=== PATIENT | female | born 1950 | race Caucasian/White ===

== ENCOUNTER 2017-08-31 08:00 | Inpatient (IN) | payer MEDICARE ==
[2017-08-31] MEDS: MAGNESIUM SULFATE/D5W 1 GM/100 ML RTUPB IV SCH ×2 (08:06→08:23)
[2017-08-31] MEDS ORDERED: MAGNESIUM SULFATE/D5W 2 GM/200 ML RTUPB IV ONE (08:07)
--- NOTE | 2017-08-31 08:09 | ER Document Report ---
ED Respiratory Problem - General Stated Complaint: DIFFICULTY BREATHING Time Seen by Provider: 08/31/17 08:07 Notes: 67-year-old female. History of COPD. Was having difficult to breathing yesterday. MS saw patient yesterday as a home visit. Breathing treatments were given and patient refused to come to the hospital. Today, breathing got worse. She was hypoxic on arrival and very somnolent. EMS contemplated intubation but they were able to get CPAP going on her. At the time of arrival by EMS patient was satting in the 70s with heart rates in the 130s. Patient was given volume and started on CPAP. 125 mg of Solu-Medrol was given. Patient was seen immediately on arrival. RSI kit was available but decision was made to continue with CPAP. 2 g of magnesium given immediately. Patient given hour-long breathing treatment with 10 mg of albuterol Atrovent. Patient denies any chest pain, abdominal pain, fever, chills, sweats. Denies any skin lesions. Denies any problems with her HEENT. - HPI Patient complains to provider of: COPD, Short of breath Onset: Yesterday - Related Data Allergies/Adverse Reactions: Penicillins Allergy (Verified 08/31/17 09:09) "cillins" Allergy (Uncoded 08/31/17 09:10) Past Medical History - General Information source: Patient - Social History Smoking Status: Current Every Day Smoker Cigarette use (# per day): Yes Frequency of alcohol use: None Drug Abuse: None Lives with: Alone Family History: Reviewed & Not Pertinent - Past Medical History Cardiac Medical History: Reports: None Pulmonary Medical History: Reports: Hx COPD, Hx Respiratory Failure Endocrine Medical History: Reports: Hx Diabetes Mellitus Type 2 Malignancy Medical History: Reports: None GI Medical History: Reports: None Musculoskeltal Medical History: Reports None Skin Medical History: Reports None Review of Systems - Review of Systems Constitutional: denies: Fever, Malaise, Weakness EENT: denies: Blurred vision, Double vision, Ear pain, Throat pain, Difficulty swallowing, Throat swelling Cardiovascular: Heart racing, Dyspnea. denies: Chest pain, Palpitations, Syncope, Dizziness Respiratory: Cough, Short of breath, Wheezing Gastrointestinal: denies: Abdominal pain, Diarrhea, Nausea, Vomiting Genitourinary: denies: Burning, Dysuria, Discharge Musculoskeletal: denies: Back pain, Gout, Joint pain, Muscle pain Hematologic/Lymphatic: denies: Anemia, Blood clots, Easy bleeding, Easy bruising Neurological/Psychological: denies: Confusion, Depression, Weakness Physical Exam - Vital signs Vitals: Resp Pulse Ox 25 H 94 08/31/17 08:03 08/31/17 08:03 Interpretation: Tachycardic - General General appearance: Alert In distress: Severe - HEENT Head: Normocephalic, Atraumatic Eyes: Normal Pupils: PERRL - Respiratory Respiratory status: Respiratory distress, Labored Chest status: Nontender Breath sounds: Normal Chest palpation: Normal - Cardiovascular Rhythm: Tachycardia Heart sounds: Normal auscultation Murmur: No - Abdominal Inspection: Normal Distension: No distension Bowel sounds: Normal Tenderness: Nontender Organomegaly: No organomegaly - Back Back: Normal, Nontender - Extremities General upper extremity: Normal inspection, Nontender, Normal color, Normal ROM , Normal temperature. No: Edema General lower extremity: Normal inspection, Nontender, Normal color, Normal ROM , Normal temperature, Normal weight bearing. No: Edema, Almas's sign - Neurological Neuro grossly intact: Yes Cognition: Normal Orientation: AAOx4 Adela Coma Scale Eye Opening: Spontaneous Adela Coma Scale Verbal: Oriented Adela Coma Scale Motor: Obeys Commands Adela Coma Scale Total: 15 Speech: Normal Motor strength normal: LUE, RUE, LLE, RLE Sensory: Normal - Psychological Associated symptoms: Normal affect, Normal mood - Skin Skin Temperature: Warm Skin Moisture: Dry Skin Color: Normal Course - Vital Signs Vital signs: Temp Pulse Resp BP Pulse Ox 96.9 F L 17 114/79 97 08/31/17 08:30 08/31/17 09:01 08/31/17 09:01 08/31/17 09:01 Laboratory 08/31/17 08/31/17 08/31/17 08:10 08:10 08:10 WBC 10.8 H RBC 5.10 Hgb 15.5 Hct 45.6 MCV 90 MCH 30.3 MCHC 33.9 RDW 15.1 H Plt Count 350 Seg Neutrophils % 59.6 Lymphocytes % 31.0 Monocytes % 8.4 Eosinophils % 0.6 Basophils % 0.4 Absolute Neutrophils 6.4 Absolute Lymphocytes 3.4 Absolute Monocytes 0.9 Absolute Eosinophils 0.1 Absolute Basophils 0.0 Carbonic Acid HCO3/H2CO3 Ratio ABG pH ABG pCO2 ABG pO2 ABG HCO3 ABG Total CO2 ABG O2 Saturation ABG Base Excess FiO2 Sodium 138.6 Potassium 4.5 Chloride 103 Carbon Dioxide 25 Anion Gap 11 BUN 13 Creatinine 0.48 L Est GFR ( Amer) > 60 Est GFR (Non-Af Amer) > 60 Glucose 161 H Lactic Acid Calcium 9.0 Total Bilirubin 0.6 Direct Bilirubin 0.4 Neonat Total Bilirubin Not Reportable Neonat Direct Bilirubin Not Reportable Neonat Indirect Bili Not Reportable AST 19 ALT 21 Alkaline Phosphatase 74 Troponin I < 0.012 NT-Pro-B Natriuret Pep 89 Total Protein 7.0 Albumin 4.4 08/31/17 08/31/17 08/31/17 08:10 08:10 09:05 WBC RBC Hgb Hct MCV MCH MCHC RDW Plt Count Seg Neutrophils % Lymphocytes % Monocytes % Eosinophils % Basophils % Absolute Neutrophils Absolute Lymphocytes Absolute Monocytes Absolute Eosinophils Absolute Basophils Carbonic Acid 1.63 H HCO3/H2CO3 Ratio 17:1 ABG pH 7.35 ABG pCO2 54.0 H ABG pO2 335.8 H ABG HCO3 29.2 H ABG Total CO2 30.9 H ABG O2 Saturation 99.7 H ABG Base Excess 2.3 FiO2 80% Sodium Potassium Chloride Carbon Dioxide Anion Gap BUN Creatinine Est GFR ( Amer) Est GFR (Non-Af Amer) Glucose Lactic Acid Cancelled 3.0 H Calcium Total Bilirubin Direct Bilirubin Neonat Total Bilirubin Neonat Direct Bilirubin Neonat Indirect Bili AST ALT Alkaline Phosphatase Troponin I NT-Pro-B Natriuret Pep Total Protein Albumin Chest X-Ray 08/31/17 08:08 IMPRESSION: Linear airspace opacities in the lung bases bilaterally, likely representing atelectasis. A superimposed infectious process is not entirely excluded. Patient with respiratory distress on arrival. Continued on CPAP. ABG shows elevated POC2 Doing much better at this time . Levaquin started. Lactate slightly elevated. Will continue to follow that. Consulted the hospitalist, Dr. Waters will admit at this time. - Laboratory Result Diagrams: 08/31/17 08:10 08/31/17 08:10 Laboratory results interpreted by me: 08/31/17 08/31/17 08/31/17 08:10 08:10 08:10 WBC 10.8 H RDW 15.1 H Carbonic Acid ABG pCO2 ABG pO2 ABG HCO3 ABG Total CO2 ABG O2 Saturation Creatinine 0.48 L Glucose 161 H Lactic Acid 3.0 H 08/31/17 09:05 WBC RDW Carbonic Acid 1.63 H ABG pCO2 54.0 H ABG pO2 335.8 H ABG HCO3 29.2 H ABG Total CO2 30.9 H ABG O2 Saturation 99.7 H Creatinine Glucose Lactic Acid - EKG Interpretation by Pa EKG shows normal: Sinus rhythm, Mclean, Intervals, QRS Complexes, ST-T Waves Discharge - Discharge Clinical Impression: COPD exacerbation Respiratory failure Qualifiers: Chronicity: acute on chronic Respiratory failure complication: hypercapnia Qualified Code(s): J96.22 - Acute and chronic respiratory failure with hypercapnia Disposition: ADMITTED OBSERVATION Admitting Provider: Hospitalist - Dr. Mireles Unit Admitted: [facility]
[2017-08-31] MEDS ORDERED: ALBUTEROL SULFATE 0.083% NEB 2.5 MG/3 ML AMPUL NEB ONE ×2 (08:10→09:08)
[2017-08-31 08:38] LABS: ABSOLUTE EOSINOPHILS # (AUTO) 0.1 10^3/uL (0.0-0.6); ABSOLUTE LYMPHOCYTES (AUTO) 3.4 10^3/uL (0.5-4.7); ABSOLUTE MONOCYTES (AUTO) 0.9 10^3/uL (0.1-1.4); ABSOLUTE NEUT (AUTO) 6.4 10^3/uL (1.7-8.2); BASOPHILS % (AUTO) 0.4 % (0-2); EOSINOPHILS % (AUTO) 0.6 % (0-6); HEMATOCRIT 45.6 % (36.0-47.0); HEMOGLOBIN 15.5 g/dL (12.0-15.5); MEAN CORPUSCULAR HEMOGLOBIN 30.3 pg (27.0-33.4); MEAN CORPUSCULAR HGB CONC 33.9 g/dL (32.0-36.0); MEAN CORPUSCULAR VOLUME 90 fl (80-97); MONOCYTES % (AUTO) 8.4 % (3-13); PLATELET COUNT 350 10^3/uL (150-450); RED CELL DISTRIBUTION WIDTH 15.1 % (11.5-14.0); SEGMENTED NEUTROPHILS % (AUTO) 59.6 % (42-78); TOTAL CELLS COUNTED % (AUTO) 100 %; WHITE BLOOD COUNT 10.8 10^3/uL (4.0-10.5)
[2017-08-31 08:56] LABS: ALANINE AMINOTRANSFERASE 21 U/L (9-52); ALBUMIN 4.4 g/dL (3.5-5.0); ALKALINE PHOSPHATASE 74 U/L (38-126); ANION GAP 11 (5-19); ASPARTATE AMINO TRANSFERASE 19 U/L (14-36); BILIRUBIN,DIRECT 0.4 mg/dL (0.0-0.4); BILIRUBIN,TOTAL 0.6 mg/dL (0.2-1.3); BLOOD UREA NITROGEN 13 mg/dL (7-20); CARBON DIOXIDE 25 mmol/L (22-30); CHLORIDE 103 mmol/L (98-107); GLUCOSE 161 mg/dL (75-110); POTASSIUM 4.5 mmol/L (3.6-5.0); SODIUM 138.6 mmol/L (137-145)
--- NOTE | 2017-08-31 08:56 | EKG REPORT ---
SEVERITY:- BORDERLINE ECG - SINUS RHYTHM NONSPECIFIC ST-T CHANGES LATERAL LEADS. : Confirmed by: Eric Ness MD 31-Aug-2017 08:56:22
[2017-08-31 09:08] LABS: NT PRO BNP 89 pg/mL (5-900)
[2017-08-31 09:09] LABS: TROPONIN I < 0.012 ng/mL
[2017-08-31 09:11] LABS: ARTERIAL BLOOD BASE EXCESS 2.3 mmol/L; ARTERIAL BLOOD FIO2 80%; ARTERIAL BLOOD H2CO3 1.63 mmol/L (1.05-1.35); ARTERIAL BLOOD HCO3 29.2 mmol/L (20-26); ARTERIAL BLOOD O2 SATURATION 99.7 % (94-98); ARTERIAL BLOOD PH 7.35 (7.35-7.45); ARTERIAL BLOOD PO2 335.8 mmHg (80-100); ARTERIAL BLOOD TOTAL CO2 30.9 mmol/L (21-25)
[2017-08-31] MEDS ORDERED: LEVOFLOXACIN 750 MG/D5W RTU 750 MG/150 ML RTUPB IV ONE (09:18)
--- NOTE | 2017-08-31 09:18 | RADIOLOGY REPORT (SQ) ---
EXAM DESCRIPTION: CHEST SINGLE VIEW COMPLETED DATE/TIME: 08/31/2017 8:42 am REASON FOR STUDY: sob COMPARISON: None. EXAM PARAMETERS: NUMBER OF VIEWS: One view. TECHNIQUE: Single frontal radiographic view of the chest acquired. RADIATION DOSE: NA LIMITATIONS: Patient positioning/ rotation FINDINGS: LUNGS AND PLEURA: There are some linear airspace opacities in the lung bases bilaterally, likely atelectasis. MEDIASTINUM AND HILAR STRUCTURES: The mediastinum appears wide, however this is likely due to rotatio n of the. HEART AND VASCULAR STRUCTURES: Heart normal in size. Normal vasculature. BONES: No acute findings. HARDWARE: None in the chest. OTHER: No other significant finding. IMPRESSION: Linear airspace opacities in the lung bases bilaterally, likely representing atelectasis . A superimposed infectious process is not entirely excluded. TECHNICAL DOCUMENTATION: JOB ID: [id number] [employer]- All Rights Reserved Reading location - IP/workstation name: [email or web address]
[2017-08-31] MEDS ORDERED: OXYCODONE-ACETAMINOPHEN 5-325 MG TABLET PO PRN (11:07)
[2017-08-31] MEDS ORDERED: MAG HYDROX/AL HYDROX/SIMETH SUSP 30 ML UDCUP PO PRN (11:07)
[2017-08-31] MEDS ORDERED: ACETAMINOPHEN 325 MG TABLET PO PRN (11:07)
[2017-08-31] MEDS ORDERED: PROMETHAZINE HCL 25 MG TABLET PO PRN (11:07)
[2017-08-31] MEDS ORDERED: (PENDING PHARMACY ID) (Tiotropium Bromide [Spiriva Respimat] 2 PUFF) IH SCH (11:30)
[2017-08-31] MEDS ORDERED: (PENDING PHARMACY ID) (Mometasone/Formoterol [Dulera 200 Mcg/5 Mcg Inhaler] 2 PUFF) IH SCH ×2 (11:30→18:00)
[2017-08-31] MEDS ORDERED: GLUCAGON,HUMAN RECOMB 1 MG INJ IM PRN (11:49)
[2017-08-31] MEDS ORDERED: DEXTROSE 40% GEL 15 GM TUBE PO PRN ×2 (11:49)
[2017-08-31] MEDS ORDERED: DEXTROSE 50%-WATER 25 GM/50 ML DISP.SYRIN IV PRN ×2 (11:49)
--- NOTE | 2017-08-31 11:49 | PDOC H&P ---
History of Present Illness Admission Date/PCP: 08/31/17 09:59 PCP equals Jeffery Monsalve; section forest fire warden equals Marquise Batista History of Present Illness: BRUCE GALAN is a 67 year old female with underlying COPD and obstructive sleep apnea. 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 The patient states that she has been doing poorly since April. In April she did receive the flu shot. Shortly thereafter she was diagnosed with a sinus infection followed by an ear infection then a recurrent sinus infection which led to bronchitis. She has been treated with several rounds of antibiotics to include Levaquin and azithromycin. She is also had several courses of prednisone. The patient has known COPD. She is prescribed home oxygen. She has a home concentrator and she is supposed to wear ambulatory oxygen but she does not use portable oxygen at this time because she feels that the tank is too heavy for her to carry with her doing errands. Over the last 2 weeks she has had increasing chest pressure and increasing dyspnea. She did call her section forest fire warden and she was supposed to turn in a sputum sample but she was unable to get to [place] [facility]. Her symptoms this morning got severe and EMS was called. She was obtunded. There was an attempt to intubate the patient but this failed. Therefore, they placed the patient on BiPAP. By the time she got into the emergency department she was awake but sleepy and somnolent. She is now awake and conversant and able to give a full history. When she did call her section forest fire warden's office earlier this week she was given a prescription for oral prednisone. Unfortunately, she still continues to smoke. The patient also has a history of spontaneous pneumothorax of the right lung. She also has a nodule on the right lung which is being monitored by Dr. Batista. This was first identified in April 2017. Past Medical History Cardiac Medical History: Reports: None, Hypertension Pulmonary Medical History: Reports: Chronic Obstructive Pulmonary Disease (COPD) , Respiratory Failure Endocrine Medical History: Reports: Diabetes Mellitus Type 2 Malignancy Medical History: Reports: Other - Cancer of the epiglottis GI Medical History: Reports: None Musculoskeltal Medical History: Reports: None Skin Medical History: Reports: None Psychiatric Medical History: Reports: Depression Past Surgical History Past Surgical History: Reports: Appendectomy, Thyroidectomy, Other - Right- sided chest tube Social History Lives with: Alone Smoking Status: Current Every Day Smoker Frequency of Alcohol Use: None Hx Recreational Drug Use: No Drugs: None Hx Prescription Drug Abuse: No - Advance Directive Resuscitation Status: Full Code Surrogate healthcare decision maker:: The patient requests that her brother, Flynn Hernandez be her surrogate decision maker. He can be reached at [phone]. Family History Family History: Reviewed & Not Pertinent, Other - The patient's mother of cancer at age 83. She is not sure what type of cancer she had. One sister has epilepsy. She had one brother age 50 of a myocardial infarction. Parental Family History Reviewed: Yes Children Family History Reviewed: Yes Sibling(s) Family History Reviewed.: Yes Medication/Allergy Home Medications: Albuterol Sulfate [Ventolin Hfa] 2 puff IH Q4HP PRN 08/31/17 Cetirizine HCl [Zyrtec 10 mg Tablet] 10 mg PO DAILY 08/31/17 Citalopram Hydrobromide [Celexa 10 mg Tablet] 10 mg PO DAILY 08/31/17 Ezetimibe [Ezetimibe] 10 mg PO DAILY 08/31/17 Hydrochlorothiazide [Hydrodiuril 25 mg Tablet] 25 mg PO DAILY 08/31/17 Levothyroxine Sodium [Synthroid 0.05 mg Tablet] 0.05 mg PO Q6AM 08/31/17 Mometasone/Formoterol [Dulera 200 Mcg/5 Mcg Inhaler] 2 puff IH BID 08/31/17 Roflumilast [Daliresp 500 mcg Tablet] 500 mcg PO DAILY 08/31/17 Tiotropium [place] [Spiriva Respimat] 2 puff IH DAILY 08/31/17 Allergies/Adverse Reactions: Penicillins Allergy (Verified 08/31/17 09:09) "cillins" Allergy (Uncoded 08/31/17 09:10) Review of Systems Constitutional: ABSENT: as per HPI, anorexia, chills, fatigue, fever(s), headache(s), night sweats, weakness, weight gain, weight loss, other Eyes: ABSENT: as per HPI, visual disturbances, other Ears: ABSENT: as per HPI, hearing changes, other Nose, Mouth, and Throat: ABSENT: as per HPI, headache(s), mouth pain, sore throat, vertigo, other Breasts: ABSENT: as per HPI, other Cardiovascular: ABSENT: as per HPI, chest pain, dyspnea on exertion, edema, orthropnea, palpitations, other Respiratory: PRESENT: as per HPI Gastrointestinal: PRESENT: diarrhea Genitourinary: ABSENT: as per HPI, difficulty urinating, dysuria, hematuria, nocturia, other Musculoskeletal: ABSENT: as per HPI, back pain, deformity, joint swelling, muscle weakness, other Integumentary: ABSENT: as per HPI, diaphoresis, erythema, lesions, pruritus, rash, wounds, other Neurological: PRESENT: other - Cramping of hands and toes. Psychiatric: PRESENT: anxiety, depression Endocrine: ABSENT: as per HPI, cold intolerance, flushing, heat intolerance, menstrual abnormalities, polydipsia, polyphagia, polyuria, other Hematologic/Lymphatic: ABSENT: as per HPI, easy bleeding, easy bruising, lymphadenopathy, other Allergic/Immunologic: ABSENT: as per HPI, seasonal rhinorrhea, other Physical Exam Vital Signs: Temp Pulse Resp BP Pulse Ox 96.9 F L 17 114/79 97 08/31/17 08:30 08/31/17 09:01 08/31/17 09:01 08/31/17 09:01 Additional comments: The patient is a morbidly obese white female. She does not appear to be her stated age. When I saw the patient she was awake and oriented. She could give a full and complete medical history. Her facial appearance is unremarkable. Cranial nerves II through XII are intact. She did have a BiPAP mask on but from what I can see of her oropharynx she does not appear to have any severe dental caries. The patient's lungs are severely diminished throughout. Some rales and rhonchi are noted only in the posterior lung liu one third the way up. Her cardiac exam is extremely distant but appears to be regular. I did not appreciate any murmurs, gallops or rubs. The abdomen is obese but soft. Bowel sounds are present. She does not have guarding or rebound and there are no hernias or masses noted. The lower extremities are warm to touch without edema. The skin is warm, dry and intact. She does have some patches of erythema. She also has some purpura and some bruising. Apparently, she has been having an itchy skin rash that started about 10 days ago. Results Impressions: Chest X-Ray 08/31/17 08:08 IMPRESSION: Linear airspace opacities in the lung bases bilaterally, likely representing atelectasis. A superimposed infectious process is not entirely excluded. Assessment & Plan - Diagnosis (1) Respiratory failure Qualifiers: Chronicity: acute on chronic Respiratory failure complication: hypercapnia Qualified Code(s): J96.22 - Acute and chronic respiratory failure with hypercapnia Is this a current diagnosis for this admission?: Yes Plan: The patient presents with acute hypercarbic respiratory failure associated with hypoxic respiratory failure. Currently, she is being treated with noninvasive ventilation. She appears to be improving rapidly. I will place her on IMCU status. We will wean her from BiPAP to supplemental oxygen. She will continue BiPAP at night for obstructive sleep apnea. She can use her own machine. (2) COPD exacerbation Is this a current diagnosis for this admission?: Yes Plan: The patient will be treated with systemic corticosteroids, antibiotics and bronchodilators. (3) Tobacco dependency Is this a current diagnosis for this admission?: Yes Plan: The patient has been counseled to quit smoking. (4) Depression Is this a current diagnosis for this admission?: Yes Plan: The patient admits to an underlying depression. She is quite tearful today. She states that she really was scared when she came into the hospital this time. Also, I think that the steroids may be aggravating her underlying depression. Continue citalopram. (5) Diabetes type 2, controlled Is this a current diagnosis for this admission?: Yes Plan: Notes reflect diabetes type 2. I will have fingersticks checked. Patient did not tell me that she has diabetes and she is not on any home diabetes regimen. (6) Obstructive sleep apnea Is this a current diagnosis for this admission?: Yes Plan: Continue home CPAP - Time Time Spent: 50 to 70 Minutes - Inpatient Certification Medical Necessity: Failure to Improve With Outpatient Therapy, Significant Comorbidiites Make Outpatient Treatment Too Risky, Need Close Monitoring Due to Risk of Patient Decompensation, Need for Nebulizer Therapy and Monitoring of Response, Need for IV Antibiotics, Risk of Complication if Not Cared For in Hospital
[2017-08-31] MEDS ORDERED: ALBUTEROL SULFATE 0.083% NEB 2.5 MG/3 ML AMPUL NEB PRN (12:30)
[2017-08-31 13:36] LABS: A TYPE INFLUENZA AG NEGATIVE (NEGATIVE); B INFLUENZA AG NEGATIVE (NEGATIVE)
[2017-08-31] MEDS ORDERED: LEVOTHYROXINE SODIUM 0.05 MG TABLET PO ONE (14:00)
[2017-08-31] MEDS ORDERED: HYDROCHLOROTHIAZIDE 25 MG TABLET PO ONE (14:00)
[2017-08-31] MEDS: ALBUTEROL SULFATE 0.083% NEB 2.5 MG/3 ML AMPUL NEB SCH ×2 (14:19→19:52)
[2017-08-31] MEDS: METHYLPREDNISOLONE INJ 125 MG/2 ML SDV IV SCH ×2 (14:55→21:29)
[2017-08-31] MEDS: 1/2 NORMAL SALINE 1,000 ML IV PRN (14:55)
[2017-08-31] MEDS ORDERED: ENOXAPARIN SODIUM INJ 40 MG/0.4 ML DISP.SYRIN SUBCUT ONE (15:00)
[2017-08-31] MEDS: ALPRAZOLAM 0.5 MG TABLET PO PRN (17:18)
[2017-08-31] MEDS: FAMOTIDINE 20 MG TABLET PO SCH (21:29)
[2017-09-01] MEDS: ALBUTEROL SULFATE 0.083% NEB 2.5 MG/3 ML AMPUL NEB SCH ×4 (02:00→19:49)
[2017-09-01] MEDS: METHYLPREDNISOLONE INJ 125 MG/2 ML SDV IV SCH ×2 (05:38→14:13)
[2017-09-01] MEDS: LEVOTHYROXINE SODIUM 0.05 MG TABLET PO SCH (05:38)
[2017-09-01] MEDS: 1/2 NORMAL SALINE 1,000 ML IV PRN (05:43)
[2017-09-01 06:18] LABS: HEMATOCRIT 43.2 % (36.0-47.0); HEMOGLOBIN 14.7 g/dL (12.0-15.5); MEAN CORPUSCULAR HEMOGLOBIN 30.5 pg (27.0-33.4); MEAN CORPUSCULAR VOLUME 90 fl (80-97); PLATELET COUNT 317 10^3/uL (150-450); RED BLOOD COUNT 4.82 10^6/uL (3.72-5.28); RED CELL DISTRIBUTION WIDTH 14.7 % (11.5-14.0); WHITE BLOOD COUNT 8.8 10^3/uL (4.0-10.5)
[2017-09-01 06:30] LABS: ANION GAP 10 (5-19); BLOOD UREA NITROGEN 15 mg/dL (7-20); CALCIUM 9.6 mg/dL (8.4-10.2); CARBON DIOXIDE 29 mmol/L (22-30); CHLORIDE 101 mmol/L (98-107); GLUCOSE 131 mg/dL (75-110); POTASSIUM 4.4 mmol/L (3.6-5.0)
[2017-09-01 07:41] LABS: ARTERIAL BLOOD BASE EXCESS 5.6 mmol/L; ARTERIAL BLOOD H2CO3 1.46 mmol/L (1.05-1.35); ARTERIAL BLOOD HCO3 31.2 mmol/L (20-26); ARTERIAL BLOOD O2 SATURATION 95.2 % (94-98); ARTERIAL BLOOD PCO2 48.6 mmHg (35-45); ARTERIAL BLOOD PH 7.43 (7.35-7.45); ARTERIAL BLOOD PO2 74.7 mmHg (80-100); ARTERIAL BLOOD TOTAL CO2 32.7 mmol/L (21-25)
[2017-09-01 07:45] LABS: ARTERIAL BLOOD FIO2 2.5L
[2017-09-01] MEDS ORDERED: (PENDING PHARMACY ID) (Roflumilast [Daliresp 500 Mcg Tablet] 500 MCG) PO SCH (10:00)
[2017-09-01] MEDS ORDERED: (PENDING PHARMACY ID) (Tiotropium Bromide [Spiriva Respimat] 2 PUFF) IH SCH (10:00)
[2017-09-01] MEDS ORDERED: (PENDING PHARMACY ID) (Citalopram Hydrobromide [Celexa 10 Mg Tablet] 10 MG) PO SCH (10:00)
[2017-09-01] MEDS: CETIRIZINE 10 MG TABLET PO SCH (10:10)
[2017-09-01] MEDS: ROFLUMILAST 500 MCG TABLET PO SCH (10:10)
[2017-09-01] MEDS: CITALOPRAM HYDROBROMIDE 20 MG TABLET PO SCH (10:10)
[2017-09-01] MEDS: FAMOTIDINE 20 MG TABLET PO SCH ×2 (10:11→21:23)
[2017-09-01] MEDS: HYDROCHLOROTHIAZIDE 25 MG TABLET PO SCH (10:11)
[2017-09-01] MEDS: LEVOFLOXACIN 750 MG/D5W RTU 750 MG/150 ML RTUPB IV SCH (10:12)
[2017-09-01] MEDS: EZETIMIBE 10 MG TABLET PO SCH (10:12)
[2017-09-01] MEDS: ENOXAPARIN SODIUM INJ 40 MG/0.4 ML DISP.SYRIN SUBCUT SCH (10:13)
[2017-09-01] MEDS ORDERED: GUAIFENESIN 600 MG TABLET.SA PO ONE (12:00)
[2017-09-01] MEDS: ALPRAZOLAM 0.5 MG TABLET PO PRN (14:12)
--- NOTE | 2017-09-01 15:09 | PDOC PROGRESS REPORT ---
Subjective Progress Note for:: 09/01/17 Subjective:: The patient is a 67-year-old female who has oxygen dependent COPD, obstructive sleep apnea and probably pulmonary hypertension. She presents with acute on chronic hypercarbic and hypoxic respiratory failure. She failed outpatient therapy with oral prednisone. Today, she states that she is feeling much better than yesterday. Yesterday, she was almost intubated by EMS but did come around after being placed on BiPAP. Reason For Visit: ACUTE HYPERCARBIC RF WITH COPD EXACERBATION Physical Exam Vital Signs: Temp Pulse Resp BP Pulse Ox 98.3 F 115 H 22 H 108/61 96 09/01/17 12:29 09/01/17 12:29 09/01/17 12:29 09/01/17 12:29 09/01/17 12:29 Intake & Output 08/31/17 09/01/17 09/02/17 06:59 06:59 06:59 Intake Total 1462 437 Balance 1462 437 Weight 77.6 kg Additional comments: The patient was sitting up to a chair today. She appears to be much more relaxed. She is able to speak in full sentences today. Her cognition and mentation are normal. Her lungs show better air movement. She does have end expiratory wheezing. She also has some crackles in the bases posteriorly. Her cardiac exam is distant but regular without murmurs, gallops or rubs. The abdomen is obese but soft. Bowel sounds are present in the lower quadrants. She does not have guarding rebound noted and there are no hernias or masses present. The lower extremities do not demonstrate any edema. The skin is warm , dry and intact without lesions or rashes. Results Laboratory Results: 09/01/17 05:33 09/01/17 05:33 09/01/17 09/01/17 09/01/17 05:33 05:33 07:25 WBC 8.8 RBC 4.82 Hgb 14.7 Hct 43.2 MCV 90 MCH 30.5 MCHC 34.0 RDW 14.7 H Plt Count 317 Carbonic Acid 1.46 H HCO3/H2CO3 Ratio 21:1 ABG pH 7.43 ABG pCO2 48.6 H ABG pO2 74.7 L ABG HCO3 31.2 H ABG O2 Saturation 95.2 ABG Base Excess 5.6 FiO2 2.5L Sodium 140.0 Potassium 4.4 Chloride 101 Carbon Dioxide 29 Anion Gap 10 BUN 15 Creatinine 0.49 L Est GFR ( Amer) > 60 Est GFR (Non-Af Amer) > 60 Glucose 131 H Calcium 9.6 Magnesium 2.3 Impressions: Chest X-Ray 08/31/17 08:08 IMPRESSION: Linear airspace opacities in the lung bases bilaterally, likely representing atelectasis. A superimposed infectious process is not entirely excluded. Assessment & Plan - Diagnosis (1) Respiratory failure Qualifiers: Chronicity: acute on chronic Respiratory failure complication: hypercapnia Qualified Code(s): J96.22 - Acute and chronic respiratory failure with hypercapnia Is this a current diagnosis for this admission?: Yes Plan: The patient presents with acute hypercarbic respiratory failure associated with hypoxic respiratory failure. She improved overnight substantially. We will continue supplemental oxygen during the day. She will use her own CPAP machine at night for obstructive sleep apnea. Today, I am going to continue intravenous medications. (2) COPD exacerbation Is this a current diagnosis for this admission?: Yes Plan: The patient will be treated with systemic corticosteroids, antibiotics and bronchodilators. Today, I will only slightly decreased the dose of steroids. (3) Tobacco dependency Is this a current diagnosis for this admission?: Yes Plan: The patient has been counseled to quit smoking. (4) Depression Is this a current diagnosis for this admission?: Yes Plan: Patient was tearful yesterday. This was likely because she was so afraid because she was almost intubated. She was really shaken up. In addition, I think the steroids are playing a role. We will continue her outpatient depression medications. (5) Diabetes type 2, controlled Is this a current diagnosis for this admission?: Yes Plan: Notes reflect diabetes type 2. I will have fingersticks checked. Patient did not tell me that she has diabetes and she is not on any home diabetes regimen. (6) Obstructive sleep apnea Is this a current diagnosis for this admission?: Yes Plan: Continue home CPAP - Time Time Spent with patient: 25-34 minutes - Inpatient Certification Medical Necessity: Failure to Improve With Outpatient Therapy, Significant Comorbidiites Make Outpatient Treatment Too Risky, Need Close Monitoring Due to Risk of Patient Decompensation, Need For Continuous Telemetry Monitoring, Need for Nebulizer Therapy and Monitoring of Response, Need for IV Antibiotics
[2017-09-01] MEDS ORDERED: METHYLPREDNISOLONE INJ 125 MG/2 ML SDV IV SCH (15:11)
[2017-09-01] MEDS: GUAIFENESIN 600 MG TABLET.SA PO SCH (21:23)
[2017-09-01] MEDS: METHYLPREDNISOLONE INJ 40 MG/1 ML SDV IV SCH (21:23)
[2017-09-01] MEDS: INSULIN LISPRO 100 UNIT/ML 3 ML VIAL SUBCUT PRN (23:17)
[2017-09-02] MEDS: ALBUTEROL SULFATE 0.083% NEB 2.5 MG/3 ML AMPUL NEB SCH ×4 (02:02→19:58)
[2017-09-02 04:43] LABS: HEMATOCRIT 42.7 % (36.0-47.0); HEMOGLOBIN 14.3 g/dL (12.0-15.5); MEAN CORPUSCULAR HEMOGLOBIN 30.1 pg (27.0-33.4); MEAN CORPUSCULAR HGB CONC 33.4 g/dL (32.0-36.0); MEAN CORPUSCULAR VOLUME 90 fl (80-97); PLATELET COUNT 316 10^3/uL (150-450); RED BLOOD COUNT 4.75 10^6/uL (3.72-5.28); RED CELL DISTRIBUTION WIDTH 14.7 % (11.5-14.0); WHITE BLOOD COUNT 11.3 10^3/uL (4.0-10.5)
[2017-09-02 05:00] LABS: ANION GAP 12 (5-19); BLOOD UREA NITROGEN 19 mg/dL (7-20); CALCIUM 8.7 mg/dL (8.4-10.2); CARBON DIOXIDE 29 mmol/L (22-30); CHLORIDE 97 mmol/L (98-107); GLUCOSE 117 mg/dL (75-110); POTASSIUM 4.1 mmol/L (3.6-5.0); SODIUM 138.2 mmol/L (137-145)
[2017-09-02] MEDS: LEVOTHYROXINE SODIUM 0.05 MG TABLET PO SCH (05:59)
[2017-09-02] MEDS: METHYLPREDNISOLONE INJ 40 MG/1 ML SDV IV SCH ×2 (05:59→22:10)
[2017-09-02] MEDS: EZETIMIBE 10 MG TABLET PO SCH (10:13)
[2017-09-02] MEDS: HYDROCHLOROTHIAZIDE 25 MG TABLET PO SCH (10:14)
[2017-09-02] MEDS: CITALOPRAM HYDROBROMIDE 20 MG TABLET PO SCH (10:15)
[2017-09-02] MEDS: ROFLUMILAST 500 MCG TABLET PO SCH (10:15)
[2017-09-02] MEDS: GUAIFENESIN 600 MG TABLET.SA PO SCH ×2 (10:15→22:10)
[2017-09-02] MEDS: FAMOTIDINE 20 MG TABLET PO SCH ×2 (10:16→22:09)
[2017-09-02] MEDS: CETIRIZINE 10 MG TABLET PO SCH (10:16)
[2017-09-02] MEDS: LEVOFLOXACIN 750 MG/D5W RTU 750 MG/150 ML RTUPB IV SCH (10:16)
[2017-09-02] MEDS: ENOXAPARIN SODIUM INJ 40 MG/0.4 ML DISP.SYRIN SUBCUT SCH (10:17)
--- NOTE | 2017-09-02 11:19 | PDOC PROGRESS REPORT ---
Subjective Progress Note for:: 09/02/17 Subjective:: The patient is a 67-year-old female who has oxygen dependent COPD, obstructive sleep apnea and probably pulmonary hypertension. She presents with acute on chronic hypercarbic and hypoxic respiratory failure. She failed outpatient therapy with oral prednisone. Upon arrival by EMS the patient was becoming lethargic. EMS attempted to intubate the patient but was unsuccessful. The patient was therefore placed on noninvasive ventilation. By the time she got to the emergency department she was improving and intubation was not needed. The patient states that this is the scariest thing that has ever happened to her. She is now committed to quitting smoking. Reason For Visit: ACUTE HYPERCARBIC RF WITH COPD EXACERBATION Physical Exam Vital Signs: Temp Pulse Resp BP Pulse Ox 98.3 F 86 18 146/84 H 97 09/02/17 07:03 09/02/17 08:10 09/02/17 08:10 09/02/17 07:03 09/02/17 08:10 Intake & Output 09/01/17 09/02/17 09/03/17 06:59 06:59 06:59 Intake Total 1462 2005 Balance 1462 2005 Weight 77.6 kg 78.9 kg Additional comments: The patient has improved markedly over the last 48 hours. While she is still tachypneic her respiratory rate at rest is only 14. When she first came in her respiratory rate at rest was in the high 20s. She is now easily able to speak in full sentences. She also told me that she slept well last night and this was the first time she has slept well in many weeks. Her facial appearance is unremarkable. Her lungs demonstrate diffuse end expiratory wheezing. This is both anteriorly and posteriorly. Her cardiac exam is distant but regular. I do not appreciate any murmurs, gallops or rubs. The abdomen is obese but soft. Bowel sounds are present in the lower quadrants. She does not have guarding or rebound noted and there are no hernias or masses present. The lower extremities are unremarkable. The skin has some purpura but is otherwise unremarkable. Results Laboratory Results: 09/02/17 04:18 09/02/17 04:18 09/02/17 09/02/17 04:18 04:18 WBC 11.3 H RBC 4.75 Hgb 14.3 Hct 42.7 MCV 90 MCH 30.1 MCHC 33.4 RDW 14.7 H Plt Count 316 Sodium 138.2 Potassium 4.1 Chloride 97 L Carbon Dioxide 29 Anion Gap 12 BUN 19 Creatinine 0.48 L Est GFR ( Amer) > 60 Est GFR (Non-Af Amer) > 60 Glucose 117 H Calcium 8.7 Magnesium 2.0 Impressions: Chest X-Ray 08/31/17 08:08 IMPRESSION: Linear airspace opacities in the lung bases bilaterally, likely representing atelectasis. A superimposed infectious process is not entirely excluded. Assessment & Plan - Diagnosis (1) Respiratory failure Qualifiers: Chronicity: acute on chronic Respiratory failure complication: hypercapnia Qualified Code(s): J96.22 - Acute and chronic respiratory failure with hypercapnia Is this a current diagnosis for this admission?: Yes Plan: The patient presents with acute hypercarbic respiratory failure associated with hypoxic respiratory failure. She has improved substantially. We will continue supplemental oxygen during the day. She will use her own CPAP machine at night for obstructive sleep apnea. Today, I am going to continue intravenous medications. I have decreased the dose of steroids but I will continue IV today. (2) COPD exacerbation Is this a current diagnosis for this admission?: Yes Plan: The patient will be treated with systemic corticosteroids, antibiotics and bronchodilators. Today, I will only slightly decreased the dose of steroids. The patient is now bringing up sputum. I have ordered a sputum culture. (3) Tobacco dependency Is this a current diagnosis for this admission?: Yes Plan: The patient has been counseled to quit smoking. Has Nicorette gum. I told her that she can chew her Nicorette gum even while she is in the hospital. She would prefer this over a patch. (4) Depression Is this a current diagnosis for this admission?: Yes Plan: The patient has been tearful during this hospitalization. She was very scared about the fact that she was almost placed on a respirator. She is going to make some changes at home. She is going to ask a friend to live with her and she may even move to [place] to be closer to her brother. We will continue her antidepressants while she is here. (5) Diabetes type 2, controlled Is this a current diagnosis for this admission?: Yes Plan: Notes reflect diabetes type 2. I will have fingersticks checked. Patient has borderline diabetes controlled with diet. While here, her fingersticks have been in a good range despite the high doses of steroids. (6) Obstructive sleep apnea Is this a current diagnosis for this admission?: Yes Plan: Continue home CPAP - Time Time Spent with patient: 25-34 minutes - Inpatient Certification Medical Necessity: Failure to Improve With Outpatient Therapy, Significant Comorbidiites Make Outpatient Treatment Too Risky, Need Close Monitoring Due to Risk of Patient Decompensation, Need For Continuous Telemetry Monitoring, Need for Nebulizer Therapy and Monitoring of Response, Need for IV Antibiotics - Plan Summary Plan Summary: The patient has made significant improvements since the first day of admission. I anticipate that discharge can be within 24-48 hours.
[2017-09-03] MEDS: ALBUTEROL SULFATE 0.083% NEB 2.5 MG/3 ML AMPUL NEB SCH ×4 (01:57→22:02)
[2017-09-03] MEDS: LEVOTHYROXINE SODIUM 0.05 MG TABLET PO SCH (05:40)
[2017-09-03 05:59] LABS: HEMATOCRIT 43.6 % (36.0-47.0); HEMOGLOBIN 14.6 g/dL (12.0-15.5); MEAN CORPUSCULAR HEMOGLOBIN 30.2 pg (27.0-33.4); MEAN CORPUSCULAR HGB CONC 33.5 g/dL (32.0-36.0); MEAN CORPUSCULAR VOLUME 90 fl (80-97); PLATELET COUNT 316 10^3/uL (150-450); RED BLOOD COUNT 4.84 10^6/uL (3.72-5.28); RED CELL DISTRIBUTION WIDTH 14.7 % (11.5-14.0); WHITE BLOOD COUNT 9.2 10^3/uL (4.0-10.5)
[2017-09-03 06:21] LABS: ANION GAP 6 (5-19); BLOOD UREA NITROGEN 18 mg/dL (7-20); CARBON DIOXIDE 32 mmol/L (22-30); CHLORIDE 99 mmol/L (98-107); GLUCOSE 145 mg/dL (75-110); POTASSIUM 4.2 mmol/L (3.6-5.0)
--- NOTE | 2017-09-03 09:04 | PDOC PROGRESS REPORT ---
Subjective Progress Note for:: 09/03/17 Subjective:: Patient is seen on rounds. She is resting on the side of the bed eating breakfast. She states her breathing is slowly improving. She continues to have an occasional productive cough. She is continuing to have moderate wheezing. She denies any nausea, abdominal pain or diarrhea. She denies any significant arthralgias or myalgias. Remaining review of systems are negative. Reason For Visit: ACUTE HYPERCARBIC RF WITH COPD EXACERBATION Physical Exam Vital Signs: Temp Pulse Resp BP Pulse Ox 97.7 F 80 20 138/81 H 99 09/03/17 07:14 09/03/17 07:14 09/03/17 07:14 09/03/17 07:14 09/03/17 07:14 Intake & Output 09/02/17 09/03/17 09/04/17 06:59 06:59 06:59 Intake Total 2005 1247 Output Total 3 Balance 2005 1244 Weight 78.9 kg 79.3 kg General appearance: PRESENT: no acute distress, obese, well-developed, well- nourished Head exam: PRESENT: atraumatic, normocephalic Eye exam: PRESENT: conjunctiva pink, EOMI, PERRLA. ABSENT: scleral icterus Ear exam: PRESENT: normal external ear exam Mouth exam: PRESENT: moist, tongue midline Neck exam: ABSENT: carotid bruit, JVD, lymphadenopathy, thyromegaly Respiratory exam: PRESENT: symmetrical, unlabored, wheezes - bilateral expiratory wheezing Cardiovascular exam: PRESENT: RRR. ABSENT: diastolic murmur, rubs, systolic murmur Pulses: PRESENT: normal dorsalis pedis pul Vascular exam: PRESENT: normal capillary refill GI/Abdominal exam: PRESENT: normal bowel sounds, soft. ABSENT: distended, guarding, mass, organolmegaly, rebound, tenderness Rectal exam: PRESENT: deferred Extremities exam: PRESENT: full ROM. ABSENT: calf tenderness, clubbing, pedal edema Musculoskeletal exam: PRESENT: ambulatory, full ROM, normal inspection Neurological exam: PRESENT: alert, awake, oriented to person, oriented to place , oriented to time, oriented to situation, CN II-XII grossly intact. ABSENT: motor sensory deficit Psychiatric exam: PRESENT: appropriate affect, normal mood. ABSENT: homicidal ideation, suicidal ideation Skin exam: PRESENT: dry, intact, warm. ABSENT: cyanosis, rash Results Laboratory Results: 09/03/17 05:24 09/03/17 05:24 09/03/17 09/03/17 05:24 05:24 WBC 9.2 RBC 4.84 Hgb 14.6 Hct 43.6 MCV 90 MCH 30.2 MCHC 33.5 RDW 14.7 H Plt Count 316 Sodium 137.0 Potassium 4.2 Chloride 99 Carbon Dioxide 32 H Anion Gap 6 BUN 18 Creatinine 0.53 Est GFR ( Amer) > 60 Est GFR (Non-Af Amer) > 60 Glucose 145 H Calcium 9.0 Magnesium 2.0 Impressions: Chest X-Ray 08/31/17 08:08 IMPRESSION: Linear airspace opacities in the lung bases bilaterally, likely representing atelectasis. A superimposed infectious process is not entirely excluded. Assessment & Plan - Diagnosis (1) Acute respiratory failure with hypoxia and hypercapnia Is this a current diagnosis for this admission?: Yes Plan: Patient with severe respiratory distress with hypercapnea and hypoxia, improved with NIV, IV steroids, nebulizers and antibiotics (2) COPD exacerbation Is this a current diagnosis for this admission?: Yes Plan: As above. Will continue IV steroids today. Increase activity (3) Depression Qualifiers: Depression Type: dysthymia Qualified Code(s): F34.1 - Dysthymic disorder Is this a current diagnosis for this admission?: Yes Plan: Continue home medications (4) Diabetes type 2, controlled Is this a current diagnosis for this admission?: Yes Plan: Continue current medications and sliding scale coverage (5) Obstructive sleep apnea Is this a current diagnosis for this admission?: Yes Plan: CPAP at hs and prn (6) Tobacco dependency Is this a current diagnosis for this admission?: Yes Plan: Nicotine replacement therapy - Time Time Spent with patient: 25-34 minutes Smoking Cessation Education: 3 to 10 minutes Medications reviewed and adjusted accordingly: Yes
[2017-09-03] MEDS: CETIRIZINE 10 MG TABLET PO SCH (09:39)
[2017-09-03] MEDS: FAMOTIDINE 20 MG TABLET PO SCH ×2 (09:39→21:40)
[2017-09-03] MEDS: CITALOPRAM HYDROBROMIDE 20 MG TABLET PO SCH (09:39)
[2017-09-03] MEDS: GUAIFENESIN 600 MG TABLET.SA PO SCH ×2 (09:39→21:40)
[2017-09-03] MEDS: METHYLPREDNISOLONE INJ 40 MG/1 ML SDV IV SCH ×2 (09:40→21:42)
[2017-09-03] MEDS: HYDROCHLOROTHIAZIDE 25 MG TABLET PO SCH (09:40)
[2017-09-03] MEDS: EZETIMIBE 10 MG TABLET PO SCH (09:40)
[2017-09-03] MEDS: ENOXAPARIN SODIUM INJ 40 MG/0.4 ML DISP.SYRIN SUBCUT SCH (09:40)
[2017-09-03] MEDS: ROFLUMILAST 500 MCG TABLET PO SCH (09:40)
[2017-09-03] MEDS: LEVOFLOXACIN 750 MG TABLET PO SCH (09:43)
[2017-09-04] MEDS: ALBUTEROL SULFATE 0.083% NEB 2.5 MG/3 ML AMPUL NEB SCH ×4 (02:35→19:55)
[2017-09-04] MEDS: LEVOTHYROXINE SODIUM 0.05 MG TABLET PO SCH (06:03)
--- NOTE | 2017-09-04 08:44 | PDOC PROGRESS REPORT ---
Subjective Progress Note for:: 09/04/17 Subjective:: Patient is seen on rounds. She is resting on the side of the bed eating breakfast. She states she is feeling much better today. She continues to have an occasional productive cough. Wheezing has mostly resolved. She denies any nausea, abdominal pain or diarrhea. She denies any significant arthralgias or myalgias. Remaining review of systems are negative. Reason For Visit: ACUTE HYPERCARBIC RF WITH COPD EXACERBATION Physical Exam Vital Signs: Temp Pulse Resp BP Pulse Ox 97.9 F 94 18 126/59 H 96 09/04/17 07:57 09/04/17 07:57 09/04/17 07:57 09/04/17 07:57 09/04/17 07:57 Intake & Output 09/03/17 09/04/17 09/05/17 06:59 06:59 06:59 Intake Total 1247 447 Output Total 3 600 Balance 1244 -153 Weight 79.3 kg 79.3 kg General appearance: PRESENT: no acute distress, obese, well-developed, well- nourished Head exam: PRESENT: atraumatic, normocephalic Eye exam: PRESENT: conjunctiva pink, EOMI, PERRLA. ABSENT: scleral icterus Ear exam: PRESENT: normal external ear exam Mouth exam: PRESENT: moist, tongue midline Neck exam: ABSENT: carotid bruit, JVD, lymphadenopathy, thyromegaly Respiratory exam: PRESENT: accessory muscle use, decreased breath sounds, rhonchi, symmetrical, unlabored Cardiovascular exam: PRESENT: RRR. ABSENT: diastolic murmur, rubs, systolic murmur Pulses: PRESENT: normal dorsalis pedis pul Vascular exam: PRESENT: normal capillary refill GI/Abdominal exam: PRESENT: normal bowel sounds, soft. ABSENT: distended, guarding, mass, organolmegaly, rebound, tenderness Rectal exam: PRESENT: deferred Extremities exam: PRESENT: full ROM. ABSENT: calf tenderness, clubbing, pedal edema Musculoskeletal exam: PRESENT: ambulatory, full ROM Neurological exam: PRESENT: alert, awake, oriented to person, oriented to place , oriented to time, oriented to situation, CN II-XII grossly intact. ABSENT: motor sensory deficit Psychiatric exam: PRESENT: appropriate affect, normal mood. ABSENT: homicidal ideation, suicidal ideation Skin exam: PRESENT: dry, intact, warm. ABSENT: cyanosis, rash Results Laboratory Results: 09/03/17 05:24 09/03/17 05:24 Impressions: Chest X-Ray 08/31/17 08:08 IMPRESSION: Linear airspace opacities in the lung bases bilaterally, likely representing atelectasis. A superimposed infectious process is not entirely excluded. Assessment & Plan - Diagnosis (1) Acute respiratory failure with hypoxia and hypercapnia Is this a current diagnosis for this admission?: Yes Plan: Patient with severe respiratory distress with hypercapnea and hypoxia, improved with NIV, IV steroids, nebulizers and antibiotics (2) COPD exacerbation Is this a current diagnosis for this admission?: Yes Plan: As above. Will continue IV steroids today. Increase activity (3) Depression Qualifiers: Depression Type: dysthymia Qualified Code(s): F34.1 - Dysthymic disorder Is this a current diagnosis for this admission?: Yes Plan: Continue home medications (4) Diabetes type 2, controlled Is this a current diagnosis for this admission?: Yes Plan: Continue current medications and sliding scale coverage (5) Obstructive sleep apnea Is this a current diagnosis for this admission?: Yes Plan: CPAP at hs and prn (6) Tobacco dependency Is this a current diagnosis for this admission?: Yes Plan: Nicotine replacement therapy - Time Time Spent with patient: 25-34 minutes Total Critical Time (Minutes): 15 Medications reviewed and adjusted accordingly: Yes Anticipated discharge: Home Within: within 48 hours
[2017-09-04] MEDS: PREDNISONE 20 MG TABLET PO SCH (09:19)
[2017-09-04] MEDS: CETIRIZINE 10 MG TABLET PO SCH (09:20)
[2017-09-04] MEDS: CITALOPRAM HYDROBROMIDE 20 MG TABLET PO SCH (09:20)
[2017-09-04] MEDS: EZETIMIBE 10 MG TABLET PO SCH (09:20)
[2017-09-04] MEDS: HYDROCHLOROTHIAZIDE 25 MG TABLET PO SCH (09:20)
[2017-09-04] MEDS: ENOXAPARIN SODIUM INJ 40 MG/0.4 ML DISP.SYRIN SUBCUT SCH (09:21)
[2017-09-04] MEDS: GUAIFENESIN 600 MG TABLET.SA PO SCH ×2 (09:21→21:55)
[2017-09-04] MEDS: ROFLUMILAST 500 MCG TABLET PO SCH (09:21)
[2017-09-04] MEDS: FAMOTIDINE 20 MG TABLET PO SCH ×2 (09:21→21:55)
[2017-09-04] MEDS: LEVOFLOXACIN 750 MG TABLET PO SCH (09:21)
[2017-09-05] MEDS: ALBUTEROL SULFATE 0.083% NEB 2.5 MG/3 ML AMPUL NEB SCH ×4 (01:48→20:04)
[2017-09-05] MEDS: LEVOTHYROXINE SODIUM 0.05 MG TABLET PO SCH (06:05)
[2017-09-05] MEDS: ENOXAPARIN SODIUM INJ 40 MG/0.4 ML DISP.SYRIN SUBCUT SCH (09:00)
[2017-09-05] MEDS: PREDNISONE 20 MG TABLET PO SCH (09:01)
[2017-09-05] MEDS: LEVOFLOXACIN 750 MG TABLET PO SCH (09:01)
[2017-09-05] MEDS: CITALOPRAM HYDROBROMIDE 20 MG TABLET PO SCH (09:02)
[2017-09-05] MEDS: CETIRIZINE 10 MG TABLET PO SCH (09:03)
[2017-09-05] MEDS: GUAIFENESIN 600 MG TABLET.SA PO SCH ×2 (09:04→21:35)
[2017-09-05] MEDS: ROFLUMILAST 500 MCG TABLET PO SCH (09:04)
[2017-09-05] MEDS: EZETIMIBE 10 MG TABLET PO SCH (09:05)
[2017-09-05] MEDS: FAMOTIDINE 20 MG TABLET PO SCH ×2 (09:05→21:35)
[2017-09-05] MEDS: HYDROCHLOROTHIAZIDE 25 MG TABLET PO SCH (09:06)
--- NOTE | 2017-09-05 14:24 | PDOC PROGRESS REPORT ---
Subjective Progress Note for:: 09/05/17 Subjective:: The patient is resting in her bed. She states that she is beginning to feel better. She is a little frustrated over her respiratory status as she has been having issues since April. She has been on multiple courses of outpatient antibiotics and steroids. She states right now she feels like her breathing is beginning to get back to its baseline although she is still wheezing. She states her wheezing has been her baseline for the past several months. She also states that she is wondering if her heart could be contributing to her respiratory issues. She states that for several months now she has been having episodes of bradycardia with heart rates in the 30s and 40s. She states on one occasion it dropped down into the mid 20s. She states she alternately will have episodes of tachycardia with her heart racing and she gets significantly short of breath during the spells. She denies fever chills. She has had no chest pain. She does have the above-mentioned heart palpitations. She has had no nausea, vomiting or diarrhea. No abdominal pain. No urinary complaints. Reason For Visit: ACUTE HYPERCARBIC RF WITH COPD EXACERBATION Physical Exam Vital Signs: Temp Pulse Resp BP Pulse Ox 97.7 F 110 H 18 120/71 95 09/05/17 11:27 09/05/17 11:27 09/05/17 11:27 09/05/17 11:27 09/05/17 11:27 Intake & Output 09/04/17 09/05/17 09/06/17 06:59 06:59 06:59 Intake Total 447 1599 Output Total 600 Balance -153 1599 Weight 79.3 kg 77 kg General appearance: PRESENT: no acute distress, well-developed, well-nourished Head exam: PRESENT: atraumatic, normocephalic Mouth exam: PRESENT: moist, tongue midline Respiratory exam: PRESENT: decreased breath sounds, wheezes - She has end expiratory wheezing throughout all lung liu. Cardiovascular exam: PRESENT: RRR. ABSENT: diastolic murmur, rubs, systolic murmur GI/Abdominal exam: PRESENT: normal bowel sounds, soft. ABSENT: distended, guarding, mass, organolmegaly, rebound, tenderness Extremities exam: PRESENT: full ROM. ABSENT: calf tenderness, clubbing, pedal edema Musculoskeletal exam: PRESENT: ambulatory Neurological exam: PRESENT: alert, awake, oriented to person, oriented to place , oriented to time, oriented to situation, CN II-XII grossly intact. ABSENT: motor sensory deficit Psychiatric exam: PRESENT: appropriate affect, normal mood. ABSENT: homicidal ideation, suicidal ideation Skin exam: PRESENT: dry, intact, warm. ABSENT: cyanosis, rash Results Laboratory Results: 09/03/17 05:24 09/03/17 05:24 09/03/17 16:08 Sputum Gram Stain - Final 09/03/17 16:08 Sputum Sputum Culture - Final Impressions: Chest X-Ray 08/31/17 08:08 IMPRESSION: Linear airspace opacities in the lung bases bilaterally, likely representing atelectasis. A superimposed infectious process is not entirely excluded. Assessment & Plan - Diagnosis (1) Acute respiratory failure with hypoxia and hypercapnia Is this a current diagnosis for this admission?: Yes Plan: The patient is requiring 2-1/2 L of oxygen. She has oxygen at home and has been wearing it more frequently but usually does not have to wear it. Her respiratory failure is likely due to a COPD exacerbation. I cannot rule out some tachyarrhythmias contributing as well. She will continue breathing treatments and therapy as outlined below. (2) COPD exacerbation Is this a current diagnosis for this admission?: Yes Plan: Improving. She has been transitioned to p.o. prednisone at this point. (3) Arrhythmia Is this a current diagnosis for this admission?: Yes Plan: From what the patient is describing it almost sounds as if she has tachybradycardia syndrome. We will keep her on remote monitor. I do believe she would benefit from wearing an event monitor as an outpatient. We will have her primary care provider set this up. I do not believe we need to work this appear in the hospital. Currently she is stable (4) Obstructive sleep apnea Is this a current diagnosis for this admission?: Yes Plan: Continue CPAP at night (5) Tobacco dependency Is this a current diagnosis for this admission?: Yes Plan: Certainly it would be in her best interest to quit smoking. (6) Diabetes type 2, controlled Is this a current diagnosis for this admission?: Yes Plan: Continue sliding-scale coverage here in the hospital. (7) Full code status Is this a current diagnosis for this admission?: Yes - Time Time Spent with patient: 25-34 minutes - Inpatient Certification Medical Necessity: Other - At this point we are going to try to wean the patient off of her oxygen today. Hopefully she can be discharged tomorrow with close outpatient follow-up. I do believe she would benefit from cardiology evaluation.
[2017-09-05] MEDS: INSULIN LISPRO 100 UNIT/ML 3 ML VIAL SUBCUT PRN (17:44)
[2017-09-06] MEDS: ALBUTEROL SULFATE 0.083% NEB 2.5 MG/3 ML AMPUL NEB SCH ×3 (01:42→13:57)
[2017-09-06 04:43] LABS: HEMATOCRIT 46.6 % (36.0-47.0); HEMOGLOBIN 15.6 g/dL (12.0-15.5); MEAN CORPUSCULAR HEMOGLOBIN 29.8 pg (27.0-33.4); MEAN CORPUSCULAR HGB CONC 33.4 g/dL (32.0-36.0); MEAN CORPUSCULAR VOLUME 89 fl (80-97); PLATELET COUNT 313 10^3/uL (150-450); RED BLOOD COUNT 5.22 10^6/uL (3.72-5.28); RED CELL DISTRIBUTION WIDTH 14.6 % (11.5-14.0); WHITE BLOOD COUNT 14.4 10^3/uL (4.0-10.5)
[2017-09-06 05:09] LABS: ANION GAP 8 (5-19); BLOOD UREA NITROGEN 16 mg/dL (7-20); CALCIUM 9.5 mg/dL (8.4-10.2); CARBON DIOXIDE 32 mmol/L (22-30); CHLORIDE 97 mmol/L (98-107); GLUCOSE 95 mg/dL (75-110); POTASSIUM 3.7 mmol/L (3.6-5.0); SODIUM 137.4 mmol/L (137-145)
[2017-09-06] MEDS: LEVOTHYROXINE SODIUM 0.05 MG TABLET PO SCH (05:37)
[2017-09-06 05:49] LABS: ABSOLUTE LYMPHOCYTES# (MANUAL) 3.9 10^3/uL (0.5-4.7); ABSOLUTE MONOCYTES # (MANUAL) 1.2 10^3/uL (0.1-1.4); ABSOLUTE NEUTROPHILS# (MANUAL) 8.9 10^3/uL (1.7-8.2); BAND NEUTROPHILS % (MANUAL) 1 % (3-5); BASOPHILS % (MANUAL) 0 % (0-2); EOSINOPHILS % (MANUAL) 3 % (0-6); LYMPHOCYTES % (MANUAL) 27 % (13-45); MONOCYTES % (MANUAL) 8 % (3-13); SEGMENTED NEUTROPHILS % (MAN) 61 % (42-78); TOTAL CELLS COUNTED 100
[2017-09-06 05:50] LABS: ANISOCYTOSIS SLIGHT; OVALOCYTES 1+; POIKILOCYTOSIS SLIGHT; TOXIC GRANULATION SLIGHT
[2017-09-06 05:51] LABS: PLATELET COMMENT ADEQUATE; PLATELET LARGE PRESENT
[2017-09-06] MEDS: LEVOFLOXACIN 750 MG TABLET PO SCH (09:50)
[2017-09-06] MEDS: CITALOPRAM HYDROBROMIDE 20 MG TABLET PO SCH (09:51)
[2017-09-06] MEDS: HYDROCHLOROTHIAZIDE 25 MG TABLET PO SCH (09:52)
[2017-09-06] MEDS: PREDNISONE 20 MG TABLET PO SCH (09:52)
[2017-09-06] MEDS: FAMOTIDINE 20 MG TABLET PO SCH (09:53)
[2017-09-06] MEDS: EZETIMIBE 10 MG TABLET PO SCH (09:53)
[2017-09-06] MEDS: CETIRIZINE 10 MG TABLET PO SCH (09:53)
[2017-09-06] MEDS: GUAIFENESIN 600 MG TABLET.SA PO SCH (09:54)
[2017-09-06] MEDS: ENOXAPARIN SODIUM INJ 40 MG/0.4 ML DISP.SYRIN SUBCUT SCH (09:54)
[2017-09-06] MEDS: ROFLUMILAST 500 MCG TABLET PO SCH (09:54)
--- NOTE | 2017-09-06 09:56 | PDOC DISCHARGE SUMMARY ---
General - Admit/Disc Date/PCP Admission Date/Primary Care Provider: 08/31/17 09:59 hardener helper: Andrew Monsalve PA-C Restaurant Hospitality Manager: Dr. Marquise Batista Discharge Date: 09/06/17 - Discharge Diagnosis (1) Acute respiratory failure with hypoxia and hypercapnia Is this a current diagnosis for this admission?: Yes Summary: The patient has been weaned off of her oxygen at this point. She still needs it intermittently. She has oxygen that she uses at home intermittently as well. She seems to be back to her baseline. Her respiratory failure is due to a COPD exacerbation, probable acute bronchitis and possibly due to cardiac issues which will need to be worked up as an outpatient. (2) COPD exacerbation Is this a current diagnosis for this admission?: Yes Summary: With probable acute bronchitis. The patient will complete a long steroid taper. She will follow-up with her video production specialist as an outpatient in 2-3 weeks. She will complete a course of p.o. Levaquin. She will resume her usual bronchodilators at home. (3) Arrhythmia Is this a current diagnosis for this admission?: Yes Summary: The patient has reported a racing heart as well as episodes of bradycardia. She remained on telemetry monitoring here in the hospital and she does have a fairly persistent sinus tachycardia with rates from the 1 teens up to 130. She had no episodes of bradycardia. She reports an episode of bradycardia where her heart rate got down into the 20s. She also reports that often times she will notice that it is in the mid to upper 30s to low 40s quite often. 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 The patient would like to see a paper sorter and counter in the [facility], so I did not start a cardiac workup here in the [facility] area. I would recommend a referral to the [facility] as an outpatient and would recommend a [employer] monitor or some sort of outpatient monitoring to be set up by her primary care provider at her follow-up appointment. [facility] has EP cardiologists available. (4) Obstructive sleep apnea Is this a current diagnosis for this admission?: Yes Summary: Continue CPAP at night (5) Tobacco dependency Is this a current diagnosis for this admission?: Yes Summary: Certainly would be in her best interest to quit smoking (6) Diabetes type 2, controlled Is this a current diagnosis for this admission?: Yes Summary: Stable. She received sliding scale coverage here in the hospital (7) Full code status Is this a current diagnosis for this admission?: Yes - Additional Information Resuscitation Status: Full Code Discharge Diet: Regular Discharge Activity: Activity As Tolerated, Balance Activity w/Rest, Slowly Increase Activity Prescriptions: Alprazolam [Xanax 0.5 mg Tablet] 0.5 mg PO TIDP PRN #20 tablet PRN Reason: Guaifenesin [Mucinex Sr 600 mg Tablet.sa] 1,200 mg PO Q12 #60 tablet.sa Levofloxacin [Levaquin 750 mg Tablet] 750 mg PO DAILY #4 tablet Prednisone 10 mg PO DAILY #63 tablet Home Medications: Albuterol Sulfate [Ventolin Hfa] 2 puff IH Q4HP PRN 08/31/17 Cetirizine HCl [Zyrtec 10 mg Tablet] 10 mg PO DAILY 08/31/17 Citalopram Hydrobromide [Celexa 10 mg Tablet] 10 mg PO DAILY 08/31/17 Ezetimibe 10 mg PO DAILY 08/31/17 Hydrochlorothiazide [Hydrodiuril 25 mg Tablet] 25 mg PO DAILY 08/31/17 Levothyroxine Sodium [Synthroid 0.05 mg Tablet] 0.05 mg PO Q6AM 08/31/17 Mometasone/Formoterol [Dulera 200 Mcg/5 Mcg Inhaler] 2 puff IH BID 08/31/17 Roflumilast [Daliresp 500 mcg Tablet] 500 mcg PO DAILY 08/31/17 Tiotropium [place] [Spiriva Respimat] 2 puff IH DAILY 08/31/17 Alprazolam [Xanax 0.5 mg Tablet] 0.5 mg PO TIDP PRN #20 tablet 09/06/17 Guaifenesin [Mucinex Sr 600 mg Tablet.sa] 1,200 mg PO Q12 #60 tablet.sa Levofloxacin [Levaquin 750 mg Tablet] 750 mg PO DAILY #4 tablet 09/06/17 Prednisone 10 mg PO DAILY #63 tablet 09/06/17 History of Present Illness History of Present Illness: BRUCE GALAN is a 67 year old female who presented to the emergency room with shortness of breath Hospital Course Hospital Course: The patient is a 67-year-old female with a long-standing history of COPD. She has oxygen available at home and wears it at night and intermittently during the day especially over the past few months. She also has obstructive sleep apnea. She has a history of epiglottis cancer status post laser surgery. The patient presented to the emergency room with increased shortness of breath and cough. She states that she has been sick off and on since April and has been written given multiple rounds of outpatient antibiotics. The patient presented to the hospital via EMS as her chest pressure and shortness of breath had significantly worsened at home. EMS was called. She was placed on BiPAP apparently at the time EMS arrived she was obtunded in an attempt was made to intubate her however this failed and she was placed on BiPAP. In any event the patient was admitted to the hospital. She was eventually weaned off of the BiPAP. She was treated for an acute COPD exacerbation as well as probable acute bronchitis. Over the course of the hospitalization she improved. She was quickly weaned off of the BiPAP and at this point is back to her baseline oxygen saturations and she is intermittently using oxygen just as she does at home. The patient also reports that she has been having issues for several months with her heart rate. She states she has episodes where her heart races and she gets more short of breath. She states she has also had multiple episodes of bradycardia with heart rates in the mid 30s to mid 40s. She is asymptomatic during these episodes except for when she has rapid rates for which she is more short of breath. The patient would like to see a paper sorter and counter in the [facility] so I did not pursue a cardiology workup during this hospitalization. I would recommend an event monitor for the patient and a referral to the [facility] where they have EP cardiology available. At this point maximum hospital benefit has been reached. The patient will be discharged today in stable condition. I am going to get her an appointment to follow-up with her video production specialist as well as her primary care provider at discharge. I did explain all of this to the patient and her questions were answered. Unfortunately she continues to smoke and I have discussed this with her as well. She is going to try her best to quit. Physical Exam Vital Signs: Temp Pulse Resp BP Pulse Ox 98.1 F 93 16 121/67 97 09/06/17 08:21 09/06/17 08:21 09/06/17 08:21 09/06/17 08:21 09/06/17 08:21 Intake & Output 09/05/17 09/06/17 09/07/17 06:59 06:59 06:59 Intake Total 1599 670 Balance 1599 670 Weight 77 kg 77.1 kg General appearance: PRESENT: no acute distress, well-developed, well-nourished Head exam: PRESENT: atraumatic, normocephalic Mouth exam: PRESENT: moist, tongue midline Respiratory exam: PRESENT: decreased breath sounds, wheezes - She has end expiratory wheezing and a prolonged expiratory phase throughout all lung liu Cardiovascular exam: PRESENT: +S1, +S2, tachycardia - With rates between 110-120 GI/Abdominal exam: PRESENT: normal bowel sounds, soft. ABSENT: distended, guarding, mass, organolmegaly, rebound, tenderness Musculoskeletal exam: PRESENT: ambulatory Neurological exam: PRESENT: alert, awake, oriented to person, oriented to place , oriented to time, oriented to situation, CN II-XII grossly intact. ABSENT: motor sensory deficit Psychiatric exam: PRESENT: appropriate affect, normal mood. ABSENT: homicidal ideation, suicidal ideation Skin exam: PRESENT: dry, intact, warm. ABSENT: cyanosis, rash Results Laboratory Results: 09/06/17 04:17 09/06/17 04:17 09/06/17 09/06/17 04:17 04:17 WBC 14.4 H RBC 5.22 Hgb 15.6 H Hct 46.6 MCV 89 MCH 29.8 MCHC 33.4 RDW 14.6 H Plt Count 313 Seg Neutrophils % Not Reportable Lymphocytes % Not Reportable Monocytes % Not Reportable Eosinophils % Not Reportable Basophils % Not Reportable Absolute Neutrophils Not Reportable Absolute Lymphocytes Not Reportable Absolute Monocytes Not Reportable Absolute Eosinophils Not Reportable Absolute Basophils Not Reportable Sodium 137.4 Potassium 3.7 Chloride 97 L Carbon Dioxide 32 H Anion Gap 8 BUN 16 Creatinine 0.56 Est GFR ( Amer) > 60 Est GFR (Non-Af Amer) > 60 Glucose 95 Calcium 9.5 Magnesium 2.3 Impressions: Chest X-Ray 08/31/17 08:08 IMPRESSION: Linear airspace opacities in the lung bases bilaterally, likely representing atelectasis. A superimposed infectious process is not entirely excluded. Qualifiers - * PATEINT BEING DISCHARGED WITH ANY OF THE FOLLOWING DIAGNOSIS?: No Plan Discharge Plan: She will be discharged to home today with close outpatient follow-up in stable condition Time Spent: Greater than 30 Minutes
[2017-09-06 11:56] VITALS: BP 112/79
== END 2017-09-06 14:57 | disposition home or self-care (01) | DRG 189 ==
LOC: ER 08:00 → EH 09:59 → OBSVTOIN 09:59 → 3W 12:33
PROVIDERS: ADMIT Emergency Medicine; ATTEND Emergency Medicine
PROC: 5A09457 Assistance with Respiratory Ventilation, 24-96 Consecutive Hours, Continuous Positive Airway Pressure (ICD-10-PCS; principal; 2017-08-31)
DX: J96.22 Acute and chronic respiratory failure with hypercapnia (principal); J44.1 Chronic obstructive pulmonary disease with (acute) exacerbation; J96.21 Acute and chronic respiratory failure with hypoxia; F17.210 Nicotine dependence, cigarettes, uncomplicated; E11.9 Type 2 diabetes mellitus without complications; E66.01 Morbid (severe) obesity due to excess calories; D69.2 Other nonthrombocytopenic purpura; G47.33 Obstructive sleep apnea (adult) (pediatric); Z85.21 Personal history of malignant neoplasm of larynx; Z88.0 Allergy status to penicillin; F32.9 Major depressive disorder, single episode, unspecified; Z90.49 Acquired absence of other specified parts of digestive tract; Z99.81 Dependence on supplemental oxygen
CPT/HCPCS: 36415; 36600; 71045; 80048; 80053; 82803; 82962; 83605; 83735; 83880; 84484; 85025; 85027; 87040; 87070; 87205; 87804; 93005; 93010; 94640; 94660; 96365; 96367; 99285; J1650; J1815; J1956; J2920; J2930; J3475; J7512

== ENCOUNTER 2017-10-26 15:36 | Inpatient (IN) | payer MEDICARE ==
[2017-10-26] MEDS ORDERED: ALBUTEROL SULFATE 0.083% NEB 2.5 MG/3 ML AMPUL NEB ONE (15:40)
[2017-10-26] MEDS ORDERED: IPRATROPIUM BROMIDE 0.02% NEB 0.5 MG/2.5 ML AMPUL NEB ONE (15:41)
--- NOTE | 2017-10-26 15:50 | ER Document Report ---
ED Respiratory Problem - General Mode of Arrival: Ambulatory Information source: Patient TRAVEL OUTSIDE OF THE [place] IN LAST 30 DAYS: No <NETTE KAHN - Last Filed: 10/26/17 17:21> <ALLY INGRAM - Last Filed: 11/04/17 07:42> - General Stated Complaint: RESPIRATORY DISTRESS Time Seen by Provider: 10/26/17 15:40 Notes: Patient is a 67-year-old female with a history of COPD that presents to the emergency department today with complaints of shortness of breath. Patient is on 2L of home O2 oxygen around the clock, patient was 71% on room air according to EMS. Patient states she is on prednisone currently. Patient was admitted 2 months ago for COPD exacerbation. Patient is still smoking. (NETTE KAHN) - Related Data Allergies/Adverse Reactions: Penicillins Allergy (Verified 08/31/17 09:09) "cillins" Allergy (Uncoded 08/31/17 09:10) Past Medical History - General Information source: Patient - Social History Smoking Status: Never Smoker Cigarette use (# per day): No Frequency of alcohol use: None Drug Abuse: None Lives with: Family Family History: Reviewed & Not Pertinent, Other - The patient's mother of cancer at age 83. She is not sure what type of cancer she had. One sister has epilepsy. She had one brother age 50 of a myocardial infarction. - Past Medical History Cardiac Medical History: Reports: Hx Hypertension Pulmonary Medical History: Reports: Hx COPD, Hx Respiratory Failure Endocrine Medical History: Reports: Hx Diabetes Mellitus Type 2 Psychiatric Medical History: Reports: Hx Depression Past Surgical History: Reports: Hx Appendectomy, Other - Right-sided chest tube - Immunizations Hx Pneumococcal Vaccination: 07/08/16 <NETTE KAHN - Last Filed: 10/26/17 17:21> Review of Systems - Review of Systems Constitutional: No symptoms reported EENT: No symptoms reported Cardiovascular: denies: Chest pain Respiratory: See HPI, Short of breath Gastrointestinal: No symptoms reported Genitourinary: No symptoms reported Female Genitourinary: No symptoms reported Musculoskeletal: No symptoms reported Skin: No symptoms reported Hematologic/Lymphatic: No symptoms reported Neurological/Psychological: No symptoms reported -: Yes All other systems reviewed and negative <NETTE KAHN - Last Filed: 10/26/17 17:21> Physical Exam <NETTE KAHN - Last Filed: 10/26/17 17:21> <ALLY INGRAM - Last Filed: 11/04/17 07:42> - Vital signs Vitals: Pulse Ox 91 L 10/26/17 15:39 - Notes Notes: Physical Exam: General: Alert, appears in moderate distress. HEENT: Normocephalic. Atraumatic. PERRL. Extraocular movements intact. Oropharynx clear. Neck: Supple. Non-tender. Respiratory: Prolonged expiratory phase. Wheezing throughout bilaterally. Moderate respiratory distress. Cardiovascular: Regular rate and rhythm. Abdominal: Normal Inspection. Non-tender. No distension. Normal Bowel Sounds. Back: Non-tender. No deformity or step off. Extremities: Moves all four extremities. Upper extremities: Normal inspection. Normal ROM. Lower extremities: Normal inspection. No edema. Normal ROM. Neurological: Normal cognition. AAOx4. Normal speech. Psychological: Normal affect. Normal Mood. Skin: Warm. Dry. Normal color. (NETTE KAHN) Course - Laboratory Result Diagrams: 10/26/17 15:52 10/26/17 15:52 <NETTE KAHN - Last Filed: 10/26/17 17:21> - Laboratory Result Diagrams: 10/26/17 15:52 10/30/17 04:09 <ALLY INGRAM - Last Filed: 11/04/17 07:42> - Re-evaluation Re-evalutation: 10/26/17 17:23 Patient's labs within normal limits she is tolerating BiPAP well. VBG shows no concerning findings. Patient will be admitted for further BiPAP administration nebulizer treatment as needed. Patient is already on steroids defer those at this time. Discussed case with Dr. Fuentes who will accept the patient. Levaquin provided in the emergency department. (ALLY INGRAM) - Vital Signs Vital signs: Temp Pulse Resp BP Pulse Ox 98.3 F 85 18 123/73 97 11/01/17 11:15 11/01/17 11:15 11/01/17 11:15 11/01/17 11:15 11/01/17 11:15 - Laboratory Laboratory results interpreted by me: 10/26/17 10/26/17 15:52 15:52 WBC 16.6 H RDW 14.7 H Plt Count 466 H Seg Neuts % (Manual) 79 H Abs Neuts (Manual) 13.1 H Chloride 97 L Creatinine 0.46 L Glucose 148 H Total Protein 6.2 L Discharge <NETTE KAHN - Last Filed: 10/26/17 17:21> - Discharge Admitting Provider: Alfredo Rain Admitted: Telemetry <ALLY INGRAM - Last Filed: 11/04/17 07:42> - Discharge Clinical Impression: Shortness of breath, Hypoxia, COPD exacerbation Condition: Fair Disposition: ADMITTED INPATIENT Scribe Attestation: 11/04/17 07:42 I personally performed the services described in the documentation, reviewed and edited the documentation which was dictated to the scribe in my presence, and it accurately records my words and actions. (ALLY INGRAM) Scribe Documentation - Scribe Written by Stella:: Stella Mccabe, 10/26/2017 1615 acting as scribe for :: Abner <NETTE KAHN - Last Filed: 10/26/17 17:21>
[2017-10-26 16:18] LABS: VENOUS BLOOD BASE EXCESS 1.7 mmol/L; VENOUS BLOOD HCO3 27.2 mmol/L (20-32); VENOUS BLOOD PCO2 45.6 mmHg (35-63); VENOUS BLOOD PH 7.39 (7.30-7.42)
[2017-10-26 16:23] LABS: INTERNATIONAL RATION (INR) 0.93; PROTHROMBIN TIME 12.9 SEC (11.4-15.4)
[2017-10-26 16:25] LABS: HEMOGLOBIN 15.5 g/dL (12.0-15.5); MEAN CORPUSCULAR HEMOGLOBIN 30.3 pg (27.0-33.4); MEAN CORPUSCULAR HGB CONC 33.8 g/dL (32.0-36.0); MEAN CORPUSCULAR VOLUME 90 fl (80-97); PLATELET COUNT 466 10^3/uL (150-450); RED BLOOD COUNT 5.13 10^6/uL (3.72-5.28); RED CELL DISTRIBUTION WIDTH 14.7 % (11.5-14.0); WHITE BLOOD COUNT 16.6 10^3/uL (4.0-10.5)
[2017-10-26 16:38] LABS: ALANINE AMINOTRANSFERASE 25 U/L (9-52); ALBUMIN 4.2 g/dL (3.5-5.0); ALKALINE PHOSPHATASE 69 U/L (38-126); ANION GAP 12 (5-19); ASPARTATE AMINO TRANSFERASE 17 U/L (14-36); BILIRUBIN,DIRECT 0.3 mg/dL (0.0-0.4); BILIRUBIN,TOTAL 0.3 mg/dL (0.2-1.3); BLOOD UREA NITROGEN 15 mg/dL (7-20); CALCIUM 9.2 mg/dL (8.4-10.2); CARBON DIOXIDE 30 mmol/L (22-30); CHLORIDE 97 mmol/L (98-107); GLUCOSE 148 mg/dL (75-110); POTASSIUM 3.9 mmol/L (3.6-5.0); SODIUM 139.3 mmol/L (137-145); TOTAL PROTEIN 6.2 g/dL (6.3-8.2)
--- NOTE | 2017-10-26 16:41 | RADIOLOGY REPORT (SQ) ---
EXAM DESCRIPTION: CHEST SINGLE VIEW COMPLETED DATE/TIME: 10/26/2017 4:30 pm REASON FOR STUDY: SOB COMPARISON: 08/31/2017 EXAM PARAMETERS: NUMBER OF VIEWS: One view. TECHNIQUE: Single frontal radiographic view of the chest acquired. RADIATION DOSE: NA LIMITATIONS: None. FINDINGS: LUNGS AND PLEURA: No opacities, masses or pneumothorax. No pleural effusion. MEDIASTINUM AND HILAR STRUCTURES: No masses. Contour normal. HEART AND VASCULAR STRUCTURES: Heart normal in size. Normal vasculature. BONES: No acute findings. HARDWARE: None in the chest. OTHER: No other significant finding. IMPRESSION: NO ACUTE RADIOGRAPHIC FINDING IN THE CHEST. TECHNICAL DOCUMENTATION: JOB ID: [id number] [employer]- All Rights Reserved Reading location - IP/workstation name: [email or web address] [email or web address] [email or web address]--[email or web address]
[2017-10-26 16:48] LABS: NT PRO BNP 76 pg/mL (5-900)
[2017-10-26 16:50] LABS: TROPONIN I < 0.012 ng/mL
[2017-10-26 17:02] LABS: ABSOLUTE MONOCYTES # (MANUAL) 0.5 10^3/uL (0.1-1.4); ABSOLUTE NEUTROPHILS# (MANUAL) 13.1 10^3/uL (1.7-8.2); BASOPHILS % (MANUAL) 0 % (0-2); EOSINOPHILS % (MANUAL) 0 % (0-6); LYMPHOCYTES % (MANUAL) 18 % (13-45); MONOCYTES % (MANUAL) 3 % (3-13); SEGMENTED NEUTROPHILS % (MAN) 79 % (42-78); TOTAL CELLS COUNTED 100
[2017-10-26 17:03] LABS: ANISOCYTOSIS SLIGHT; PLATELET COMMENT INCREASED; TOXIC GRANULATION 1+; TOXIC VACUOLATION PRESENT
[2017-10-26] MEDS ORDERED: TEMAZEPAM 15 MG CAPSULE PO PRN (17:35)
[2017-10-26] MEDS ORDERED: ACETAMINOPHEN 325 MG TABLET PO PRN (17:35)
[2017-10-26] MEDS ORDERED: IPRATROPIUM/ALBUTEROL 0.5-2.5 MG/3 ML AMPUL NEB PRN (17:35)
[2017-10-26] MEDS ORDERED: ONDANSETRON HCL INJ/PF 4 MG/2 ML SDV IV PRN (17:35)
[2017-10-26] MEDS ORDERED: NICOTINE 21 MG/24 HR PATCH.TD24 TD ONE (17:47)
--- NOTE | 2017-10-26 17:59 | PDOC H&P ---
History of Present Illness Admission Date/PCP: 10/26/17 17:30 JANNIE MARRERO PA-C Patient complains of: Short of breath History of Present Illness: BRUCE GALAN is a 67 year old female discharged from this institution of a little over a month ago with the same complaint. She has O2 dependent COPD and continues to smoke. She was being treated as an outpatient by her elementary special education teacher but felt she was getting worse so came into the emergency department. She denies any chest pain, fevers, chills, nausea, vomiting, or diarrhea. She states she has been coughing up yellow phlegm. Past Medical History Cardiac Medical History: Reports: Hyperlipidema, Hypertension Pulmonary Medical History: Reports: Bronchitis, Chronic Obstructive Pulmonary Disease (COPD) - On 2 L per nasal cannula at home, Respiratory Failure Endocrine Medical History: Reports: Hypothyroidism Psychiatric Medical History: Reports: Depression Past Surgical History Past Surgical History: Reports: Appendectomy, Other - Right-sided chest tube Social History Information Source: Patient Lives with: Family Smoking Status: Never Smoker Frequency of Alcohol Use: Rare Hx Recreational Drug Use: No Drugs: None Hx Prescription Drug Abuse: No - Advance Directive Resuscitation Status: Full Code Surrogate healthcare decision maker:: Her brother Flynn Hernandez [phone] Family History Family History: Reviewed & Not Pertinent, Other - The patient's mother of cancer at age 83. She is not sure what type of cancer she had. One sister has epilepsy. She had one brother age 50 of a myocardial infarction. Parental Family History Reviewed: Yes Children Family History Reviewed: No Sibling(s) Family History Reviewed.: Yes Medication/Allergy Home Medications: Cetirizine HCl [Zyrtec 10 mg Tablet] 10 mg PO DAILY 08/31/17 Citalopram Hydrobromide [Celexa 10 mg Tablet] 10 mg PO DAILY 08/31/17 Ezetimibe 10 mg PO DAILY 08/31/17 Hydrochlorothiazide [Hydrodiuril 25 mg Tablet] 25 mg PO DAILY 08/31/17 Levothyroxine Sodium [Synthroid 0.05 mg Tablet] 0.05 mg PO Q6AM 08/31/17 Albuterol Sulfate [Ventolin Hfa] 2 puff IH Q4HP PRN #1 hfa.aer.ad 09/06/17 Alprazolam [Xanax 0.5 mg Tablet] 0.5 mg PO TIDP PRN #20 tablet 09/06/17 Guaifenesin [Mucinex Sr 600 mg Tablet.sa] 1,200 mg PO Q12 #60 tablet.sa Levofloxacin [Levaquin 750 mg Tablet] 750 mg PO DAILY #4 tablet 09/06/17 Mometasone/Formoterol [Dulera 200 Mcg/5 Mcg Inhaler] 2 puff IH BID #1 hfa.aer.ad 09/06/17 Prednisone 10 mg PO DAILY #63 tablet 09/06/17 Roflumilast [Daliresp 500 mcg Tablet] 500 mcg PO DAILY #1 tablet 09/06/17 Tiotropium [place] [Spiriva Respimat] 2 puff IH DAILY #1 mist.inhal 09/06/17 Allergies/Adverse Reactions: Penicillins Allergy (Verified 08/31/17 09:09) "cillins" Allergy (Uncoded 08/31/17 09:10) Review of Systems All systems: reviewed and no additional remarkable complaints except as stated Physical Exam Vital Signs: Temp Pulse Resp BP Pulse Ox 18 134/98 H 94 10/26/17 15:52 10/26/17 15:52 10/26/17 17:00 General appearance: PRESENT: no acute distress, cooperative, obese Exam: Appears older than her chronologic age. Lying on the gurney at about 71 on BiPAP comfortable and reasonably pleasant under the circumstances Respiratory exam: PRESENT: decreased breath sounds, wheezes - Expiratory bilaterally Cardiovascular exam: PRESENT: tachycardia GI/Abdominal exam: PRESENT: soft Extremities exam: ABSENT: other - No edema Musculoskeletal exam: PRESENT: normal inspection Neurological exam: PRESENT: alert Psychiatric exam: PRESENT: appropriate affect Skin exam: PRESENT: dry, warm Results Impressions: Chest X-Ray 10/26/17 15:42 IMPRESSION: NO ACUTE RADIOGRAPHIC FINDING IN THE CHEST. Assessment & Plan - Diagnosis (1) Acute respiratory failure with hypoxia and hypercapnia Is this a current diagnosis for this admission?: Yes Plan: Wean BiPAP as tolerated (2) COPD exacerbation Is this a current diagnosis for this admission?: Yes Plan: Steroids, nebulizers, Levaquin, aggressive pulmonary toilet, wean oxygen as tolerated to baseline of 2 L per nasal cannula. (3) Tobacco dependency Is this a current diagnosis for this admission?: Yes Plan: Nicotine replacement
[2017-10-26] MEDS ORDERED: LEVOFLOXACIN 750 MG/D5W RTU 750 MG/150 ML RTUPB IV SCH ×2 (18:00)
[2017-10-26] MEDS: IPRATROPIUM/ALBUTEROL 0.5-2.5 MG/3 ML AMPUL NEB SCH (20:47)
[2017-10-26] MEDS: ALPRAZOLAM 0.5 MG TABLET PO PRN (21:21)
[2017-10-26] MEDS: GUAIFENESIN 600 MG TABLET.SA PO SCH (21:22)
[2017-10-26] MEDS: METHYLPREDNISOLONE INJ 40 MG/1 ML SDV IV SCH (21:22)
[2017-10-26] MEDS: FAMOTIDINE 20 MG TABLET PO SCH (21:22)
[2017-10-27] MEDS ORDERED: DEXTROSE 40% GEL 15 GM TUBE PO PRN (04:36)
[2017-10-27] MEDS ORDERED: DEXTROSE 40% GEL 15 GM TUBE X 2 PO PRN (04:36)
[2017-10-27] MEDS ORDERED: GLUCAGON,HUMAN RECOMB 1 MG INJ IM PRN (04:36)
[2017-10-27] MEDS ORDERED: DEXTROSE 50%-WATER SYRINGE 25 GM/50 ML DOSE IV PRN (04:36)
[2017-10-27] MEDS ORDERED: DEXTROSE 50%-WATER SYRINGE 12.5 GM/25 ML DOSE IV PRN (04:36)
[2017-10-27] MEDS: METHYLPREDNISOLONE INJ 40 MG/1 ML SDV IV SCH ×3 (06:43→22:56)
[2017-10-27] MEDS: LEVOTHYROXINE SODIUM 0.05 MG TABLET PO SCH (06:44)
[2017-10-27] MEDS: ALPRAZOLAM 0.5 MG TABLET PO PRN (07:49)
[2017-10-27] MEDS: IPRATROPIUM/ALBUTEROL 0.5-2.5 MG/3 ML AMPUL NEB SCH ×2 (08:12→12:21)
--- NOTE | 2017-10-27 09:40 | EKG REPORT ---
SEVERITY:- OTHERWISE NORMAL ECG - SINUS TACHYCARDIA : Confirmed by: Tina Bardales 27-Oct-2017 09:39:34
[2017-10-27] MEDS: ENOXAPARIN SODIUM INJ 40 MG/0.4 ML DISP.SYRIN SUBCUT SCH (10:15)
[2017-10-27] MEDS: CITALOPRAM HYDROBROMIDE 20 MG TABLET PO SCH (10:16)
[2017-10-27] MEDS: FAMOTIDINE 20 MG TABLET PO SCH ×2 (10:16→22:57)
[2017-10-27] MEDS: EZETIMIBE 10 MG TABLET PO SCH (10:17)
[2017-10-27] MEDS: CETIRIZINE 10 MG TABLET PO SCH (10:17)
[2017-10-27] MEDS: HYDROCHLOROTHIAZIDE 25 MG TABLET PO SCH (10:17)
[2017-10-27] MEDS: LEVOFLOXACIN 750 MG TABLET PO SCH (10:18)
[2017-10-27] MEDS: GUAIFENESIN 600 MG TABLET.SA PO SCH ×2 (10:18→22:57)
[2017-10-27] MEDS: ROFLUMILAST 500 MCG TABLET PO SCH (10:19)
[2017-10-27] MEDS: POLYETHYLENE GLYCOL 3350 POWDER 17 GM/1 PACKET PO PRN (10:20)
[2017-10-27] MEDS ORDERED: NICOTINE 21 MG/24 HR PATCH.TD24 TD PRN (14:04)
--- NOTE | 2017-10-27 14:12 | PDOC PROGRESS REPORT ---
Subjective Progress Note for:: 10/27/17 Subjective:: 67 year old female with a past medical history of Oxygen dependent COPD on 2 L by nasal cannula Continued tobacco use, 1.5 packs per day Hypertension Hyperlipidemia Depression Hypothyroidism Presented to the hospital on October 26 with shortness of breath and productive cough and was diagnosed with acute on chronic hypoxic and hypercapnic respiratory failure requiring BiPAP due to COPD exacerbation. Complaining of anxiety. Would like a nicotine patch. She is currently on BiPAP. Reason For Visit: COPD EXAC Physical Exam Vital Signs: Temp Pulse Resp BP Pulse Ox 98.1 F 113 H 20 118/72 97 10/27/17 12:00 10/27/17 12:21 10/27/17 12:21 10/27/17 12:00 10/27/17 12:21 Intake & Output 10/26/17 10/27/17 10/28/17 06:59 06:59 06:59 Intake Total 425 Output Total 450 Balance -25 Weight 78 kg General appearance: PRESENT: mild distress, obese Head exam: PRESENT: normocephalic Eye exam: PRESENT: PERRLA. ABSENT: scleral icterus Ear exam: PRESENT: normal external ear exam Mouth exam: PRESENT: moist Neck exam: ABSENT: tenderness Respiratory exam: PRESENT: accessory muscle use, symmetrical, wheezes Cardiovascular exam: PRESENT: RRR GI/Abdominal exam: PRESENT: normal bowel sounds, soft. ABSENT: tenderness Rectal exam: PRESENT: deferred Extremities exam: ABSENT: joint swelling Neurological exam: PRESENT: alert, awake Psychiatric exam: PRESENT: anxious Skin exam: ABSENT: petechiae Results Impressions: Chest X-Ray 10/26/17 15:42 IMPRESSION: NO ACUTE RADIOGRAPHIC FINDING IN THE CHEST. Assessment & Plan - Diagnosis (1) Acute on chronic respiratory failure with hypoxia and hypercapnia Is this a current diagnosis for this admission?: Yes Plan: Due to COPD exacerbation. Continue BiPAP. Continue antibiotic steroids nebulizer treatments. (2) COPD exacerbation Is this a current diagnosis for this admission?: Yes Plan: As above. (3) Hypertension Is this a current diagnosis for this admission?: Yes Plan: New hydrochlorothiazide. (4) Hypothyroidism Is this a current diagnosis for this admission?: Yes Plan: Continue Synthroid. (5) Depression Qualifiers: Depression Type: dysthymia Qualified Code(s): F34.1 - Dysthymic disorder Is this a current diagnosis for this admission?: Yes Plan: Continue Celexa. Xanax as needed for anxiety. (7) Obstructive sleep apnea Is this a current diagnosis for this admission?: Yes Plan: BiPAP at night. (8) Tobacco dependency Is this a current diagnosis for this admission?: Yes Plan: Nicotine patch. (9) DVT prophylaxis Is this a current diagnosis for this admission?: Yes Plan: Subcutaneous Lovenox. (10) Hyperlipidemia Is this a current diagnosis for this admission?: Yes Plan: Continue Zetia - Time Time Spent with patient: 35 or more minutes
[2017-10-27] MEDS ORDERED: (PENDING PHARMACY ID) (Mometasone/Formoterol [Dulera 200 Mcg/5 Mcg Inhaler] 2 PUFF) IH SCH (14:15)
[2017-10-27] MEDS ORDERED: LACTOBACILLUS ACIDOPHILUS 250 MG TAB PO ONE (16:00)
[2017-10-27] MEDS: LEVALBUTEROL HCL NEB 1.25 MG/3 ML AMPUL NEB SCH (19:33)
[2017-10-28] MEDS: ALPRAZOLAM 0.5 MG TABLET PO PRN ×3 (01:15→21:02)
[2017-10-28 06:14] LABS: ANION GAP 5 (5-19); BLOOD UREA NITROGEN 21 mg/dL (7-20); CALCIUM 9.6 mg/dL (8.4-10.2); CARBON DIOXIDE 37 mmol/L (22-30); CHLORIDE 96 mmol/L (98-107); GLUCOSE 144 mg/dL (75-110); SODIUM 138.3 mmol/L (137-145)
[2017-10-28] MEDS: LEVOTHYROXINE SODIUM 0.05 MG TABLET PO SCH (06:55)
[2017-10-28] MEDS: METHYLPREDNISOLONE INJ 40 MG/1 ML SDV IV SCH ×3 (06:55→21:09)
[2017-10-28] MEDS: LEVALBUTEROL HCL NEB 1.25 MG/3 ML AMPUL NEB SCH ×3 (08:02→19:51)
[2017-10-28] MEDS: CITALOPRAM HYDROBROMIDE 20 MG TABLET PO SCH (09:34)
[2017-10-28] MEDS: FAMOTIDINE 20 MG TABLET PO SCH ×2 (09:34→21:02)
[2017-10-28] MEDS: CETIRIZINE 10 MG TABLET PO SCH (09:35)
[2017-10-28] MEDS: LEVOFLOXACIN 750 MG TABLET PO SCH (09:35)
[2017-10-28] MEDS: GUAIFENESIN 600 MG TABLET.SA PO SCH ×2 (09:35→21:02)
[2017-10-28] MEDS: EZETIMIBE 10 MG TABLET PO SCH (09:35)
[2017-10-28] MEDS: ENOXAPARIN SODIUM INJ 40 MG/0.4 ML DISP.SYRIN SUBCUT SCH (09:36)
[2017-10-28] MEDS: LACTOBACILLUS ACIDOPHILUS 250 MG TAB PO SCH ×2 (09:36→17:46)
[2017-10-28] MEDS: HYDROCHLOROTHIAZIDE 25 MG TABLET PO SCH (09:36)
[2017-10-28] MEDS: ROFLUMILAST 500 MCG TABLET PO SCH (09:47)
[2017-10-28] MEDS: POLYETHYLENE GLYCOL 3350 POWDER 17 GM/1 PACKET PO PRN (09:47)
[2017-10-28] MEDS ORDERED: (PENDING PHARMACY ID) (Tiotropium Bromide [Spiriva Respimat] 2 PUFF) IH SCH (10:00)
--- NOTE | 2017-10-28 16:43 | PDOC PROGRESS REPORT ---
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 No complaints other than dyspnea on exertion and cough Reason For Visit: COPD EXAC Physical Exam Vital Signs: Temp Pulse Resp BP Pulse Ox 98.4 F 81 18 125/71 94 10/28/17 15:48 10/28/17 15:48 10/28/17 15:48 10/28/17 15:48 10/28/17 15:48 Intake & Output 10/27/17 10/28/17 10/29/17 06:59 06:59 06:59 Intake Total 425 716 Output Total 450 Balance -25 716 Weight 78 kg 79.7 kg General appearance: PRESENT: no acute distress Head exam: PRESENT: normocephalic Eye exam: ABSENT: scleral icterus Ear exam: PRESENT: normal external ear exam Mouth exam: PRESENT: moist Neck exam: ABSENT: tenderness Respiratory exam: PRESENT: rhonchi, symmetrical Cardiovascular exam: PRESENT: RRR GI/Abdominal exam: PRESENT: normal bowel sounds, soft. ABSENT: tenderness Rectal exam: PRESENT: deferred Extremities exam: ABSENT: pedal edema Neurological exam: PRESENT: alert, awake, oriented to person, oriented to place , oriented to time, reflexes normal Psychiatric exam: PRESENT: appropriate affect Skin exam: ABSENT: petechiae Results Laboratory Results: 10/28/17 04:53 10/28/17 10/28/17 04:53 04:53 Sodium 138.3 Potassium 4.0 Chloride 96 L Carbon Dioxide 37 H Anion Gap 5 BUN 21 H Creatinine 0.48 L Est GFR ( Amer) > 60 Est GFR (Non-Af Amer) > 60 Glucose 144 H Calcium 9.6 Magnesium 2.2 TSH 0.10 L 10/28/17 04:53 NT-Pro-B Natriuret Pep 475 Impressions: Chest X-Ray 10/26/17 15:42 IMPRESSION: NO ACUTE RADIOGRAPHIC FINDING IN THE CHEST. Assessment & Plan - Diagnosis (1) Acute on chronic respiratory failure with hypoxia and hypercapnia Is this a current diagnosis for this admission?: Yes Plan: Due to COPD exacerbation. Continue BiPAP. Continue antibiotic steroids nebulizer treatments. (2) COPD exacerbation Is this a current diagnosis for this admission?: Yes Plan: As above. (3) Hypertension Is this a current diagnosis for this admission?: Yes Plan: New hydrochlorothiazide. (4) Hypothyroidism Is this a current diagnosis for this admission?: Yes Plan: Continue Synthroid. (5) Depression Qualifiers: Depression Type: dysthymia Qualified Code(s): F34.1 - Dysthymic disorder Is this a current diagnosis for this admission?: Yes Plan: Continue Celexa. Xanax as needed for anxiety. (6) Diabetes type 2, controlled Is this a current diagnosis for this admission?: Yes (7) Obstructive sleep apnea Is this a current diagnosis for this admission?: Yes Plan: BiPAP at night. (8) Tobacco dependency Is this a current diagnosis for this admission?: Yes Plan: Nicotine patch. (9) DVT prophylaxis Is this a current diagnosis for this admission?: Yes Plan: Subcutaneous Lovenox. (10) Hyperlipidemia Is this a current diagnosis for this admission?: Yes Plan: Continue Zetia - Time Time Spent with patient: 35 or more minutes
[2017-10-29] MEDS: METHYLPREDNISOLONE INJ 40 MG/1 ML SDV IV SCH ×3 (06:06→22:21)
[2017-10-29] MEDS: LEVOTHYROXINE SODIUM 0.05 MG TABLET PO SCH (06:07)
[2017-10-29] MEDS: LEVALBUTEROL HCL NEB 1.25 MG/3 ML AMPUL NEB SCH ×3 (07:52→20:03)
[2017-10-29] MEDS: ALPRAZOLAM 0.5 MG TABLET PO PRN (08:55)
[2017-10-29] MEDS: ENOXAPARIN SODIUM INJ 40 MG/0.4 ML DISP.SYRIN SUBCUT SCH (09:04)
[2017-10-29] MEDS: GUAIFENESIN 600 MG TABLET.SA PO SCH ×2 (09:06→22:21)
[2017-10-29] MEDS: CETIRIZINE 10 MG TABLET PO SCH (09:06)
[2017-10-29] MEDS: HYDROCHLOROTHIAZIDE 25 MG TABLET PO SCH (09:06)
[2017-10-29] MEDS: ROFLUMILAST 500 MCG TABLET PO SCH (09:06)
[2017-10-29] MEDS: CITALOPRAM HYDROBROMIDE 20 MG TABLET PO SCH (09:07)
[2017-10-29] MEDS: LEVOFLOXACIN 750 MG TABLET PO SCH (09:07)
[2017-10-29] MEDS: LACTOBACILLUS ACIDOPHILUS 250 MG TAB PO SCH ×2 (09:07→17:45)
[2017-10-29] MEDS: EZETIMIBE 10 MG TABLET PO SCH (09:07)
[2017-10-29] MEDS: FAMOTIDINE 20 MG TABLET PO SCH ×2 (09:07→22:21)
[2017-10-29] MEDS: POLYETHYLENE GLYCOL 3350 POWDER 17 GM/1 PACKET PO PRN (09:08)
--- NOTE | 2017-10-29 15:02 | PDOC PROGRESS REPORT ---
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 Complaining of episodes of anxiety. Continues to have dyspnea on exertion. Reason For Visit: COPD EXAC Physical Exam Vital Signs: Temp Pulse Resp BP Pulse Ox 97.9 F 102 H 18 131/68 H 91 L 10/29/17 12:01 10/29/17 13:57 10/29/17 13:57 10/29/17 12:01 10/29/17 13:57 Intake & Output 10/28/17 10/29/17 10/30/17 06:59 06:59 06:59 Intake Total 716 1588 Output Total 600 Balance 716 988 Weight 79.7 kg 79.4 kg General appearance: PRESENT: no acute distress Head exam: PRESENT: normocephalic Eye exam: ABSENT: scleral icterus Ear exam: PRESENT: normal external ear exam Mouth exam: PRESENT: moist Respiratory exam: PRESENT: accessory muscle use, symmetrical, wheezes Cardiovascular exam: PRESENT: RRR GI/Abdominal exam: PRESENT: normal bowel sounds, soft. ABSENT: tenderness Rectal exam: PRESENT: deferred Extremities exam: ABSENT: pedal edema Neurological exam: PRESENT: alert, awake, oriented to person, oriented to place , oriented to time, oriented to situation Psychiatric exam: PRESENT: anxious Skin exam: ABSENT: petechiae Results Laboratory Results: 10/28/17 04:53 10/28/17 04:53 NT-Pro-B Natriuret Pep 475 Impressions: Chest X-Ray 10/26/17 15:42 IMPRESSION: NO ACUTE RADIOGRAPHIC FINDING IN THE CHEST. Assessment & Plan - Diagnosis (1) Acute on chronic respiratory failure with hypoxia and hypercapnia Is this a current diagnosis for this admission?: Yes Plan: Due to COPD exacerbation. Continue BiPAP at night. Day 4 of Levaquin. Continue steroids and nebulizer treatments. (2) COPD exacerbation Is this a current diagnosis for this admission?: Yes Plan: As above. (3) Hypertension Is this a current diagnosis for this admission?: Yes Plan: On hydrochlorothiazide. (4) Hypothyroidism Is this a current diagnosis for this admission?: Yes Plan: Continue Synthroid. (5) Depression Qualifiers: Depression Type: dysthymia Qualified Code(s): F34.1 - Dysthymic disorder Is this a current diagnosis for this admission?: Yes Plan: Continue Celexa. Xanax as needed for anxiety. (6) Diabetes type 2, controlled Is this a current diagnosis for this admission?: Yes (7) Obstructive sleep apnea Is this a current diagnosis for this admission?: Yes Plan: BiPAP at night. (8) Tobacco dependency Is this a current diagnosis for this admission?: Yes Plan: Nicotine patch. (9) DVT prophylaxis Is this a current diagnosis for this admission?: Yes Plan: Subcutaneous Lovenox. (10) Hyperlipidemia Is this a current diagnosis for this admission?: Yes Plan: Continue Zetia - Time Time Spent with patient: 35 or more minutes
[2017-10-30] MEDS: ALPRAZOLAM 0.5 MG TABLET PO PRN (00:34)
[2017-10-30 05:54] LABS: ANION GAP 8 (5-19); BLOOD UREA NITROGEN 20 mg/dL (7-20); CALCIUM 9.2 mg/dL (8.4-10.2); CARBON DIOXIDE 33 mmol/L (22-30); CHLORIDE 96 mmol/L (98-107); GLUCOSE 137 mg/dL (75-110); PHOSPHORUS 4.6 mg/dL (2.5-4.5); POTASSIUM 3.6 mmol/L (3.6-5.0); SODIUM 136.9 mmol/L (137-145)
[2017-10-30 05:59] LABS: FREE T4 (FREE THYROXINE) 1.21 ng/dL (0.78-2.19)
[2017-10-30 06:13] LABS: THYROID STIMULATING HORMONE 0.08 uIU/mL (0.47-4.68)
[2017-10-30] MEDS: LEVOTHYROXINE SODIUM 0.05 MG TABLET PO SCH (06:22)
[2017-10-30] MEDS: METHYLPREDNISOLONE INJ 40 MG/1 ML SDV IV SCH ×2 (06:22→15:02)
[2017-10-30] MEDS: LEVALBUTEROL HCL NEB 1.25 MG/3 ML AMPUL NEB SCH ×3 (07:40→19:58)
--- NOTE | 2017-10-30 08:53 | RADIOLOGY REPORT (SQ) ---
EXAM DESCRIPTION: CHEST 2 VIEWS COMPLETED DATE/TIME: 10/30/2017 7:34 am REASON FOR STUDY: Cough, SOB COMPARISON: Chest films 10/26/2017, 08/31/2017 EXAM PARAMETERS: NUMBER OF VIEWS: two views TECHNIQUE: Digital Frontal and Lateral radiographic views of the chest acquired. RADIATION DOSE: NA LIMITATIONS: none FINDINGS: LUNGS AND PLEURA: Lungs are hyperlucent and hyperinflated with flattening in the hemidiaph ragms likely from obstructive lung disease. No focal infiltrates. No pleural effusion or pneumothorax. MEDIASTINUM AND HILAR STRUCTURES: No masses or contour abnormalities. HEART AND VASCULAR STRUCTURES: Heart normal size. No evidence for failure. BONES: Osteoporotic HARDWARE: None in the chest. OTHER: No other significant finding. IMPRESSION: Obstructive lung disease TECHNICAL DOCUMENTATION: JOB ID: [id number] [employer]- All Rights Reserved Reading location - IP/workstation name: [email or web address]
[2017-10-30] MEDS: LEVOFLOXACIN 750 MG TABLET PO SCH (09:13)
[2017-10-30] MEDS: LACTOBACILLUS ACIDOPHILUS 250 MG TAB PO SCH ×2 (09:13→17:27)
[2017-10-30] MEDS: ROFLUMILAST 500 MCG TABLET PO SCH (09:13)
[2017-10-30] MEDS: GUAIFENESIN 600 MG TABLET.SA PO SCH ×2 (09:13→22:23)
[2017-10-30] MEDS: EZETIMIBE 10 MG TABLET PO SCH (09:13)
[2017-10-30] MEDS: HYDROCHLOROTHIAZIDE 25 MG TABLET PO SCH (09:14)
[2017-10-30] MEDS: ENOXAPARIN SODIUM INJ 40 MG/0.4 ML DISP.SYRIN SUBCUT SCH (09:14)
[2017-10-30] MEDS: CETIRIZINE 10 MG TABLET PO SCH (09:14)
[2017-10-30] MEDS: FAMOTIDINE 20 MG TABLET PO SCH ×2 (09:14→22:23)
[2017-10-30] MEDS: CITALOPRAM HYDROBROMIDE 20 MG TABLET PO SCH (09:14)
[2017-10-30] MEDS: POLYETHYLENE GLYCOL 3350 POWDER 17 GM/1 PACKET PO PRN (09:19)
--- NOTE | 2017-10-30 15:12 | PDOC PROGRESS REPORT ---
Subjective Progress Note for:: 10/30/17 Subjective:: The patient is an extremely pleasant 67-year-old female with oxygen dependent COPD. She follows with Dr. Batista from pulmonology in [facility]. Unfortunately the patient continues to smoke. She presented to the emergency room with increased shortness of breath and cough. She was found to be having an acute COPD exacerbation. She was admitted to the hospital and started on IV Solu-Medrol as well as aggressive breathing treatments. The patient is improving. Today when I saw her she states her breathing is almost back to its baseline. Due to the fact that she was just hospitalized with this a month ago we are going to try to change her over to p.o. prednisone here in the hospital as she is still receiving IV Solu-Medrol. If she remains stable overnight will likely consider discharge in the morning. The patient denies fever chills. No chest pain or heart palpitations. Her shortness of breath and cough is improving. No nausea vomiting or diarrhea. No dysuria, frequency or hematuria Reason For Visit: COPD EXAC Physical Exam Vital Signs: Temp Pulse Resp BP Pulse Ox 97.6 F 111 H 14 110/73 93 10/30/17 12:00 10/30/17 14:00 10/30/17 13:22 10/30/17 12:00 10/30/17 13:22 Intake & Output 10/29/17 10/30/17 10/31/17 06:59 06:59 06:59 Intake Total 1588 1100 Output Total 600 700 Balance 988 400 Weight 79.4 kg 79.5 kg General appearance: PRESENT: no acute distress, well-developed, well-nourished Head exam: PRESENT: atraumatic, normocephalic Mouth exam: PRESENT: moist, tongue midline Respiratory exam: PRESENT: decreased breath sounds, prolonged expiratory phas, other - She has some very faint end expiratory wheezing Cardiovascular exam: PRESENT: RRR. ABSENT: diastolic murmur, rubs, systolic murmur GI/Abdominal exam: PRESENT: normal bowel sounds, soft. ABSENT: distended, guarding, mass, organolmegaly, rebound, tenderness Rectal exam: PRESENT: deferred Extremities exam: PRESENT: full ROM. ABSENT: calf tenderness, clubbing, pedal edema Neurological exam: PRESENT: alert, awake, oriented to person, oriented to place , oriented to time, oriented to situation, CN II-XII grossly intact. ABSENT: motor sensory deficit Psychiatric exam: PRESENT: appropriate affect, normal mood. ABSENT: homicidal ideation, suicidal ideation Skin exam: PRESENT: dry, intact, warm. ABSENT: cyanosis, rash Results Laboratory Results: 10/30/17 04:09 10/30/17 10/30/17 04:09 04:09 Sodium 136.9 L Potassium 3.6 Chloride 96 L Carbon Dioxide 33 H Anion Gap 8 BUN 20 Creatinine 0.47 L Est GFR ( Amer) > 60 Est GFR (Non-Af Amer) > 60 Glucose 137 H Calcium 9.2 Phosphorus 4.6 H Magnesium 2.2 TSH 0.08 L Free T4 1.21 10/28/17 10/30/17 04:53 04:09 NT-Pro-B Natriuret Pep 475 117 Impressions: Chest X-Ray 10/30/17 07:00 IMPRESSION: Obstructive lung disease Assessment & Plan - Diagnosis (1) Acute on chronic respiratory failure with hypoxia and hypercapnia Is this a current diagnosis for this admission?: Yes Plan: She is back to her baseline. Continue breathing treatments and therapy as outlined below (2) COPD exacerbation Is this a current diagnosis for this admission?: Yes Plan: We will stop IV Solu-Medrol and place the patient on 60 mg of p.o. prednisone. Continue bronchodilators and breathing treatments. (3) Obstructive sleep apnea Is this a current diagnosis for this admission?: Yes Plan: Continue BiPAP at night (4) Hyperlipidemia Is this a current diagnosis for this admission?: Yes Plan: Continue home regimen (5) Hypertension Is this a current diagnosis for this admission?: Yes (6) Hypothyroidism Is this a current diagnosis for this admission?: Yes Plan: Continue Synthroid (7) Depression Qualifiers: Depression Type: dysthymia Qualified Code(s): F34.1 - Dysthymic disorder Is this a current diagnosis for this admission?: Yes Plan: Continue citalopram and Xanax (8) Diabetes type 2, controlled Is this a current diagnosis for this admission?: Yes Plan: Continue sliding-scale insulin (9) Tobacco dependency Is this a current diagnosis for this admission?: Yes Plan: Certainly would be in her best interest to quit smoking (10) Full code status Is this a current diagnosis for this admission?: Yes - Time Time Spent with patient: 25-34 minutes - Inpatient Certification Medical Necessity: Other - Inpatient hospitalization remains necessary. Since the patient has been hospitalized twice within the past month we are going to change her over to p.o. prednisone here in the hospital prior to discharge. If she remains stable overnight she can hopefully be discharged tomorrow.
[2017-10-30] MEDS: INSULIN LISPRO 100 UNIT/ML 3 ML VIAL SUBCUT PRN (23:21)
[2017-10-31] MEDS: LEVOTHYROXINE SODIUM 0.05 MG TABLET PO SCH (05:00)
[2017-10-31] MEDS: ALPRAZOLAM 0.5 MG TABLET PO PRN ×2 (06:36→15:46)
[2017-10-31] MEDS ORDERED: ONDANSETRON HCL INJ/PF 4 MG/2 ML SDV IV PRN (07:30)
[2017-10-31] MEDS: LEVALBUTEROL HCL NEB 1.25 MG/3 ML AMPUL NEB SCH ×3 (08:08→19:55)
[2017-10-31] MEDS: POLYETHYLENE GLYCOL 3350 POWDER 17 GM/1 PACKET PO PRN (09:32)
[2017-10-31] MEDS: PREDNISONE 20 MG TABLET PO SCH (09:40)
[2017-10-31] MEDS: EZETIMIBE 10 MG TABLET PO SCH (09:40)
[2017-10-31] MEDS: GUAIFENESIN 600 MG TABLET.SA PO SCH ×2 (09:40→21:08)
[2017-10-31] MEDS: LACTOBACILLUS ACIDOPHILUS 250 MG TAB PO SCH ×2 (09:40→18:11)
[2017-10-31] MEDS: ENOXAPARIN SODIUM INJ 40 MG/0.4 ML DISP.SYRIN SUBCUT SCH (09:41)
[2017-10-31] MEDS: LEVOFLOXACIN 750 MG TABLET PO SCH (09:43)
[2017-10-31] MEDS: CITALOPRAM HYDROBROMIDE 20 MG TABLET PO SCH (09:44)
[2017-10-31] MEDS: CETIRIZINE 10 MG TABLET PO SCH (09:44)
[2017-10-31] MEDS: HYDROCHLOROTHIAZIDE 25 MG TABLET PO SCH (09:44)
[2017-10-31] MEDS: FAMOTIDINE 20 MG TABLET PO SCH ×2 (09:44→21:08)
[2017-10-31] MEDS: ROFLUMILAST 500 MCG TABLET PO SCH (11:54)
--- NOTE | 2017-10-31 12:33 | PDOC PROGRESS REPORT ---
Subjective Progress Note for:: 10/31/17 Subjective:: No new complaints. Still dropping her sats with minimal exertion Reason For Visit: COPD EXAC Physical Exam Vital Signs: Temp Pulse Resp BP Pulse Ox 97.6 F 109 H 20 116/66 95 10/31/17 12:00 10/31/17 12:00 10/31/17 12:00 10/31/17 12:00 10/31/17 12:00 Intake & Output 10/30/17 10/31/17 11/01/17 06:59 06:59 06:59 Intake Total 1100 980 Output Total 700 800 Balance 400 180 Weight 79.5 kg 80.9 kg General appearance: PRESENT: no acute distress, obese Respiratory exam: PRESENT: decreased breath sounds, wheezes - Expiratory bilaterally Cardiovascular exam: PRESENT: RRR GI/Abdominal exam: PRESENT: soft Musculoskeletal exam: PRESENT: normal inspection Neurological exam: PRESENT: alert Psychiatric exam: PRESENT: appropriate affect Skin exam: PRESENT: warm Results Laboratory Results: 10/30/17 04:09 10/28/17 10/30/17 04:53 04:09 NT-Pro-B Natriuret Pep 475 117 Impressions: Chest X-Ray 10/30/17 07:00 IMPRESSION: Obstructive lung disease Assessment & Plan - Diagnosis (1) Acute respiratory failure with hypoxia and hypercapnia Is this a current diagnosis for this admission?: Yes Plan: Continue present regimen. I would anticipate she would go home soon (2) COPD exacerbation Is this a current diagnosis for this admission?: Yes Plan: Steroids, nebulizers, Levaquin, aggressive pulmonary toilet, wean oxygen as tolerated to baseline of 2 L per nasal cannula. (3) Tobacco dependency Is this a current diagnosis for this admission?: Yes Plan: Nicotine replacement
[2017-10-31] MEDS: INSULIN LISPRO 100 UNIT/ML 3 ML VIAL SUBCUT PRN (21:08)
[2017-11-01] MEDS: LEVOTHYROXINE SODIUM 0.05 MG TABLET PO SCH (06:36)
[2017-11-01] MEDS: LEVALBUTEROL HCL NEB 1.25 MG/3 ML AMPUL NEB SCH (08:03)
[2017-11-01 08:08] VITALS: BP 123/73
[2017-11-01] MEDS: CETIRIZINE 10 MG TABLET PO SCH (09:10)
[2017-11-01] MEDS: CITALOPRAM HYDROBROMIDE 20 MG TABLET PO SCH (09:11)
[2017-11-01] MEDS: ENOXAPARIN SODIUM INJ 40 MG/0.4 ML DISP.SYRIN SUBCUT SCH (09:11)
[2017-11-01] MEDS: PREDNISONE 20 MG TABLET PO SCH (09:12)
[2017-11-01] MEDS: GUAIFENESIN 600 MG TABLET.SA PO SCH (09:12)
[2017-11-01] MEDS: LEVOFLOXACIN 750 MG TABLET PO SCH (09:12)
[2017-11-01] MEDS: HYDROCHLOROTHIAZIDE 25 MG TABLET PO SCH (09:12)
[2017-11-01] MEDS: EZETIMIBE 10 MG TABLET PO SCH (09:12)
[2017-11-01] MEDS: LACTOBACILLUS ACIDOPHILUS 250 MG TAB PO SCH (09:12)
[2017-11-01] MEDS: FAMOTIDINE 20 MG TABLET PO SCH (09:12)
[2017-11-01] MEDS: ROFLUMILAST 500 MCG TABLET PO SCH (09:12)
[2017-11-01] MEDS: POLYETHYLENE GLYCOL 3350 POWDER 17 GM/1 PACKET PO PRN (09:13)
--- NOTE | 2017-11-01 15:59 | PDOC DISCHARGE SUMMARY ---
General - Admit/Disc Date/PCP Admission Date/Primary Care Provider: 10/26/17 17:30 JANNIE MARRERO PA-C Discharge Date: 11/01/17 - Discharge Diagnosis (1) Acute respiratory failure with hypoxia and hypercapnia Is this a current diagnosis for this admission?: Yes Summary: Due to COPD exacerbation. Back to baseline 2 L per nasal cannula (2) COPD exacerbation Is this a current diagnosis for this admission?: Yes Summary: Treated with steroids, nebulizers, aggressive pulmonary toilet, and empiric Levaquin. She has completed a course of Levaquin. She will be continued on her home nebulizers, and discharged on a prednisone taper. (3) Tobacco dependency Is this a current diagnosis for this admission?: Yes Summary: Strongly counseled to cease - Additional Information Resuscitation Status: Full Code Discharge Activity: Activity As Tolerated Prescriptions: Budesonide/Formoterol Fumarate [Symbicort 160-4.5 Mcg Inhaler] 10.2 gm IH BID # 1 hfa.aer.ad Citalopram Hydrobromide [Celexa 20 mg Tablet] 20 mg PO DAILY #30 tablet Prednisone [Deltasone 20 mg Tablet] 20 mg PO ASDIR #30 tablet Home Medications: Cetirizine HCl [Zyrtec 10 mg Tablet] 10 mg PO DAILY 10/27/17 Citalopram Hydrobromide [Celexa 10 mg Tablet] 10 mg PO DAILY 10/27/17 Ezetimibe [Zetia 10 mg Tablet] 10 mg PO DAILY 10/27/17 Hydrochlorothiazide [Hydrodiuril 25 mg Tablet] 25 mg PO DAILY 10/27/17 Ipratropium/Albuterol Sulfate [Duoneb 3 ml Ampul] 3 ml NEB TID 10/27/17 Levothyroxine Sodium [Synthroid 0.05 mg Tablet] 0.05 mg PO Q6AM 10/27/17 Mometasone/Formoterol [Dulera 200 Mcg/5 Mcg Inhaler] 2 puff IH Q12 10/27/17 Prednisone [Deltasone 5 mg Tablet] 5 mg PO QID 10/27/17 Roflumilast [Daliresp 500 mcg Tablet] 500 mcg PO DAILY 10/27/17 Tiotropium [place] [Spiriva Respimat] 2 puff IH DAILY 10/27/17 Budesonide/Formoterol Fumarate [Symbicort 160-4.5 Mcg Inhaler] 10.2 gm IH BID # 1 hfa.aer.ad 11/01/17 Citalopram Hydrobromide [Celexa 20 mg Tablet] 20 mg PO DAILY #30 tablet Famotidine [Pepcid 20 mg Tablet] 20 mg PO Q12 tablet 11/01/17 Nicotine [Nicoderm 21 mg/24 Hr Transderm Patch] 1 each TD DAILYP PRN patch.td24 11/01/17 Prednisone [Deltasone 20 mg Tablet] 20 mg PO ASDIR #30 tablet 11/01/17 History of Present Illness Patient complains of: Short of breath History of Present Illness: BRUCE GALAN is a 67 year old female discharged from this institution of a little over a month ago with the same complaint. She has O2 dependent COPD and continues to smoke. She was being treated as an outpatient by her marketing automation analyst but felt she was getting worse so came into the emergency department. She denies any chest pain, fevers, chills, nausea, vomiting, or diarrhea. She states she has been coughing up yellow phlegm. Hospital Course Hospital Course: She was treated with the usual regimen for COPD. She appears to have plateaued at her baseline. So I will send her home to complete her convalescence there. Physical Exam Vital Signs: Temp Pulse Resp BP Pulse Ox 98.3 F 85 18 123/73 97 11/01/17 11:15 11/01/17 11:15 11/01/17 11:15 11/01/17 11:15 11/01/17 11:15 Intake & Output 10/31/17 11/01/17 11/02/17 06:59 06:59 06:59 Intake Total 980 2480 Output Total 800 Balance 180 2480 Weight 178 lb 5.663 oz 179 lb 10.828 oz General appearance: PRESENT: no acute distress, cooperative, obese Respiratory exam: PRESENT: clear to auscultation tay, decreased breath sounds, prolonged expiratory phas Cardiovascular exam: PRESENT: RRR GI/Abdominal exam: PRESENT: soft Musculoskeletal exam: PRESENT: normal inspection Neurological exam: PRESENT: alert Psychiatric exam: PRESENT: appropriate affect Skin exam: PRESENT: dry, warm Results Laboratory Results: 10/30/17 04:09 10/28/17 10/30/17 04:53 04:09 NT-Pro-B Natriuret Pep 475 117 Impressions: Chest X-Ray 10/30/17 07:00 IMPRESSION: Obstructive lung disease Qualifiers - * PATIENT BEING DISCHARGED WITH ANY OF THE FOLLOWING DIAGNOSIS: No
== END 2017-11-01 13:00 | disposition home or self-care (01) | DRG 189 ==
LOC: ER 15:36 → EH 17:30 → 4N 20:44
PROVIDERS: ADMIT Emergency Medicine; ATTEND Emergency Medicine
DX: J96.21 Acute and chronic respiratory failure with hypoxia (principal); J44.1 Chronic obstructive pulmonary disease with (acute) exacerbation; J96.22 Acute and chronic respiratory failure with hypercapnia; Z99.81 Dependence on supplemental oxygen; E11.9 Type 2 diabetes mellitus without complications; E78.5 Hyperlipidemia, unspecified; I10 Essential (primary) hypertension; E03.9 Hypothyroidism, unspecified; G47.33 Obstructive sleep apnea (adult) (pediatric); F17.210 Nicotine dependence, cigarettes, uncomplicated; F34.1 Dysthymic disorder; Z79.2 Long term (current) use of antibiotics; Z79.51 Long term (current) use of inhaled steroids; Z79.52 Long term (current) use of systemic steroids; Z79.899 Other long term (current) drug therapy
CPT/HCPCS: 36415; 71045; 71046; 80048; 80053; 82803; 82962; 83036; 83605; 83735; 83880; 84100; 84439; 84443; 84484; 85025; 85610; 87040; 93005; 93010; 94640; 94660; 94667; 94799; 99285; G8978-GP; G8979-GP; J1650; J1815; J1956; J2920; J3490; J7512; J7620

== ENCOUNTER 2017-11-21 12:10 | Inpatient (IN) | payer MEDICARE ==
[2017-11-21 12:44] LABS: HEMATOCRIT 45.2 % (36.0-47.0); HEMOGLOBIN 15.2 g/dL (12.0-15.5); MEAN CORPUSCULAR HEMOGLOBIN 30.1 pg (27.0-33.4); MEAN CORPUSCULAR HGB CONC 33.6 g/dL (32.0-36.0); MEAN CORPUSCULAR VOLUME 90 fl (80-97); PLATELET COUNT 294 10^3/uL (150-450); RED BLOOD COUNT 5.05 10^6/uL (3.72-5.28); RED CELL DISTRIBUTION WIDTH 15.6 % (11.5-14.0); WHITE BLOOD COUNT 14.2 10^3/uL (4.0-10.5)
--- NOTE | 2017-11-21 12:50 | RADIOLOGY REPORT (SQ) ---
EXAM DESCRIPTION: CHEST SINGLE VIEW COMPLETED DATE/TIME: 11/21/2017 12:40 pm REASON FOR STUDY: SOB COMPARISON: 10/30/2017 EXAM PARAMETERS: NUMBER OF VIEWS: One view. TECHNIQUE: Single frontal radiographic view of the chest acquired. RADIATION DOSE: NA LIMITATIONS: None. FINDINGS: LUNGS AND PLEURA: No opacities, masses or pneumothorax. No pleural effusion. Minimal left basilar densities are identified which could represent subsegmental atelectasis or scarring. Again there is evidence for obstructive lung disease. MEDIASTINUM AND HILAR STRUCTURES: No masses. Contour normal. HEART AND VASCULAR STRUCTURES: The configuration of the heart and mediastinal structures is unchanged BONES: No acute findings. HARDWARE: None in the chest. OTHER: No other significant finding. IMPRESSION: No significant interval change. No acute findings. Other findings as noted above TECHNICAL DOCUMENTATION: JOB ID: [id number] [employer]- All Rights Reserved Reading location - IP/workstation name: [email or web address]
[2017-11-21 13:03] LABS: ABSOLUTE LYMPHOCYTES# (MANUAL) 3.6 10^3/uL (0.5-4.7); ABSOLUTE MONOCYTES # (MANUAL) 1.4 10^3/uL (0.1-1.4); ABSOLUTE NEUTROPHILS# (MANUAL) 8.9 10^3/uL (1.7-8.2); BASOPHILS % (MANUAL) 0 % (0-2); EOSINOPHILS % (MANUAL) 2 % (0-6); LYMPHOCYTES % (MANUAL) 24 % (13-45); MONOCYTES % (MANUAL) 10 % (3-13); NUCLEATED RED BLOOD CELLS 1 /100 WBC (0); SEGMENTED NEUTROPHILS % (MAN) 63 % (42-78); TOTAL CELLS COUNTED 100
[2017-11-21 13:04] LABS: ANISOCYTOSIS SLIGHT; POLYCHROMASIA SLIGHT
[2017-11-21 13:09] LABS: PLATELET COMMENT ADEQUATE
[2017-11-21 13:13] LABS: ALANINE AMINOTRANSFERASE 28 U/L (9-52); ALBUMIN 3.5 g/dL (3.5-5.0); ALKALINE PHOSPHATASE 69 U/L (38-126); ANION GAP 7 (5-19); ASPARTATE AMINO TRANSFERASE 13 U/L (14-36); BILIRUBIN,DIRECT 0.3 mg/dL (0.0-0.4); BILIRUBIN,TOTAL 0.4 mg/dL (0.2-1.3); BLOOD UREA NITROGEN 13 mg/dL (7-20); CALCIUM 8.4 mg/dL (8.4-10.2); CARBON DIOXIDE 31 mmol/L (22-30); CHLORIDE 101 mmol/L (98-107); CREATINE KINASE 34 U/L (30-135); GLUCOSE 88 mg/dL (75-110); POTASSIUM 3.2 mmol/L (3.6-5.0); SODIUM 139.4 mmol/L (137-145); TOTAL PROTEIN 5.7 g/dL (6.3-8.2)
[2017-11-21 13:28] LABS: CREATINE KINASE MB 1.91 ng/mL (<4.55); TROPONIN I < 0.012 ng/mL
[2017-11-21] MEDS ORDERED: IPRATROPIUM/ALBUTEROL 0.5-2.5 MG/3 ML AMPUL NEB ONE (13:28)
[2017-11-21] MEDS: MAGNESIUM SULFATE/D5W 1 GM/100 ML RTUPB IV SCH ×2 (13:43→15:11)
--- NOTE | 2017-11-21 14:36 | ER Document Report ---
ED General - General Chief Complaint: Shortness Of Breath Stated Complaint: RESPIRATORY DISTRESS Time Seen by Provider: 11/21/17 12:33 Mode of Arrival: Ambulatory Information source: Patient Notes: 67-year-old female history of COPD presents with complaints of shortness of breath. Patient notes she took 2 duo nebs this morning. Denies any fevers or chills denies any productivity to cough TRAVEL OUTSIDE OF THE [place] IN LAST 30 DAYS: No - HPI Onset: This morning Onset/Duration: Persistent Quality of pain: Achy Severity: Mild Pain Level: 1 Associated symptoms: Nonproductive cough, Shortness of breath, Other - Anxiety Exacerbated by: Walking, Coughing Relieved by: Denies Similar symptoms previously: Yes Recently seen / treated by doctor: Yes - Related Data Allergies/Adverse Reactions: Penicillins Allergy (Verified 08/31/17 09:09) "cillins" Allergy (Uncoded 08/31/17 09:10) Past Medical History - Social History Smoking Status: Former Smoker Cigarette use (# per day): No Chew tobacco use (# tins/day): No Smoking Education Provided: No Frequency of alcohol use: None Drug Abuse: None Family History: Reviewed & Not Pertinent, Other - The patient's mother of cancer at age 83. She is not sure what type of cancer she had. One sister has epilepsy. She had one brother age 50 of a myocardial infarction. Patient has suicidal ideation: No Patient has homicidal ideation: No - Past Medical History Cardiac Medical History: Reports: Hx Hypercholesterolemia, Hx Hypertension Pulmonary Medical History: Reports: Hx Bronchitis, Hx COPD, Hx Pneumonia, Hx Respiratory Failure Endocrine Medical History: Reports: Hx Diabetes Mellitus Type 2, Hx Hypothyroidism Renal/ Medical History: Denies: Hx Peritoneal Dialysis Psychiatric Medical History: Reports: Hx Depression Past Surgical History: Reports: Hx Appendectomy, Hx Thyroid Surgery - 1/2 thyroid, Other - Right-sided chest tube - Immunizations Hx Pneumococcal Vaccination: 07/08/16 Review of Systems - Review of Systems Notes: REVIEW OF SYSTEMS: CONSTITUTIONAL : Denies fever, chills, or sweats. Denies recent illness. EENT: Denies eye, ear, throat, or mouth pain or symptoms. Denies nasal or sinus congestion or discharge. Denies throat, tongue, or mouth swelling or difficulty swallowing. CARDIOVASCULAR: Admits to palpitations RESPIRATORY: Admits wheezing shortness breath difficulty breathing GASTROINTESTINAL: Denies abdominal pain or distention. Denies nausea, vomiting , or diarrhea. Denies blood in vomitus, stools, or per rectum. Denies black, tarry stools. Denies constipation. GENITOURINARY: Denies difficulty urinating, painful urination, burning, frequency, blood in urine, or discharge. FEMALE GENITOURINARY: Denies vaginal bleeding, heavy or abnormal periods, irregular periods. Denies vaginal discharge or odor. MUSCULOSKELETAL: Denies back or neck pain or stiffness. Denies joint pain or swelling. SKIN: Denies rash, lesions or sores. HEMATOLOGIC : Denies easy bruising or bleeding. LYMPHATIC: Denies swollen, enlarged glands. NEUROLOGICAL: Denies confusion or altered mental status. Denies passing out or loss of consciousness. Denies dizziness or lightheadedness. Denies headache. Denies weakness or paralysis or loss of use of either side. Denies problems with gait or speech. Denies sensory loss, numbness, or tingling. Denies seizures. PSYCHIATRIC: Admits anxiety ALL OTHER SYSTEMS REVIEWED AND NEGATIVE. PHYSICAL EXAMINATION: GENERAL: Well-appearing, well-nourished and in no acute distress. HEAD: Atraumatic, normocephalic. EYES: Pupils equal round and reactive to light, extraocular movements intact, conjunctiva are normal. ENT: Nares patent, oropharynx clear without exudates. Moist mucous membranes. NECK: Normal range of motion, supple without lymphadenopathy LUNGS: Coarse wheezing all throughout patient currently on 3 L nasal cannula HEART: Regular rate and rhythm without murmurs ABDOMEN: Soft, nontender, nondistended abdomen. No guarding, no rebound. No masses appreciated. Female : deferred Musculoskeletal: Normal range of motion, no pitting or edema. No cyanosis. NEUROLOGICAL: Cranial nerves grossly intact. Normal speech, normal gait. Normal sensory, motor exams PSYCH: Normal mood, normal affect. SKIN: Warm, Dry, normal turgor, no rashes or lesions noted. Dictation was performed using [employer] voice recognition software Physical Exam - Vital signs Vitals: Pulse Ox 97 11/21/17 12:17 Course - Re-evaluation Re-evalutation: 11/21/17 14:54 Patient at home is on 2 L nasal cannula , is noted to be wheezing all throughout , there is a component of anxiety as well, she will be given magnesium is satting well at this time - Vital Signs Vital signs: Temp Pulse Resp BP Pulse Ox 97 11/21/17 12:17 - Laboratory Result Diagrams: 11/21/17 12:20 11/21/17 12:20 Laboratory results interpreted by me: 11/21/17 11/21/17 12:20 12:20 WBC 14.2 H RDW 15.6 H Abs Neuts (Manual) 8.9 H Potassium 3.2 L Carbon Dioxide 31 H Creatinine 0.47 L AST 13 L Total Protein 5.7 L - Diagnostic Test Radiology reviewed: Image reviewed - Chest x-ray noted no significant abnormal, Reports reviewed Discharge - Discharge Clinical Impression: COPD exacerbation Condition: Stable Disposition: ADMITTED INPATIENT Admitting Provider: Hospitalist Unit Admitted: Telemetry
[2017-11-21 15:08] LABS: APPEARANCE,URINE CLEAR; BILIRUBIN,URINE NEGATIVE (NEGATIVE); COLOR,URINE YELLOW; GLUCOSE, URINE NEGATIVE (NEGATIVE); KETONES,URINE NEGATIVE (NEGATIVE); LEUKOCYTE ESTERASE,URINE NEGATIVE (NEGATIVE); NITRITE,URINE NEGATIVE (NEGATIVE); PROTEIN,URINE NEGATIVE (NEGATIVE); URINE SPECIFIC GRAVITY 1.009; UROBILINOGEN,URINE NEGATIVE mg/dL (<2.0)
--- NOTE | 2017-11-21 16:16 | RADIOLOGY REPORT (SQ) ---
EXAM DESCRIPTION: CTA CHEST COMPLETED DATE/TIME: 11/21/2017 3:48 pm REASON FOR STUDY: sob COMPARISON: None. TECHNIQUE: CT scan of the chest performed using helical scanning technique with dynamic intravenous contrast injection. Images reviewed with lung, soft tissue and bone windows. Reconstructed coronal and sagittal MPR images reviewed. Additional 3 dimensional post-processing performed to develop Maximal Intensity Projection images (ND P). All images stored on PACS. All CT scanners at this facility use dose modulation, iterative reconstruction, and/or weight based d osing when appropriate to reduce radiation dose to as low as reasonably achievable (ALARA). [facility]: Dose Right [facility]: CareDose [facility]: Dose Right [facility]: Teradose 4D [facility]: CodeNgo CONTRAST TYPE AND DOSE: contrast/concentration: Isovue 370.00 mg/ml; Total Contrast Delivered: 71.0 ml; Total Saline Delivered: 90.0 ml Contrast bolus optimized for the pulmonary arteries. Not diagnostic for the aorta. RENAL FUNCTION: Creatinine 0.47 RADIATION DOSE: CT Rad equipment meets quality standard of care and radiation dose reduction techniq ues were employed. CTDIvol: 26.1 - 26.4 mGy. DLP: 915 mGy-cm. . LIMITATIONS: None. FINDINGS: LUNGS AND PLEURA: Chronic appearing emphysematous and interstitial changes are identified. No acute consolidations or pleural effusions are identified. A small 10 mm in diameter pleural-bas ed spiculated mass is identified in the right upper lung field anteriorly best seen on image number 4 1 of series 4 which I cannot exclude as a neoplastic process. PET-CT scan may be of value for furthe r evaluation. AORTA AND GREAT VESSELS: No aneurysm. Contrast bolus not optimized for the aorta. HEART: No pericardial effusion. No significant coronary artery calcifications. PULMONARY ARTERIES: No emboli visualized in the main pulmonary arteries or the segmental branches. HILAR AND MEDIASTINAL STRUCTURES: Right hilar mass is identified suspicious for adenopathy. HARDWARE: None in the chest. UPPER ABDOMEN: Rim calcified gallstones are identified. THYROID AND OTHER SOFT TISSUES: No masses. No adenopathy. BONES: No acute or significant finding. 3D MIPS: Confirm above findings. OTHER: No other significant finding. IMPRESSION: No evidence for pulmonary embolic disease. No acute consolidations or pleural effusions are identified. 10 mm in diameter pleural-based spiculated mass as noted above suspicious for neopl astic process. Right hilar mass is identified suspicious for adenopathy. PET-CT scan may be of valu e for further evaluation. Other findings as noted above. COMMENT: Quality ID # [id number]: Final reports with documentation of one or more dose reduction techniques (e.g., Automated exposure control, adjustment of the mA and/or kV according to patient size, use of iterative reconstruction technique) TECHNICAL DOCUMENTATION: JOB ID: [id number] [employer]- All Rights Reserved Reading location - IP/workstation name: [email or web address]
[2017-11-21 17:05] LABS: ARTERIAL BLOOD BASE EXCESS 3.2 mmol/L; ARTERIAL BLOOD H2CO3 1.45 mmol/L (1.05-1.35); ARTERIAL BLOOD O2 SATURATION 94.7 % (94-98); ARTERIAL BLOOD PCO2 48.2 mmHg (35-45); ARTERIAL BLOOD PO2 73.9 mmHg (80-100); ARTERIAL BLOOD TOTAL CO2 30.5 mmol/L (21-25)
[2017-11-21 17:07] LABS: ARTERIAL BLOOD FIO2 3L
[2017-11-21] MEDS ORDERED: ACETAMINOPHEN 325 MG TABLET PO PRN (17:30)
[2017-11-21] MEDS ORDERED: LEVALBUTEROL HCL NEB 1.25 MG/3 ML AMPUL NEB PRN (17:30)
[2017-11-21] MEDS ORDERED: ONDANSETRON 4 MG TAB.RAPDIS PO PRN (17:30)
[2017-11-21] MEDS ORDERED: ONDANSETRON HCL INJ/PF 4 MG/2 ML SDV IV PRN (17:30)
--- NOTE | 2017-11-21 17:55 | PDOC H&P ---
History of Present Illness Admission Date/PCP: 11/21/17 15:44 Dr. Jeffery Monsalve Pulmonology: Dr. alma Batista Patient complains of: Shortness of breath History of Present Illness: BRUCE GALAN is a 67 year old female with O2 dependent COPD who continues to smoke. She has had recurrent admissions for COPD excarebation. Past medical history Chronic hypoxic respiratory failure COPD on home O2 HANNY on BiPAP at night Hypothyroidism Tobacco dependence Anxiety GERD Hypertension Outpatient meds: Duonebs QID Pepcid bid HCTZ 25 mg daily Zyrtec 10 mg daily Vitamin D 50,000 units every week Buspirone 10 mg tid Synthroid Spiriva Dulera bid Ventolin rescue inhaler She reports progressively worsening dyspnea and R leg swelling CT chest showed no PE or inflitrate but spiculated 10mm R pleural based mass and R hilar mass- which she says is known to her and is being followed as an outpatient. Lower extremity venous dopplers ordered to r/o DVT. She was treated with mag, steroids and nebs. Past Medical History Cardiac Medical History: Reports: Hyperlipidema, Hypertension Pulmonary Medical History: Reports: Bronchitis, Chronic Obstructive Pulmonary Disease (COPD), Pneumonia, Respiratory Failure Endocrine Medical History: Reports: Diabetes Mellitus Type 2, Hypothyroidism Psychiatric Medical History: Reports: Depression Past Surgical History Past Surgical History: Reports: Appendectomy, Other - Right-sided chest tube Social History Smoking Status: Former Smoker Frequency of Alcohol Use: Rare Hx Recreational Drug Use: No Drugs: None Hx Prescription Drug Abuse: No - Advance Directive Resuscitation Status: Full Code Family History Family History: Other - Brother- CAD Mother- colorectal cancer Parental Family History Reviewed: Yes Children Family History Reviewed: Yes Sibling(s) Family History Reviewed.: Yes Medication/Allergy Home Medications: No Home Medications 11/21/17 Allergies/Adverse Reactions: Penicillins Allergy (Verified 08/31/17 09:09) "cillins" Allergy (Uncoded 08/31/17 09:10) Review of Systems Constitutional: ABSENT: fever(s) Eyes: ABSENT: visual disturbances Ears: ABSENT: hearing changes Nose, Mouth, and Throat: ABSENT: sore throat Cardiovascular: PRESENT: dyspnea on exertion, edema. ABSENT: chest pain Gastrointestinal: PRESENT: heartburn. ABSENT: abdominal pain, vomiting Genitourinary: ABSENT: dysuria Musculoskeletal: ABSENT: deformity Integumentary: ABSENT: lesions Neurological: ABSENT: focal weakness Psychiatric: ABSENT: hallucinations Endocrine: ABSENT: heat intolerance Hematologic/Lymphatic: ABSENT: easy bleeding Allergic/Immunologic: ABSENT: seasonal rhinorrhea Physical Exam Vital Signs: Temp Pulse Resp BP Pulse Ox 97 11/21/17 12:17 General appearance: PRESENT: mild distress Eye exam: ABSENT: scleral icterus Ear exam: PRESENT: normal external ear exam Mouth exam: PRESENT: neck supple, other - oral thrush Neck exam: ABSENT: tracheal deviation Respiratory exam: PRESENT: accessory muscle use, symmetrical, tachypnea, wheezes Cardiovascular exam: PRESENT: RRR GI/Abdominal exam: PRESENT: normal bowel sounds, soft. ABSENT: tenderness Rectal exam: PRESENT: deferred Gentrourinary exam: PRESENT: indwelling catheter Extremities exam: PRESENT: pedal edema Neurological exam: PRESENT: alert, awake, oriented to person, oriented to place , oriented to time, oriented to situation Psychiatric exam: PRESENT: appropriate affect Skin exam: ABSENT: rash Results Laboratory Results: 11/21/17 16:45 Carbonic Acid 1.45 H HCO3/H2CO3 Ratio 20:1 ABG pH 7.40 ABG pCO2 48.2 H ABG pO2 73.9 L ABG HCO3 29.0 H ABG O2 Saturation 94.7 ABG Base Excess 3.2 FiO2 3L Impressions: Chest X-Ray 11/21/17 12:17 IMPRESSION: No significant interval change. No acute findings. Other findings as noted above Chest/Abdomen CTA 11/21/17 13:22 IMPRESSION: No evidence for pulmonary embolic disease. No acute consolidations or pleural effusions are identified. 10 mm in diameter pleural- based spiculated mass as noted above suspicious for neoplastic process. Right hilar mass is identified suspicious for adenopathy. PET-CT scan may be of value for further evaluation. Other findings as noted above. Assessment & Plan - Diagnosis (1) COPD exacerbation Is this a current diagnosis for this admission?: Yes Plan: IV Steroids, nebs, inhalers, mucinex, oxygen. (2) Oral thrush Is this a current diagnosis for this admission?: Yes Plan: PO Nystatin (3) Acute on chronic respiratory failure with hypoxia and hypercapnia Is this a current diagnosis for this admission?: Yes Plan: above (4) DVT prophylaxis Is this a current diagnosis for this admission?: Yes Plan: Lovenox s/c Check LE venous dopplers (5) Full code status Is this a current diagnosis for this admission?: Yes (6) Hypothyroidism Is this a current diagnosis for this admission?: Yes (7) Obstructive sleep apnea Is this a current diagnosis for this admission?: Yes Plan: BiPAP (8) Tobacco dependency Is this a current diagnosis for this admission?: Yes Plan: Nicotine patch (9) Hypertension Is this a current diagnosis for this admission?: Yes Plan: Monitor and manage - Time Time Spent: 50 to 70 Minutes
[2017-11-21] MEDS ORDERED: NICOTINE 7 MG/24 HR PATCH.TD24 TD PRN (17:58)
[2017-11-21] MEDS ORDERED: HYDRALAZINE HCL INJ/PF 20 MG/1 ML SDV IV PRN (17:59)
--- NOTE | 2017-11-21 19:27 | EKG REPORT ---
SEVERITY:- ABNORMAL ECG - SINUS TACHYCARDIA MULTIFORM VENTRICULAR PREMATURE COMPLEXES : Confirmed by: Tina Bardales 21-Nov-2017 19:26:13
[2017-11-21] MEDS: IPRATROPIUM/ALBUTEROL 0.5-2.5 MG/3 ML AMPUL NEB SCH (19:35)
[2017-11-21] MEDS: NYSTATIN 500000 UNIT/5 ML UDCUP PO SCH ×2 (21:19→22:42)
[2017-11-21] MEDS: BUDESONIDE/FORMOTEROL 160-4.5 MCG 60 PUFF/6 GM MDI IH SCH (22:41)
[2017-11-21] MEDS: METHYLPREDNISOLONE INJ 125 MG/2 ML SDV IV SCH (22:42)
[2017-11-21] MEDS: BUSPIRONE HCL 10 MG TABLET PO SCH (22:42)
[2017-11-22] MEDS: LEVOTHYROXINE SODIUM 0.05 MG TABLET PO SCH (06:18)
[2017-11-22] MEDS: BUSPIRONE HCL 10 MG TABLET PO SCH ×3 (06:18→21:10)
[2017-11-22] MEDS: METHYLPREDNISOLONE INJ 125 MG/2 ML SDV IV SCH ×3 (06:18→21:10)
[2017-11-22] MEDS: LANSOPRAZOLE 30 MG TAB.RAP.DR PO SCH (06:18)
[2017-11-22 06:37] LABS: ANION GAP 10 (5-19); BLOOD UREA NITROGEN 14 mg/dL (7-20); CALCIUM 8.6 mg/dL (8.4-10.2); CARBON DIOXIDE 32 mmol/L (22-30); CHLORIDE 98 mmol/L (98-107); GLUCOSE 148 mg/dL (75-110); PHOSPHORUS 5.6 mg/dL (2.5-4.5)
[2017-11-22] MEDS: IPRATROPIUM/ALBUTEROL 0.5-2.5 MG/3 ML AMPUL NEB SCH ×4 (08:13→20:15)
[2017-11-22] MEDS: NYSTATIN 500000 UNIT/5 ML UDCUP PO SCH ×4 (09:36→21:10)
[2017-11-22] MEDS: DOCUSATE SODIUM 100 MG CAPSULE PO SCH (09:37)
[2017-11-22] MEDS: BUDESONIDE/FORMOTEROL 160-4.5 MCG 60 PUFF/6 GM MDI IH SCH ×2 (09:37→21:10)
[2017-11-22] MEDS: ENOXAPARIN SODIUM INJ 40 MG/0.4 ML DISP.SYRIN SUBCUT SCH (11:11)
--- NOTE | 2017-11-22 15:58 | XCELERA REPORT ---
[address] [address] Lower Extremity Venous Evaluation Name: BRUCE GALAN I Age: 67 yrs Gender: Female : 1950 Patient Status: Inpatient Patient Location: [address] [place] [address] Study Date: 11/22/2017 09:40 AM Procedure: Color flow and duplex imaging bilaterally of the veins of the lower extremities as well as the Common Femoral veins. Reason For Study: Swelling Ordering Physician: SANTOS CARDENAS Performed By: Lion Graves Right Sided Venous Evaluation Normal vessel filling wall to wall, compression and augmentation as well as Colour flow down to the infrageniculate veins. Left Sided Venous Evaluation Normal vessel filling wall to wall, compression and augmentation as well as Colour flow down to the infrageniculate veins. Interpretation Summary No duplex evidence of DVT or obstruction in the bilateral lower extremities. : SANTOS CARDENAS > Santosh Luna
--- NOTE | 2017-11-22 19:19 | PDOC PROGRESS REPORT ---
Subjective Progress Note for:: 11/22/17 Subjective:: Patient breathing significantly better. She is feeling kind of exhausted and is resting. Wheezing has improved. No chest pain. No fevers or chills. No dysuria. No bowel complaints. Reason For Visit: COPD EXACERBATION Physical Exam Vital Signs: Temp Pulse Resp BP Pulse Ox 98.0 F 107 H 16 127/61 H 97 11/22/17 15:41 11/22/17 16:48 11/22/17 16:48 11/22/17 15:41 11/22/17 16:48 Intake & Output 11/21/17 11/22/17 11/23/17 06:59 06:59 06:59 Intake Total 568 Output Total 300 Balance 268 Weight 80 kg General appearance: PRESENT: no acute distress, cooperative Head exam: PRESENT: atraumatic Eye exam: PRESENT: EOMI Ear exam: PRESENT: normal external ear exam Mouth exam: PRESENT: moist Respiratory exam: PRESENT: decreased breath sounds, unlabored, other - Very poor air movement all liu. ABSENT: rales, retraction, rhonchi Cardiovascular exam: PRESENT: RRR. ABSENT: systolic murmur Pulses: PRESENT: normal radial pulses GI/Abdominal exam: PRESENT: normal bowel sounds, soft. ABSENT: distended, tenderness Rectal exam: PRESENT: deferred Extremities exam: ABSENT: pedal edema Musculoskeletal exam: PRESENT: normal inspection Neurological exam: PRESENT: alert, awake, oriented to person, oriented to place , oriented to situation, CN II-XII grossly intact Psychiatric exam: PRESENT: appropriate affect. ABSENT: anxious Skin exam: PRESENT: dry, intact, warm Results Laboratory Results: 11/22/17 04:47 11/22/17 11/22/17 04:47 04:47 Sodium 140.0 Potassium 4.0 Chloride 98 Carbon Dioxide 32 H Anion Gap 10 BUN 14 Creatinine 0.48 L Est GFR ( Amer) > 60 Est GFR (Non-Af Amer) > 60 Glucose 148 H Calcium 8.6 Phosphorus 5.6 H Magnesium 2.3 TSH 0.33 L 11/22/17 04:47 NT-Pro-B Natriuret Pep 120 Impressions: Chest X-Ray 11/21/17 12:17 IMPRESSION: No significant interval change. No acute findings. Other findings as noted above Chest/Abdomen CTA 11/21/17 13:22 IMPRESSION: No evidence for pulmonary embolic disease. No acute consolidations or pleural effusions are identified. 10 mm in diameter pleural- based spiculated mass as noted above suspicious for neoplastic process. Right hilar mass is identified suspicious for adenopathy. PET-CT scan may be of value for further evaluation. Other findings as noted above. Assessment & Plan - Diagnosis (1) COPD exacerbation Is this a current diagnosis for this admission?: Yes Plan: Patient is improving with current bronchodilators and steroids. Continue current care and reassess tomorrow. (2) Oral thrush Is this a current diagnosis for this admission?: Yes Plan: Likely improving, continue nystatin (3) Acute on chronic respiratory failure with hypoxia and hypercapnia Is this a current diagnosis for this admission?: Yes Plan: Patient is improved with current management, will continue current care, follow hypoxemia. Will recheck for hypercapnia should patient's mental status or clinical condition change. - Time Time Spent with patient: 15-24 minutes Medications reviewed and adjusted accordingly: Yes - Inpatient Certification Based on my medical assessment, after consideration of the patient's comorbidities, presenting symptoms, or acuity I expect that the services needed warrant INPATIENT care.: Yes I certify that my determination is in accordance with my understanding of Medicare's requirements for reasonable and necessary INPATIENT services [42 CFR 412.3e].: Yes Medical Necessity: Need Close Monitoring Due to Risk of Patient Decompensation, Risk of Complication if Not Cared For in Hospital
[2017-11-23] MEDS: LANSOPRAZOLE 30 MG TAB.RAP.DR PO SCH (05:22)
[2017-11-23] MEDS: LEVOTHYROXINE SODIUM 0.05 MG TABLET PO SCH (05:22)
[2017-11-23] MEDS: METHYLPREDNISOLONE INJ 125 MG/2 ML SDV IV SCH ×2 (05:23→13:23)
[2017-11-23] MEDS: BUSPIRONE HCL 10 MG TABLET PO SCH ×3 (05:23→21:31)
[2017-11-23 06:26] LABS: HEMATOCRIT 39.7 % (36.0-47.0); HEMOGLOBIN 13.2 g/dL (12.0-15.5); MEAN CORPUSCULAR HEMOGLOBIN 29.8 pg (27.0-33.4); MEAN CORPUSCULAR HGB CONC 33.3 g/dL (32.0-36.0); MEAN CORPUSCULAR VOLUME 90 fl (80-97); PLATELET COUNT 264 10^3/uL (150-450); RED BLOOD COUNT 4.44 10^6/uL (3.72-5.28); RED CELL DISTRIBUTION WIDTH 15.2 % (11.5-14.0); WHITE BLOOD COUNT 14.6 10^3/uL (4.0-10.5)
[2017-11-23] MEDS: IPRATROPIUM/ALBUTEROL 0.5-2.5 MG/3 ML AMPUL NEB SCH ×4 (08:53→20:25)
[2017-11-23] MEDS: ENOXAPARIN SODIUM INJ 40 MG/0.4 ML DISP.SYRIN SUBCUT SCH (09:41)
[2017-11-23] MEDS: BUDESONIDE/FORMOTEROL 160-4.5 MCG 60 PUFF/6 GM MDI IH SCH ×2 (09:42→21:31)
[2017-11-23] MEDS: NYSTATIN 500000 UNIT/5 ML UDCUP PO SCH ×4 (09:42→21:31)
[2017-11-23] MEDS: DOCUSATE SODIUM 100 MG CAPSULE PO SCH (09:42)
[2017-11-23] MEDS ORDERED: METHYLPREDNISOLONE INJ 125 MG/2 ML SDV IV SCH (16:59)
--- NOTE | 2017-11-23 17:07 | PDOC PROGRESS REPORT ---
Subjective Progress Note for:: 11/23/17 Subjective:: Patient is breathing easier today. She is able to move about better without as much dyspnea. He agrees with removal of Hahn catheter. No phlegm fever or chills. Wheezing improved. No chest pain. No abdominal pain nausea vomiting constipation or diarrhea. Eating and drinking fine. Reason For Visit: COPD EXACERBATION Physical Exam Vital Signs: Temp Pulse Resp BP Pulse Ox 98.9 F 110 H 18 137/73 H 95 11/23/17 16:00 11/23/17 16:00 11/23/17 16:00 11/23/17 16:00 11/23/17 16:00 Intake & Output 11/22/17 11/23/17 11/24/17 06:59 06:59 06:59 Intake Total 1024 Output Total 750 Balance 274 Weight 80 kg 82.2 kg General appearance: PRESENT: no acute distress, obese Head exam: PRESENT: atraumatic, normocephalic Ear exam: PRESENT: normal external ear exam Mouth exam: PRESENT: moist Respiratory exam: PRESENT: decreased breath sounds, unlabored. ABSENT: rales, rhonchi, tachypnea, wheezes Cardiovascular exam: PRESENT: RRR. ABSENT: systolic murmur Pulses: PRESENT: normal radial pulses GI/Abdominal exam: PRESENT: normal bowel sounds, soft. ABSENT: distended, guarding, tenderness Gentrourinary exam: PRESENT: indwelling catheter - Yellow urine in Hahn bag, clear Extremities exam: ABSENT: pedal edema Musculoskeletal exam: PRESENT: ambulatory, normal inspection Neurological exam: PRESENT: alert, awake, oriented to person, oriented to place , oriented to situation, CN II-XII grossly intact Psychiatric exam: PRESENT: appropriate affect. ABSENT: anxious Skin exam: PRESENT: dry, intact, warm Results Laboratory Results: 11/23/17 06:00 11/22/17 04:47 11/23/17 11/23/17 06:00 06:00 WBC 14.6 H RBC 4.44 Hgb 13.2 Hct 39.7 MCV 90 MCH 29.8 MCHC 33.3 RDW 15.2 H Plt Count 264 Free T4 1.37 11/22/17 04:47 NT-Pro-B Natriuret Pep 120 Impressions: Chest X-Ray 11/21/17 12:17 IMPRESSION: No significant interval change. No acute findings. Other findings as noted above Chest/Abdomen CTA 11/21/17 13:22 IMPRESSION: No evidence for pulmonary embolic disease. No acute consolidations or pleural effusions are identified. 10 mm in diameter pleural- based spiculated mass as noted above suspicious for neoplastic process. Right hilar mass is identified suspicious for adenopathy. PET-CT scan may be of value for further evaluation. Other findings as noted above. Assessment & Plan - Diagnosis (1) COPD exacerbation Is this a current diagnosis for this admission?: Yes Plan: We will continue with bronchodilators, will wean IV steroids, will remove Hahn catheter as patient can move about now without too much dyspnea. (2) Oral thrush Is this a current diagnosis for this admission?: Yes Plan: Continue nystatin for 5-7 days. (3) Acute on chronic respiratory failure with hypoxia and hypercapnia Is this a current diagnosis for this admission?: Yes Plan: Secondary to COPD exacerbation, improving, not yet back to baseline. Mental status is good. - Time Time Spent with patient: 15-24 minutes Medications reviewed and adjusted accordingly: Yes - Inpatient Certification Based on my medical assessment, after consideration of the patient's comorbidities, presenting symptoms, or acuity I expect that the services needed warrant INPATIENT care.: Yes I certify that my determination is in accordance with my understanding of Medicare's requirements for reasonable and necessary INPATIENT services [42 CFR 412.3e].: Yes Medical Necessity: Need Close Monitoring Due to Risk of Patient Decompensation, Need for Nebulizer Therapy and Monitoring of Response
[2017-11-23] MEDS: METHYLPREDNISOLONE INJ 40 MG/1 ML SDV IV SCH (21:31)
[2017-11-24] MEDS: METHYLPREDNISOLONE INJ 40 MG/1 ML SDV IV SCH ×2 (05:27→14:52)
[2017-11-24] MEDS: BUSPIRONE HCL 10 MG TABLET PO SCH ×3 (05:27→21:34)
[2017-11-24] MEDS: LANSOPRAZOLE 30 MG TAB.RAP.DR PO SCH (05:27)
[2017-11-24] MEDS: LEVOTHYROXINE SODIUM 0.05 MG TABLET PO SCH (05:27)
[2017-11-24] MEDS: IPRATROPIUM/ALBUTEROL 0.5-2.5 MG/3 ML AMPUL NEB SCH ×4 (09:05→20:00)
[2017-11-24] MEDS: NYSTATIN 500000 UNIT/5 ML UDCUP PO SCH ×4 (10:13→21:34)
[2017-11-24] MEDS: ENOXAPARIN SODIUM INJ 40 MG/0.4 ML DISP.SYRIN SUBCUT SCH (10:13)
[2017-11-24] MEDS: BUDESONIDE/FORMOTEROL 160-4.5 MCG 60 PUFF/6 GM MDI IH SCH ×2 (10:13→21:34)
[2017-11-24] MEDS: DOCUSATE SODIUM 100 MG CAPSULE PO SCH (10:14)
[2017-11-24] MEDS ORDERED: LORAZEPAM 0.5 MG TABLET PO PRN (18:46)
[2017-11-24] MEDS ORDERED: DEXTROSE 50%-WATER 25 GM/50 ML DISP.SYRIN IV PRN ×2 (18:51)
[2017-11-24] MEDS ORDERED: DEXTROSE 40% GEL 15 GM TUBE PO PRN ×2 (18:51)
[2017-11-24] MEDS ORDERED: GLUCAGON,HUMAN RECOMB 1 MG INJ IM PRN (18:51)
--- NOTE | 2017-11-24 18:51 | PDOC PROGRESS REPORT ---
Subjective Progress Note for:: 11/24/17 Subjective:: Patient's breathing has worsened today. She is feeling anxious with dyspnea. No fevers or chills. No new sputum production. No chest pain. No constipation or diarrhea. No dysuria. She is able to get up to the restroom and is doing well without her Hahn catheter. She does feel dyspnea with ambulation but she would rather get up and walk slowly to the bathroom then reinsert the Hahn. Reason For Visit: COPD EXACERBATION Physical Exam Vital Signs: Temp Pulse Resp BP Pulse Ox 98.2 F 96 18 134/66 H 97 11/24/17 15:35 11/24/17 15:47 11/24/17 15:47 11/24/17 15:35 11/24/17 15:47 Intake & Output 11/23/17 11/24/17 11/25/17 06:59 06:59 06:59 Intake Total 1024 2215 662 Output Total 750 550 300 Balance 274 1665 362 Weight 82.2 kg 82.5 kg General appearance: PRESENT: mild distress, obese Head exam: PRESENT: atraumatic, normocephalic Eye exam: PRESENT: EOMI. ABSENT: conjunctival injection, scleral icterus Ear exam: PRESENT: normal external ear exam Respiratory exam: PRESENT: decreased breath sounds, unlabored, wheezes. ABSENT : rales, rhonchi GI/Abdominal exam: PRESENT: normal bowel sounds, soft. ABSENT: distended, guarding, tenderness Neurological exam: PRESENT: alert, awake, oriented to person, oriented to place , oriented to situation, CN II-XII grossly intact Psychiatric exam: PRESENT: anxious Skin exam: PRESENT: dry, intact, warm Results Laboratory Results: 11/23/17 06:00 11/22/17 04:47 11/22/17 04:47 NT-Pro-B Natriuret Pep 120 Impressions: Chest X-Ray 11/21/17 12:17 IMPRESSION: No significant interval change. No acute findings. Other findings as noted above Chest/Abdomen CTA 11/21/17 13:22 IMPRESSION: No evidence for pulmonary embolic disease. No acute consolidations or pleural effusions are identified. 10 mm in diameter pleural- based spiculated mass as noted above suspicious for neoplastic process. Right hilar mass is identified suspicious for adenopathy. PET-CT scan may be of value for further evaluation. Other findings as noted above. Assessment & Plan - Diagnosis (1) COPD exacerbation Is this a current diagnosis for this admission?: Yes Plan: Continue current bronchodilators, increase will add low-dose Ativan for anxiety related to dyspnea. (2) Oral thrush Is this a current diagnosis for this admission?: Yes Plan: Improving with nystatin. (3) Acute on chronic respiratory failure with hypoxia and hypercapnia Is this a current diagnosis for this admission?: Yes Plan: Secondary to COPD exacerbation. Patient is still actively smoking. She is interested in cessation but this is difficult for her. We had a 5 minute discussion on tobacco cessation and that that is one thing she can do to make her COPD symptoms a little bit better. I will place a 7 mg nicotine patch per her request. Have increased steroids secondary to dyspnea. - Time Time Spent with patient: 15-24 minutes Medications reviewed and adjusted accordingly: Yes - Inpatient Certification Based on my medical assessment, after consideration of the patient's comorbidities, presenting symptoms, or acuity I expect that the services needed warrant INPATIENT care.: Yes I certify that my determination is in accordance with my understanding of Medicare's requirements for reasonable and necessary INPATIENT services [42 CFR 412.3e].: Yes Medical Necessity: Need Close Monitoring Due to Risk of Patient Decompensation, Risk of Complication if Not Cared For in Hospital - Plan Summary Plan Summary: Patient is slowly recovering from COPD exacerbation.
[2017-11-24] MEDS: METHYLPREDNISOLONE INJ 125 MG/2 ML SDV IV SCH (21:34)
[2017-11-25] MEDS: LEVOTHYROXINE SODIUM 0.05 MG TABLET PO SCH (06:16)
[2017-11-25] MEDS: METHYLPREDNISOLONE INJ 125 MG/2 ML SDV IV SCH ×3 (06:16→22:12)
[2017-11-25] MEDS: LANSOPRAZOLE 30 MG TAB.RAP.DR PO SCH (06:16)
[2017-11-25] MEDS: BUSPIRONE HCL 10 MG TABLET PO SCH ×3 (06:16→22:12)
[2017-11-25] MEDS: IPRATROPIUM/ALBUTEROL 0.5-2.5 MG/3 ML AMPUL NEB SCH ×3 (08:29→19:44)
[2017-11-25] MEDS ORDERED: IPRATROPIUM/ALBUTEROL 0.5-2.5 MG/3 ML AMPUL NEB PRN (08:44)
[2017-11-25] MEDS: ENOXAPARIN SODIUM INJ 40 MG/0.4 ML DISP.SYRIN SUBCUT SCH (09:46)
--- NOTE | 2017-11-25 09:55 | PROGRESS NOTE E ---
Progress Note NAME: BRUCE GALAN : 1950 AGE: 67Y DATE: 11/25/2017 ROOM: 434 SUBJECTIVE: The patient is out of bed to the bedside chair. The patient states that she does feel better than she did yesterday, much better in comparison to admission. However, the patient is unable to fully complete sentences. Still somewhat dyspneic. Patient denies any nausea, vomiting, diarrhea. No dizziness or chest pain. The patient is currently requiring 3 L of O2 which she normally wears 2 at home. The patient refuses to take Symbicort siting that she likes Dulera better and the patient does not voice any other concerns at this time. BRIEF HISTORY: The patient is a 67-year-old female with a past medical history of tobacco dependency and COPD with oxygen dependency. The patient has been on the hospitalist service twice this month and 3 times since the first of the year due to COPD exacerbation at times with hypercapnia. The patient has continued to smoke through this time; however, now she is receptive to smoking cessation and is actually wearing a nicotine patch. The patient's steroids have been decreased on the , however, the patient's symptoms acutely got worse and they were increased again on the . Today, the patient feels slightly better; however, she is still unable to complete sentences, therefore we will continue current steroid dosing and reevaluate tomorrow. REVIEW OF SYSTEMS: The rest of the review of systems is negative. MEDICATIONS: Medications have been reviewed. OBJECTIVE: GENERAL: The patient is a 67-year-old female who is awake, alert, and oriented to person, place, time, and situation. She is verbal and conversational and does not appear to be distressed. VITAL SIGNS: Temperature is 98.8, pulse 87, respirations 17, blood pressure is 138/76, oxygen saturation is 94% on 3 L nasal cannula. SKIN: Pale, dry. No rash. She is not diaphoretic. HEENT: Pupils equal, round, and reactive to light and accommodation. Conjunctivae pink. NECK: No evidence of JVD. CARDIOVASCULAR SYSTEM: Heart is regular. No rub. CHEST: The patient is extremely diminished throughout to auscultation with upper air space, expiratory wheezes, prolonged expiratory phase. Symmetrical, slightly labored. ABDOMEN: Obese, soft, nontender. EXTREMITIES: No clubbing, cyanosis, edema. PSYCHIATRIC: Appropriate affect, pleasant mood. DIAGNOSTIC DATA: Lab values are as follows: Hematology obtained on 11/23/2017: WBC's are 14.6, hemoglobin 13.2, hematocrit is 39.7, platelet count is 264,000. Chemistries obtained on 11/25/2017: Sodium is 140, potassium 4.0, chloride 98, carbon dioxide 32, BUN 14, creatinine is 0.48, glucose 148, calcium 8.6, phosphorous 5.6, magnesium is 2.3. IMPRESSION AND PLAN: 1. CHRONIC OBSTRUCTIVE PULMONARY DISEASE EXACERBATION. Will continue current dosage of steroids as well as bronchodilators and follow. 2. ACUTE ON CHRONIC HYPOXEMIC AND HYPERCAPNIC RESPIRATORY FAILURE. Will continue to wean the patient's O2 as she can tolerate. The patient has had a long discussion regarding tobacco cessation. Will follow. 3. ORAL THRUSH. Will continue nystatin. 4. TOBACCO DEPENDENCY. Continue with p.r.n. nicotine patch. 5. HYPOTHYROIDISM. Continue the patient's home medication. 6. ANXIETY. Will continue the patient's home medication. The patient has been given a small dose of Ativan p.r.n. given her anxiety. DISPOSITION: The patient is a FULL CODE. Pending patient's symptomatology and diagnostic findings, will reevaluate in the a.m. for possible discharge. Time spent on this followup including assessment, plan, physical examination, patient education, review of records is 25 minutes. DICTATING PHYSICIAN: CALEB CURTIS NP [id number] PHY#: [id number] ID: [id number] JOB#: [id number] ACCT: [id number] cc: >
[2017-11-25] MEDS ORDERED: (PENDING PHARMACY ID) (Tiotropium Bromide [Spiriva Respimat] 2 PUFF) IH SCH (10:00)
[2017-11-25] MEDS ORDERED: (PENDING PHARMACY ID) (Mometasone/Formoterol [Dulera 200 Mcg/5 Mcg Inhaler] 2 PUFF) IH SCH (10:00)
[2017-11-25] MEDS: NYSTATIN 500000 UNIT/5 ML UDCUP PO SCH ×4 (10:02→22:12)
[2017-11-25] MEDS: CITALOPRAM HYDROBROMIDE 20 MG TABLET PO SCH (10:02)
[2017-11-25] MEDS: ROFLUMILAST 500 MCG TABLET PO SCH (10:02)
[2017-11-25] MEDS: DOCUSATE SODIUM 100 MG CAPSULE PO SCH (10:03)
[2017-11-25] MEDS: GUAIFENESIN 600 MG TABLET.SA PO SCH ×2 (10:03→22:12)
[2017-11-25] MEDS: INSULIN LISPRO 100 UNIT/ML 3 ML VIAL SUBCUT PRN ×2 (12:53→22:59)
[2017-11-25] MEDS: TIOTROPIUM BROMIDE DPI 5 CAP/KIT (18 MCG/CAP) IH SCH (16:49)
[2017-11-25] MEDS ORDERED: HYDROCHLOROTHIAZIDE 25 MG TABLET PO ONE (21:30)
[2017-11-26] MEDS: LEVOTHYROXINE SODIUM 0.05 MG TABLET PO SCH (06:19)
[2017-11-26] MEDS: BUSPIRONE HCL 10 MG TABLET PO SCH ×3 (06:19→22:00)
[2017-11-26] MEDS: METHYLPREDNISOLONE INJ 125 MG/2 ML SDV IV SCH ×2 (06:19→13:41)
[2017-11-26] MEDS: LANSOPRAZOLE 30 MG TAB.RAP.DR PO SCH (06:19)
[2017-11-26] MEDS: IPRATROPIUM/ALBUTEROL 0.5-2.5 MG/3 ML AMPUL NEB SCH ×3 (08:32→20:10)
[2017-11-26] MEDS: ENOXAPARIN SODIUM INJ 40 MG/0.4 ML DISP.SYRIN SUBCUT SCH (09:55)
[2017-11-26] MEDS: ROFLUMILAST 500 MCG TABLET PO SCH (09:57)
[2017-11-26] MEDS: DOCUSATE SODIUM 100 MG CAPSULE PO SCH (09:57)
[2017-11-26] MEDS: CITALOPRAM HYDROBROMIDE 20 MG TABLET PO SCH (09:57)
[2017-11-26] MEDS: GUAIFENESIN 600 MG TABLET.SA PO SCH ×2 (09:58→22:00)
[2017-11-26] MEDS: HYDROCHLOROTHIAZIDE 25 MG TABLET PO SCH (09:58)
[2017-11-26] MEDS: NYSTATIN 500000 UNIT/5 ML UDCUP PO SCH ×4 (09:59→22:00)
[2017-11-26] MEDS: TIOTROPIUM BROMIDE DPI 5 CAP/KIT (18 MCG/CAP) IH SCH (11:40)
[2017-11-26] MEDS: INSULIN LISPRO 100 UNIT/ML 3 ML VIAL SUBCUT PRN ×3 (12:05→22:00)
[2017-11-26] MEDS ORDERED: METHYLPREDNISOLONE INJ 125 MG/2 ML SDV IV SCH (19:46)
--- NOTE | 2017-11-26 19:48 | PDOC PROGRESS REPORT ---
Subjective Progress Note for:: 11/26/17 Subjective:: The patient is resting in her bed. She states she is feeling a little short of breath and has some swelling in her lower extremities. She states she feels a little worse than she did yesterday. She has increased cough. She has had no fever or shaking chills. No nausea, vomiting or diarrhea. She is tolerating her diet. No abdominal pain. No urinary complaints. Reason For Visit: COPD EXACERBATION Physical Exam Vital Signs: Temp Pulse Resp BP Pulse Ox 97.7 F 106 H 19 135/74 H 93 11/26/17 15:58 11/26/17 15:58 11/26/17 15:58 11/26/17 15:58 11/26/17 15:58 Intake & Output 11/25/17 11/26/17 11/27/17 06:59 06:59 06:59 Intake Total 1184 1454 778 Output Total 515 1300 Balance 669 154 778 Weight 82.5 kg 82.6 kg General appearance: PRESENT: no acute distress, well-developed, well-nourished Head exam: PRESENT: atraumatic, normocephalic Ear exam: PRESENT: normal external ear exam Mouth exam: PRESENT: moist, tongue midline Neck exam: ABSENT: carotid bruit, JVD, lymphadenopathy, thyromegaly Respiratory exam: PRESENT: decreased breath sounds. ABSENT: rales, rhonchi, wheezes Cardiovascular exam: PRESENT: RRR. ABSENT: diastolic murmur, rubs, systolic murmur GI/Abdominal exam: PRESENT: normal bowel sounds, soft. ABSENT: distended, guarding, mass, organolmegaly, rebound, tenderness Rectal exam: PRESENT: deferred Extremities exam: PRESENT: full ROM. ABSENT: calf tenderness, clubbing, pedal edema Musculoskeletal exam: PRESENT: ambulatory Neurological exam: PRESENT: alert, awake, oriented to person, oriented to place , oriented to time, oriented to situation, CN II-XII grossly intact. ABSENT: motor sensory deficit Psychiatric exam: PRESENT: appropriate affect, normal mood. ABSENT: homicidal ideation, suicidal ideation Skin exam: PRESENT: dry, intact, warm. ABSENT: cyanosis, rash Results Laboratory Results: 11/23/17 06:00 11/22/17 04:47 11/22/17 04:47 NT-Pro-B Natriuret Pep 120 Impressions: Chest X-Ray 11/21/17 12:17 IMPRESSION: No significant interval change. No acute findings. Other findings as noted above Chest/Abdomen CTA 11/21/17 13:22 IMPRESSION: No evidence for pulmonary embolic disease. No acute consolidations or pleural effusions are identified. 10 mm in diameter pleural- based spiculated mass as noted above suspicious for neoplastic process. Right hilar mass is identified suspicious for adenopathy. PET-CT scan may be of value for further evaluation. Other findings as noted above. Assessment & Plan - Diagnosis (1) Acute and chronic respiratory failure Qualifiers: Respiratory failure complication: hypoxia and hypercapnia Qualified Code(s) : J96.21 - Acute and chronic respiratory failure with hypoxia; J96.22 - Acute and chronic respiratory failure with hypercapnia; J96.22 - Acute and chronic respiratory failure with hypercapnia; J96.22 - Acute and chronic respiratory failure with hypercapnia Is this a current diagnosis for this admission?: Yes Plan: Stable. I am going to obtain a chest x-ray. She states she is more short of breath and has developed some lower extremity edema. She may be volume overloaded. She also states that she was supposed to get an echocardiogram as an outpatient and we will order this as well. (2) COPD exacerbation Is this a current diagnosis for this admission?: Yes Plan: She still is quite diminished with some end expiratory wheezing. We will continue IV Solu-Medrol however I will decrease the dose. (3) Thrush Is this a current diagnosis for this admission?: Yes Plan: Continue current treatment (4) Hypothyroidism Is this a current diagnosis for this admission?: Yes Plan: Continue Synthroid (5) Tobacco dependence Is this a current diagnosis for this admission?: Yes Plan: Certainly it would be in her best interest to quit smoking. She states she has cut back quite a bit. (6) Anxiety Is this a current diagnosis for this admission?: Yes Plan: Stable (7) Hypokalemia Is this a current diagnosis for this admission?: Yes Plan: Repleted and resolved (8) Hypertension Is this a current diagnosis for this admission?: Yes Plan: Stable (9) Depression Is this a current diagnosis for this admission?: Yes Plan: Continue Celexa (10) Full code status Is this a current diagnosis for this admission?: Yes - Time Time Spent with patient: 25-34 minutes - Inpatient Certification Medical Necessity: Other - Inpatient hospitalization remains necessary. The patient requiring parenteral steroids for acute COPD exacerbation. She is more short of breath today and I am worried she is becoming volume overloaded. Further workup is necessary. Timing of disposition will be determined by her clinical course
--- NOTE | 2017-11-26 21:03 | RADIOLOGY REPORT (SQ) ---
EXAM DESCRIPTION: CHEST 2 VIEWS COMPLETED DATE/TIME: 11/26/2017 8:47 pm REASON FOR STUDY: ?chf, sob COMPARISON: 10/30/2017 EXAM PARAMETERS: NUMBER OF VIEWS: two views TECHNIQUE: Digital Frontal and Lateral radiographic views of the chest acquired. RADIATION DOSE: NA LIMITATIONS: none FINDINGS: LUNGS AND PLEURA: No consolidation, masses or pneumothorax. Similar chronic interstitial changes. . No pleural effusion. MEDIASTINUM AND HILAR STRUCTURES: Stable. HEART AND VASCULAR STRUCTURES: Stable. BONES: No acute findings. HARDWARE: None in the chest. OTHER: No other significant finding. IMPRESSION: NO ACUTE RADIOGRAPHIC FINDING IN THE CHEST. TECHNICAL DOCUMENTATION: JOB ID: [id number] [place]-72 2010 [employer]- All Rights Reserved Reading location - IP/workstation name: [email or web address]
[2017-11-26] MEDS: METHYLPREDNISOLONE INJ 40 MG/1 ML SDV IV SCH (22:00)
[2017-11-27 06:01] LABS: HEMATOCRIT 38.7 % (36.0-47.0); MEAN CORPUSCULAR HEMOGLOBIN 29.8 pg (27.0-33.4); MEAN CORPUSCULAR HGB CONC 33.5 g/dL (32.0-36.0); MEAN CORPUSCULAR VOLUME 89 fl (80-97); PLATELET COUNT 247 10^3/uL (150-450); RED BLOOD COUNT 4.34 10^6/uL (3.72-5.28); RED CELL DISTRIBUTION WIDTH 15.3 % (11.5-14.0); WHITE BLOOD COUNT 13.8 10^3/uL (4.0-10.5)
[2017-11-27] MEDS: METHYLPREDNISOLONE INJ 40 MG/1 ML SDV IV SCH ×2 (06:10→13:35)
[2017-11-27] MEDS: LANSOPRAZOLE 30 MG TAB.RAP.DR PO SCH (06:11)
[2017-11-27] MEDS: LEVOTHYROXINE SODIUM 0.05 MG TABLET PO SCH (06:11)
[2017-11-27] MEDS: BUSPIRONE HCL 10 MG TABLET PO SCH ×3 (06:11→21:59)
[2017-11-27 06:15] LABS: ANION GAP 10 (5-19); BLOOD UREA NITROGEN 20 mg/dL (7-20); CALCIUM 8.9 mg/dL (8.4-10.2); CARBON DIOXIDE 30 mmol/L (22-30); CHLORIDE 97 mmol/L (98-107); GLUCOSE 146 mg/dL (75-110); POTASSIUM 4.1 mmol/L (3.6-5.0); SODIUM 136.6 mmol/L (137-145)
[2017-11-27 06:22] LABS: ABSOLUTE LYMPHOCYTES# (MANUAL) 1.4 10^3/uL (0.5-4.7); ABSOLUTE MONOCYTES # (MANUAL) 0.4 10^3/uL (0.1-1.4); BASOPHILS % (MANUAL) 0 % (0-2); EOSINOPHILS % (MANUAL) 0 % (0-6); LYMPHOCYTES % (MANUAL) 6 % (13-45); MONOCYTES % (MANUAL) 3 % (3-13); SEGMENTED NEUTROPHILS % (MAN) 87 % (42-78); TOTAL CELLS COUNTED 100; TOXIC GRANULATION SLIGHT; TOXIC VACUOLATION PRESENT
[2017-11-27 06:23] LABS: ANISOCYTOSIS SLIGHT; PLATELET COMMENT ADEQUATE
[2017-11-27] MEDS: IPRATROPIUM/ALBUTEROL 0.5-2.5 MG/3 ML AMPUL NEB SCH ×3 (08:25→20:27)
[2017-11-27] MEDS: GUAIFENESIN 600 MG TABLET.SA PO SCH ×2 (09:12→21:59)
[2017-11-27] MEDS: ENOXAPARIN SODIUM INJ 40 MG/0.4 ML DISP.SYRIN SUBCUT SCH (09:12)
[2017-11-27] MEDS: HYDROCHLOROTHIAZIDE 25 MG TABLET PO SCH (09:12)
[2017-11-27] MEDS: ROFLUMILAST 500 MCG TABLET PO SCH (09:12)
[2017-11-27] MEDS: DOCUSATE SODIUM 100 MG CAPSULE PO SCH (09:13)
[2017-11-27] MEDS: CITALOPRAM HYDROBROMIDE 20 MG TABLET PO SCH (09:13)
[2017-11-27] MEDS: NYSTATIN 500000 UNIT/5 ML UDCUP PO SCH ×4 (09:13→21:59)
[2017-11-27] MEDS: TIOTROPIUM BROMIDE DPI 5 CAP/KIT (18 MCG/CAP) IH SCH (11:56)
[2017-11-27] MEDS: INSULIN LISPRO 100 UNIT/ML 3 ML VIAL SUBCUT PRN ×2 (12:05→17:12)
[2017-11-27] MEDS ORDERED: CALCIUM CARBONATE 500 MG TAB.CHEW PO PRN (13:20)
--- NOTE | 2017-11-27 19:34 | PDOC PROGRESS REPORT ---
Subjective Progress Note for:: 11/27/17 Subjective:: The patient is resting comfortably in her bed. She states that she got somewhat anxious about her breathing and developed some respiratory distress. She placed her BiPAP on she is feeling much better. Overall she states her breathing is much improved. She just needs to learn strategies to remain calm. She is getting an echocardiogram today at the time of my visit. She states that she has decided to go home with home health services instead of going to a skilled facility for subacute rehabilitation. We will continue to work with physical therapy here in the hospital. She denies fever or shaking chills. She does continue to have episodes of shortness of breath that are precipitated by anxiety. Her wheezing is improving. She is tolerating her diet. She has had no nausea vomiting or diarrhea. No abdominal pains. She is having bowel movements. No urinary complaints. Reason For Visit: COPD EXACERBATION Physical Exam Vital Signs: Temp Pulse Resp BP Pulse Ox 98.2 F 97 16 126/75 H 94 11/27/17 16:46 11/27/17 16:46 11/27/17 16:46 11/27/17 16:46 11/27/17 16:46 Intake & Output 11/26/17 11/27/17 11/28/17 06:59 06:59 06:59 Intake Total 1454 1266 712 Output Total 1300 800 800 Balance 154 466 -88 Weight 82.6 kg 81.6 kg General appearance: PRESENT: no acute distress, obese, well-developed, well- nourished Head exam: PRESENT: atraumatic, normocephalic, other - At the time of my visit she has her BiPAP in place. Mouth exam: PRESENT: moist, tongue midline Respiratory exam: PRESENT: clear to auscultation tay, wheezes - She has mild end expiratory wheezes throughout all lung liu. She is somewhat diminished in the lower bases bilaterally. ABSENT: rales, rhonchi Cardiovascular exam: PRESENT: RRR. ABSENT: diastolic murmur, rubs, systolic murmur Vascular exam: PRESENT: normal capillary refill GI/Abdominal exam: PRESENT: normal bowel sounds, soft. ABSENT: distended, guarding, mass, organolmegaly, rebound, tenderness Rectal exam: PRESENT: deferred Extremities exam: PRESENT: full ROM. ABSENT: calf tenderness, clubbing, pedal edema Neurological exam: PRESENT: alert, awake, oriented to person, oriented to place , oriented to time, oriented to situation, CN II-XII grossly intact. ABSENT: motor sensory deficit Psychiatric exam: PRESENT: appropriate affect, normal mood. ABSENT: homicidal ideation, suicidal ideation Skin exam: PRESENT: dry, intact, warm. ABSENT: cyanosis, rash Results Laboratory Results: 11/27/17 04:58 11/27/17 04:58 11/27/17 11/27/17 04:58 04:58 WBC 13.8 H RBC 4.34 Hgb 13.0 Hct 38.7 MCV 89 MCH 29.8 MCHC 33.5 RDW 15.3 H Plt Count 247 Seg Neutrophils % Not Reportable Lymphocytes % Not Reportable Monocytes % Not Reportable Eosinophils % Not Reportable Basophils % Not Reportable Absolute Neutrophils Not Reportable Absolute Lymphocytes Not Reportable Absolute Monocytes Not Reportable Absolute Eosinophils Not Reportable Absolute Basophils Not Reportable Sodium 136.6 L Potassium 4.1 Chloride 97 L Carbon Dioxide 30 Anion Gap 10 BUN 20 Creatinine 0.42 L Est GFR ( Amer) > 60 Est GFR (Non-Af Amer) > 60 Glucose 146 H Calcium 8.9 Magnesium 2.0 11/22/17 11/27/17 04:47 04:58 NT-Pro-B Natriuret Pep 120 186 Impressions: Chest/Abdomen CTA 11/21/17 13:22 IMPRESSION: No evidence for pulmonary embolic disease. No acute consolidations or pleural effusions are identified. 10 mm in diameter pleural- based spiculated mass as noted above suspicious for neoplastic process. Right hilar mass is identified suspicious for adenopathy. PET-CT scan may be of value for further evaluation. Other findings as noted above. Chest X-Ray 11/26/17 00:00 IMPRESSION: NO ACUTE RADIOGRAPHIC FINDING IN THE CHEST. Assessment & Plan - Diagnosis (1) Acute and chronic respiratory failure Qualifiers: Respiratory failure complication: hypoxia and hypercapnia Qualified Code(s) : J96.21 - Acute and chronic respiratory failure with hypoxia; J96.22 - Acute and chronic respiratory failure with hypercapnia; J96.22 - Acute and chronic respiratory failure with hypercapnia; J96.22 - Acute and chronic respiratory failure with hypercapnia Is this a current diagnosis for this admission?: Yes Plan: Stable. We obtained an echocardiogram as she missed her appointment to have one done while she was in this hospital this time. Her acute respiratory failure seems to be improving. She does follow with Dr. Batista as an outpatient. (2) COPD exacerbation Is this a current diagnosis for this admission?: Yes Plan: She still is quite diminished with some end expiratory wheezing. Her wheezing seems to be improved. I will change her over to prednisone today and will see if she can make this transition. She has had difficulty with this in the past. (3) Thrush Is this a current diagnosis for this admission?: Yes Plan: Continue current treatment (4) Hypothyroidism Is this a current diagnosis for this admission?: Yes Plan: Continue Synthroid (5) Tobacco dependence Is this a current diagnosis for this admission?: Yes Plan: Certainly it would be in her best interest to quit smoking. She states she has cut back quite a bit. (6) Anxiety Is this a current diagnosis for this admission?: Yes Plan: She did become quite anxious and she got short of breath today. She is currently on BiPAP not because she needs to but because it is helping her feel less anxious. (7) Hypokalemia Is this a current diagnosis for this admission?: Yes Plan: Repleted and resolved (8) Hypertension Is this a current diagnosis for this admission?: Yes (9) Depression Is this a current diagnosis for this admission?: Yes (10) Full code status Is this a current diagnosis for this admission?: Yes - Time Time Spent with patient: 25-34 minutes - Inpatient Certification Medical Necessity: Other - Inpatient hospitalization remains necessary. The patient has been receiving parenteral steroids. I am going to change her over to an oral regimen of prednisone today. She has had issues with this in the past. Timing of disposition will be determined by her clinical course
[2017-11-27] MEDS ORDERED: PREDNISONE 20 MG TABLET PO ONE (20:00)
--- NOTE | 2017-11-27 20:26 | XCELERA REPORT ---
[address] [address] Transthoracic Echocardiogram Report Name: BRUCE GALAN I Age: 67 yrs Gender: Female : 1950 Patient Status: Inpatient Patient Location: [address] [place] [address] Study Date: 11/27/2017 01:45 PM Procedure: A complete two-dimensional transthoracic echocardiogram was performed (2D, M-mode, spectral and color flow Doppler). The study was technically difficult with many images being suboptimal in quality. Reason For Study: chf Ordering Physician: DHRUV GARCIA Performed By: Maria Fernanda Ramirez Interpretation Summary The study was technically difficult with many images being suboptimal in quality. The left ventricular ejection fraction is probably preserved. Consider additional methods to assess LVEF such as MUGA scan, CTA heart, cardiac MRI, JOSEPH, etc. if clinically indicated. The right ventricle is borderline dilated. LA Probably WNL RA Probably WNL There is no significant mitral valve stenosis. There is a possible trace amount of mitral regurgitation The aortic valve is not well visualized secondary to technical limitations No hemodynamically significant valvular aortic stenosis. No aortic regurgitation is present. There is no tricuspid stenosis. No tricuspid regurgitation. The aortic root is not well visualized. The inferior vena cava was not well visualized Minimal pericardial effusion. Consider alternative methods to evaluate LVEF such as MUGA scan, cardiac MRI, or cardiac CTA. MMode/2D Measurements & Calculations RVDd: 2.9 cm LVIDd: 4.5 cm FS: 31.8 % Ao root diam: 2.9 cm IVSd: 0.86 cm LVIDs: 3.0 cm EDV(Teich): 91.1 ml Ao root area: 6.7 cm2 LVPWd: 1.1 cm ESV(Teich): 36.4 ml EF(Teich): 60.0 % LVOT diam: 2.1 cm LVOT area: 3.3 cm2 Doppler Measurements & Calculations Ao V2 max: 128.9 cm/sec LV V1 max P.1 mmHg Ao max P.6 mmHg LV V1 max: 100.8 cm/sec ROBERT(V,D): 2.6 cm2 Left Ventricle The left ventricle is grossly normal size. There is mild concentric left ventricular hypertrophy. The left ventricular ejection fraction is preserved. Consider additional methods to assess LVEF such as MUGA scan, CTA heart, cardiac MRI, JOSEPH, etc. if clinically indicated. Doppler measurements suggest pseudonormalized left ventricular relaxation, which is associated with grade II/IV or mild to moderate diastolic dysfunction. Regional wall motion abnormalities cannot be excluded due to limited visualization. Right Ventricle The right ventricle is borderline dilated. Right ventricular function cannot be assessed due to poor image quality. Atria Probably WNL. Probably WNL. Interarterial septum not well visualized and not well dopplered. Cannot comment on ASD/PFO presence. Mitral Valve The mitral valve is not well visualized. There is no mitral valve stenosis. There is a trace amount of mitral regurgitation. Aortic Valve The aortic valve is not well visualized secondary to technical limitations. No hemodynamically significant valvular aortic stenosis. No aortic regurgitation is present. Tricuspid Valve The tricuspid valve is not well visualized secondary to technical limitations. There is no tricuspid stenosis. No tricuspid regurgitation. Pulmonic Valve The pulmonic valve is not well visualized. Great Vessels The aortic root is not well visualized. The inferior vena cava was not well visualized. Effusions Minimal pericardial effusion. Incidental Findings Consider alternative methods to evaluate LVEF such as MUGA scan, cardiac MRI, or cardiac CTA. : DHRUV GARCIA > Tina Bardales
[2017-11-28] MEDS: BUSPIRONE HCL 10 MG TABLET PO SCH ×2 (05:37→13:50)
[2017-11-28] MEDS: LANSOPRAZOLE 30 MG TAB.RAP.DR PO SCH (05:38)
[2017-11-28] MEDS: LEVOTHYROXINE SODIUM 0.05 MG TABLET PO SCH (05:38)
[2017-11-28 05:52] LABS: HEMATOCRIT 39.6 % (36.0-47.0); HEMOGLOBIN 13.3 g/dL (12.0-15.5); MEAN CORPUSCULAR HEMOGLOBIN 29.8 pg (27.0-33.4); MEAN CORPUSCULAR HGB CONC 33.5 g/dL (32.0-36.0); MEAN CORPUSCULAR VOLUME 89 fl (80-97); PLATELET COUNT 244 10^3/uL (150-450); RED BLOOD COUNT 4.46 10^6/uL (3.72-5.28); RED CELL DISTRIBUTION WIDTH 15.2 % (11.5-14.0)
[2017-11-28 06:02] LABS: ANION GAP 8 (5-19); BLOOD UREA NITROGEN 21 mg/dL (7-20); CALCIUM 9.1 mg/dL (8.4-10.2); CARBON DIOXIDE 32 mmol/L (22-30); CHLORIDE 98 mmol/L (98-107); GLUCOSE 157 mg/dL (75-110); POTASSIUM 4.1 mmol/L (3.6-5.0); SODIUM 137.9 mmol/L (137-145)
[2017-11-28 06:37] LABS: ABSOLUTE LYMPHOCYTES# (MANUAL) 1.5 10^3/uL (0.5-4.7); ABSOLUTE MONOCYTES # (MANUAL) 0.4 10^3/uL (0.1-1.4); BASOPHILS % (MANUAL) 0 % (0-2); EOSINOPHILS % (MANUAL) 0 % (0-6); LYMPHOCYTES % (MANUAL) 11 % (13-45); MONOCYTES % (MANUAL) 3 % (3-13); SEGMENTED NEUTROPHILS % (MAN) 86 % (42-78); TOTAL CELLS COUNTED 100
[2017-11-28 06:39] LABS: ANISOCYTOSIS SLIGHT; PLATELET COMMENT ADEQUATE; TOXIC GRANULATION 1+
[2017-11-28] MEDS: IPRATROPIUM/ALBUTEROL 0.5-2.5 MG/3 ML AMPUL NEB SCH ×2 (08:32→14:24)
[2017-11-28] MEDS: DOCUSATE SODIUM 100 MG CAPSULE PO SCH (09:07)
[2017-11-28] MEDS: ENOXAPARIN SODIUM INJ 40 MG/0.4 ML DISP.SYRIN SUBCUT SCH (09:12)
[2017-11-28] MEDS: CITALOPRAM HYDROBROMIDE 20 MG TABLET PO SCH (09:12)
[2017-11-28] MEDS: HYDROCHLOROTHIAZIDE 25 MG TABLET PO SCH (09:12)
[2017-11-28] MEDS: GUAIFENESIN 600 MG TABLET.SA PO SCH (09:12)
[2017-11-28] MEDS: NYSTATIN 500000 UNIT/5 ML UDCUP PO SCH ×2 (09:12→13:50)
[2017-11-28] MEDS: ROFLUMILAST 500 MCG TABLET PO SCH (09:12)
[2017-11-28] MEDS ORDERED: PREDNISONE 20 MG TABLET PO SCH (10:00)
[2017-11-28] MEDS: TIOTROPIUM BROMIDE DPI 5 CAP/KIT (18 MCG/CAP) IH SCH (11:46)
[2017-11-28 16:58] VITALS: BP 111/76
--- NOTE | 2017-11-28 19:40 | PDOC DISCHARGE SUMMARY ---
General - Admit/Disc Date/PCP Admission Date/Primary Care Provider: 11/21/17 15:44 Grab Setter: Dr. Marquise Batista Discharge Date: 11/28/17 - Discharge Diagnosis (1) Acute and chronic respiratory failure Is this a current diagnosis for this admission?: Yes Summary: Resolved. She is back to her baseline (2) COPD exacerbation Is this a current diagnosis for this admission?: Yes Summary: She will complete a long course of p.o. prednisone and continue her home regimen (3) Lung nodule Is this a current diagnosis for this admission?: Yes Summary: This is being followed by Dr. Batista. We will make her a disc of her CT scan images to take to his office. (4) Thrush Is this a current diagnosis for this admission?: Yes Summary: She will complete a course of nystatin swish and swallow (5) Hypothyroidism Is this a current diagnosis for this admission?: Yes Summary: Continue home regimen (6) Tobacco dependence Is this a current diagnosis for this admission?: Yes Summary: Certainly it would be in her best interest to quit smoking (7) Anxiety Is this a current diagnosis for this admission?: Yes Summary: Stable (8) Hypokalemia Is this a current diagnosis for this admission?: Yes Summary: Repleted and resolved (9) Hypertension Is this a current diagnosis for this admission?: Yes Summary: Stable (10) Depression Is this a current diagnosis for this admission?: Yes Summary: Stable (11) Full code status Is this a current diagnosis for this admission?: Yes - Additional Information Resuscitation Status: Full Code Discharge Diet: Cardiac Discharge Activity: Activity As Tolerated, Balance Activity w/Rest, Slowly Increase Activity Prescriptions: Lorazepam [Ativan 0.5 mg Tablet] 0.5 mg PO Q8HP PRN #20 tablet PRN Reason: Nystatin [Mycostatin 500,000 Unit/5 ml Susp Udcup] 500,000 unit PO QID #100 udc Prednisone 10 mg PO ASDIR PRN #39 tablet PRN Reason: Home Medications: Buspirone HCl [Buspar 10 mg Tablet] 10 mg PO Q8 11/21/17 Citalopram Hydrobromide [Celexa 20 mg Tablet] 20 mg PO DAILY 11/21/17 Ergocalciferol (Vitamin D2) [Drisdol 50,000 unit (1.25MG) Capsule] 50,000 unit PO MELENDEZ@1000 11/21/17 Ipratropium/Albuterol Sulfate [Iprat-Albut 0.5-3(2.5) mg/3 ml] 3 ml NEB Q6HP PRN 11/21/17 Levothyroxine Sodium [Synthroid 0.05 mg Tablet] 0.05 mg PO Q6AM 11/21/17 Mometasone/Formoterol [Dulera 200 Mcg/5 Mcg Inhaler] 2 puff IH Q12 11/21/17 Roflumilast [Daliresp 500 mcg Tablet] 500 mcg PO DAILY 11/21/17 Tiotropium [place] [Spiriva Respimat] 2 puff IH DAILY 11/21/17 Lorazepam [Ativan 0.5 mg Tablet] 0.5 mg PO Q8HP PRN #20 tablet 11/28/17 Nystatin [Mycostatin 500,000 Unit/5 ml Susp Udcup] 500,000 unit PO QID #100 udc 11/28/17 Prednisone 10 mg PO ASDIR PRN #39 tablet 11/28/17 History of Present Illness History of Present Illness: BRUCE GALAN is a 67 year old female who presented to the emergency room with increased shortness of breath. Hospital Course Hospital Course: She was found to be having evidence of a COPD exacerbation. The patient has had frequent hospitalizations this year for COPD exacerbations. Unfortunately she still continues to smoke. She was once again admitted to the hospital with a COPD exacerbation. She was admitted to the hospital and started on IV Solu- Medrol. She was slow to improve but overall made steady progress. Her hospitalization was complicated by developing thrush. She was treated with nystatin swish and swallow which she will continue at discharge. Yesterday the patient was changed over to p.o. prednisone and she is doing quite well. She feels back to her baseline and feels like she has made some progress. She is going to try to quit smoking. She has an appointment coming up with her primary discount clerk in the near future. She is being followed for a lung nodule that seems to have increased in size per our records. I have made a disc for her to take to Dr. Batista's office with her. This will certainly need to be followed up on. At this point maximum hospital benefits been reached. Patient will be discharged home today in stable condition. Physical Exam Vital Signs: Temp Pulse Resp BP Pulse Ox 98.2 F 111 H 20 111/76 94 11/28/17 16:59 11/28/17 16:59 11/28/17 16:59 11/28/17 16:59 11/28/17 16:59 Intake & Output 11/27/17 11/28/17 11/29/17 06:59 06:59 06:59 Intake Total 1266 1178 Output Total 800 1550 Balance 466 -372 Weight 81.6 kg 81 kg General appearance: PRESENT: no acute distress, well-developed, well-nourished, other - She is receiving oxygen via nasal cannula Head exam: PRESENT: atraumatic, normocephalic Mouth exam: PRESENT: moist, tongue midline Neck exam: ABSENT: carotid bruit, JVD, lymphadenopathy, thyromegaly Respiratory exam: PRESENT: decreased breath sounds. ABSENT: rales, rhonchi, wheezes Cardiovascular exam: PRESENT: RRR. ABSENT: diastolic murmur, rubs, systolic murmur Pulses: PRESENT: normal dorsalis pedis pul Vascular exam: PRESENT: normal capillary refill GI/Abdominal exam: PRESENT: normal bowel sounds, soft. ABSENT: distended, guarding, mass, organolmegaly, rebound, tenderness Rectal exam: PRESENT: deferred Extremities exam: PRESENT: full ROM. ABSENT: calf tenderness, clubbing, pedal edema Neurological exam: PRESENT: alert, awake, oriented to person, oriented to place , oriented to time, oriented to situation, CN II-XII grossly intact. ABSENT: motor sensory deficit Psychiatric exam: PRESENT: appropriate affect, normal mood. ABSENT: homicidal ideation, suicidal ideation Skin exam: PRESENT: dry, intact, warm. ABSENT: cyanosis, rash Results Laboratory Results: 11/28/17 05:04 11/28/17 05:04 11/28/17 11/28/17 05:04 05:04 WBC 14.0 H RBC 4.46 Hgb 13.3 Hct 39.6 MCV 89 MCH 29.8 MCHC 33.5 RDW 15.2 H Plt Count 244 Seg Neutrophils % Not Reportable Lymphocytes % Not Reportable Monocytes % Not Reportable Eosinophils % Not Reportable Basophils % Not Reportable Absolute Neutrophils Not Reportable Absolute Lymphocytes Not Reportable Absolute Monocytes Not Reportable Absolute Eosinophils Not Reportable Absolute Basophils Not Reportable Sodium 137.9 Potassium 4.1 Chloride 98 Carbon Dioxide 32 H Anion Gap 8 BUN 21 H Creatinine 0.43 L Est GFR ( Amer) > 60 Est GFR (Non-Af Amer) > 60 Glucose 157 H Calcium 9.1 Magnesium 2.0 11/22/17 11/27/17 04:47 04:58 NT-Pro-B Natriuret Pep 120 186 Impressions: Chest/Abdomen CTA 11/21/17 13:22 IMPRESSION: No evidence for pulmonary embolic disease. No acute consolidations or pleural effusions are identified. 10 mm in diameter pleural- based spiculated mass as noted above suspicious for neoplastic process. Right hilar mass is identified suspicious for adenopathy. PET-CT scan may be of value for further evaluation. Other findings as noted above. Chest X-Ray 11/26/17 00:00 IMPRESSION: NO ACUTE RADIOGRAPHIC FINDING IN THE CHEST. Qualifiers - * PATIENT BEING DISCHARGED WITH ANY OF THE FOLLOWING DIAGNOSIS: No Plan Time Spent: Greater than 30 Minutes
[2017-12-01] MEDS ORDERED: ERGOCALCIFEROL (VITAMIN D2) 50000 UNIT (1.25 MG) CAPSULE PO SCH (10:00)
== END 2017-11-28 17:46 | disposition home or self-care (01) | DRG 190 ==
LOC: ER 12:10 → EH 15:44 → 4S 17:48
PROVIDERS: ADMIT Internal Medicine; ATTEND Internal Medicine
PROC: 5A09557 Assistance with Respiratory Ventilation, Greater than 96 Consecutive Hours, Continuous Positive Airway Pressure (ICD-10-PCS; principal; 2017-11-21)
PROC: 3E0F73Z Introduction of Anti-inflammatory into Respiratory Tract, Via Natural or Artificial Opening (ICD-10-PCS; 2017-11-21)
DX: J44.1 Chronic obstructive pulmonary disease with (acute) exacerbation (principal); J96.21 Acute and chronic respiratory failure with hypoxia; J96.22 Acute and chronic respiratory failure with hypercapnia; B37.0 Candidal stomatitis; R91.1 Solitary pulmonary nodule; F41.9 Anxiety disorder, unspecified; E87.6 Hypokalemia; I10 Essential (primary) hypertension; F32.9 Major depressive disorder, single episode, unspecified; G47.33 Obstructive sleep apnea (adult) (pediatric); E78.00 Pure hypercholesterolemia, unspecified; K21.9 Gastro-esophageal reflux disease without esophagitis; E11.9 Type 2 diabetes mellitus without complications; E89.0 Postprocedural hypothyroidism; Y83.6 Removal of other organ (partial) (total) as the cause of abnormal reaction of the patient, or of later complication, without mention of misadventure at the time of the procedure; E66.9 Obesity, unspecified; Z68.32 Body mass index [BMI] 32.0-32.9, adult; F17.210 Nicotine dependence, cigarettes, uncomplicated; Z88.0 Allergy status to penicillin; Z79.899 Other long term (current) drug therapy; Z99.81 Dependence on supplemental oxygen; Z82.49 Family history of ischemic heart disease and other diseases of the circulatory system; Z80.0 Family history of malignant neoplasm of digestive organs; Z80.9 Family history of malignant neoplasm, unspecified
CPT/HCPCS: 36415; 36600; 51702; 71045; 71046; 71275; 80048; 80053; 81001; 82550; 82553; 82803; 82962; 83735; 83880; 84100; 84439; 84443; 84484; 85025; 85027; 93005; 93010; 93306; 93970; 94640; 94660; 94667; 96365; 96366; 99285; J1650; J1815; J2920; J2930; J3475; J3490; J7512; J7620

== ENCOUNTER 2017-12-12 04:45 | Inpatient (IN) | payer MEDICARE ==
--- NOTE | 2017-12-12 05:08 | ER Document Report ---
ED Medical Screen (RME) - General Stated Complaint: SHORTNESS OF BREATH Time Seen by Provider: 12/12/17 04:59 Notes: 67-year-old female comes by EMS for chief complaint of palpitations, heart racing, anxiety, shortness of breath. Symptoms started tonight. Patient has a history of COPD, on oxygen at home, states that recently she was admitted with similar symptoms. She denies fever or chills, chest pain, dizziness. She saw clinical recruiter after discharge from the hospital last month, they did not put her on rate control. TRAVEL OUTSIDE OF THE [place] IN LAST 30 DAYS: No - Related Data Allergies/Adverse Reactions: doxycycline Allergy (Verified 11/22/17 02:53) Penicillins Allergy (Verified 08/31/17 09:09) "cillins" Allergy (Uncoded 08/31/17 09:10) Past Medical History - Past Medical History Cardiac Medical History: Reports: Hx Hypercholesterolemia, Hx Hypertension Pulmonary Medical History: Reports: Hx Bronchitis, Hx COPD - On 2 L per nasal cannula at home, Hx Pneumonia, Hx Respiratory Failure Endocrine Medical History: Reports: Hx Diabetes Mellitus Type 2, Hx Hypothyroidism Renal/ Medical History: Denies: Hx Peritoneal Dialysis Psychiatric Medical History: Reports: Hx Depression Past Surgical History: Reports: Hx Appendectomy, Hx Thyroid Surgery - 1/2 thyroid, Other - Right-sided chest tube - Immunizations History of Influenza Vaccine for 04/2017 - 09/2017 Season: Yes Physical Exam - Cardiovascular Rhythm: Extrasystoles, Tachycardia Heart sounds: S1 appreciated, S2 appreciated Normal capillary refill: Yes Course - Re-evaluation Re-evalutation: Patient alert, conversational, well-appearing, she is tachycardic and is having many PVCs. Denies any current complaints. Workup pending.
[2017-12-12] MEDS ORDERED: METHYLPREDNISOLONE INJ 125 MG/2 ML SDV IV ONE (05:10)
[2017-12-12 05:26] LABS: HEMATOCRIT 42.7 % (36.0-47.0); HEMOGLOBIN 14.6 g/dL (12.0-15.5); MEAN CORPUSCULAR HEMOGLOBIN 30.3 pg (27.0-33.4); MEAN CORPUSCULAR HGB CONC 34.1 g/dL (32.0-36.0); MEAN CORPUSCULAR VOLUME 89 fl (80-97); PLATELET COUNT 230 10^3/uL (150-450); RED BLOOD COUNT 4.81 10^6/uL (3.72-5.28); RED CELL DISTRIBUTION WIDTH 15.5 % (11.5-14.0)
[2017-12-12] MEDS ORDERED: LORAZEPAM 0.5 MG TABLET PO ONE (05:31)
[2017-12-12] MEDS ORDERED: LEVALBUTEROL HCL NEB 1.25 MG/3 ML AMPUL NEB ONE (05:31)
--- NOTE | 2017-12-12 05:42 | RADIOLOGY REPORT (SQ) ---
EXAM DESCRIPTION: XR CHEST 1 VIEW CLINICAL HISTORY: 67 years Female, shortness of breath COMPARISON: 5.22.18 NUMBER OF VIEWS/TECHNIQUE: 1/AP FINDINGS: Adequate lung volume, mild chronic interstitial markings, small bibasilar atelectasis or scar, normal cardiac silhouette, and intact bony thorax. Stable. IMPRESSION: No acute cardiopulmonary findings. Mild chronic interstitial lung disease.
[2017-12-12 05:43] LABS: VENOUS BLOOD BASE EXCESS 4.6 mmol/L; VENOUS BLOOD HCO3 28.8 mmol/L (20-32); VENOUS BLOOD PCO2 41.1 mmHg (35-63); VENOUS BLOOD PH 7.46 (7.30-7.42)
[2017-12-12 05:45] LABS: ALANINE AMINOTRANSFERASE 39 U/L (9-52); ALBUMIN 3.3 g/dL (3.5-5.0); ALKALINE PHOSPHATASE 128 U/L (38-126); ANION GAP 10 (5-19); ASPARTATE AMINO TRANSFERASE 16 U/L (14-36); BILIRUBIN,DIRECT 0.3 mg/dL (0.0-0.4); BILIRUBIN,TOTAL 0.6 mg/dL (0.2-1.3); BLOOD UREA NITROGEN 11 mg/dL (7-20); CALCIUM 9.4 mg/dL (8.4-10.2); CARBON DIOXIDE 31 mmol/L (22-30); CHLORIDE 98 mmol/L (98-107); GLUCOSE 90 mg/dL (75-110); POTASSIUM 3.8 mmol/L (3.6-5.0); SODIUM 138.7 mmol/L (137-145); TOTAL PROTEIN 5.8 g/dL (6.3-8.2)
[2017-12-12 05:47] LABS: CREATINE KINASE < 20 U/L (30-135)
[2017-12-12 05:50] LABS: ABSOLUTE LYMPHOCYTES# (MANUAL) 2.2 10^3/uL (0.5-4.7); ABSOLUTE MONOCYTES # (MANUAL) 1.4 10^3/uL (0.1-1.4); ABSOLUTE NEUTROPHILS# (MANUAL) 13.4 10^3/uL (1.7-8.2); BASOPHILS % (MANUAL) 0 % (0-2); EOSINOPHILS % (MANUAL) 0 % (0-6); LYMPHOCYTES % (MANUAL) 13 % (13-45); MONOCYTES % (MANUAL) 8 % (3-13); SEGMENTED NEUTROPHILS % (MAN) 79 % (42-78); TOTAL CELLS COUNTED 100
[2017-12-12 05:51] LABS: ANISOCYTOSIS SLIGHT; PLATELET COMMENT ADEQUATE; TOXIC GRANULATION SLIGHT
[2017-12-12 05:57] LABS: CREATINE KINASE MB 1.31 ng/mL (<4.55); TROPONIN I 0.013 ng/mL
--- NOTE | 2017-12-12 06:50 | ER Document Report ---
ED General - General Chief Complaint: Palpitations Stated Complaint: SHORTNESS OF BREATH Time Seen by Provider: 12/12/17 04:59 Notes: 67-year-old female to emergency department via EMS for shortness of breath and difficulty breathing, anxiety. Patient received Ativan, Solu-Medrol and breathing treatments. Patient was recently discharged from the hospital for the same. Finished her antibiotics and steroids but now getting worse. Uses BiPAP and states that she feels like she needs BiPAP at this time. Denies any fever, chills, sweats. No chest pain. No leg pain. No abnormal swelling. No prior history of DVT or PE. TRAVEL OUTSIDE OF THE [place] IN LAST 30 DAYS: No - HPI Onset: Yesterday Onset/Duration: Gradual, Worse Quality of pain: No pain - Related Data Allergies/Adverse Reactions: doxycycline Allergy (Verified 11/22/17 02:53) Penicillins Allergy (Verified 08/31/17 09:09) "cillins" Allergy (Uncoded 08/31/17 09:10) Past Medical History - General Information source: Patient, [facility] Records - Social History Smoking Status: Current Every Day Smoker Cigarette use (# per day): Yes Frequency of alcohol use: None Drug Abuse: None Lives with: Alone Family History: Reviewed & Not Pertinent, Other - Brother- CAD Mother- colorectal cancer Patient has suicidal ideation: No Patient has homicidal ideation: No - Past Medical History Cardiac Medical History: Reports: Hx Hypercholesterolemia, Hx Hypertension Pulmonary Medical History: Reports: Hx Bronchitis, Hx COPD - On 2L nasal cannula at home, Hx Pneumonia, Hx Respiratory Failure Endocrine Medical History: Reports: Hx Diabetes Mellitus Type 2, Hx Hypothyroidism Renal/ Medical History: Denies: Hx Peritoneal Dialysis Psychiatric Medical History: Reports: Hx Depression Past Surgical History: Reports: Hx Appendectomy, Hx Thyroid Surgery - 1/2 thyroid, Other - Right-sided chest tube - Immunizations Hx Pneumococcal Vaccination: 07/08/16 Review of Systems - Review of Systems Constitutional: denies: Fever, Malaise, Weakness EENT: denies: Eye pain, Difficulty swallowing, Mouth pain Cardiovascular: Palpitations, Heart racing. denies: Chest pain, Edema, Paroxysmal Nocturnal Dysp Respiratory: Cough, Short of breath, Wheezing Gastrointestinal: denies: Abdominal pain, Diarrhea, Nausea, Vomiting Genitourinary: denies: Burning, Frequency, Flank pain Musculoskeletal: denies: Back pain, Joint pain, Muscle pain Hematologic/Lymphatic: denies: Anemia, Blood clots, Easy bleeding, Easy bruising Neurological/Psychological: denies: Confusion, Weakness, Numbness Physical Exam - Vital signs Vitals: Pulse Ox 92 12/12/17 04:46 Interpretation: Normal - Notes Notes: Slightly uncomfortable appearing - General General appearance: Appears well, Alert - HEENT Head: Normocephalic, Atraumatic Eyes: Normal Pupils: PERRL - Respiratory Respiratory status: Pursed lip breathing, Tachypnea Chest status: Nontender Breath sounds: Decreased air movement, Nonproductive cough, Rales, Wheezing Chest palpation: Normal - Cardiovascular Rhythm: Tachycardia Heart sounds: Normal auscultation Murmur: No - Abdominal Inspection: Normal Distension: No distension Bowel sounds: Normal Tenderness: Nontender Organomegaly: No organomegaly - Back Back: Normal, Nontender - Extremities General upper extremity: Normal inspection, Nontender, Normal color, Normal ROM , Normal temperature. No: Edema General lower extremity: Normal inspection, Nontender, Normal color, Normal ROM , Normal temperature, Normal weight bearing. No: Edema, Almas's sign - Neurological Neuro grossly intact: Yes Cognition: Normal Orientation: AAOx4 [place] Coma Scale Eye Opening: Spontaneous Adela Coma Scale Verbal: Oriented Adela Coma Scale Motor: Obeys Commands [place] Coma Scale Total: 15 Speech: Normal Motor strength normal: LUE, RUE, LLE, RLE Sensory: Normal - Psychological Associated symptoms: Normal affect, Normal mood - Skin Skin Temperature: Warm Skin Moisture: Dry Skin Color: Normal Course - Re-evaluation Re-evalutation: 12/12/17 07:47 Initial labs fairly unremarkable with exception of elevated blood counts but has been on steroids. Patient with COPD exacerbation. Starting on antibiotics. Ordered BiPAP. Need to be admitted. Currently heart rate 125. - Vital Signs Vital signs: Temp Pulse Resp BP Pulse Ox 98.3 F 28 H 134/83 H 97 12/12/17 04:58 12/12/17 07:24 12/12/17 05:01 12/12/17 07:24 - Laboratory Result Diagrams: 12/12/17 04:11 12/12/17 04:11 Laboratory results interpreted by me: 12/12/17 12/12/17 12/12/17 04:11 04:11 05:31 WBC 17.0 H RDW 15.5 H Seg Neuts % (Manual) 79 H Abs Neuts (Manual) 13.4 H VBG pH 7.46 H Carbon Dioxide 31 H Creatinine 0.43 L Alkaline Phosphatase 128 H Creatine Kinase < 20 L Total Protein 5.8 L Albumin 3.3 L - EKG Interpretation by Me EKG shows normal: Intervals, QRS Complexes, ST-T Waves Rate: Tachycardia Critical Care Note - Critical Care Note Total time excluding time spent on procedures (mins): 35 Comments: Respiratory distress, tachycardia Discharge - Discharge Clinical Impression: COPD exacerbation Condition: Good Disposition: ADMITTED INPATIENT Admitting Provider: Hospitalist - [place] Unit Admitted: Telemetry Referrals: JANNIE MARRERO PA-C [Primary Care Provider] - Follow up as needed
[2017-12-12] MEDS ORDERED: AZITHROMYCIN INJ 500 MG VIAL IV ONE (06:52)
[2017-12-12] MEDS ORDERED: ACETAMINOPHEN 325 MG TABLET PO PRN (08:59)
[2017-12-12] MEDS ORDERED: NORMAL SALINE 1000 ML 1,000 ML IV PRN (08:59)
[2017-12-12] MEDS ORDERED: LORAZEPAM 1 MG TABLET PO PRN (09:21)
[2017-12-12] MEDS ORDERED: HYDRALAZINE HCL INJ/PF 20 MG/1 ML SDV IV PRN (09:24)
--- NOTE | 2017-12-12 09:28 | PDOC H&P ---
History of Present Illness Admission Date/PCP: 12/12/17 08:48 JANNIE MARRERO PA-C Patient complains of: SOB History of Present Illness: The patient is a 67-year-old female who is well-known to me from previous hospitalizations. She was just hospitalized at our facility from November 21, 2017 to November 28, 2017. During that hospitalization she was treated for a COPD exacerbation. Her past medical history is significant for oxygen dependent COPD. She follows with Dr. Marquise regalado be in [place]. She has a known pulmonary nodule that he is following. She has had increasing anxiety over her respiratory status that has been ongoing and worsening for the past 6- 8 months. Unfortunately she still continues to smoke but is cut back to about 2 cigarettes a day. The patient was completing her prednisone taper that I gave her at the time of her last discharge. She states that she developed worsening shortness of breath and wheezing. She became quite anxious about this. She took both her BuSpar and her Ativan at home but her respiratory status worsened. She presented to the emergency room for further evaluation and treatment. Workup in the emergency room was unremarkable. She has a white blood cell count of 17,000 which is likely due to her steroids. Chest x-ray revealed no evidence of infection. Past Medical History Cardiac Medical History: Reports: Hyperlipidema, Hypertension Pulmonary Medical History: Reports: Bronchitis, Chronic Obstructive Pulmonary Disease (COPD) - On 2L nasal cannula at home, Pneumonia, Respiratory Failure - She is on chronic oxygen therapy at home. EENT Medical History: Reports: None Neurological Medical History: Reports: None Endocrine Medical History: Reports: Diabetes Mellitus Type 2, Hypothyroidism Renal/ Medical History: Reports: None Malignancy Medical History: Reports: None, Other - She does have a pulmonary nodule that is being followed GI Medical History: Reports: None Musculoskeltal Medical History: Reports: None Skin Medical History: Reports: None Psychiatric Medical History: Reports: Depression, Tobacco Dependency, Other - Worsening anxiety due to her Traumatic Medical History: Reports: None - Worsening anxiety due to her respiratory status Hematology: Reports: None Infectious Medical History: Reports: None Past Surgical History Past Surgical History: Reports: Appendectomy, Other - Right-sided chest tube Social History Information Source: Patient Lives with: Alone Smoking Status: Current Every Day Smoker Frequency of Alcohol Use: Rare Hx Recreational Drug Use: No Drugs: None Hx Prescription Drug Abuse: No - Advance Directive Resuscitation Status: Full Code Family History Family History: Reviewed & Not Pertinent, Other - Brother- CAD Mother- colorectal cancer Parental Family History Reviewed: Yes Children Family History Reviewed: Yes Sibling(s) Family History Reviewed.: Yes Medication/Allergy Home Medications: Buspirone HCl [Buspar 10 mg Tablet] 10 mg PO Q8 11/21/17 Citalopram Hydrobromide [Celexa 20 mg Tablet] 20 mg PO DAILY 11/21/17 Ergocalciferol (Vitamin D2) [Drisdol 50,000 unit (1.25MG) Capsule] 50,000 unit PO MELENDEZ@1000 11/21/17 Ipratropium/Albuterol Sulfate [Iprat-Albut 0.5-3(2.5) mg/3 ml] 3 ml NEB Q6HP PRN 11/21/17 Levothyroxine Sodium [Synthroid 0.05 mg Tablet] 0.05 mg PO Q6AM 11/21/17 Mometasone/Formoterol [Dulera 200 Mcg/5 Mcg Inhaler] 2 puff IH Q12 11/21/17 Roflumilast [Daliresp 500 mcg Tablet] 500 mcg PO DAILY 11/21/17 Tiotropium [place] [Spiriva Respimat] 2 puff IH DAILY 11/21/17 Lorazepam [Ativan 0.5 mg Tablet] 0.5 mg PO Q8HP PRN #20 tablet 11/28/17 Nystatin [Mycostatin 500,000 Unit/5 ml Susp Udcup] 500,000 unit PO QID #100 udc 11/28/17 Prednisone 10 mg PO ASDIR PRN #39 tablet 11/28/17 Allergies/Adverse Reactions: doxycycline Allergy (Verified 11/22/17 02:53) Penicillins Allergy (Verified 08/31/17 09:09) "cillins" Allergy (Uncoded 08/31/17 09:10) Review of Systems Constitutional: ABSENT: chills, fever(s) Eyes: ABSENT: visual disturbances Ears: ABSENT: hearing changes Cardiovascular: ABSENT: chest pain, dyspnea on exertion, edema, orthropnea, palpitations Respiratory: PRESENT: cough, dyspnea, sputum, other - Worsening wheezing Gastrointestinal: ABSENT: abdominal pain, constipation, diarrhea, hematemesis, hematochezia, nausea, vomiting Genitourinary: ABSENT: dysuria, hematuria Musculoskeletal: ABSENT: joint swelling Integumentary: ABSENT: rash, wounds Neurological: ABSENT: abnormal gait, abnormal speech, confusion, dizziness, focal weakness, syncope Psychiatric: PRESENT: anxiety, depression. ABSENT: homidical ideation, suicidal ideation Endocrine: ABSENT: cold intolerance, heat intolerance, polydipsia, polyuria Hematologic/Lymphatic: ABSENT: easy bleeding, easy bruising Physical Exam Vital Signs: Temp Pulse Resp BP Pulse Ox 98.3 F 23 H 115/83 99 12/12/17 04:58 12/12/17 08:01 12/12/17 08:01 12/12/17 08:01 General appearance: PRESENT: mild distress, obese, other - This is an obese 67- year-old female. She is comfortable on BiPAP Head exam: PRESENT: atraumatic, normocephalic Eye exam: PRESENT: conjunctiva pink, EOMI, PERRLA. ABSENT: scleral icterus Ear exam: PRESENT: normal external ear exam Mouth exam: PRESENT: moist, tongue midline, other - She has evidence of thrush Neck exam: ABSENT: carotid bruit, JVD, lymphadenopathy, thyromegaly Respiratory exam: PRESENT: decreased breath sounds, wheezes - Coarse wheezing throughout all lung liu anteriorly. She is wearing BiPAP. She is diminished in the lower bases bilaterally Cardiovascular exam: PRESENT: tachycardia - She is quite tachycardic with regular rhythm. I am not appreciating a murmur Pulses: PRESENT: normal dorsalis pedis pul Vascular exam: PRESENT: normal capillary refill GI/Abdominal exam: PRESENT: normal bowel sounds, soft. ABSENT: distended, guarding, mass, organolmegaly, rebound, tenderness Rectal exam: PRESENT: deferred Extremities exam: PRESENT: full ROM, other - She has some mild pitting edema in the right lower extremity that extends up to just below her knee. Left lower extremity has no clubbing cyanosis or edema. ABSENT: calf tenderness, clubbing , pedal edema Musculoskeletal exam: PRESENT: ambulatory Neurological exam: PRESENT: alert, awake, oriented to person, oriented to place , oriented to time, oriented to situation, CN II-XII grossly intact. ABSENT: motor sensory deficit Skin exam: PRESENT: dry, intact, warm. ABSENT: cyanosis, rash Results Impressions: Chest X-Ray 12/12/17 05:05 IMPRESSION: No acute cardiopulmonary findings. Mild chronic interstitial lung disease. Assessment & Plan - Diagnosis (1) Acute on chronic respiratory failure with hypoxia and hypercapnia Is this a current diagnosis for this admission?: Yes Plan: The patient is having acute COPD exacerbation. Currently requiring BiPAP support. Continue aggressive breathing treatments and therapy will be outlined below. She will have an incentive spirometer and flutter valve that we will have respiratory therapy work with her. I also am going to get a CT angiography of her chest to rule out pulmonary embolus. Also to see if there is any pneumonia or change with her known pulmonary nodule (2) COPD exacerbation Is this a current diagnosis for this admission?: Yes Plan: She will be started on 40 mg of IV Solu-Medrol every 8 hours. She will be placed on scheduled breathing treatments. I am going to place her on IV Levaquin. This will be the first day of treatment. (3) Obstructive sleep apnea Is this a current diagnosis for this admission?: Yes Plan: She wears BiPAP at night at baseline. She is currently on BiPAP and we will continue this (4) Anxiety Is this a current diagnosis for this admission?: Yes Plan: She will have as needed Ativan available as needed. She will continue BuSpar (5) Tobacco dependence Is this a current diagnosis for this admission?: Yes Plan: I have encouraged the patient to quit smoking. She says she is down to 2 cigarettes a day at this point. We will place a nicotine patch (6) Obesity Is this a current diagnosis for this admission?: Yes Plan: Certainly would be in her best interest to lose weight. (7) Hypothyroid Is this a current diagnosis for this admission?: Yes Plan: Continue home dose of Synthroid (8) GERD (gastroesophageal reflux disease) Is this a current diagnosis for this admission?: Yes Plan: She will be placed on prednisone Prevacid which is on formulary here at this hospital. (9) Hypertension Is this a current diagnosis for this admission?: Yes Plan: Currently on no medications. She will have as needed hydralazine available as needed (10) Sinus tachycardia Is this a current diagnosis for this admission?: Yes Plan: Likely due to respiratory distress. I am going to get a CTA to rule out pulmonary embolus. (11) Thrush Is this a current diagnosis for this admission?: Yes Plan: She will continue nystatin swish and swallow. (12) Full code status Is this a current diagnosis for this admission?: Yes - Time Time Spent: 50 to 70 Minutes - Inpatient Certification Medical Necessity: Need for IV Antibiotics - The patient will be admitted to the hospital. I expect her hospitalization will span greater than 2 midnights. She will be requiring parenteral steroids and antibiotics. I expect she will be in the hospital for several days, Other
[2017-12-12] MEDS ORDERED: (PENDING PHARMACY ID) (Tiotropium Bromide [Spiriva Respimat] 2 PUFF) IH SCH (10:00)
[2017-12-12] MEDS ORDERED: (PENDING PHARMACY ID) (Mometasone/Formoterol [Dulera 200 Mcg/5 Mcg Inhaler] 2 PUFF) IH SCH (10:00)
[2017-12-12] MEDS ORDERED: (PENDING PHARMACY ID) (Roflumilast [Daliresp 500 Mcg Tablet] 500 MCG) PO SCH (10:00)
--- NOTE | 2017-12-12 10:00 | RADIOLOGY REPORT (SQ) ---
EXAM DESCRIPTION: CTA CHEST COMPLETED DATE/TIME: 12/12/2017 9:23 am REASON FOR STUDY: sob, r/o PE, lung nodule COMPARISON: CTA of the chest dated 11/21/2017 TECHNIQUE: CT scan of the chest performed using helical scanning technique with dynamic intravenous contrast injection. Images reviewed with lung, soft tissue and bone windows. Reconstructed coronal and sagittal MPR images reviewed. Additional 3 dimensional post-processing performed to develop Maximal Intensity Projection images (VT P). All images stored on PACS. All CT scanners at this facility use dose modulation, iterative reconstruction, and/or weight based d osing when appropriate to reduce radiation dose to as low as reasonably achievable (ALARA). [facility]: Dose Right [facility]: CareDose [facility]: Dose Right [facility]: Teradose 4D [facility]: [employer] CONTRAST TYPE AND DOSE: contrast/concentration: Isovue 370.00 mg/ml; Total Contrast Delivered: 73.0 ml; Total Saline Delivered: 90.0 ml Contrast bolus optimized for the pulmonary arteries. Not diagnostic for the aorta. RENAL FUNCTION: Creatinine 0.43 RADIATION DOSE: CT Rad equipment meets quality standard of care and radiation dose reduction techniq ues were employed. CTDIvol: 16.5 - 22.2 mGy. DLP: 821 mGy-cm. . LIMITATIONS: None. FINDINGS: LUNGS AND PLEURA: Fairly diffuse chronic appearing emphysematous interstitial changes are again identified. The previously described pleural-based spiculated mass in the right upper lung fie ld is again identified and measures slightly smaller on the current study measuring 8.7 mm compared t o 10 mm on the previous study. No acute consolidations or pleural effusions are identified. There a re some minimal predominately linear densities in the right lung base most consistent with atelectati c changes. No pneumothorax is seen. AORTA AND GREAT VESSELS: No aneurysm. Contrast bolus not optimized for the aorta. HEART: No pericardial effusion. No significant coronary artery calcifications. PULMONARY ARTERIES: No emboli visualized in the main pulmonary arteries or the segmental branches. HILAR AND MEDIASTINAL STRUCTURES: The previously described right hilar mass shows interval increase i n size as compared to the previous study. An ovoid mass is identified in the epicardial fat on the r ight measuring 1.7 x 1.0 cm in diameters which was not present on the previous study and is suspiciou s for metastatic disease. HARDWARE: None in the chest. UPPER ABDOMEN: Rim calcified gallstones are again identified. A 7 mm in diameter right adrenal nodul e is identified which was not present on the previous study and is suspicious for metastatic disease. THYROID AND OTHER SOFT TISSUES: No masses. No adenopathy. BONES: No acute or significant finding. 3D MIPS: Confirm above findings. OTHER: No other significant finding. IMPRESSION: No evidence for pulmonary embolic disease. No acute consolidations or pleural effusions . The previously described pleural-based spiculated mass in the right upper lung field measures slig htly smaller on the current study. Interval increase in size of the right hilar mass. Interval deve lopment of an ovoid mass in the epicardial fat on the right suspicious for metastatic disease. Small right adrenal nodule suspicious for metastatic disease. Other findings as noted above. COMMENT: Quality ID # [id number]: Final reports with documentation of one or more dose reduction techniques (e.g., Automated exposure control, adjustment of the mA and/or kV according to patient size, use of iterative reconstruction technique) TECHNICAL DOCUMENTATION: JOB ID: [id number] All Rights Reserved Reading location - IP/workstation name: [email or web address]
[2017-12-12 10:06] LABS: ARTERIAL BLOOD BASE EXCESS 2.7 mmol/L; ARTERIAL BLOOD FIO2 35%; ARTERIAL BLOOD H2CO3 1.37 mmol/L (1.05-1.35); ARTERIAL BLOOD O2 SATURATION 95.8 % (94-98); ARTERIAL BLOOD PCO2 45.5 mmHg (35-45); ARTERIAL BLOOD PH 7.41 (7.35-7.45); ARTERIAL BLOOD PO2 79.7 mmHg (80-100); ARTERIAL BLOOD TOTAL CO2 29.4 mmol/L (21-25)
[2017-12-12 10:54] LABS: CREATINE KINASE MB 1.06 ng/mL (<4.55); TROPONIN I < 0.012 ng/mL
[2017-12-12] MEDS: CITALOPRAM HYDROBROMIDE 20 MG TABLET PO SCH (11:11)
[2017-12-12] MEDS: DOCUSATE SODIUM 100 MG CAPSULE PO SCH (11:11)
[2017-12-12] MEDS: METHYLPREDNISOLONE INJ 40 MG/1 ML SDV IV SCH ×2 (11:12→17:19)
[2017-12-12] MEDS: ROFLUMILAST 500 MCG TABLET PO SCH (11:12)
[2017-12-12] MEDS: NYSTATIN 500000 UNIT/5 ML UDCUP PO SCH ×4 (11:12→22:49)
[2017-12-12] MEDS: NICOTINE 14 MG/24 HR PATCH.TD24 TD SCH (11:12)
[2017-12-12] MEDS: LEVOFLOXACIN 750 MG/D5W RTU 750 MG/150 ML RTUPB IV SCH (11:14)
[2017-12-12] MEDS: ENOXAPARIN SODIUM INJ 40 MG/0.4 ML DISP.SYRIN SUBCUT SCH (11:15)
[2017-12-12] MEDS: LEVALBUTEROL HCL NEB 0.63 MG/3 ML AMPUL NEB SCH ×4 (11:43→23:40)
--- NOTE | 2017-12-12 11:43 | EKG REPORT ---
SEVERITY:- OTHERWISE NORMAL ECG - SINUS TACHYCARDIA : Confirmed by: Domonique Gallegos MD 12-Dec-2017 11:42:39
[2017-12-12] MEDS: BUSPIRONE HCL 10 MG TABLET PO SCH ×2 (14:14→22:49)
[2017-12-12] MEDS: TEMAZEPAM 7.5 MG CAPSULE PO SCH (22:49)
[2017-12-13] MEDS: METHYLPREDNISOLONE INJ 40 MG/1 ML SDV IV SCH ×3 (02:38→17:40)
[2017-12-13] MEDS: LEVALBUTEROL HCL NEB 0.63 MG/3 ML AMPUL NEB SCH ×6 (03:53→23:41)
[2017-12-13 05:56] LABS: ALANINE AMINOTRANSFERASE 28 U/L (9-52); ALBUMIN 2.7 g/dL (3.5-5.0); ALKALINE PHOSPHATASE 90 U/L (38-126); ANION GAP 6 (5-19); ASPARTATE AMINO TRANSFERASE 10 U/L (14-36); BLOOD UREA NITROGEN 21 mg/dL (7-20); CALCIUM 8.6 mg/dL (8.4-10.2); CARBON DIOXIDE 29 mmol/L (22-30); CHLORIDE 106 mmol/L (98-107); GLUCOSE 147 mg/dL (75-110); PHOSPHORUS 4.2 mg/dL (2.5-4.5); POTASSIUM 3.7 mmol/L (3.6-5.0); SODIUM 140.6 mmol/L (137-145); TOTAL PROTEIN 4.8 g/dL (6.3-8.2)
[2017-12-13 05:57] LABS: BILIRUBIN,TOTAL < 0.1 mg/dL (0.2-1.3)
[2017-12-13] MEDS: LEVOTHYROXINE SODIUM 0.05 MG TABLET PO SCH (06:18)
[2017-12-13] MEDS: BUSPIRONE HCL 10 MG TABLET PO SCH ×3 (06:19→21:39)
[2017-12-13] MEDS: LANSOPRAZOLE 30 MG TAB.RAP.DR PO SCH (06:19)
[2017-12-13 06:52] LABS: HEMATOCRIT 37.2 % (36.0-47.0); MEAN CORPUSCULAR HEMOGLOBIN 29.9 pg (27.0-33.4); MEAN CORPUSCULAR HGB CONC 33.6 g/dL (32.0-36.0); MEAN CORPUSCULAR VOLUME 89 fl (80-97); PLATELET COUNT 204 10^3/uL (150-450); RED BLOOD COUNT 4.19 10^6/uL (3.72-5.28); RED CELL DISTRIBUTION WIDTH 15.3 % (11.5-14.0)
[2017-12-13 07:06] LABS: HEMOGLOBIN 12.5 g/dL (12.0-15.5)
[2017-12-13 07:08] LABS: ABSOLUTE LYMPHOCYTES# (MANUAL) 0.6 10^3/uL (0.5-4.7); ABSOLUTE MONOCYTES # (MANUAL) 0.8 10^3/uL (0.1-1.4); ABSOLUTE NEUTROPHILS# (MANUAL) 14.6 10^3/uL (1.7-8.2); ANISOCYTOSIS 1+; BASOPHILS % (MANUAL) 0 % (0-2); EOSINOPHILS % (MANUAL) 0 % (0-6); LYMPHOCYTES % (MANUAL) 4 % (13-45); MONOCYTES % (MANUAL) 5 % (3-13); PLATELET COMMENT ADEQUATE; SEGMENTED NEUTROPHILS % (MAN) 91 % (42-78); TOTAL CELLS COUNTED 100; TOXIC GRANULATION SLIGHT
[2017-12-13] MEDS: DOCUSATE SODIUM 100 MG CAPSULE PO SCH (09:45)
[2017-12-13] MEDS: NYSTATIN 500000 UNIT/5 ML UDCUP PO SCH ×4 (09:45→21:37)
[2017-12-13] MEDS: CITALOPRAM HYDROBROMIDE 20 MG TABLET PO SCH (09:45)
[2017-12-13] MEDS: ROFLUMILAST 500 MCG TABLET PO SCH (09:45)
[2017-12-13] MEDS: NICOTINE 14 MG/24 HR PATCH.TD24 TD SCH (09:46)
[2017-12-13] MEDS: ENOXAPARIN SODIUM INJ 40 MG/0.4 ML DISP.SYRIN SUBCUT SCH (09:47)
[2017-12-13] MEDS: LEVOFLOXACIN 750 MG/D5W RTU 750 MG/150 ML RTUPB IV SCH (09:50)
--- NOTE | 2017-12-13 09:59 | PDOC PROGRESS REPORT ---
Subjective Progress Note for:: 12/13/17 Subjective:: The patient is an extremely pleasant 67-year-old female who is well- known to me from previous hospitalizations. She was just hospitalized at this facility from November 21, 2017 to November 28, 2017. During that hospitalization she was treated for COPD exacerbation. Her past medical history significant for oxygen dependent COPD. She follows with Dr. Batista in [facility]. She has a known pulmonary nodule that he is following. She has not when I discharged her during that previous when she was discharged during that hospitalization she was sent out on a long steroid taper. There had been a change in her pulmonary nodule on CT imaging and I had sent her home with a disc to take to Dr. Batista's office. Unfortunately her follow-up appointment was not until today. She was reaching the end of her steroid taper and her breathing flared up. She once again presented to the emergency room and was found to be having an acute COPD exacerbation. Initially the patient was on BiPAP. She had a CT angiography of her chest which reveals a very large hilar mass that has significantly increased in size. Interestingly the pulmonary nodule that was being followed is a little bit smaller. She also has a new adrenal nodule and an ovoid mass noted in the pericardial fat pad that is concerning for metastatic disease. This morning I spoke to radiology. These lesions cannot be accessed through a CT-guided biopsy. She will need an EBUS. Dr. Batista performs these procedures. He is agreed to perform one on her on Saturday morning. I have spoken to the [facility] and she has been accepted. They do have a bed shortage but feel certain that they can get the patient out over the weekend. In the past the patient has declined biopsy of this lesion. This was because she was told that it was quite small and she opted to just follow it. I did review the results of the CT scan with her. She does want to pursue biopsy and would be interested in treatment. Unfortunately she lives alone. She does have a brother in [place] who would be her primary decision maker. His name is Flynnmarylu Altamirano . The patient does not have any children. She lives alone. The patient is agreeable to transfer to [facility]. I have spent quite some time discussing the plan of care with the patient and all of her questions have been answered. Today she has been weaned off of BiPAP. Her oxygen saturations are stable at 4 L. She states that she is feeling much better than when she came into the hospital. She has had no fever or shaking chills. No chest pain or heart palpitations. She still has some wheezing but it is much improved. She has no nausea, vomiting or diarrhea. No abdominal pain. No dysuria, frequency or hematuria. Reason For Visit: COPD EXACERBATION Physical Exam Vital Signs: Temp Pulse Resp BP Pulse Ox 97.8 F 83 16 118/70 97 12/13/17 07:27 12/13/17 08:11 12/13/17 08:11 12/13/17 07:27 12/13/17 08:11 Intake & Output 12/12/17 12/13/17 12/14/17 06:59 06:59 06:59 Intake Total 1140 Output Total 0 Balance 1140 Weight 79.2 kg General appearance: PRESENT: obese, well-developed, other - Somewhat ill- appearing. She is in no acute distress but looks as if she does not feel well Head exam: PRESENT: atraumatic, normocephalic Mouth exam: PRESENT: moist, tongue midline Respiratory exam: PRESENT: decreased breath sounds - She is diminished in the lower bases bilaterally, wheezes - She still has mild wheezing but this is much improved since the time of admission Cardiovascular exam: PRESENT: RRR. ABSENT: diastolic murmur, rubs, systolic murmur GI/Abdominal exam: PRESENT: normal bowel sounds, soft. ABSENT: distended, guarding, mass, organolmegaly, rebound, tenderness Rectal exam: PRESENT: deferred Extremities exam: PRESENT: full ROM. ABSENT: calf tenderness, clubbing, pedal edema Musculoskeletal exam: PRESENT: ambulatory Neurological exam: PRESENT: alert, awake, oriented to person, oriented to place , oriented to time, oriented to situation, CN II-XII grossly intact. ABSENT: motor sensory deficit Psychiatric exam: PRESENT: appropriate affect, normal mood, other - She is somewhat tearful when I was telling her about her diagnosis.. ABSENT: homicidal ideation, suicidal ideation Skin exam: PRESENT: dry, intact, warm. ABSENT: cyanosis, rash Results Laboratory Results: 12/13/17 06:36 12/13/17 04:29 12/12/17 12/13/17 12/13/17 09:45 04:29 04:29 WBC Cancelled RBC Cancelled Hgb Cancelled Hct Cancelled MCV Cancelled MCH Cancelled MCHC Cancelled RDW Cancelled Plt Count Cancelled Seg Neutrophils % Cancelled Lymphocytes % Cancelled Monocytes % Cancelled Eosinophils % Cancelled Basophils % Cancelled Absolute Neutrophils Cancelled Absolute Lymphocytes Cancelled Absolute Monocytes Cancelled Absolute Eosinophils Cancelled Absolute Basophils Cancelled Carbonic Acid 1.37 H HCO3/H2CO3 Ratio 20:1 ABG pH 7.41 ABG pCO2 45.5 H ABG pO2 79.7 L ABG HCO3 28.0 H ABG O2 Saturation 95.8 ABG Base Excess 2.7 FiO2 35% Sodium 140.6 Potassium 3.7 Chloride 106 Carbon Dioxide 29 Anion Gap 6 BUN 21 H Creatinine 0.39 L Est GFR ( Amer) > 60 Est GFR (Non-Af Amer) > 60 Glucose 147 H Calcium 8.6 Phosphorus 4.2 Magnesium 2.2 Total Bilirubin < 0.1 L AST 10 L ALT 28 Alkaline Phosphatase 90 Total Protein 4.8 L Albumin 2.7 L 12/13/17 06:36 WBC 16.0 H RBC 4.19 Hgb 12.5 D Hct 37.2 MCV 89 MCH 29.9 MCHC 33.6 RDW 15.3 H Plt Count 204 Seg Neutrophils % Not Reportable Lymphocytes % Not Reportable Monocytes % Not Reportable Eosinophils % Not Reportable Basophils % Not Reportable Absolute Neutrophils Not Reportable Absolute Lymphocytes Not Reportable Absolute Monocytes Not Reportable Absolute Eosinophils Not Reportable Absolute Basophils Not Reportable Carbonic Acid HCO3/H2CO3 Ratio ABG pH ABG pCO2 ABG pO2 ABG HCO3 ABG O2 Saturation ABG Base Excess FiO2 Sodium Potassium Chloride Carbon Dioxide Anion Gap BUN Creatinine Est GFR ( Amer) Est GFR (Non-Af Amer) Glucose Calcium Phosphorus Magnesium Total Bilirubin AST ALT Alkaline Phosphatase Total Protein Albumin 12/12/17 12/12/17 12/13/17 10:01 10:01 04:29 Creatine Kinase < 20 L CK-MB (CK-2) 1.06 Troponin I < 0.012 NT-Pro-B Natriuret Pep 187 Impressions: Chest/Abdomen CTA 12/12/17 00:00 IMPRESSION: No evidence for pulmonary embolic disease. No acute consolidations or pleural effusions. The previously described pleural-based spiculated mass in the right upper lung field measures slightly smaller on the current study. Interval increase in size of the right hilar mass. Interval development of an ovoid mass in the epicardial fat on the right suspicious for metastatic disease. Small right adrenal nodule suspicious for metastatic disease. Other findings as noted above. Chest X-Ray 12/12/17 05:05 IMPRESSION: No acute cardiopulmonary findings. Mild chronic interstitial lung disease. Assessment & Plan - Diagnosis (1) Acute on chronic respiratory failure with hypoxia and hypercapnia Is this a current diagnosis for this admission?: Yes Plan: Secondary to COPD exacerbation. Also contributing to his probable lung malignancy. She has been weaned off of BiPAP at this point. She will continue oxygen support and therapy will be outlined below. (2) COPD exacerbation Is this a current diagnosis for this admission?: Yes Plan: Today I will continue IV Solu-Medrol. She also is on IV Levaquin. This is the second day of treatment. She will continue aggressive breathing treatments and oxygen support as needed. (3) Lung mass Is this a current diagnosis for this admission?: Yes Plan: CT angiography of the chest reveals her pulmonary nodule that has been followed. She also has a large hilar mass as well as a pericardial ovoid mass that is new. Adrenal mass is also noted as well. [facility] has graciously agreed to accept the patient in transfer. Dr. Batista is aware and should be consulted when she arrives at the hospital. She will likely need an EBUS. (4) Obstructive sleep apnea Is this a current diagnosis for this admission?: Yes Plan: She wears BiPAP at night at baseline. We will continue this at night here in the hospital. (5) Anxiety Is this a current diagnosis for this admission?: Yes Plan: She will have as needed Ativan available as needed. She will continue BuSpar. The patient becomes quite anxious when she gets short of breath. This is been worsening over recent months. (6) Tobacco dependence Is this a current diagnosis for this admission?: Yes Plan: I have encouraged the patient to quit smoking. She says she is down to 2 cigarettes a day at this point. She has a nicotine patch in place (7) Obesity Is this a current diagnosis for this admission?: Yes Plan: Certainly would be in her best interest to lose weight. (8) Hypothyroid Is this a current diagnosis for this admission?: Yes Plan: Continue home dose of Synthroid (9) GERD (gastroesophageal reflux disease) Is this a current diagnosis for this admission?: Yes Plan: She is currently on Prevacid which is on formulary here at the hospital (10) Hypertension Is this a current diagnosis for this admission?: Yes Plan: Currently on no medications. She has hydralazine available as needed (11) Sinus tachycardia Is this a current diagnosis for this admission?: Yes Plan: Resolved. This was due to significant respiratory distress at the time of admission. (12) Thrush Is this a current diagnosis for this admission?: Yes Plan: She will continue nystatin swish and swallow. (13) Full code status Is this a current diagnosis for this admission?: Yes - Time Time Spent with patient: 35 or more minutes - Inpatient Certification Medical Necessity: Need Close Monitoring Due to Risk of Patient Decompensation - Inpatient hospitalization remains necessary. The patient is going to require transfer to [facility] over the weekend for consideration of EBUS on Saturday. She will be requiring parenteral antibiotics and steroids over the weekend. She is still above her baseline oxygen requirements., Need for Nebulizer Therapy and Monitoring of Response, Need for IV Antibiotics, Other
--- NOTE | 2017-12-13 10:19 | PDOC TRANSFER SUMMARY ---
General Admission Date/PCP: 12/12/17 08:48 JANNIE MARRERO PA-C Jewelry Polisher: Dr Marquise Batista Admission Date: 12/12/17 Transfer Date: 12/13/17 Accepting Facility: [facility] Resuscitation Status: Full Code - Transfer Diagnosis (1) Acute on chronic respiratory failure with hypoxia and hypercapnia Is this a current diagnosis for this admission?: Yes Diagnosis Summary: Secondary to COPD exacerbation and probable underlying lung malignancy. She was initially on BiPAP support. Currently on 4 L of oxygen. She is being transferred to [facility] hopefully today for consideration of EBUS on Saturday. (2) COPD exacerbation Is this a current diagnosis for this admission?: Yes Diagnosis Summary: Initially requiring BiPAP support. She has been weaned off to 4 L of oxygen. Continue aggressive bronchodilators as well as IV steroids. This is day #2 of treatment with Levaquin. (3) Lung mass Is this a current diagnosis for this admission?: Yes Diagnosis Summary: She has a large hilar mass as well as pulmonary nodule that Dr. Batista has been following. Also a new ovoid mass in the pericardial fat pad as well as a new adrenal nodule. This is not a minimal to a CT-guided biopsy. She likely will require EBUS. Dr. Batista will be on-call at [facility] on Saturday and has agreed to perform the procedure if necessary. She will be transferred to [facility] for further evaluation and treatment. (4) Obstructive sleep apnea Is this a current diagnosis for this admission?: Yes Diagnosis Summary: She will continue BiPAP at night. (5) Anxiety Is this a current diagnosis for this admission?: Yes Diagnosis Summary: She has had increasing anxiety over the past several months due to her respiratory status. She has Ativan available as needed. She is continuing on her BuSpar. (6) Tobacco dependence Is this a current diagnosis for this admission?: Yes Diagnosis Summary: She is down to 2 cigarettes a day. I have highly encouraged her to stop altogether. She has a nicotine patch in place. (7) Obesity Is this a current diagnosis for this admission?: Yes Diagnosis Summary: Certainly she would benefit from weight loss. (8) Hypothyroid Is this a current diagnosis for this admission?: Yes Diagnosis Summary: Continue Synthroid (9) GERD (gastroesophageal reflux disease) Is this a current diagnosis for this admission?: Yes Diagnosis Summary: Continue PPI (10) Hypertension Is this a current diagnosis for this admission?: Yes (11) Sinus tachycardia Is this a current diagnosis for this admission?: Yes Diagnosis Summary: She initially was quite tachycardic with heart rates in the 130s and 40s. This was likely due to respiratory distress at the time of admission. Her respiratory status is greatly improved and her heart rate has normalized. Currently in a sinus rhythm (12) Thrush Is this a current diagnosis for this admission?: Yes Diagnosis Summary: Continue nystatin swish and swallow (13) Full code status Is this a current diagnosis for this admission?: Yes - Transfer Medications Home Medications: Buspirone HCl [Buspar 10 mg Tablet] 10 mg PO Q8 12/12/17 Calcium Carbonate/Vitamin D3 [Calcium 500-Vit D3 200 Tablet] 1 each PO DAILY 01/22 Cetirizine HCl [Zyrtec 10 mg Tablet] 1 tab PO DAILY 12/12/17 Cholecalciferol (Vitamin D3) [Vitamin D3 1000 Unit Tablet] 3,000 unit PO DAILY 12/12/17 Citalopram Hydrobromide [Celexa 20 mg Tablet] 20 mg PO DAILY 12/12/17 Cyanocobalamin (Vitamin B-12) [Vitamin B-12 1000 Mcg Tablet] 2,500 mcg PO DAILY 12/12/17 Ergocalciferol (Vitamin D2) [Drisdol 50,000 Unit (1.25MG) Capsule] 1 cap PO MO@ 1000 12/12/17 Guaifenesin [Mucinex] 1,200 mg PO DAILY 12/12/17 Hydrochlorothiazide [Hydrodiuril 25 mg Tablet] 25 mg PO QAM 12/12/17 Ipratropium/Albuterol Sulfate [Duoneb 3 ml Ampul] 3 ml NEB RTQ6HP PRN 12/12/17 Levothyroxine Sodium [Synthroid 50 Mcg Tablet] 50 mcg PO Q6AM 12/12/17 Lorazepam [Ativan 0.5 mg Tablet] 0.25 mg PO Q8HP PRN 12/12/17 Magnesium 250 mg PO DAILY 12/12/17 Mometasone/Formoterol [Dulera 200 Mcg/5 Mcg Inhaler] 2 puff IH Q12 12/12/17 Nystatin [Mycostatin 500,000 Unit/5 ml Susp Udcup] 500,000 unit PO QID 12/12/17 Omeprazole Magnesium [Prilosec Otc] 20 mg PO DAILYP PRN 12/12/17 Prednisone [Deltasone 10 mg Tablet] 10 mg PO ASDIR 12/12/17 Roflumilast [Daliresp 500 mcg Tablet] 500 mcg PO DAILY 12/12/17 Tiotropium [place] [Spiriva Respimat] 2 puff IH DAILY 12/12/17 Zinc 50 mg PO DAILY 12/12/17 Transfer Medications: Current Medications Acetaminophen (Tylenol 325 Mg Tablet) 650 mg PO Q4HP PRN PRN Reason: FEVER >101 Stop: 01/11/18 08:58 Buspirone HCl (Buspar 10 Mg Tablet) 10 mg PO Q8 [facility] Stop: 01/11/18 13:59 Last Admin: 12/13/17 06:19 Dose: 10 mg Citalopram Hydrobromide (Celexa 20 Mg Tablet) 20 mg PO DAILY [facility] Stop: 01/11/18 09:59 Last Admin: 12/13/17 09:45 Dose: 20 mg Docusate Sodium (Colace 100 Mg Capsule) 100 mg PO DAILY [facility] Stop: 01/11/18 09:59 Last Admin: 12/13/17 09:45 Dose: 100 mg Enoxaparin Sodium (Lovenox Inj 40 Mg/0.4 Ml Disp.Syrin) 40 mg SUBCUT DAILY [facility] Stop: 01/11/18 09:59 Last Admin: 12/13/17 09:47 Dose: 40 mg Ergocalciferol (Drisdol 50,000 Unit (1.25mg) Capsule) 50,000 unit PO MELENDEZ@1000 [facility] Stop: 01/14/18 09:59 Hydralazine HCl (Apresoline Inj/Pf 20 Mg/1 Ml Sdv) 10 mg IV Q6HP PRN PRN Reason: GIVE FOR SBP>180/DBP>110 Stop: 01/11/18 09:23 Sodium Chloride (Nacl 0.9% 1000 Ml Iv Soln) 1,000 mls @ 50 mls/hr IV CONTINUOUS PRN PRN Reason: THIS MED IS NOT "PRN" Stop: 01/11/18 08:58 Last Admin: 12/12/17 11:16 Dose: 1,000 ml Levofloxacin/Dextrose (Levaquin Rtu 750 Mg/D5w 150 Ml Premix) 750 mg in 150 mls @ 100 mls/hr IV DAILY [facility] Stop: 12/19/17 09:59 Last Admin: 12/13/17 09:50 Dose: 150 ml Lansoprazole (Prevacid 30 Mg Odt Tablet) 30 mg PO Q6AM [facility] Stop: 01/12/18 05:59 Last Admin: 12/13/17 06:19 Dose: 30 mg Levalbuterol HCl (Xopenex Neb 0.63 Mg/3 Ml Ampul) 0.63 mg NEB RTQ4 [facility] Stop: 01/11/18 11:59 Last Admin: 12/13/17 08:08 Dose: 0.63 mg Levothyroxine Sodium (Synthroid 0.05 Mg Tablet) 0.05 mg PO Q6AM [facility] Stop: 01/12/18 05:59 Last Admin: 12/13/17 06:18 Dose: 0.05 mg Lorazepam (Ativan 1 Mg Tablet) 1 mg PO Q6HP PRN PRN Reason: ANXIETY/AGITATION Stop: 12/19/17 09:20 Methylprednisolone Sodium Succinate (Solu-Medrol Inj/Pf 40 Mg/1 Ml Sdv) 40 mg IV Q8A [facility] Stop: 01/11/18 09:59 Last Admin: 12/13/17 09:52 Dose: 40 mg Nicotine (Nicoderm 14 Mg/24 Hr Transdermal Patch) 1 each TD DAILY [facility] Stop: 01/11/18 09:59 Last Admin: 12/13/17 09:46 Dose: 1 each Nystatin (Mycostatin 500,000 Unit/5 Ml Susp Udcup) 500,000 unit PO QID [facility] Stop: 12/19/17 09:59 Last Admin: 12/13/17 09:45 Dose: 500,000 unit Patient Own Medication (Mometasone/Formoterol [Dulera 200 Mcg/5 Mcg Inhaler]) 2 puff IH .Q12 [facility] Stop: 01/11/18 09:59 Patient Own Medication (Tiotropium [place] [Spiriva Respimat]) 2 puff IH .DAILY [facility] Stop: 01/11/18 09:59 Roflumilast (Daliresp 500 Mcg Tablet) 500 mcg PO DAILY [facility] Stop: 01/11/18 09:59 Last Admin: 12/13/17 09:45 Dose: 500 mcg Temazepam (Restoril 7.5 Mg Capsule) 7.5 mg PO QHS [facility] Stop: 12/19/17 21:59 Last Admin: 12/12/17 22:49 Dose: 7.5 mg - Allergies Allergies/Adverse Reactions: bupropion Allergy (Mild, Verified 12/12/17 11:14) Generalized Itching doxycycline Allergy (Verified 12/12/17 11:14) Hives Penicillins Allergy (Verified 12/12/17 11:14) Hives "cillins" Allergy (Uncoded 12/12/17 11:14) Hives Hospital Course Hospital Course: The patient is an extremely pleasant 67-year-old female who is well- known to me from previous hospitalizations. She was just hospitalized at this facility from November 21, 2017 to November 28, 2017. During that hospitalization she was treated for COPD exacerbation. Her past medical history significant for oxygen dependent COPD. She follows with Dr. Batista in [facility]. She has a known pulmonary nodule that he is following. When she was discharged from that hospitalization she was sent out on a long steroid taper. There had been a change in her pulmonary nodule on CT imaging and I had sent her home with a disc to take to Dr. Batista's office. Unfortunately her follow- up appointment was not until today. She was reaching the end of her steroid taper and her breathing flared up. She once again presented to the emergency room and was found to be having an acute COPD exacerbation. Initially the patient was on BiPAP. She had a CT angiography of her chest which reveals a large hilar mass that has significantly increased in size. Interestingly the pulmonary nodule that was being followed is a little bit smaller. She also has a new adrenal nodule and an ovoid mass noted in the pericardial fat pad that is concerning for metastatic disease. This morning I spoke to radiology. These lesions cannot be accessed through a CT-guided biopsy. She will need an EBUS. Dr. Batista performs this procedure. He has agreed to perform one on her next week. I have spoken to the [facility] and she has been accepted. They do have a bed shortage but feel certain that they can get the patient out over the weekend for evaluation from Dr Batista on Saturday. In the past the patient has declined biopsy of this lesion. This was because she was told that it was quite small and she opted to just follow it. I did review the results of the CT scan with her. She does want to pursue biopsy and would be interested in treatment. She has expressed a desire to follow with the oncologist in [place] that are affiliated with Dr. Batista. Unfortunately she lives alone and has some good friends but no family that lives in the area. She does have a brother in [place] who would be her primary decision maker. His name is Flynn Altamirano . The patient does not have any children. The patient is agreeable to transfer to [facility]. I have spent quite some time discussing the plan of care with the patient and all of her questions have been answered. Dr. Kelton Gibson has graciously accepted the patient in transfer. she will be transferred to [facility] as soon as a bed is found. I certainly appreciate their assistance. Physical Exam Vital Signs: Temp Pulse Resp BP Pulse Ox 97.8 F 83 16 118/70 97 12/13/17 07:27 12/13/17 08:11 12/13/17 08:11 12/13/17 07:27 12/13/17 08:11 Intake & Output 12/12/17 12/13/17 12/14/17 06:59 06:59 06:59 Intake Total 1140 Output Total 0 Balance 1140 Weight 79.2 kg General appearance: PRESENT: no acute distress, well-developed, other - Somewhat ill-appearing Head exam: PRESENT: atraumatic, normocephalic Respiratory exam: PRESENT: decreased breath sounds - She is diminished in the lower bases bilaterally., wheezes - She still has wheezing present but it is much improved since yesterday.. ABSENT: rales, rhonchi Cardiovascular exam: PRESENT: RRR. ABSENT: diastolic murmur, rubs, systolic murmur GI/Abdominal exam: PRESENT: normal bowel sounds, soft. ABSENT: distended, guarding, mass, organolmegaly, rebound, tenderness Rectal exam: PRESENT: deferred Extremities exam: PRESENT: full ROM. ABSENT: calf tenderness, clubbing, pedal edema Neurological exam: PRESENT: alert, awake, oriented to person, oriented to place , oriented to time, oriented to situation, CN II-XII grossly intact. ABSENT: motor sensory deficit Psychiatric exam: PRESENT: anxious, other - She is somewhat tearful in discussing this potential diagnosis. Skin exam: PRESENT: dry, intact, warm. ABSENT: cyanosis, rash Results Laboratory Results: 12/13/17 06:36 12/13/17 04:29 12/12/17 12/13/17 12/13/17 09:45 04:29 04:29 WBC Cancelled RBC Cancelled Hgb Cancelled Hct Cancelled MCV Cancelled MCH Cancelled MCHC Cancelled RDW Cancelled Plt Count Cancelled Seg Neutrophils % Cancelled Lymphocytes % Cancelled Monocytes % Cancelled Eosinophils % Cancelled Basophils % Cancelled Absolute Neutrophils Cancelled Absolute Lymphocytes Cancelled Absolute Monocytes Cancelled Absolute Eosinophils Cancelled Absolute Basophils Cancelled Carbonic Acid 1.37 H HCO3/H2CO3 Ratio 20:1 ABG pH 7.41 ABG pCO2 45.5 H ABG pO2 79.7 L ABG HCO3 28.0 H ABG O2 Saturation 95.8 ABG Base Excess 2.7 FiO2 35% Sodium 140.6 Potassium 3.7 Chloride 106 Carbon Dioxide 29 Anion Gap 6 BUN 21 H Creatinine 0.39 L Est GFR ( Amer) > 60 Est GFR (Non-Af Amer) > 60 Glucose 147 H Calcium 8.6 Phosphorus 4.2 Magnesium 2.2 Total Bilirubin < 0.1 L AST 10 L ALT 28 Alkaline Phosphatase 90 Total Protein 4.8 L Albumin 2.7 L 12/13/17 06:36 WBC 16.0 H RBC 4.19 Hgb 12.5 D Hct 37.2 MCV 89 MCH 29.9 MCHC 33.6 RDW 15.3 H Plt Count 204 Seg Neutrophils % Not Reportable Lymphocytes % Not Reportable Monocytes % Not Reportable Eosinophils % Not Reportable Basophils % Not Reportable Absolute Neutrophils Not Reportable Absolute Lymphocytes Not Reportable Absolute Monocytes Not Reportable Absolute Eosinophils Not Reportable Absolute Basophils Not Reportable Carbonic Acid HCO3/H2CO3 Ratio ABG pH ABG pCO2 ABG pO2 ABG HCO3 ABG O2 Saturation ABG Base Excess FiO2 Sodium Potassium Chloride Carbon Dioxide Anion Gap BUN Creatinine Est GFR ( Amer) Est GFR (Non-Af Amer) Glucose Calcium Phosphorus Magnesium Total Bilirubin AST ALT Alkaline Phosphatase Total Protein Albumin 12/12/17 12/12/17 12/13/17 10:01 10:01 04:29 Creatine Kinase < 20 L CK-MB (CK-2) 1.06 Troponin I < 0.012 NT-Pro-B Natriuret Pep 187 Impressions: Chest/Abdomen CTA 12/12/17 00:00 IMPRESSION: No evidence for pulmonary embolic disease. No acute consolidations or pleural effusions. The previously described pleural-based spiculated mass in the right upper lung field measures slightly smaller on the current study. Interval increase in size of the right hilar mass. Interval development of an ovoid mass in the epicardial fat on the right suspicious for metastatic disease. Small right adrenal nodule suspicious for metastatic disease. Other findings as noted above. Chest X-Ray 12/12/17 05:05 IMPRESSION: No acute cardiopulmonary findings. Mild chronic interstitial lung disease. Plan Discharge Plan: She will be transferred to [facility] as soon as a bed is found. Time Spent: Greater than 30 Minutes
[2017-12-13] MEDS: TEMAZEPAM 7.5 MG CAPSULE PO SCH (21:39)
[2017-12-14] MEDS: METHYLPREDNISOLONE INJ 40 MG/1 ML SDV IV SCH ×3 (02:55→18:32)
[2017-12-14] MEDS: LEVALBUTEROL HCL NEB 0.63 MG/3 ML AMPUL NEB SCH ×6 (04:18→23:55)
[2017-12-14 05:07] LABS: HEMATOCRIT 34.1 % (36.0-47.0); HEMOGLOBIN 11.6 g/dL (12.0-15.5); MEAN CORPUSCULAR HEMOGLOBIN 30.6 pg (27.0-33.4); MEAN CORPUSCULAR VOLUME 90 fl (80-97); PLATELET COUNT 224 10^3/uL (150-450); RED BLOOD COUNT 3.78 10^6/uL (3.72-5.28); RED CELL DISTRIBUTION WIDTH 15.5 % (11.5-14.0); WHITE BLOOD COUNT 15.7 10^3/uL (4.0-10.5)
[2017-12-14 05:19] LABS: ALANINE AMINOTRANSFERASE 33 U/L (9-52); ALBUMIN 2.7 g/dL (3.5-5.0); ALKALINE PHOSPHATASE 87 U/L (38-126); ANION GAP 6 (5-19); ASPARTATE AMINO TRANSFERASE 9 U/L (14-36); BLOOD UREA NITROGEN 27 mg/dL (7-20); CARBON DIOXIDE 31 mmol/L (22-30); CHLORIDE 107 mmol/L (98-107); GLUCOSE 127 mg/dL (75-110); PHOSPHORUS 3.9 mg/dL (2.5-4.5); POTASSIUM 4.1 mmol/L (3.6-5.0); SODIUM 144.2 mmol/L (137-145); TOTAL PROTEIN 4.8 g/dL (6.3-8.2)
[2017-12-14 05:20] LABS: BILIRUBIN,TOTAL < 0.1 mg/dL (0.2-1.3)
[2017-12-14] MEDS: LEVOTHYROXINE SODIUM 0.05 MG TABLET PO SCH (05:53)
[2017-12-14] MEDS: BUSPIRONE HCL 10 MG TABLET PO SCH ×3 (05:53→21:31)
[2017-12-14] MEDS: LANSOPRAZOLE 30 MG TAB.RAP.DR PO SCH (05:53)
[2017-12-14 06:28] LABS: ABSOLUTE LYMPHOCYTES# (MANUAL) 0.6 10^3/uL (0.5-4.7); ABSOLUTE MONOCYTES # (MANUAL) 1.1 10^3/uL (0.1-1.4); BAND NEUTROPHILS % (MANUAL) 2 % (3-5); BASOPHILS % (MANUAL) 0 % (0-2); EOSINOPHILS % (MANUAL) 0 % (0-6); LYMPHOCYTES % (MANUAL) 4 % (13-45); METAMYELOCYTES % (MANUAL) 1 % (0); MONOCYTES % (MANUAL) 7 % (3-13); SEGMENTED NEUTROPHILS % (MAN) 86 % (42-78); TOTAL CELLS COUNTED 100
[2017-12-14 06:29] LABS: RBC MORPHOLOGY COMMENT NORMO-CYTIC/CHROMIC
[2017-12-14 06:30] LABS: PLATELET COMMENT ADEQUATE
[2017-12-14] MEDS: NICOTINE 14 MG/24 HR PATCH.TD24 TD SCH (09:14)
[2017-12-14] MEDS: CITALOPRAM HYDROBROMIDE 20 MG TABLET PO SCH (09:14)
[2017-12-14] MEDS: ROFLUMILAST 500 MCG TABLET PO SCH (09:14)
[2017-12-14] MEDS: DOCUSATE SODIUM 100 MG CAPSULE PO SCH (09:14)
[2017-12-14] MEDS: NYSTATIN 500000 UNIT/5 ML UDCUP PO SCH ×4 (09:15→21:31)
[2017-12-14] MEDS: ENOXAPARIN SODIUM INJ 40 MG/0.4 ML DISP.SYRIN SUBCUT SCH (09:15)
[2017-12-14] MEDS: LEVOFLOXACIN 750 MG/D5W RTU 750 MG/150 ML RTUPB IV SCH (09:15)
--- NOTE | 2017-12-14 10:31 | PDOC PROGRESS REPORT ---
Subjective Progress Note for:: 12/14/17 Subjective:: Patient is seen resting in bed on BiPAP. She continues to have a loose, congested cough. She states she is starting to cough up some mucus. She denies any chest pain, dyspnea or palpitations at rest. She continues to have some mild expiratory wheezing. She denies any nausea, vomiting or abdominal pain. She denies any diarrhea. She denies any significant arthralgias or myalgias. Remaining review of systems are negative. Reason For Visit: COPD EXACERBATION Physical Exam Vital Signs: Temp Pulse Resp BP Pulse Ox 97.5 F 96 18 124/79 98 12/14/17 07:57 12/14/17 08:38 12/14/17 08:38 12/14/17 07:57 12/14/17 08:38 Intake & Output 12/13/17 12/14/17 12/15/17 06:59 06:59 06:59 Intake Total 1140 1066 Output Total 0 0 Balance 1140 1066 Weight 79.2 kg 80 kg General appearance: PRESENT: no acute distress, obese - On BiPAP, well-developed , well-nourished Head exam: PRESENT: atraumatic, normocephalic Eye exam: PRESENT: conjunctiva pink, EOMI, PERRLA. ABSENT: scleral icterus Ear exam: PRESENT: normal external ear exam Mouth exam: PRESENT: moist, tongue midline Neck exam: ABSENT: carotid bruit, JVD, lymphadenopathy, thyromegaly Respiratory exam: PRESENT: decreased breath sounds, symmetrical, unlabored, wheezes - Expiratory bilaterally Cardiovascular exam: PRESENT: RRR. ABSENT: diastolic murmur, rubs, systolic murmur Pulses: PRESENT: normal dorsalis pedis pul GI/Abdominal exam: PRESENT: normal bowel sounds, soft. ABSENT: distended, guarding, mass, organolmegaly, rebound, tenderness Rectal exam: PRESENT: deferred Extremities exam: PRESENT: full ROM. ABSENT: calf tenderness, clubbing, pedal edema Musculoskeletal exam: PRESENT: ambulatory, full ROM, normal inspection Neurological exam: PRESENT: alert, awake, oriented to person, oriented to place , oriented to time, oriented to situation, CN II-XII grossly intact. ABSENT: motor sensory deficit Psychiatric exam: PRESENT: appropriate affect, normal mood. ABSENT: homicidal ideation, suicidal ideation Skin exam: PRESENT: dry, intact, warm. ABSENT: cyanosis, rash Results Laboratory Results: 12/14/17 04:16 12/14/17 04:16 12/14/17 12/14/17 04:16 04:16 WBC 15.7 H RBC 3.78 Hgb 11.6 L Hct 34.1 L MCV 90 MCH 30.6 MCHC 34.0 RDW 15.5 H Plt Count 224 Seg Neutrophils % Not Reportable Lymphocytes % Not Reportable Monocytes % Not Reportable Eosinophils % Not Reportable Basophils % Not Reportable Absolute Neutrophils Not Reportable Absolute Lymphocytes Not Reportable Absolute Monocytes Not Reportable Absolute Eosinophils Not Reportable Absolute Basophils Not Reportable Sodium 144.2 Potassium 4.1 Chloride 107 Carbon Dioxide 31 H Anion Gap 6 BUN 27 H Creatinine 0.49 L Est GFR ( Amer) > 60 Est GFR (Non-Af Amer) > 60 Glucose 127 H Calcium 9.0 Phosphorus 3.9 Magnesium 2.2 Total Bilirubin < 0.1 L AST 9 L ALT 33 Alkaline Phosphatase 87 Total Protein 4.8 L Albumin 2.7 L 12/12/17 12/12/17 12/13/17 10:01 10:01 04:29 Creatine Kinase < 20 L CK-MB (CK-2) 1.06 Troponin I < 0.012 NT-Pro-B Natriuret Pep 187 12/14/17 04:16 Creatine Kinase CK-MB (CK-2) Troponin I NT-Pro-B Natriuret Pep 148 Impressions: Chest/Abdomen CTA 12/12/17 00:00 IMPRESSION: No evidence for pulmonary embolic disease. No acute consolidations or pleural effusions. The previously described pleural-based spiculated mass in the right upper lung field measures slightly smaller on the current study. Interval increase in size of the right hilar mass. Interval development of an ovoid mass in the epicardial fat on the right suspicious for metastatic disease. Small right adrenal nodule suspicious for metastatic disease. Other findings as noted above. Chest X-Ray 12/12/17 05:05 IMPRESSION: No acute cardiopulmonary findings. Mild chronic interstitial lung disease. Assessment & Plan - Diagnosis (1) Acute on chronic respiratory failure with hypoxia and hypercapnia Is this a current diagnosis for this admission?: Yes Plan: She is still requiring BiPAP on and off during the day. She continues to have some mild expiratory wheezing. Will continue IV steroids at the present dose. Until there is further improvement. Continue antibiotics. Obtain sputum culture. (2) COPD exacerbation Is this a current diagnosis for this admission?: Yes (3) GERD (gastroesophageal reflux disease) Is this a current diagnosis for this admission?: Yes (4) Hypertension Qualifiers: Hypertension type: essential hypertension Qualified Code(s): I10 - Essential (primary) hypertension Is this a current diagnosis for this admission?: Yes Plan: Continue current medication she is normotensive. 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 She is going to be [facility] once bed is available for an EBUS on Saturday with Dr. Batista. (7) Arrhythmia Qualifiers: Arrhythmia type: atrial fibrillation Is this a current diagnosis for this admission?: Yes Plan: Presently on diltiazem in sinus rhythm. Cardiology is following we will continue (8) Hypokalemia Is this a current diagnosis for this admission?: Yes Plan: Replete and monitor (9) Anxiety Is this a current diagnosis for this admission?: Yes Plan: Continue anxiety medications. - Time Time Spent with patient: 25-34 minutes Total Critical Time (Minutes): 25 Medications reviewed and adjusted accordingly: Yes [facility]ticipated [facility] when bed available
[2017-12-14] MEDS ORDERED: (PENDING PHARMACY ID) (Tiotropium Bromide [Spiriva Respimat] 2 PUFF) IH SCH (15:15)
[2017-12-14] MEDS ORDERED: LABETALOL HCL INJ 200 MG/40 ML VIAL IV ONE (17:19)
[2017-12-14] MEDS: TEMAZEPAM 7.5 MG CAPSULE PO SCH (21:31)
[2017-12-14] MEDS ORDERED: (PENDING PHARMACY ID) (Mometasone/Formoterol [Dulera 200 Mcg/5 Mcg Inhaler] 2 PUFF) IH SCH (22:00)
[2017-12-15] MEDS: METHYLPREDNISOLONE INJ 40 MG/1 ML SDV IV SCH (02:59)
[2017-12-15] MEDS: LEVALBUTEROL HCL NEB 0.63 MG/3 ML AMPUL NEB SCH (04:09)
[2017-12-15] MEDS ORDERED: LANSOPRAZOLE 15 MG TAB.RAP.DR PO SCH (06:00)
[2017-12-15] MEDS: BUSPIRONE HCL 10 MG TABLET PO SCH (06:12)
[2017-12-15] MEDS: LEVOTHYROXINE SODIUM 0.05 MG TABLET PO SCH (06:13)
[2017-12-15] MEDS: LANSOPRAZOLE 30 MG TAB.RAP.DR PO SCH (06:17)
[2017-12-15 06:30] LABS: HEMATOCRIT 34.2 % (36.0-47.0); HEMOGLOBIN 11.6 g/dL (12.0-15.5); MEAN CORPUSCULAR HEMOGLOBIN 30.1 pg (27.0-33.4); MEAN CORPUSCULAR HGB CONC 33.9 g/dL (32.0-36.0); MEAN CORPUSCULAR VOLUME 89 fl (80-97); PLATELET COUNT 220 10^3/uL (150-450); RED BLOOD COUNT 3.85 10^6/uL (3.72-5.28); RED CELL DISTRIBUTION WIDTH 15.2 % (11.5-14.0); WHITE BLOOD COUNT 12.8 10^3/uL (4.0-10.5)
[2017-12-15 07:23] LABS: ALANINE AMINOTRANSFERASE 34 U/L (9-52); ALBUMIN 2.7 g/dL (3.5-5.0); ALKALINE PHOSPHATASE 93 U/L (38-126); ANION GAP 5 (5-19); ASPARTATE AMINO TRANSFERASE 13 U/L (14-36); BLOOD UREA NITROGEN 23 mg/dL (7-20); CALCIUM 8.7 mg/dL (8.4-10.2); CARBON DIOXIDE 33 mmol/L (22-30); CHLORIDE 107 mmol/L (98-107); GLUCOSE 116 mg/dL (75-110); PHOSPHORUS 3.5 mg/dL (2.5-4.5); POTASSIUM 3.9 mmol/L (3.6-5.0); SODIUM 144.8 mmol/L (137-145)
[2017-12-15 07:25] LABS: BILIRUBIN,TOTAL < 0.1 mg/dL (0.2-1.3)
[2017-12-15 07:52] VITALS: BP 144/88
[2017-12-15] MEDS ORDERED: HYDROCHLOROTHIAZIDE 25 MG TABLET PO SCH (08:00)
[2017-12-15 08:33] LABS: ABSOLUTE LYMPHOCYTES# (MANUAL) 1.2 10^3/uL (0.5-4.7); ABSOLUTE MONOCYTES # (MANUAL) 0.3 10^3/uL (0.1-1.4); ABSOLUTE NEUTROPHILS# (MANUAL) 11.4 10^3/uL (1.7-8.2); BASOPHILS % (MANUAL) 0 % (0-2); EOSINOPHILS % (MANUAL) 0 % (0-6); LYMPHOCYTES % (MANUAL) 9 % (13-45); METAMYELOCYTES % (MANUAL) 1 % (0); MONOCYTES % (MANUAL) 2 % (3-13); SEGMENTED NEUTROPHILS % (MAN) 88 % (42-78); TOTAL CELLS COUNTED 100
[2017-12-15 08:34] LABS: ANISOCYTOSIS SLIGHT; POIKILOCYTOSIS SLIGHT
[2017-12-15 08:35] LABS: OVALOCYTES SLIGHT; PLATELET COMMENT ADEQUATE
[2017-12-15] MEDS ORDERED: MAGNESIUM OXIDE 400 MG TABLET PO SCH (10:00)
[2017-12-15] MEDS ORDERED: (PENDING PHARMACY ID) (Calcium Carbonate/Vitamin D3 [Calcium 500-Vit D3 200 Tablet] 1 EACH PO SCH (10:00)
[2017-12-15] MEDS ORDERED: ROFLUMILAST 500 MCG TABLET PO SCH (10:00)
[2017-12-15] MEDS ORDERED: ERGOCALCIFEROL (VITAMIN D2) 50000 UNIT (1.25 MG) CAPSULE PO SCH (10:00)
[2017-12-15] MEDS ORDERED: (PENDING PHARMACY ID) (Magnesium [Magnesium] 250 MG) PO SCH (10:00)
[2017-12-15] MEDS ORDERED: CETIRIZINE 10 MG TABLET PO SCH (10:00)
[2017-12-15] MEDS ORDERED: CALCIUM CARBONATE 250 MG/VITAMIN D3 125 UNIT TABLET PO SCH (10:00)
[2017-12-15] MEDS ORDERED: CYANOCOBALAMIN (VITAMIN B-12) 1,000 MCG TABLET PO SCH (10:00)
[2017-12-15] MEDS ORDERED: (PENDING PHARMACY ID) (Roflumilast [Daliresp 500 Mcg Tablet] 500 MCG) PO SCH (10:00)
== END 2017-12-15 08:18 | disposition short-term general hospital (02) | DRG 189 ==
LOC: ER 04:45 → EH 08:48 → 3W 10:42
PROVIDERS: ADMIT Internal Medicine; ATTEND Internal Medicine
DX: J96.22 Acute and chronic respiratory failure with hypercapnia (principal); J44.1 Chronic obstructive pulmonary disease with (acute) exacerbation; J96.21 Acute and chronic respiratory failure with hypoxia; Z99.81 Dependence on supplemental oxygen; E78.00 Pure hypercholesterolemia, unspecified; I10 Essential (primary) hypertension; E11.8 Type 2 diabetes mellitus with unspecified complications; E03.9 Hypothyroidism, unspecified; K21.9 Gastro-esophageal reflux disease without esophagitis; B37.9 Candidiasis, unspecified; R91.1 Solitary pulmonary nodule; G47.33 Obstructive sleep apnea (adult) (pediatric); E66.9 Obesity, unspecified; F41.9 Anxiety disorder, unspecified; F17.210 Nicotine dependence, cigarettes, uncomplicated; Z68.32 Body mass index [BMI] 32.0-32.9, adult; Z60.2 Problems related to living alone
CPT/HCPCS: 36415; 36600; 71045; 71275; 80048; 80053; 80076; 82550; 82553; 82803; 83605; 83735; 83880; 84100; 84443; 84484; 85025; 87040; 87070; 87077; 87186; 87205; 93005; 93010; 94640; 94660; 94667; 94668; 94799; 96365; 96375; 99291; J0456; J1650; J1956; J2920; J2930; J3490; J7030; J7614

== ENCOUNTER 2017-12-23 13:58 | Inpatient (IN) | payer MEDICARE ==
[2017-12-23] MEDS ORDERED: DILTIAZEM HCL INJ 25 MG/5 ML VIAL IV ONE (14:57)
[2017-12-23] MEDS ORDERED: NORMAL SALINE 500 ML IV ONE (14:59)
--- NOTE | 2017-12-23 15:39 | RADIOLOGY REPORT (SQ) ---
EXAM DESCRIPTION: CHEST 2 VIEWS COMPLETED DATE/TIME: 12/23/2017 3:26 pm REASON FOR STUDY: tachy COMPARISON: 11/26/2017 EXAM PARAMETERS: NUMBER OF VIEWS: two views TECHNIQUE: Digital Frontal and Lateral radiographic views of the chest acquired. RADIATION DOSE: NA LIMITATIONS: none FINDINGS: LUNGS AND PLEURA: No opacities, masses or pneumothorax. No pleural effusion. MEDIASTINUM AND HILAR STRUCTURES: Calcified right hilar nodes. HEART AND VASCULAR STRUCTURES: Heart normal size. No evidence for failure. BONES: No acute findings. HARDWARE: None in the chest. OTHER: No other significant finding. IMPRESSION: NO ACUTE RADIOGRAPHIC FINDING IN THE CHEST. TECHNICAL DOCUMENTATION: JOB ID: [id number] [employer]- All Rights Reserved Reading location - IP/workstation name: [email or web address]
--- NOTE | 2017-12-23 15:39 | EKG REPORT ---
SEVERITY:- ABNORMAL ECG - SINUS TACHYCARDIA MULTIPLE VENTRICULAR PREMATURE COMPLEXES : Confirmed by: Domonique Gallegos MD 23-Dec-2017 15:37:58
[2017-12-23 15:45] LABS: HEMATOCRIT 41.8 % (36.0-47.0); HEMOGLOBIN 13.8 g/dL (12.0-15.5); MEAN CORPUSCULAR HEMOGLOBIN 29.5 pg (27.0-33.4); MEAN CORPUSCULAR HGB CONC 33.1 g/dL (32.0-36.0); MEAN CORPUSCULAR VOLUME 89 fl (80-97); PLATELET COUNT 202 10^3/uL (150-450); RED BLOOD COUNT 4.69 10^6/uL (3.72-5.28); RED CELL DISTRIBUTION WIDTH 15.4 % (11.5-14.0); WHITE BLOOD COUNT 27.2 10^3/uL (4.0-10.5)
[2017-12-23 15:46] LABS: ALANINE AMINOTRANSFERASE 61 U/L (9-52); ALBUMIN 3.5 g/dL (3.5-5.0); ALKALINE PHOSPHATASE 171 U/L (38-126); ANION GAP 10 (5-19); ASPARTATE AMINO TRANSFERASE 32 U/L (14-36); BILIRUBIN,DIRECT 0.4 mg/dL (0.0-0.4); BILIRUBIN,TOTAL 0.7 mg/dL (0.2-1.3); BLOOD UREA NITROGEN 23 mg/dL (7-20); CALCIUM 9.8 mg/dL (8.4-10.2); CARBON DIOXIDE 33 mmol/L (22-30); CHLORIDE 97 mmol/L (98-107); CREATINE KINASE 24 U/L (30-135); GLUCOSE 173 mg/dL (75-110); POTASSIUM 3.4 mmol/L (3.6-5.0); SODIUM 139.5 mmol/L (137-145); TOTAL PROTEIN 6.7 g/dL (6.3-8.2)
[2017-12-23 16:04] LABS: ABSOLUTE LYMPHOCYTES# (MANUAL) 2.4 10^3/uL (0.5-4.7); ABSOLUTE MONOCYTES # (MANUAL) 1.9 10^3/uL (0.1-1.4); ABSOLUTE NEUTROPHILS# (MANUAL) 22.8 10^3/uL (1.7-8.2); BAND NEUTROPHILS % (MANUAL) 1 % (3-5); BASOPHILS % (MANUAL) 0 % (0-2); EOSINOPHILS % (MANUAL) 0 % (0-6); LYMPHOCYTES % (MANUAL) 9 % (13-45); MONOCYTES % (MANUAL) 7 % (3-13); SEGMENTED NEUTROPHILS % (MAN) 83 % (42-78); TOTAL CELLS COUNTED 100
[2017-12-23 16:05] LABS: ANISOCYTOSIS SLIGHT; CREATINE KINASE MB 1.78 ng/mL (<4.55); OVALOCYTES SLIGHT; PLATELET COMMENT ADEQUATE; POIKILOCYTOSIS SLIGHT
[2017-12-23 16:08] LABS: TROPONIN I 0.042 ng/mL
--- NOTE | 2017-12-23 18:31 | RADIOLOGY REPORT (SQ) ---
EXAM DESCRIPTION: CTA CHEST COMPLETED DATE/TIME: 12/23/2017 6:02 pm REASON FOR STUDY: Tachycardic, elevated d-dimer COMPARISON: Most recent prior CT chest 12/12/2017. TECHNIQUE: CT scan of the chest performed using helical scanning technique with dynamic intravenous contrast injection. Images reviewed with lung, soft tissue and bone windows. Reconstructed coronal and sagittal MPR images reviewed. Additional 3 dimensional post-processing performed to develop Maximal Intensity Projection images (ME P). All images stored on PACS. All CT scanners at this facility use dose modulation, iterative reconstruction, and/or weight based d osing when appropriate to reduce radiation dose to as low as reasonably achievable (ALARA). [facility]: Dose Right [facility]: CareDose [facility]: Dose Right [facility]: Teradose 4D [facility]: [employer]Words CONTRAST TYPE AND DOSE: contrast/concentration: Isovue 370.00 mg/ml; Total Contrast Delivered: 70.0 ml; Total Saline Delivered: 110.0 ml 70 mL Isovue 370 intravenously Contrast bolus optimized for the pulmonary arteries. Not diagnostic for the aorta. RENAL FUNCTION: Creatinine 0.44 RADIATION DOSE: CT Rad equipment meets quality standard of care and radiation dose reduction techniq ues were employed. CTDIvol: 20.7 - 29.8 mGy. DLP: 757 mGy-cm. . LIMITATIONS: Motion artifact. FINDINGS: LUNGS AND PLEURA: Emphysematous pulmonary changes. Stable nodule RUL. Stable mass epicar dial fat on the right. Patchy ground-glass areas of density within the lungs, concerning for edema o r infection. AORTA AND GREAT VESSELS: No aneurysm. Contrast bolus not optimized for the aorta. HEART: No pericardial effusion. No significant coronary artery calcifications. PULMONARY ARTERIES: Thrombus is seen in peripheral pulmonary arteries to the left. No central embolu s identified. HILAR AND MEDIASTINAL STRUCTURES: Stable large mass right hilum. HARDWARE: None in the chest. UPPER ABDOMEN: Calcified gallstones. No obvious liver lesions. Adrenal stable. THYROID AND OTHER SOFT TISSUES: No masses. No adenopathy. BONES: No acute or significant finding. 3D MIPS: Confirm above findings. OTHER: No other significant finding. IMPRESSION: Evidence of pulmonary emboli with thrombus and peripheral pulmonary arteries to the left . Emphysematous pulmonary change, with patchy areas of ground-glass pulmonary density. Previously desc ribed mass of the right hilum and pulmonary lesions stable. COMMENT: Quality ID # [id number]: Final reports with documentation of one or more dose reduction techniques (e.g., Automated exposure control, adjustment of the mA and/or kV according to patient size, use of iterative reconstruction technique) TECHNICAL DOCUMENTATION: JOB ID: [id number] [employer]- All Rights Reserved Reading location - IP/workstation name: [email or web address]
--- NOTE | 2017-12-23 18:43 | ER Document Report ---
ED Medical Screen (RME) - General Chief Complaint: Palpitations Stated Complaint: HEART RATE ISSUES Time Seen by Provider: 12/23/17 14:49 Mode of Arrival: Ambulatory Cannot obtain history due to: Dementia Notes: 67-year-old female with COPD, respiratory failure, hypertension, hyperlipidemia , diabetes, recent diagnosis of lung cancer presents via EMS from home with complaints of palpitations and worsening shortness of breath. Patient states that palpitations started just prior to arrival. She states that it was after she gave herself a breathing treatment. Patient states that she was just discharged from [facility] yesterday where she was diagnosed with lung cancer. Patient denies any prior history of PE, DVT. She has had right lower extremity swelling which she states has been intermittent. She denies any chest pain, abdominal pain, nausea, vomiting. She quit smoking after 40 years 2 weeks ago. TRAVEL OUTSIDE OF THE [place] IN LAST 30 DAYS: No - HPI Onset: Just prior to arrival Onset/Duration: Sudden Quality of pain: No pain Associated Symptoms: Dizzy/lightheaded, Hurts to breath, Leg swelling, Shortness of breath Exacerbated by: Denies Relieved by: Denies Similar symptoms previously: Yes Recently seen / treated by doctor: Yes - If the oral mineral oil patient - Related Data Allergies/Adverse Reactions: bupropion Allergy (Mild, Verified 12/23/17 21:13) Generalized Itching ciprofloxacin [From Cipro] Allergy (Verified 12/23/17 21:13) doxycycline Allergy (Verified 12/23/17 21:13) Hives Penicillins Allergy (Verified 12/23/17 21:13) Hives "cillins" Allergy (Uncoded 12/23/17 21:13) Hives Past Medical History - General Information source: Patient, Transfer Record, [facility] Records, Outside Facility Records - Social History Cigarette use (# per day): Yes Chew tobacco use (# tins/day): No Frequency of alcohol use: None Drug Abuse: None Lives with: Friend Family history: Reviewed & Not Pertinent - Past Medical History Cardiac Medical History: Reports: Hx Hypercholesterolemia, Hx Hypertension Pulmonary Medical History: Reports: Hx Bronchitis, Hx COPD, Hx Pneumonia, Hx Respiratory Failure - She is on chronic oxygen therapy at home. Endocrine Medical History: Reports: Hx Diabetes Mellitus Type 2, Hx Hypothyroidism Renal/ Medical History: Denies: Hx Peritoneal Dialysis GI Medical History: Reports: Hx Gastroesophageal Reflux Disease Psychiatric Medical History: Reports: Hx Depression Past Surgical History: Reports: Hx Appendectomy, Hx Thyroid Surgery - 1/2 thyroid, Other - Right-sided chest tube - Immunizations History of Influenza Vaccine for 04/2017 - 09/2017 Season: Yes Review of Systems - Review of Systems Constitutional: Weakness EENT: denies: Blurred vision Cardiovascular: Palpitations, Heart racing, Dyspnea, Lightheaded Respiratory: Cough, Hurts to breathe, Short of breath, Wheezing. denies: Hemoptysis Gastrointestinal: Nausea. denies: Abdominal pain, Vomiting Genitourinary: denies: Dysuria, Flank pain Female Genitourinary: No symptoms reported Musculoskeletal: Muscle pain Skin: No symptoms reported Hematologic/Lymphatic: Easy bruising Neurological/Psychological: Anxiety, Headaches. denies: Seizure, Lost consciousness -: Yes All other systems reviewed and negative Physical Exam - Vital signs Vitals: Resp Pulse Ox 28 H 90 L 12/23/17 14:08 12/23/17 14:08 - Notes Notes: PHYSICAL EXAMINATION: GENERAL: ill-appearing, well-nourished and in no acute distress. HEAD: Atraumatic, normocephalic. EYES: Pupils equal round and reactive to light, extraocular movements intact, conjunctiva are normal. ENT: Nares patent, oropharynx clear without exudates. Moist mucous membranes. NECK: Normal range of motion, supple without lymphadenopathy LUNGS: Diminished breath sounds in all lung liu. HEART: Tachycardic no murmurs ABDOMEN: Soft, nontender, nondistended abdomen. No guarding, no rebound. No masses appreciated. Female : deferred Musculoskeletal: Right lower extremity swelling. NEUROLOGICAL: Cranial nerves grossly intact. Normal speech, normal gait. Normal sensory, motor exams PSYCH: Normal mood, normal affect. SKIN: Warm, Dry, normal turgor, no rashes or lesions noted. Course - Re-evaluation Re-evalutation: Laboratory 12/23/17 12/23/17 12/23/17 14:20 14:20 14:20 WBC 27.2 H RBC 4.69 Hgb 13.8 Hct 41.8 MCV 89 MCH 29.5 MCHC 33.1 RDW 15.4 H Plt Count 202 Total Counted 100 Seg Neutrophils % Not Reportable Seg Neuts % (Manual) 83 H Band Neutrophils % 1 L Lymphocytes % Not Reportable Lymphocytes % (Manual) 9 L Monocytes % Not Reportable Monocytes % (Manual) 7 Eosinophils % Not Reportable Eosinophils % (Manual) 0 Basophils % Not Reportable Basophils % (Manual) 0 Absolute Neutrophils Not Reportable Abs Neuts (Manual) 22.8 H Absolute Lymphocytes Not Reportable Abs Lymphs (Manual) 2.4 Absolute Monocytes Not Reportable Abs Monocytes (Manual) 1.9 H Absolute Eosinophils Not Reportable Absolute Eos (Manual) 0.0 Absolute Basophils Not Reportable Abs Basophils (Manual) 0.0 Platelet Comment ADEQUATE Poikilocytosis SLIGHT Anisocytosis SLIGHT Ovalocytes SLIGHT D-Dimer Cancelled Carbonic Acid HCO3/H2CO3 Ratio ABG pH ABG pCO2 ABG pO2 ABG HCO3 ABG Total CO2 ABG O2 Saturation ABG Base Excess FiO2 Sodium 139.5 Potassium 3.4 L Chloride 97 L Carbon Dioxide 33 H Anion Gap 10 BUN 23 H Creatinine 0.44 L Est GFR ( Amer) > 60 Est GFR (Non-Af Amer) > 60 Glucose 173 H Calcium 9.8 Phosphorus 4.0 Magnesium 2.0 Total Bilirubin 0.7 Direct Bilirubin 0.4 Neonat Total Bilirubin Not Reportable Neonat Direct Bilirubin Not Reportable Neonat Indirect Bili Not Reportable AST 32 ALT 61 H Alkaline Phosphatase 171 H Creatine Kinase 24 L CK-MB (CK-2) Troponin I NT-Pro-B Natriuret Pep Total Protein 6.7 Albumin 3.5 12/23/17 12/23/17 12/23/17 14:20 16:44 19:45 WBC RBC Hgb Hct MCV MCH MCHC RDW Plt Count Total Counted Seg Neutrophils % Seg Neuts % (Manual) Band Neutrophils % Lymphocytes % Lymphocytes % (Manual) Monocytes % Monocytes % (Manual) Eosinophils % Eosinophils % (Manual) Basophils % Basophils % (Manual) Absolute Neutrophils Abs Neuts (Manual) Absolute Lymphocytes Abs Lymphs (Manual) Absolute Monocytes Abs Monocytes (Manual) Absolute Eosinophils Absolute Eos (Manual) Absolute Basophils Abs Basophils (Manual) Platelet Comment Poikilocytosis Anisocytosis Ovalocytes D-Dimer 16.19 H Carbonic Acid 1.28 HCO3/H2CO3 Ratio 22:1 ABG pH 7.45 ABG pCO2 42.6 ABG pO2 52.2 L ABG HCO3 29.1 H ABG Total CO2 30.4 H ABG O2 Saturation 88.4 L ABG Base Excess 4.6 FiO2 30% Sodium Potassium Chloride Carbon Dioxide Anion Gap BUN Creatinine Est GFR ( Amer) Est GFR (Non-Af Amer) Glucose Calcium Phosphorus Magnesium Total Bilirubin Direct Bilirubin Neonat Total Bilirubin Neonat Direct Bilirubin Neonat Indirect Bili AST ALT Alkaline Phosphatase Creatine Kinase CK-MB (CK-2) 1.78 Troponin I 0.042 NT-Pro-B Natriuret Pep 1430 H Total Protein Albumin Chest X-Ray 12/23/17 14:57 IMPRESSION: NO ACUTE RADIOGRAPHIC FINDING IN THE CHEST. Chest/Abdomen CTA 12/23/17 16:38 IMPRESSION: Evidence of pulmonary emboli with thrombus and peripheral pulmonary arteries to the left. Emphysematous pulmonary change, with patchy areas of ground-glass pulmonary density. Previously described mass of the right hilum and pulmonary lesions stable. 67-year-old female with COPD, respiratory failure, hypertension, hyperlipidemia , diabetes, recent diagnosis of lung cancer presents via EMS from home with complaints of palpitations and worsening shortness of breath. Patient states that palpitations started just prior to arrival. She states that it was after she gave herself a breathing treatment. Patient states that she was just discharged from [facility] yesterday where she was diagnosed with lung cancer. Patient denies any prior history of PE, DVT. She has had right lower extremity swelling which she states has been intermittent. She denies any chest pain, abdominal pain, nausea, vomiting. She quit smoking after 40 years 2 weeks ago. Vitals repeat reviewed upon arrival. Patient is tachycardic , hypoxic. Initial EKG showed the patient to be in sinus tachycardia at a rate of 140. During her ED course patient found to be in atrial fibrillation. Cardizem drip initiated. Patient was placed on BiPAP and received breathing treatments. CTA was obtained and significant for a peripheral pulmonary embolism. Patient did receive Lovenox for this. Spoke to the hospitalist who is agreeable with admission for A. fib with RVR and acute PE 12/23/17 20:12 Spoke to the hospitalist at [facility] to see if patient had a known pulmonary embolism. He states at that time she did not have a CTA of her chest or a d-dimer. The Lovenox that she was sent home with was for DVT prophylaxis. 12/24/17 00:59 12/24/17 01:01 - Vital Signs Vital signs: Temp Pulse Resp BP Pulse Ox 98.1 F 125 H 25 H 142/75 H 93 06/18/18 23:10 12/23/17 23:46 12/24/17 00:31 12/23/17 23:10 12/24/17 00:31 - Laboratory Result Diagrams: 12/23/17 14:20 12/23/17 14:20 Laboratory results interpreted by me: 12/23/17 12/23/17 12/23/17 14:20 14:20 14:20 WBC 27.2 H RDW 15.4 H Seg Neuts % (Manual) 83 H Band Neutrophils % 1 L Lymphocytes % (Manual) 9 L Abs Neuts (Manual) 22.8 H Abs Monocytes (Manual) 1.9 H D-Dimer ABG pO2 ABG HCO3 ABG Total CO2 ABG O2 Saturation Potassium 3.4 L Chloride 97 L Carbon Dioxide 33 H BUN 23 H Creatinine 0.44 L Glucose 173 H ALT 61 H Alkaline Phosphatase 171 H Creatine Kinase 24 L NT-Pro-B Natriuret Pep 1430 H 12/23/17 12/23/17 16:44 19:45 WBC RDW Seg Neuts % (Manual) Band Neutrophils % Lymphocytes % (Manual) Abs Neuts (Manual) Abs Monocytes (Manual) D-Dimer 16.19 H ABG pO2 52.2 L ABG HCO3 29.1 H ABG Total CO2 30.4 H ABG O2 Saturation 88.4 L Potassium Chloride Carbon Dioxide BUN Creatinine Glucose ALT Alkaline Phosphatase Creatine Kinase NT-Pro-B Natriuret Pep - Diagnostic Test Radiology reviewed: Image reviewed, Reports reviewed - EKG Interpretation by Me EKG shows normal: Sinus rhythm Rate: Tachycardia Critical Care Note - Critical Care Note Total time excluding time spent on procedures (mins): 40 - minutes of critical care time spent in direct contact evaluating and reevaluating the patient, treating symptoms, reviewing labs and studies and speaking with family and consultants excluding any procedures Doctor's Discharge - Discharge Clinical Impression: Tachycardia, Shortness of breath, Lung mass, Atrial fibrillation with RVR, Chronic atrial fibrillation with RVR Pulmonary embolism Qualifiers: Pulmonary embolism type: other Chronicity: acute Acute cor pulmonale presence: without acute cor pulmonale Qualified Code(s): I26.99 - Other pulmonary embolism without acute cor pulmonale Acute and chronic respiratory failure Qualifiers: Respiratory failure complication: hypoxia and hypercapnia Qualified Code(s): J96.21 - Acute and chronic respiratory failure with hypoxia; J96.22 - Acute and chronic respiratory failure with hypercapnia; J96.22 - Acute and chronic respiratory failure with hypercapnia; J96.22 - Acute and chronic respiratory failure with hypercapnia Acute pulmonary embolism Qualifiers: Pulmonary embolism type: other Acute cor pulmonale presence: without acute cor pulmonale Qualified Code(s): I26.99 - Other pulmonary embolism without acute cor pulmonale Condition: Good Disposition: ADMITTED INPATIENT
[2017-12-23] MEDS ORDERED: IPRATROPIUM/ALBUTEROL 0.5-2.5 MG/3 ML AMPUL NEB ONE ×2 (19:23)
[2017-12-23] MEDS ORDERED: LORAZEPAM INJ 2 MG/1 ML VIAL IV ONE (19:25)
[2017-12-23] MEDS ORDERED: ENOXAPARIN SODIUM INJ 80 MG/0.8 ML DISP.SYRIN SUBCUT ONE (19:28)
[2017-12-23] MEDS ORDERED: PROMETHAZINE HCL INJ 25 MG/1 ML VIAL IV PRN (19:55)
[2017-12-23] MEDS ORDERED: GLUCAGON,HUMAN RECOMB 1 MG INJ IM PRN (20:01)
[2017-12-23] MEDS ORDERED: DEXTROSE 40% GEL 15 GM TUBE PO PRN ×2 (20:01)
[2017-12-23] MEDS ORDERED: DEXTROSE 50%-WATER 25 GM/50 ML DISP.SYRIN IV PRN ×2 (20:01)
[2017-12-23 20:05] LABS: ARTERIAL BLOOD BASE EXCESS 4.6 mmol/L; ARTERIAL BLOOD H2CO3 1.28 mmol/L (1.05-1.35); ARTERIAL BLOOD HCO3 29.1 mmol/L (20-26); ARTERIAL BLOOD O2 SATURATION 88.4 % (94-98); ARTERIAL BLOOD PCO2 42.6 mmHg (35-45); ARTERIAL BLOOD PH 7.45 (7.35-7.45); ARTERIAL BLOOD PO2 52.2 mmHg (80-100); ARTERIAL BLOOD TOTAL CO2 30.4 mmol/L (21-25)
[2017-12-23 20:09] LABS: ARTERIAL BLOOD FIO2 30%
--- NOTE | 2017-12-23 20:16 | PDOC H&P ---
History of Present Illness Admission Date/PCP: JANNIE MARRERO PA-C History of Present Illness: BRUCE GALAN I is a 67 year old patient female patient with multiple comorbidities including HLD, HTN, COPD, chronic respiratory failure and oxygen dependent, diabetes mellitus, hypothyroidism and anxiety disorder presents with chief complaint of shortness of breath and wheezing. Since patient is on full mask BiPAP and sedated after she was given Ativan she is not source of history brief history is obtained from ER attending and throat and review of the chart. Per ER attending the patient discharged yesterday from [facility] after she was treated for COPD exacerbation and she also newly diagnosed with lung CA. Her CTA reported as evidence of pulmonary emboli with thrombus and peripheral pulmonary arteries to the left. At presentation patient is found to have A. fib with RVR with heart rate of 144. Patient is heavy smoker and quit smoker 2 weeks ago. Further detailed history and review of systems unobtainable. Past Medical History Cardiac Medical History: Reports: Hyperlipidema, Hypertension Pulmonary Medical History: Reports: Bronchitis, Chronic Obstructive Pulmonary Disease (COPD), Pneumonia, Respiratory Failure - She is on chronic oxygen therapy at home. Endocrine Medical History: Reports: Diabetes Mellitus Type 2, Hypothyroidism GI Medical History: Reports: Gastroesophageal Reflux Disease Psychiatric Medical History: Reports: Depression Past Surgical History Past Surgical History: Reports: Appendectomy, Other - Right-sided chest tube Social History Smoking Status: Former Smoker Frequency of Alcohol Use: None Hx Recreational Drug Use: No Drugs: None Hx Prescription Drug Abuse: No - Advance Directive Resuscitation Status: Full Code Family History Family History: Reviewed & Not Pertinent, Other - Brother- CAD Mother- colorectal cancer Parental Family History Reviewed: Yes Children Family History Reviewed: Yes Sibling(s) Family History Reviewed.: Yes Medication/Allergy Home Medications: Buspirone HCl [Buspar 10 mg Tablet] 10 mg PO Q8 12/12/17 Calcium Carbonate/Vitamin D3 [Calcium 500-Vit D3 200 Tablet] 1 each PO DAILY 01/22 Cetirizine HCl [Zyrtec 10 mg Tablet] 1 tab PO DAILY 12/12/17 Cholecalciferol (Vitamin D3) [Vitamin D3 1000 Unit Tablet] 3,000 unit PO DAILY 12/12/17 Citalopram Hydrobromide [Celexa 20 mg Tablet] 20 mg PO DAILY 12/12/17 Cyanocobalamin (Vitamin B-12) [Vitamin B-12 1000 Mcg Tablet] 2,500 mcg PO DAILY 12/12/17 Ergocalciferol (Vitamin D2) [Drisdol 50,000 Unit (1.25MG) Capsule] 1 cap PO MO@ 1000 12/12/17 Guaifenesin [Mucinex] 1,200 mg PO DAILY 12/12/17 Hydrochlorothiazide [Hydrodiuril 25 mg Tablet] 25 mg PO QAM 12/12/17 Ipratropium/Albuterol Sulfate [Duoneb 3 ml Ampul] 3 ml NEB [id number] PRN 12/12/17 Levothyroxine Sodium [Synthroid 50 Mcg Tablet] 50 mcg PO Q6AM 12/12/17 Lorazepam [Ativan 0.5 mg Tablet] 0.25 mg PO Q8HP PRN 12/12/17 Magnesium 250 mg PO DAILY 12/12/17 Mometasone/Formoterol [Dulera 200 Mcg/5 Mcg Inhaler] 2 puff IH Q12 12/12/17 Nystatin [Mycostatin 500,000 Unit/5 ml Susp Udcup] 500,000 unit PO QID 12/12/17 Omeprazole Magnesium [Prilosec Otc] 20 mg PO DAILYP PRN 12/12/17 Prednisone [Deltasone 10 mg Tablet] 10 mg PO ASDIR 12/12/17 Roflumilast [Daliresp 500 mcg Tablet] 500 mcg PO DAILY 12/12/17 Tiotropium [place] [Spiriva Respimat] 2 puff IH DAILY 12/12/17 Zinc 50 mg PO DAILY 12/12/17 Allergies/Adverse Reactions: bupropion Allergy (Mild, Verified 12/12/17 11:14) Generalized Itching ciprofloxacin [From Cipro] Allergy (Verified 12/23/17 15:03) doxycycline Allergy (Verified 12/12/17 11:14) Hives Penicillins Allergy (Verified 12/12/17 11:14) Hives "cillins" Allergy (Uncoded 12/12/17 11:14) Hives Review of Systems ROS unobtainable: Due to mental status Physical Exam Vital Signs: Temp Pulse Resp BP Pulse Ox 26 H 114/63 89 L 12/23/17 19:00 12/23/17 17:01 12/23/17 19:00 Intake & Output 12/22/17 12/23/17 12/24/17 06:59 06:59 06:59 Weight 77.111 kg General appearance: PRESENT: severe distress Head exam: PRESENT: atraumatic, normocephalic Eye exam: PRESENT: conjunctiva pink, EOMI, PERRLA. ABSENT: scleral icterus Respiratory exam: PRESENT: rhonchi, wheezes Cardiovascular exam: PRESENT: tachycardia GI/Abdominal exam: PRESENT: normal bowel sounds, soft. ABSENT: distended, guarding, mass, organolmegaly, rebound, tenderness Results Laboratory Results: 12/23/17 14:20 12/23/17 14:20 12/23/17 12/23/17 14:20 14:20 WBC 27.2 H RBC 4.69 Hgb 13.8 Hct 41.8 MCV 89 MCH 29.5 MCHC 33.1 RDW 15.4 H Plt Count 202 Seg Neutrophils % Not Reportable Lymphocytes % Not Reportable Monocytes % Not Reportable Eosinophils % Not Reportable Basophils % Not Reportable Absolute Neutrophils Not Reportable Absolute Lymphocytes Not Reportable Absolute Monocytes Not Reportable Absolute Eosinophils Not Reportable Absolute Basophils Not Reportable Sodium 139.5 Potassium 3.4 L Chloride 97 L Carbon Dioxide 33 H Anion Gap 10 BUN 23 H Creatinine 0.44 L Est GFR ( Amer) > 60 Est GFR (Non-Af Amer) > 60 Glucose 173 H Calcium 9.8 Phosphorus 4.0 Magnesium 2.0 Total Bilirubin 0.7 AST 32 ALT 61 H Alkaline Phosphatase 171 H Total Protein 6.7 Albumin 3.5 12/23/17 12/23/17 14:20 14:20 Creatine Kinase 24 L CK-MB (CK-2) 1.78 Troponin I 0.042 NT-Pro-B Natriuret Pep 1430 H Impressions: Chest X-Ray 12/23/17 14:57 IMPRESSION: NO ACUTE RADIOGRAPHIC FINDING IN THE CHEST. Chest/Abdomen CTA 12/23/17 16:38 IMPRESSION: Evidence of pulmonary emboli with thrombus and peripheral pulmonary arteries to the left. Emphysematous pulmonary change, with patchy areas of ground-glass pulmonary density. Previously described mass of the right hilum and pulmonary lesions stable. Assessment & Plan - Diagnosis (1) Acute pulmonary embolism Qualifiers: Acute cor pulmonale presence: without acute cor pulmonale Is this a current diagnosis for this admission?: Yes Plan: Patient has been started on Lovenox 75 mg subcu twice daily (2) Chronic atrial fibrillation with RVR Is this a current diagnosis for this admission?: Yes Plan: Patient has been on Cardizem. (3) Diabetes mellitus Qualifiers: Diabetes mellitus type: type 2 Is this a current diagnosis for this admission?: Yes Plan: Patient has been started on sliding scale and will resume her home medication so (4) Acute on chronic respiratory failure with hypoxia and hypercapnia Is this a current diagnosis for this admission?: Yes Plan: Patient has been started on bronchodilator, Solu-Medrol, Zithromax and BiPAP - Time Time Spent: 30 to 50 Minutes - Inpatient Certification Medical Necessity: Need Close Monitoring Due to Risk of Patient Decompensation, Need for IV Antibiotics
[2017-12-23] MEDS: DILTIAZEM HCL/D5W 125 MG/125 ML RTUINJ IV PRN (20:20)
[2017-12-23] MEDS: ALBUTEROL SULFATE 0.083% NEB 2.5 MG/3 ML AMPUL NEB SCH ×2 (21:33→23:27)
[2017-12-23] MEDS ORDERED: ENOXAPARIN SODIUM INJ 60 MG/0.6 ML DISP.SYRIN SUBCUT SCH (22:00)
[2017-12-23] MEDS ORDERED: DILTIAZEM HCL 240 MG CAPSULE.CR PO SCH (22:00)
[2017-12-23] MEDS: AZITHROMYCIN 500 MG in DEXTROSE 5%-WATER 250 ML IV SCH (22:55)
[2017-12-23] MEDS: METHYLPREDNISOLONE INJ 40 MG/1 ML SDV IV SCH (22:55)
[2017-12-23] MEDS: ENOXAPARIN SODIUM INJ 80 MG/0.8 ML DISP.SYRIN SUBCUT SCH (22:56)
[2017-12-24] MEDS ORDERED: DILTIAZEM HCL 90 MG TABLET PO ONE (01:00)
[2017-12-24] MEDS ORDERED: DILTIAZEM HCL/D5W 125 MG/125 ML RTUINJ IV ONE (01:37)
[2017-12-24] MEDS: DILTIAZEM HCL/D5W 125 MG/125 ML RTUINJ IV PRN (01:48)
[2017-12-24] MEDS: ALBUTEROL SULFATE 0.083% NEB 2.5 MG/3 ML AMPUL NEB SCH ×5 (04:08→20:44)
[2017-12-24] MEDS: METHYLPREDNISOLONE INJ 40 MG/1 ML SDV IV SCH ×3 (05:33→21:09)
[2017-12-24 06:05] LABS: HEMATOCRIT 35.6 % (36.0-47.0); HEMOGLOBIN 11.8 g/dL (12.0-15.5); MEAN CORPUSCULAR HEMOGLOBIN 29.6 pg (27.0-33.4); MEAN CORPUSCULAR HGB CONC 33.2 g/dL (32.0-36.0); MEAN CORPUSCULAR VOLUME 89 fl (80-97); PLATELET COUNT 220 10^3/uL (150-450); RED CELL DISTRIBUTION WIDTH 15.4 % (11.5-14.0); WHITE BLOOD COUNT 20.8 10^3/uL (4.0-10.5)
[2017-12-24 06:44] LABS: ANION GAP 12 (5-19); BLOOD UREA NITROGEN 19 mg/dL (7-20); CALCIUM 8.9 mg/dL (8.4-10.2); CARBON DIOXIDE 30 mmol/L (22-30); CHLORIDE 98 mmol/L (98-107); GLUCOSE 183 mg/dL (75-110); POTASSIUM 3.4 mmol/L (3.6-5.0); SODIUM 139.8 mmol/L (137-145)
[2017-12-24 08:05] LABS: ABSOLUTE LYMPHOCYTES# (MANUAL) 0.6 10^3/uL (0.5-4.7); ABSOLUTE MONOCYTES # (MANUAL) 0.2 10^3/uL (0.1-1.4); BASOPHILS % (MANUAL) 0 % (0-2); EOSINOPHILS % (MANUAL) 0 % (0-6); LYMPHOCYTES % (MANUAL) 3 % (13-45); METAMYELOCYTES % (MANUAL) 5 % (0); MONOCYTES % (MANUAL) 1 % (3-13); SEGMENTED NEUTROPHILS % (MAN) 91 % (42-78); TOTAL CELLS COUNTED 100
[2017-12-24 08:06] LABS: ANISOCYTOSIS SLIGHT; BURR CELLS SLIGHT; OVALOCYTES SLIGHT; PLATELET COMMENT ADEQUATE; POIKILOCYTOSIS SLIGHT; TEAR DROP CELLS SLIGHT; TOXIC GRANULATION SLIGHT
--- NOTE | 2017-12-24 08:42 | EKG REPORT ---
SEVERITY:- ABNORMAL ECG - SINUS TACHYCARDIA MULTIPLE ATRIAL PREMATURE COMPLEXES : Confirmed by: Tina Bardales 24-Dec-2017 08:42:07
[2017-12-24] MEDS: INSULIN LISPRO 100 UNIT/ML 3 ML VIAL SUBCUT PRN ×3 (09:08→17:34)
[2017-12-24] MEDS: ENOXAPARIN SODIUM INJ 80 MG/0.8 ML DISP.SYRIN SUBCUT SCH ×2 (09:08→21:09)
[2017-12-24 10:50] LABS: PATH REVIEW PATHOLOGIST REVIEWED
[2017-12-24] MEDS: BUSPIRONE HCL 10 MG TABLET PO SCH ×2 (13:28→21:10)
[2017-12-24] MEDS: DILTIAZEM HCL 90 MG TABLET PO SCH ×2 (13:28→21:09)
--- NOTE | 2017-12-24 18:32 | PDOC PROGRESS REPORT ---
Subjective Progress Note for:: 12/24/17 Subjective:: BRUCE GALAN I is a 67 year old patient female patient with multiple comorbidities including HLD, HTN, COPD, chronic respiratory failure and oxygen dependent, diabetes mellitus, hypothyroidism and anxiety disorder who was admitted on 12/23/17 with atrial fibrillation with RVR and pulmonary embolus. The patient is seen on morning rounds. She is found resting in bed comfortably on BiPAP. She denies chest pain, palpitations, orthopnea. She does endorse continued dyspnea. She reports that while at [facility] she had a lung biopsy completed. Will request pathology results. The patient and I did discuss that based on pathology, we may have to consult with oncology prior to initiating long-term anticoagulants. She continues on full dose Lovenox for now. Patient has no additional questions at this time. Reason For Visit: COPD EXACERBATION,ACUTE ON CHRONIC RESPIRATORY Physical Exam Vital Signs: Temp Pulse Resp BP Pulse Ox 97.5 F 104 H 19 118/69 95 12/24/17 15:35 12/24/17 15:55 12/24/17 15:55 12/24/17 15:35 12/24/17 15:55 Intake & Output 12/23/17 12/24/17 12/25/17 06:59 06:59 06:59 Intake Total 122 94 Output Total 0 0 Balance 122 94 Weight 77.2 kg General appearance: PRESENT: no acute distress, cooperative, well-developed, well-nourished, other - Overweight Head exam: PRESENT: atraumatic, normocephalic Eye exam: PRESENT: conjunctiva pink, EOMI, PERRLA. ABSENT: scleral icterus Ear exam: PRESENT: normal external ear exam Mouth exam: PRESENT: moist, tongue midline Neck exam: ABSENT: carotid bruit, JVD, lymphadenopathy, thyromegaly Respiratory exam: PRESENT: clear to auscultation tay, prolonged expiratory phas , rhonchi, tachypnea, wheezes. ABSENT: rales Cardiovascular exam: PRESENT: irregular rhythm, +S1, +S2, tachycardia. ABSENT: diastolic murmur, rubs, systolic murmur Pulses: PRESENT: normal dorsalis pedis pul Vascular exam: PRESENT: normal capillary refill GI/Abdominal exam: PRESENT: normal bowel sounds, soft. ABSENT: distended, guarding, mass, organolmegaly, rebound, tenderness Rectal exam: PRESENT: deferred Extremities exam: PRESENT: full ROM. ABSENT: calf tenderness, clubbing, pedal edema Neurological exam: PRESENT: alert, awake, oriented to person, oriented to place , oriented to time, oriented to situation, CN II-XII grossly intact. ABSENT: motor sensory deficit Psychiatric exam: PRESENT: appropriate affect, normal mood. ABSENT: homicidal ideation, suicidal ideation Skin exam: PRESENT: dry, intact, warm. ABSENT: cyanosis, rash Results Laboratory Results: 12/24/17 05:10 12/24/17 05:10 12/24/17 12/24/17 05:10 05:10 WBC 20.8 H RBC 4.00 Hgb 11.8 L Hct 35.6 L MCV 89 MCH 29.6 MCHC 33.2 RDW 15.4 H Plt Count 220 Seg Neutrophils % Not Reportable Lymphocytes % Not Reportable Monocytes % Not Reportable Eosinophils % Not Reportable Basophils % Not Reportable Absolute Neutrophils Not Reportable Absolute Lymphocytes Not Reportable Absolute Monocytes Not Reportable Absolute Eosinophils Not Reportable Absolute Basophils Not Reportable Sodium 139.8 Potassium 3.4 L Chloride 98 Carbon Dioxide 30 Anion Gap 12 BUN 19 Creatinine 0.38 L Est GFR ( Amer) > 60 Est GFR (Non-Af Amer) > 60 Glucose 183 H Calcium 8.9 Impressions: Chest X-Ray 12/23/17 14:57 IMPRESSION: NO ACUTE RADIOGRAPHIC FINDING IN THE CHEST. Chest/Abdomen CTA 12/23/17 16:38 IMPRESSION: Evidence of pulmonary emboli with thrombus and peripheral pulmonary arteries to the left. Emphysematous pulmonary change, with patchy areas of ground-glass pulmonary density. Previously described mass of the right hilum and pulmonary lesions stable. Assessment & Plan - Diagnosis (1) Acute pulmonary embolism Qualifiers: Pulmonary embolism type: other Acute cor pulmonale presence: without acute cor pulmonale Qualified Code(s): I26.99 - Other pulmonary embolism without acute cor pulmonale Is this a current diagnosis for this admission?: Yes Plan: The patient presented with tachycardia, dyspnea, hypoxia. D-dimer >16 CTA of the chest revealed pulmonary emboli with thrombus to the peripheral pulmonary arteries on the left, emphysema, stable lung mass to the right upper lobe and hilum. The patient is admitted to [facility] on continuous cardiac telemetry. She is placed on supplemental oxygen as needed to maintain oxygen saturations greater than 88%. BiPAP as needed. She is placed on full dose Lovenox. Will obtain recent pathology report from [facility] and consult oncology as necessary; will review anticoagulant needs with oncologist. (2) Atrial fibrillation with RVR Is this a current diagnosis for this admission?: Yes Plan: The patient denies a known history of atrial fibrillation. Review of previous EKGs obtained at our facility demonstrates sinus rhythm. Patient presented in atrial fibrillation with RVR; HR 140. Patient admitted to [facility] on continuous cardiac telemetry. Initially placed on diltiazem drip; have transitioned to p.o. and maintaining heart rate in the low 100s Full dose Lovenox secondary to pulmonary emboli We will assess TSH with a.m. labs. (3) COPD with acute bronchitis Is this a current diagnosis for this admission?: Yes Plan: Patient with COPD and recent tobacco use. Presented with dyspnea, rhonchi, wheezing, increased productive cough. Blood cultures are pending. Of note she has new pulmonary emboli. Patient supported with supplemental oxygen and BiPAP as needed. Placed on IV Solu-Medrol. Empirically covered with azithromycin. As needed and scheduled nebulizer treatments. Continue home dose Daliresp. Mucinex and Singulair. (4) Leukocytosis Is this a current diagnosis for this admission?: Yes Plan: Multifactorial secondary to pulmonary emboli, COPD exacerbation, bronchitis, IV steroid therapy. Slight trend downward today. Blood cultures are pending. We will continue azithromycin for treatment of bronchitis. (5) Diabetes mellitus Qualifiers: Diabetes mellitus type: type 2 Is this a current diagnosis for this admission?: Yes Plan: The patient reports history of prediabetes; does not check blood glucose at home or take antidiabetic medications. She is placed on a consistent carb diet while inpatient. We will monitor Accu-Cheks before meals and at bedtime and provide Humalog as needed for sliding scale coverage. (6) Lung mass Is this a current diagnosis for this admission?: Yes Plan: Stable lung has again noted on CTA of the chest this admission. During last admission for COPD, arrangements were made for the patient to be transferred to [facility] for EBUS. Patient reports that she did have biopsy completed as planned. We will request discharge summary and pathology report. Anticipate need for oncology consultation. (7) Acute on chronic respiratory failure with hypoxia and hypercapnia Is this a current diagnosis for this admission?: Yes Plan: Secondary to COPD exacerbation, bronchitis, pulmonary emboli, underlying lung malignancy. The patient is home O2 dependent but is currently requiring increased oxygen support. The patient is supported with supplemental oxygen, BiPAP, scheduled and as needed nebulizer treatment. Remaining plan as above. (8) Anxiety Is this a current diagnosis for this admission?: Yes Plan: Continue patient's home medication regiment; BuSpar q. 8 and lorazepam every 8 as needed. (9) Hypertension Is this a current diagnosis for this admission?: Yes Plan: Currently normotensive. The patient's home dose HCTZ has been continued. She has been transitioned to p.o. Cardizem. (10) Tobacco dependence Is this a current diagnosis for this admission?: Yes Plan: The patient reports that she stopped smoking approximately 3 weeks ago. She is congratulated and encouraged to continue with smoking cessation attempts. Nicotine or placement therapies are offered and declined at this time. - Time Time Spent with patient: 15-24 minutes Medications reviewed and adjusted accordingly: Yes Anticipated discharge: Home
[2017-12-24] MEDS: AZITHROMYCIN 500 MG in DEXTROSE 5%-WATER 250 ML IV SCH (21:10)
[2017-12-24] MEDS: GUAIFENESIN 600 MG TABLET.SA PO SCH (21:10)
[2017-12-25] MEDS: ALBUTEROL SULFATE 0.083% NEB 2.5 MG/3 ML AMPUL NEB SCH ×6 (00:21→20:00)
[2017-12-25] MEDS: INSULIN LISPRO 100 UNIT/ML 3 ML VIAL SUBCUT PRN ×4 (00:54→23:08)
[2017-12-25] MEDS: METHYLPREDNISOLONE INJ 40 MG/1 ML SDV IV SCH ×3 (05:29→21:31)
[2017-12-25] MEDS: DILTIAZEM HCL 90 MG TABLET PO SCH ×3 (05:29→21:31)
[2017-12-25] MEDS: LEVOTHYROXINE SODIUM 0.05 MG TABLET PO SCH (05:29)
[2017-12-25] MEDS: BUSPIRONE HCL 10 MG TABLET PO SCH ×3 (05:29→21:31)
[2017-12-25 06:08] LABS: HEMATOCRIT 32.2 % (36.0-47.0); HEMOGLOBIN 10.8 g/dL (12.0-15.5); MEAN CORPUSCULAR HEMOGLOBIN 29.7 pg (27.0-33.4); MEAN CORPUSCULAR HGB CONC 33.5 g/dL (32.0-36.0); MEAN CORPUSCULAR VOLUME 89 fl (80-97); PLATELET COUNT 228 10^3/uL (150-450); RED BLOOD COUNT 3.64 10^6/uL (3.72-5.28); RED CELL DISTRIBUTION WIDTH 15.3 % (11.5-14.0); WHITE BLOOD COUNT 23.7 10^3/uL (4.0-10.5)
[2017-12-25 06:28] LABS: APPEARANCE,URINE CLEAR; BILIRUBIN,URINE NEGATIVE (NEGATIVE); COLOR,URINE YELLOW; GLUCOSE, URINE >=500 mg/dL (NEGATIVE); KETONES,URINE NEGATIVE (NEGATIVE); LEUKOCYTE ESTERASE,URINE NEGATIVE (NEGATIVE); NITRITE,URINE NEGATIVE (NEGATIVE); PROTEIN,URINE 30 mg/dL (NEGATIVE); URINE SPECIFIC GRAVITY 1.027; UROBILINOGEN,URINE NEGATIVE mg/dL (<2.0)
[2017-12-25] MEDS ORDERED: (PENDING PHARMACY ID) (Roflumilast [Daliresp 500 Mcg Tablet] 500 MCG) PO SCH (10:00)
[2017-12-25] MEDS: ROFLUMILAST 500 MCG TABLET PO SCH (10:23)
[2017-12-25] MEDS: CETIRIZINE 10 MG TABLET PO SCH (10:23)
[2017-12-25] MEDS: ENOXAPARIN SODIUM INJ 80 MG/0.8 ML DISP.SYRIN SUBCUT SCH ×2 (10:24→21:31)
[2017-12-25] MEDS: HYDROCHLOROTHIAZIDE 25 MG TABLET PO SCH (10:24)
[2017-12-25] MEDS: GUAIFENESIN 600 MG TABLET.SA PO SCH ×2 (10:24→21:31)
--- NOTE | 2017-12-25 16:20 | CONSULTATION REPORT E ---
Consultation Report NAME: BRUCE GALAN : 1950 AGE: 67Y DATE: 12/25/2017 325 A TO: ALEM PICHARDO M.D. FROM: Bethanie MEZA, Requesting Physician REASON FOR REFERRAL: Lung cancer. HISTORY OF PRESENT ILLNESS: The patient is a 67-year-old woman who was admitted into the hospital December 23, 2017. She tells me that she has had recurrent hospital admissions. She has been having progressively worsening shortness of breath and difficulty breathing. She was last admitted at [facility] prior to this hospitalization. She was discharged home, and then readmitted at [facility]. While she was at [facility], she was diagnosed with lung cancer. She was seen by Dr. Hernandez during that admission, and the plan was for her to follow up as an outpatient. She had a bronchoscopy with a right lower lobe touch prep, said to be consistent with non-small cell carcinoma. She tells me that she feels a little bit better since getting into the hospital. She is very worried about being discharged home again, because of the recurrent shortness of breath. PAST MEDICAL HISTORY: Includes: 1. History of hyperlipidemia. 2. Hypertension. 3. Bronchitis. 4. COPD. She is on home oxygen. 5. Diabetes. 6. GERD. 7. *------*. PAST SURGICAL HISTORY: 1. Appendectomy. 2. Right-sided chest tube. SOCIAL HISTORY: She used to smoke cigarettes. She quit smoking about 2 weeks ago. ALLERGIES: 1. CIPRO. 2. DOXYCYCLINE. PHYSICAL EXAMINATION: She is an elderly woman, not acutely ill-looking. She was a little bit tearful during this visit. She has no peripheral adenopathy. She has good air entry bilaterally, bronchial. Slight wheezing on the right. DIAGNOSTICS: A CAT scan of the chest done December 23, 2017, shows emphysematous pulmonary changes, evidence of pulmonary emboli with thrombus, and peripheral pulmonary arteries to the left. Previously described right hilum and pulmonary *------*, stable. Her labs: White count is 37.2, hemoglobin 13.8, platelet count is 202,000. Sodium 139, calcium 9.8. Pathology report, as stated above, non-small cell lung cancer. IMPRESSION AND PLAN: The patient is a 67-year-old who has a new diagnosis of lung cancer. I explained that she would need to be staged, hopefully with a PET scan, after she is discharged, as an outpatient. I explained that I would recommend Radiation Oncology to see if palliative radiology may be helpful in improving her lung function. I will request additional immunostains on the specimen, including a GFR, alk and PD-L1. She gives a history of epiglottis surgery for possible cancer in 2007. I will try and obtain the records. My plan is to see her as an outpatient if and when she gets discharged. I thank you for this consultation and for allowing me to be part of her care. DICTATING PHYSICIAN: ALEM PICHARDO M.D. [id number] PHY#: [id number] ID: [id number] JOB#: [id number] ACCT: [id number] cc:ALEM PICHARDO M.D. >
--- NOTE | 2017-12-25 17:51 | PDOC PROGRESS REPORT ---
Subjective Progress Note for:: 12/25/17 Subjective:: BRUCE GALAN I is a 67 year old patient female patient with multiple comorbidities including HLD, HTN, COPD, chronic respiratory failure and oxygen dependent, diabetes mellitus, hypothyroidism and anxiety disorder who was admitted on 12/23/17 with atrial fibrillation with RVR and pulmonary embolus. The patient is seen on morning rounds. She is found resting in bed comfortably on BiPAP. She reports that she was able to take off BiPAP and use nasal cannula for most of the day during the day yesterday. She denies chest pain, palpitations, orthopnea. She does endorse continued dyspnea, but reports that this is much better than previously. Overall, she feels that she is improving. Reason For Visit: COPD EXACERBATION,ACUTE ON CHRONIC RESPIRATORY Physical Exam Vital Signs: Temp Pulse Resp BP Pulse Ox 98.1 F 107 H 18 117/66 96 12/25/17 14:57 12/25/17 14:57 12/25/17 14:57 12/25/17 14:57 12/25/17 14:57 Intake & Output 12/24/17 12/25/17 12/26/17 06:59 06:59 06:59 Intake Total 122 1426 1204 Output Total 0 500 400 Balance 122 926 804 Weight 77.2 kg 79.6 kg General appearance: PRESENT: no acute distress, well-developed, well-nourished, other - Overweight Head exam: PRESENT: atraumatic, normocephalic Eye exam: PRESENT: conjunctiva pink, EOMI, PERRLA. ABSENT: scleral icterus Mouth exam: PRESENT: moist, tongue midline Teeth exam: PRESENT: poor dentation Neck exam: ABSENT: carotid bruit, JVD, lymphadenopathy, thyromegaly Respiratory exam: PRESENT: decreased breath sounds - Bibasilar, prolonged expiratory phas, symmetrical, unlabored. ABSENT: rales, rhonchi, wheezes Cardiovascular exam: PRESENT: irregular rhythm, +S1, +S2. ABSENT: diastolic murmur, rubs, systolic murmur Pulses: PRESENT: normal dorsalis pedis pul Vascular exam: PRESENT: normal capillary refill GI/Abdominal exam: PRESENT: normal bowel sounds, soft. ABSENT: distended, guarding, mass, organolmegaly, rebound, tenderness Rectal exam: PRESENT: deferred Extremities exam: PRESENT: full ROM. ABSENT: calf tenderness, clubbing, pedal edema Neurological exam: PRESENT: alert, awake, oriented to person, oriented to place , oriented to time, oriented to situation, CN II-XII grossly intact. ABSENT: motor sensory deficit Psychiatric exam: PRESENT: appropriate affect, normal mood. ABSENT: homicidal ideation, suicidal ideation Skin exam: PRESENT: dry, intact, warm. ABSENT: cyanosis, rash Results Laboratory Results: 12/25/17 05:14 12/24/17 05:10 12/25/17 12/25/17 12/25/17 05:14 05:14 05:41 WBC 23.7 H RBC 3.64 L Hgb 10.8 L Hct 32.2 L MCV 89 MCH 29.7 MCHC 33.5 RDW 15.3 H Plt Count 228 TSH 0.03 L Urine Color YELLOW Urine Appearance CLEAR Urine pH 6.0 Ur Specific [place] 1.027 Urine Protein 30 H Urine Glucose (UA) >=500 H Urine Ketones NEGATIVE Urine Blood NEGATIVE Urine Nitrite NEGATIVE Ur Leukocyte Esterase NEGATIVE Urine WBC (Auto) 3 Urine RBC (Auto) 2 Impressions: Chest X-Ray 12/23/17 14:57 IMPRESSION: NO ACUTE RADIOGRAPHIC FINDING IN THE CHEST. Chest/Abdomen CTA 12/23/17 16:38 IMPRESSION: Evidence of pulmonary emboli with thrombus and peripheral pulmonary arteries to the left. Emphysematous pulmonary change, with patchy areas of ground-glass pulmonary density. Previously described mass of the right hilum and pulmonary lesions stable. Assessment & Plan - Diagnosis (1) Acute pulmonary embolism Qualifiers: Pulmonary embolism type: other Acute cor pulmonale presence: without acute cor pulmonale Qualified Code(s): I26.99 - Other pulmonary embolism without acute cor pulmonale Is this a current diagnosis for this admission?: Yes Plan: The patient presented with tachycardia, dyspnea, hypoxia. D-dimer >16 CTA of the chest revealed pulmonary emboli with thrombus to the peripheral pulmonary arteries on the left, emphysema, stable lung mass to the right upper lobe and hilum. The patient is admitted to [facility] on continuous cardiac telemetry. She is placed on supplemental oxygen as needed to maintain oxygen saturations greater than 88%. BiPAP as needed. She is placed on full dose Lovenox. Oncology has been consulted; does not appear that any additional inpatient procedures are planned. Will be able to discuss with patient the option of Xarelto versus Eliquis at discharge for treatment of acute pulmonary embolism. (2) Atrial fibrillation with RVR Is this a current diagnosis for this admission?: Yes Plan: The patient denies a known history of atrial fibrillation. Review of previous EKGs obtained at our facility demonstrates sinus rhythm. Patient presented in atrial fibrillation with RVR; HR 140. Patient admitted to [facility] on continuous cardiac telemetry. Patient remains rate controlled on p.o. diltiazem. Full dose Lovenox secondary to pulmonary emboli; will discuss with patient option of Eliquis versus Xarelto. (3) COPD with acute bronchitis Is this a current diagnosis for this admission?: Yes Plan: Improved; patient with COPD and recent tobacco use. Presented with dyspnea, rhonchi, wheezing, increased productive cough. Blood cultures have no growth at 24 hours. Of note, she has new pulmonary emboli. Patient supported with supplemental oxygen and BiPAP as needed. Continue weaning Solu-Medrol. Empirically covered with azithromycin; transition to p.o. for completion of course of therapy. As needed and scheduled nebulizer treatments. Continue home dose Daliresp. Mucinex and Singulair. (4) Leukocytosis Is this a current diagnosis for this admission?: Yes Plan: Multifactorial secondary to pulmonary emboli, COPD exacerbation, bronchitis, IV steroid therapy. Slight upward trend today; patient remains afebrile. Blood cultures are negative at 24 hours. We will continue azithromycin for treatment of bronchitis. (5) Diabetes mellitus Qualifiers: Diabetes mellitus type: type 2 Is this a current diagnosis for this admission?: Yes Plan: The patient reports history of prediabetes; does not check blood glucose at home or take antidiabetic medications. She is placed on a consistent carb diet while inpatient. We will monitor Accu-Cheks before meals and at bedtime and provide Humalog as needed for sliding scale coverage. (6) Lung mass Is this a current diagnosis for this admission?: Yes Plan: Stable lung has again noted on CTA of the chest this admission. During last admission for COPD, arrangements were made for the patient to be transferred to [facility] for EBUS. Patient reports that she did have biopsy completed as planned; received discharge summary and pathology report from [facility] confirming non-small cell lung cancer. Oncology is consulted; appreciate their evaluation recommendations. (7) Acute on chronic respiratory failure with hypoxia and hypercapnia Is this a current diagnosis for this admission?: Yes Plan: Secondary to COPD exacerbation, bronchitis, pulmonary emboli, underlying lung malignancy. The patient is home O2 dependent but is currently requiring increased oxygen support; currently utilizing BiPAP overnight and intermittently throughout the day with increased oxygen via nasal cannula (4 L/min; uses 2 at home). The patient is supported with supplemental oxygen, BiPAP, scheduled and as needed nebulizer treatment. Remaining plan as above. (8) Anxiety Is this a current diagnosis for this admission?: Yes Plan: Continue patient's home medication regiment; BuSpar q. 8 and lorazepam every 8 as needed. (9) Hypertension Is this a current diagnosis for this admission?: Yes Plan: Currently normotensive. The patient's home dose HCTZ has been continued. She has been transitioned to p.o. Cardizem. (10) Tobacco dependence Is this a current diagnosis for this admission?: Yes Plan: The patient reports that she stopped smoking approximately 3 weeks ago. She is congratulated and encouraged to continue with smoking cessation attempts. Nicotine or placement therapies are offered and declined at this time. - Time Time Spent with patient: 15-24 minutes Anticipated discharge: Home with Homehealth, Acute Rehab Within: within 48 hours - Plan Summary Plan Summary: Anticipate patient will be ready for discharge within 1-2 days; she would likely benefit from SNF placement, however, has declined this recently. May be able to set patient up with home health services.
[2017-12-25] MEDS: AZITHROMYCIN 250 MG TABLET PO SCH (18:41)
[2017-12-26] MEDS: ALBUTEROL SULFATE 0.083% NEB 2.5 MG/3 ML AMPUL NEB SCH ×5 (00:02→19:32)
[2017-12-26 05:24] LABS: ANION GAP 7 (5-19); BLOOD UREA NITROGEN 29 mg/dL (7-20); CALCIUM 9.2 mg/dL (8.4-10.2); CARBON DIOXIDE 32 mmol/L (22-30); CHLORIDE 103 mmol/L (98-107); GLUCOSE 157 mg/dL (75-110); HEMATOCRIT 32.8 % (36.0-47.0); HEMOGLOBIN 11.1 g/dL (12.0-15.5); MEAN CORPUSCULAR HEMOGLOBIN 29.7 pg (27.0-33.4); MEAN CORPUSCULAR HGB CONC 33.7 g/dL (32.0-36.0); MEAN CORPUSCULAR VOLUME 88 fl (80-97); PLATELET COUNT 247 10^3/uL (150-450); RED BLOOD COUNT 3.73 10^6/uL (3.72-5.28); RED CELL DISTRIBUTION WIDTH 15.4 % (11.5-14.0); SODIUM 142.1 mmol/L (137-145); WHITE BLOOD COUNT 22.7 10^3/uL (4.0-10.5)
[2017-12-26] MEDS: DILTIAZEM HCL 90 MG TABLET PO SCH ×3 (06:04→22:06)
[2017-12-26] MEDS: LEVOTHYROXINE SODIUM 0.05 MG TABLET PO SCH (06:04)
[2017-12-26] MEDS: BUSPIRONE HCL 10 MG TABLET PO SCH ×3 (06:04→22:07)
[2017-12-26] MEDS: METHYLPREDNISOLONE INJ 40 MG/1 ML SDV IV SCH (06:04)
[2017-12-26] MEDS ORDERED: POTASSIUM CHLORIDE 10 MEQ CAPSULE.ER PO ONE (06:05)
[2017-12-26] MEDS ORDERED: POTASSI CL 20 MEQ/50 ML RIDER 40 MEQ/100 ML RTUPB IV ONE (06:51)
[2017-12-26] MEDS: POTASSIUM CHLORIDE 20 MEQ/50 ML RTU IV SCH ×2 (07:00→08:36)
[2017-12-26] MEDS: INSULIN LISPRO 100 UNIT/ML 3 ML VIAL SUBCUT PRN ×4 (08:36→22:07)
[2017-12-26] MEDS: HYDROCHLOROTHIAZIDE 25 MG TABLET PO SCH (08:37)
[2017-12-26] MEDS: GUAIFENESIN 600 MG TABLET.SA PO SCH ×2 (08:39→22:06)
[2017-12-26] MEDS: ROFLUMILAST 500 MCG TABLET PO SCH (08:39)
[2017-12-26] MEDS: CETIRIZINE 10 MG TABLET PO SCH (08:39)
[2017-12-26] MEDS: ENOXAPARIN SODIUM INJ 80 MG/0.8 ML DISP.SYRIN SUBCUT SCH (08:40)
[2017-12-26] MEDS: LORAZEPAM 0.5 MG TABLET PO PRN (13:51)
[2017-12-26 14:37] LABS: ANION GAP 13 (5-19); BLOOD UREA NITROGEN 25 mg/dL (7-20); CALCIUM 8.6 mg/dL (8.4-10.2); CARBON DIOXIDE 28 mmol/L (22-30); CHLORIDE 102 mmol/L (98-107); GLUCOSE 198 mg/dL (75-110)
--- NOTE | 2017-12-26 15:16 | PDOC PROGRESS REPORT ---
Subjective Progress Note for:: 12/26/17 Subjective:: BRUCE GALAN I is a 67 year old patient female patient with multiple comorbidities including HLD, HTN, COPD, chronic respiratory failure and oxygen dependent, diabetes mellitus, hypothyroidism and anxiety disorder who was admitted on 12/23/17 with atrial fibrillation with RVR and pulmonary embolus. The patient is seen on morning rounds. She is found resting in in the recliner on supplemental oxygen via nasal cannula at 3 L/min. She does continue use BiPAP overnight; she has a home BiPAP and home O2 (typically utilizes 2 L/min). Patient reports improved symptoms; decreased dyspnea while at rest but continues to have slight dyspnea on exertion. Today she tells me that she would like to be discharged to acute rehabilitation and she feels that her discharge directly to home from her last admission "was too optimistic." No other questions or concerns today. Reason For Visit: COPD EXACERBATION,ACUTE ON CHRONIC RESPIRATORY Physical Exam Vital Signs: Temp Pulse Resp BP Pulse Ox 98.0 F 113 H 18 125/71 96 12/26/17 11:09 12/26/17 14:00 12/26/17 11:56 12/26/17 11:09 12/26/17 11:56 Intake & Output 12/25/17 12/26/17 12/27/17 06:59 06:59 06:59 Intake Total 1426 2509 950 Output Total 500 400 Balance 926 2109 950 Weight 79.6 kg 77.7 kg General appearance: PRESENT: no acute distress, obese, well-developed, well- nourished Head exam: PRESENT: atraumatic, normocephalic Eye exam: PRESENT: conjunctiva pink, EOMI, PERRLA. ABSENT: scleral icterus Mouth exam: PRESENT: moist, tongue midline Neck exam: ABSENT: carotid bruit, JVD, lymphadenopathy, thyromegaly Respiratory exam: PRESENT: prolonged expiratory phas, rhonchi, symmetrical, unlabored. ABSENT: rales, wheezes Cardiovascular exam: PRESENT: RRR, +S1, +S2. ABSENT: diastolic murmur, rubs, systolic murmur Pulses: PRESENT: normal dorsalis pedis pul Vascular exam: PRESENT: normal capillary refill GI/Abdominal exam: PRESENT: normal bowel sounds, soft. ABSENT: distended, guarding, mass, organolmegaly, rebound, tenderness Rectal exam: PRESENT: deferred Extremities exam: PRESENT: full ROM. ABSENT: calf tenderness, clubbing, pedal edema Neurological exam: PRESENT: alert, awake, oriented to person, oriented to place , oriented to time, oriented to situation, CN II-XII grossly intact. ABSENT: motor sensory deficit Psychiatric exam: PRESENT: anxious, appropriate affect, normal mood. ABSENT: homicidal ideation, suicidal ideation Skin exam: PRESENT: dry, intact, warm. ABSENT: cyanosis, rash Results Laboratory Results: 12/26/17 04:46 12/26/17 13:48 12/26/17 12/26/17 12/26/17 04:46 04:46 04:46 WBC 22.7 H RBC 3.73 Hgb 11.1 L Hct 32.8 L MCV 88 MCH 29.7 MCHC 33.7 RDW 15.4 H Plt Count 247 Sodium 142.1 Potassium 3.0 L* Chloride 103 Carbon Dioxide 32 H Anion Gap 7 BUN 29 H Creatinine 0.45 L Est GFR ( Amer) > 60 Est GFR (Non-Af Amer) > 60 Glucose 157 H Calcium 9.2 Magnesium 2.0 12/26/17 13:48 WBC RBC Hgb Hct MCV MCH MCHC RDW Plt Count Sodium 143.0 Potassium 4.0 D Chloride 102 Carbon Dioxide 28 Anion Gap 13 BUN 25 H Creatinine 0.41 L Est GFR ( Amer) > 60 Est GFR (Non-Af Amer) > 60 Glucose 198 H Calcium 8.6 Magnesium Impressions: Chest X-Ray 12/23/17 14:57 IMPRESSION: NO ACUTE RADIOGRAPHIC FINDING IN THE CHEST. Chest/Abdomen CTA 12/23/17 16:38 IMPRESSION: Evidence of pulmonary emboli with thrombus and peripheral pulmonary arteries to the left. Emphysematous pulmonary change, with patchy areas of ground-glass pulmonary density. Previously described mass of the right hilum and pulmonary lesions stable. Assessment & Plan - Diagnosis (1) Acute pulmonary embolism Qualifiers: Pulmonary embolism type: other Acute cor pulmonale presence: without acute cor pulmonale Qualified Code(s): I26.99 - Other pulmonary embolism without acute cor pulmonale Is this a current diagnosis for this admission?: Yes Plan: The patient presented with tachycardia, dyspnea, hypoxia. D-dimer >16 CTA of the chest revealed pulmonary emboli with thrombus to the peripheral pulmonary arteries on the left, emphysema, stable lung mass to the right upper lobe and hilum. The patient is admitted to [facility] on continuous cardiac telemetry. She is placed on supplemental oxygen as needed to maintain oxygen saturations greater than 88%. BiPAP as needed. Discussed with oncology today, Dr. Bond, recommends transition to Xarelto. (2) Atrial fibrillation with RVR Is this a current diagnosis for this admission?: Yes Plan: Improved; patient is now rate controlled. The patient denies a known history of atrial fibrillation. Review of previous EKGs obtained at our facility demonstrates sinus rhythm. Patient presented in atrial fibrillation with RVR; HR 140. Patient admitted to [facility] on continuous cardiac telemetry. Patient remains rate controlled on p.o. diltiazem. Discontinued Lovenox and starting Xarelto today. (3) COPD with acute bronchitis Is this a current diagnosis for this admission?: Yes Plan: Improved; patient with COPD and recent tobacco use. Presented with dyspnea, rhonchi, wheezing, increased productive cough. Blood cultures have no growth at 24 hours. Of note, she has new pulmonary emboli. Patient supported with supplemental oxygen and BiPAP as needed. Transition to p.o. prednisone today. We will complete 5 day azithromycin course. As needed and scheduled nebulizer treatments. Continue home dose Daliresp. Mucinex and Singulair. (4) Leukocytosis Is this a current diagnosis for this admission?: Yes Plan: Improving; multifactorial secondary to pulmonary emboli, COPD exacerbation, bronchitis, IV steroid therapy. Slight downward trend today; patient remains afebrile. Blood cultures are negative at 48 hours. We will continue azithromycin for treatment of bronchitis. (5) Diabetes mellitus Qualifiers: Diabetes mellitus type: type 2 Is this a current diagnosis for this admission?: Yes Plan: The patient reports history of prediabetes; does not check blood glucose at home or take antidiabetic medications. She is placed on a consistent carb diet while inpatient. We will monitor Accu-Cheks before meals and at bedtime and provide Humalog as needed for sliding scale coverage. (6) Lung mass Is this a current diagnosis for this admission?: Yes Plan: Stable lung has again noted on CTA of the chest this admission. During last admission for COPD, arrangements were made for the patient to be transferred to [facility] for EBUS. Patient reports that she did have biopsy completed as planned; received discharge summary and pathology report from [facility] confirming non-small cell lung cancer. Oncology is consulted; appreciate their evaluation recommendations. Spoke with Dr. Bond today. She is planning to have the patient complete a PET scan as an outpatient and to follow-up in her office 01/01/18 (7) Acute on chronic respiratory failure with hypoxia and hypercapnia Is this a current diagnosis for this admission?: Yes Plan: Improved. Secondary to COPD exacerbation, bronchitis, pulmonary emboli, underlying lung malignancy. The patient is home O2 dependent but is currently requiring increased oxygen support; currently utilizing BiPAP overnight and intermittently throughout the day with increased oxygen via nasal cannula (3 L/min; uses 2 at home). The patient is supported with supplemental oxygen, BiPAP, scheduled and as needed nebulizer treatment. Remaining plan as above. (8) Anxiety Is this a current diagnosis for this admission?: Yes Plan: Continue patient's home medication regiment; BuSpar q. 8 and lorazepam every 8 as needed. Patient declines need for increased dosing. (9) Hypertension Is this a current diagnosis for this admission?: Yes Plan: Currently normotensive. She has been transitioned to p.o. Cardizem. HCTZ has been discontinued secondary to persistent hypokalemia. Will monitor blood pressures carefully and consider increasing Cardizem as needed. (10) Tobacco dependence Is this a current diagnosis for this admission?: Yes Plan: The patient reports that she stopped smoking approximately 3 weeks ago. She is congratulated and encouraged to continue with smoking cessation attempts. Nicotine or placement therapies are offered and declined at this time. (11) Hypokalemia Is this a current diagnosis for this admission?: Yes Plan: Likely related to frequency of albuterol treatments and hydrochlorothiazide use. Have decreased hydrochlorothiazide. Weaning frequency of nebulizer treatments. Potassium is replaced with a combination of oral and IV potassium. We will monitor with serial chemistries. - Time Time Spent with patient: 15-24 minutes Medications reviewed and adjusted accordingly: Yes Anticipated discharge: Acute Rehab Within: when bed available
[2017-12-26] MEDS: RIVAROXABAN 15 MG TABLET PO SCH (16:20)
[2017-12-26] MEDS: PREDNISONE 20 MG TABLET PO SCH (18:17)
[2017-12-26] MEDS: AZITHROMYCIN 250 MG TABLET PO SCH (18:17)
[2017-12-27] MEDS: ALBUTEROL SULFATE 0.083% NEB 2.5 MG/3 ML AMPUL NEB SCH ×2 (02:01→08:04)
[2017-12-27 05:17] LABS: HEMOGLOBIN 10.8 g/dL (12.0-15.5); MEAN CORPUSCULAR HEMOGLOBIN 29.8 pg (27.0-33.4); MEAN CORPUSCULAR HGB CONC 33.8 g/dL (32.0-36.0); MEAN CORPUSCULAR VOLUME 88 fl (80-97); PLATELET COUNT 247 10^3/uL (150-450); RED BLOOD COUNT 3.63 10^6/uL (3.72-5.28); RED CELL DISTRIBUTION WIDTH 15.5 % (11.5-14.0); WHITE BLOOD COUNT 23.5 10^3/uL (4.0-10.5)
[2017-12-27] MEDS: DILTIAZEM HCL 90 MG TABLET PO SCH ×3 (06:40→22:11)
[2017-12-27] MEDS: LEVOTHYROXINE SODIUM 0.05 MG TABLET PO SCH (06:40)
[2017-12-27] MEDS: BUSPIRONE HCL 10 MG TABLET PO SCH ×3 (06:41→22:10)
[2017-12-27] MEDS: INSULIN LISPRO 100 UNIT/ML 3 ML VIAL SUBCUT PRN ×3 (08:11→22:10)
[2017-12-27] MEDS: RIVAROXABAN 15 MG TABLET PO SCH ×2 (08:12→16:03)
--- NOTE | 2017-12-27 08:28 | RADIOLOGY REPORT (SQ) ---
EXAM DESCRIPTION: CHEST SINGLE VIEW COMPLETED DATE/TIME: 12/27/2017 7:52 am REASON FOR STUDY: dyspnea COMPARISON: Two-view chest 12/23/2017 CT angio chest 12/23/2017, 12/12/2017, 11/21/2017 EXAM PARAMETERS: NUMBER OF VIEWS: One view. TECHNIQUE: Single frontal radiographic view of the chest acquired. RADIATION DOSE: NA LIMITATIONS: None. FINDINGS: LUNGS AND PLEURA: No acute infiltrates. No pleural effusion. No pneumothorax. Lungs are hyperinflated from obstructive disease. MEDIASTINUM AND HILAR STRUCTURES: Stable right hilar mass. HEART AND VASCULAR STRUCTURES: Heart normal in size. Normal vasculature. BONES: No acute findings. HARDWARE: None in the chest. OTHER: No other significant finding. IMPRESSION: No acute infiltrates. Stable right hilar mass TECHNICAL DOCUMENTATION: JOB ID: [id number]- All Rights Reserved Reading location - IP/workstation name: [email or web address]
[2017-12-27] MEDS: CETIRIZINE 10 MG TABLET PO SCH (09:05)
[2017-12-27] MEDS: GUAIFENESIN 600 MG TABLET.SA PO SCH ×2 (09:05→22:10)
[2017-12-27] MEDS: ROFLUMILAST 500 MCG TABLET PO SCH (09:05)
[2017-12-27] MEDS: PREDNISONE 20 MG TABLET PO SCH ×2 (09:05→16:59)
[2017-12-27] MEDS: ALBUTEROL SULFATE 0.083% NEB 2.5 MG/3 ML AMPUL NEB PRN (14:06)
[2017-12-27] MEDS ORDERED: IPRATROPIUM/ALBUTEROL 0.5-2.5 MG/3 ML AMPUL NEB PRN (16:32)
--- NOTE | 2017-12-27 16:41 | PDOC PROGRESS REPORT ---
Subjective Progress Note for:: 12/27/17 Subjective:: BRUCE GALAN I is a 67 year old patient female patient with multiple comorbidities including HLD, HTN, COPD, chronic respiratory failure and oxygen dependent, diabetes mellitus, hypothyroidism and anxiety disorder who was admitted on 12/23/17 with atrial fibrillation with RVR and pulmonary embolus. The patient is seen on morning rounds. She is found resting in in the recliner on BiPAP. She reports that she is feeling more fatigued and weak today. She states that she ambulated a short distance with physical therapy yesterday. She expresses frustration that her breathing has not significantly improved. She is reminded with concurrent diagnoses of advanced COPD, pulmonary embolism, and lung malignancy she will have a very gradual recovery. Otherwise, she has no other questions or concerns today. Reason For Visit: COPD EXACERBATION,ACUTE ON CHRONIC RESPIRATORY Physical Exam Vital Signs: Temp Pulse Resp BP Pulse Ox 97.4 F 108 H 24 H 121/72 95 12/27/17 15:03 12/27/17 15:03 12/27/17 16:13 12/27/17 15:03 12/27/17 15:03 Intake & Output 12/26/17 12/27/17 12/28/17 06:59 06:59 06:59 Intake Total 2509 2130 Output Total 400 700 Balance 2109 1430 Weight 77.7 kg 74.7 kg General appearance: PRESENT: disheveled, mild distress, well-developed, well- nourished Head exam: PRESENT: atraumatic, normocephalic Eye exam: PRESENT: conjunctiva pink, EOMI, PERRLA. ABSENT: scleral icterus Mouth exam: PRESENT: moist, tongue midline Teeth exam: PRESENT: poor dentation Neck exam: ABSENT: carotid bruit, JVD, lymphadenopathy, thyromegaly Respiratory exam: PRESENT: decreased breath sounds, prolonged expiratory phas, rhonchi, symmetrical, tachypnea, wheezes, other - BiPAP. ABSENT: rales Cardiovascular exam: PRESENT: RRR, tachycardia. ABSENT: diastolic murmur, rubs , systolic murmur Pulses: PRESENT: normal dorsalis pedis pul Vascular exam: PRESENT: normal capillary refill GI/Abdominal exam: PRESENT: normal bowel sounds, soft. ABSENT: distended, guarding, mass, organolmegaly, rebound, tenderness Rectal exam: PRESENT: deferred Extremities exam: PRESENT: full ROM. ABSENT: calf tenderness, clubbing, pedal edema Neurological exam: PRESENT: alert, awake, oriented to person, oriented to place , oriented to time, oriented to situation, CN II-XII grossly intact. ABSENT: motor sensory deficit Psychiatric exam: PRESENT: anxious, appropriate affect, normal mood. ABSENT: homicidal ideation, suicidal ideation Skin exam: PRESENT: dry, intact, warm. ABSENT: cyanosis, rash Results Laboratory Results: 12/27/17 04:55 12/26/17 13:48 12/27/17 04:55 WBC 23.5 H RBC 3.63 L Hgb 10.8 L Hct 32.0 L MCV 88 MCH 29.8 MCHC 33.8 RDW 15.5 H Plt Count 247 Impressions: Chest/Abdomen CTA 12/23/17 16:38 IMPRESSION: Evidence of pulmonary emboli with thrombus and peripheral pulmonary arteries to the left. Emphysematous pulmonary change, with patchy areas of ground-glass pulmonary density. Previously described mass of the right hilum and pulmonary lesions stable. Chest X-Ray 12/27/17 00:00 IMPRESSION: No acute infiltrates. Stable right hilar mass Assessment & Plan - Diagnosis (1) Acute pulmonary embolism Qualifiers: Pulmonary embolism type: other Acute cor pulmonale presence: without acute cor pulmonale Qualified Code(s): I26.99 - Other pulmonary embolism without acute cor pulmonale Is this a current diagnosis for this admission?: Yes Plan: The patient presented with tachycardia, dyspnea, hypoxia. D-dimer >16 CTA of the chest revealed pulmonary emboli with thrombus to the peripheral pulmonary arteries on the left, emphysema, stable lung mass to the right upper lobe and hilum. The patient is admitted to [facility] on continuous cardiac telemetry. She is placed on supplemental oxygen as needed to maintain oxygen saturations greater than 88%. BiPAP as needed. Discussed with oncology, Dr. Bond, recommends Xarelto. (2) Atrial fibrillation with RVR Is this a current diagnosis for this admission?: Yes Plan: Improved; patient is now rate controlled. The patient denies a known history of atrial fibrillation. Review of previous EKGs obtained at our facility demonstrates sinus rhythm. Patient presented in atrial fibrillation with RVR; HR 140. Patient admitted to [facility] on continuous cardiac telemetry. Patient remains rate controlled on p.o. diltiazem. Continue Xarelto. (3) COPD with acute bronchitis Is this a current diagnosis for this admission?: Yes Plan: Unchanged today; patient with COPD and recent tobacco use. Presented with dyspnea, rhonchi, wheezing, increased productive cough. Blood cultures have no growth at 72 hours. Of note, she has new pulmonary emboli. Patient supported with supplemental oxygen and BiPAP as needed. Continue p.o. prednisone. We will complete 5 day azithromycin course. As needed and nebulizer treatments. Continue home dose Daliresp. Resume home dose Dulera and Spiriva. Mucinex and Singulair. (4) Leukocytosis Is this a current diagnosis for this admission?: Yes Plan: Persistent; waxing and waning between 20.8 and 27.2. Leukocytosis is multifactorial secondary to pulmonary emboli, COPD exacerbation, lung malignancy , bronchitis, steroid therapy and likely to remain persistently elevated secondary to inflammatory reaction. The patient remains afebrile with negative blood cultures. We will continue azithromycin for treatment of bronchitis. (5) Diabetes mellitus Qualifiers: Diabetes mellitus type: type 2 Is this a current diagnosis for this admission?: Yes Plan: The patient reports history of prediabetes; does not check blood glucose at home or take antidiabetic medications. She is placed on a consistent carb diet while inpatient. We will monitor Accu-Cheks before meals and at bedtime and provide Humalog as needed for sliding scale coverage. (6) Lung mass Is this a current diagnosis for this admission?: Yes Plan: Stable lung has again noted on CTA of the chest this admission. During last admission for COPD, arrangements were made for the patient to be transferred to [facility] for EBUS. Patient reports that she did have biopsy completed as planned; received discharge summary and pathology report from [facility] confirming non-small cell lung cancer. Oncology is consulted; appreciate their evaluation recommendations. Spoke with Dr. Bond today. She is planning to have the patient complete a PET scan as an outpatient and to follow-up in her office 01/01/18 (7) Acute on chronic respiratory failure with hypoxia and hypercapnia Is this a current diagnosis for this admission?: Yes Plan: Unchanged today; likely to have very gradual improvement secondary to pulmonary emboli. She may also be demonstrating a new baseline chronic respiratory failure. Secondary to COPD exacerbation, bronchitis, pulmonary emboli, underlying lung malignancy. The patient is home O2 dependent but is currently requiring increased oxygen support; currently utilizing BiPAP overnight and intermittently throughout the day with increased oxygen via nasal cannula (3 L/min; uses 2 at home). The patient is supported with supplemental oxygen, BiPAP, and as needed nebulizer treatment. Recheck ABG in a.m. while on BiPAP Remaining plan as above. (8) Anxiety Is this a current diagnosis for this admission?: Yes Plan: Continue patient's home medication regiment; BuSpar q. 8 and lorazepam every 8 as needed. Patient declines need for increased dosing. (9) Hypertension Is this a current diagnosis for this admission?: Yes Plan: Currently normotensive. She has been transitioned to p.o. Cardizem. HCTZ has been discontinued secondary to persistent hypokalemia. Will monitor blood pressures carefully and consider increasing Cardizem as needed. (10) Tobacco dependence Is this a current diagnosis for this admission?: Yes Plan: The patient reports that she stopped smoking approximately 3 weeks ago. She is congratulated and encouraged to continue with smoking cessation attempts. Nicotine or placement therapies are offered and declined at this time. (11) Hypokalemia Is this a current diagnosis for this admission?: Yes Plan: Likely related to frequency of albuterol treatments and hydrochlorothiazide use. Have decreased hydrochlorothiazide. Weaning frequency of nebulizer treatments. Potassium is replaced with a combination of oral and IV potassium. We will monitor with serial chemistries. - Time Time Spent with patient: 15-24 minutes Medications reviewed and adjusted accordingly: Yes Anticipated discharge: SNF Within: within 72 hours - Pending arrangements for BiPAP
[2017-12-27] MEDS: AZITHROMYCIN 250 MG TABLET PO SCH (16:59)
[2017-12-27 21:10] LABS: ARTERIAL BLOOD BASE EXCESS 4.1 mmol/L; ARTERIAL BLOOD HCO3 28.7 mmol/L (20-26); ARTERIAL BLOOD O2 SATURATION 96.9 % (94-98); ARTERIAL BLOOD PCO2 43.2 mmHg (35-45); ARTERIAL BLOOD PH 7.44 (7.35-7.45); ARTERIAL BLOOD PO2 86.9 mmHg (80-100); ARTERIAL BLOOD TOTAL CO2 30.1 mmol/L (21-25)
[2017-12-27 21:12] LABS: ARTERIAL BLOOD FIO2 3L
[2017-12-27] MEDS ORDERED: (PENDING PHARMACY ID) (Mometasone/Formoterol [Dulera 200 Mcg/5 Mcg Inhaler] 2 PUFF) IH SCH (22:00)
[2017-12-28 02:49] LABS: APPEARANCE,URINE SLIGHTLY-CLOUDY; BILIRUBIN,URINE NEGATIVE (NEGATIVE); COLOR,URINE YELLOW; GLUCOSE, URINE >=500 mg/dL (NEGATIVE); KETONES,URINE NEGATIVE (NEGATIVE); LEUKOCYTE ESTERASE,URINE NEGATIVE (NEGATIVE); NITRITE,URINE NEGATIVE (NEGATIVE); PROTEIN,URINE 30 mg/dL (NEGATIVE); URINE SPECIFIC GRAVITY 1.028; UROBILINOGEN,URINE NEGATIVE mg/dL (<2.0)
[2017-12-28 04:39] LABS: HEMATOCRIT 29.2 % (36.0-47.0); MEAN CORPUSCULAR HEMOGLOBIN 30.5 pg (27.0-33.4); MEAN CORPUSCULAR HGB CONC 34.4 g/dL (32.0-36.0); MEAN CORPUSCULAR VOLUME 89 fl (80-97); PLATELET COUNT 221 10^3/uL (150-450); RED CELL DISTRIBUTION WIDTH 15.3 % (11.5-14.0); WHITE BLOOD COUNT 23.9 10^3/uL (4.0-10.5)
[2017-12-28 05:00] LABS: ANION GAP 6 (5-19); BLOOD UREA NITROGEN 32 mg/dL (7-20); CALCIUM 8.7 mg/dL (8.4-10.2); CARBON DIOXIDE 32 mmol/L (22-30); CHLORIDE 104 mmol/L (98-107); GLUCOSE 156 mg/dL (75-110); POTASSIUM 3.7 mmol/L (3.6-5.0); SODIUM 141.6 mmol/L (137-145)
[2017-12-28 05:57] LABS: ARTERIAL BLOOD BASE EXCESS 3.7 mmol/L; ARTERIAL BLOOD H2CO3 1.24 mmol/L (1.05-1.35); ARTERIAL BLOOD HCO3 28.1 mmol/L (20-26); ARTERIAL BLOOD O2 SATURATION 98.5 % (94-98); ARTERIAL BLOOD PCO2 41.3 mmHg (35-45); ARTERIAL BLOOD PH 7.45 (7.35-7.45); ARTERIAL BLOOD PO2 121.8 mmHg (80-100); ARTERIAL BLOOD TOTAL CO2 29.3 mmol/L (21-25)
[2017-12-28 06:00] LABS: ARTERIAL BLOOD FIO2 40%
[2017-12-28] MEDS: LORAZEPAM 0.5 MG TABLET PO PRN (06:57)
[2017-12-28] MEDS: LEVOTHYROXINE SODIUM 0.05 MG TABLET PO SCH (06:58)
[2017-12-28] MEDS: DILTIAZEM HCL 90 MG TABLET PO SCH ×3 (06:58→21:52)
[2017-12-28] MEDS: BUSPIRONE HCL 10 MG TABLET PO SCH ×3 (06:58→21:51)
[2017-12-28] MEDS: PREDNISONE 20 MG TABLET PO SCH (09:03)
[2017-12-28] MEDS: CETIRIZINE 10 MG TABLET PO SCH (09:03)
[2017-12-28] MEDS: GUAIFENESIN 600 MG TABLET.SA PO SCH ×2 (09:03→21:52)
[2017-12-28] MEDS: CITALOPRAM HYDROBROMIDE 20 MG TABLET PO SCH (09:04)
[2017-12-28] MEDS: RIVAROXABAN 15 MG TABLET PO SCH ×2 (09:04→15:59)
[2017-12-28] MEDS: ROFLUMILAST 500 MCG TABLET PO SCH (09:04)
[2017-12-28] MEDS ORDERED: (PENDING PHARMACY ID) (Tiotropium Bromide [Spiriva Respimat] 2 PUFF) IH SCH (10:00)
[2017-12-28] MEDS ORDERED: METHYLPREDNISOLONE INJ 40 MG/1 ML SDV IV SCH (11:30)
[2017-12-28] MEDS: INSULIN LISPRO 100 UNIT/ML 3 ML VIAL SUBCUT PRN ×2 (12:00→21:53)
[2017-12-28] MEDS ORDERED: METHYLPREDNISOLONE INJ 40 MG/1 ML SDV IV ONE (12:30)
[2017-12-28] MEDS: IPRATROPIUM/ALBUTEROL 0.5-2.5 MG/3 ML AMPUL NEB SCH ×2 (14:00→19:49)
--- NOTE | 2017-12-28 15:38 | PDOC PROGRESS REPORT ---
Subjective Progress Note for:: 12/28/17 Subjective:: BRUCE GALAN I is a 67 year old patient female patient with multiple comorbidities including HLD, HTN, COPD, chronic respiratory failure and oxygen dependent, diabetes mellitus, hypothyroidism and anxiety disorder who was admitted on 12/23/17 with atrial fibrillation with RVR and pulmonary embolus. The patient is seen on morning rounds. She is found resting in the recliner on BiPAP. Yesterday, arrangements were made for the patient to be discharged to [facility] for short-term rehabilitation, however, discharge was delayed secondary to difficulty obtaining BiPAP over the weekend. This is fortunate as the patient appears to have worsened overnight. She reports increased dyspnea at rest, orthopnea, increased BiPAP requirement, fatigue, and generalized muscle weakness. Nursing reports that yesterday the patient was ambulatory with walker and standby assistance today required 2 person assist to stand and pivot. The patient is also reporting right lower quadrant pain. She denies fever, chills, nausea, vomiting, diarrhea, constipation, urinary frequency urgency and dysuria. Reason For Visit: COPD EXACERBATION,ACUTE ON CHRONIC RESPIRATORY Physical Exam Vital Signs: Temp Pulse Resp BP Pulse Ox 97.2 F 103 H 20 126/91 H 97 12/28/17 07:08 12/28/17 14:04 12/28/17 14:04 12/28/17 11:35 12/28/17 14:04 Intake & Output 12/27/17 12/28/17 12/29/17 06:59 06:59 06:59 Intake Total 2130 861 637 Output Total 700 700 200 Balance 1430 161 437 Weight 74.7 kg 80.1 kg General appearance: PRESENT: disheveled, mild distress, well-developed, well- nourished, other - Acutely ill-appearing Head exam: PRESENT: atraumatic, normocephalic Eye exam: PRESENT: conjunctiva pink, EOMI, PERRLA. ABSENT: scleral icterus Ear exam: PRESENT: normal external ear exam Mouth exam: PRESENT: moist, tongue midline Neck exam: ABSENT: carotid bruit, JVD, lymphadenopathy, thyromegaly Respiratory exam: PRESENT: accessory muscle use, prolonged expiratory phas, rhonchi, symmetrical, tachypnea, wheezes, other - BiPAP. ABSENT: rales Cardiovascular exam: PRESENT: RRR, +S1, +S2, tachycardia. ABSENT: diastolic murmur, rubs, systolic murmur Pulses: PRESENT: normal dorsalis pedis pul Vascular exam: PRESENT: normal capillary refill GI/Abdominal exam: PRESENT: normal bowel sounds, soft. ABSENT: distended, guarding, mass, organolmegaly, rebound, tenderness Rectal exam: PRESENT: deferred Extremities exam: PRESENT: full ROM. ABSENT: calf tenderness, clubbing, pedal edema Neurological exam: PRESENT: alert, awake, oriented to person, oriented to place , oriented to time, oriented to situation, CN II-XII grossly intact. ABSENT: motor sensory deficit Psychiatric exam: PRESENT: anxious, appropriate affect, normal mood. ABSENT: homicidal ideation, suicidal ideation Skin exam: PRESENT: dry, intact, warm. ABSENT: cyanosis, rash Results Laboratory Results: 12/28/17 04:19 12/28/17 04:19 12/27/17 12/27/17 12/28/17 19:00 20:50 01:48 WBC RBC Hgb Hct MCV MCH MCHC RDW Plt Count Carbonic Acid Cancelled 1.30 HCO3/H2CO3 Ratio Cancelled 22:1 ABG pH Cancelled 7.44 ABG pCO2 Cancelled 43.2 ABG pO2 Cancelled 86.9 ABG HCO3 Cancelled 28.7 H ABG O2 Saturation Cancelled 96.9 ABG Base Excess Cancelled 4.1 FiO2 Cancelled 3L Sodium Potassium Chloride Carbon Dioxide Anion Gap BUN Creatinine Est GFR ( Amer) Est GFR (Non-Af Amer) Glucose Calcium Urine Color YELLOW Urine Appearance SLIGHTLY-CLOUDY Urine pH 6.0 Ur Specific [place] 1.028 Urine Protein 30 H Urine Glucose (UA) >=500 H Urine Ketones NEGATIVE Urine Blood SMALL H Urine Nitrite NEGATIVE Ur Leukocyte Esterase NEGATIVE Urine WBC (Auto) 7 Urine RBC (Auto) 12/28/17 12/28/17 12/28/17 04:19 04:19 05:50 WBC 23.9 H RBC 3.30 L Hgb 10.0 L Hct 29.2 L MCV 89 MCH 30.5 MCHC 34.4 RDW 15.3 H Plt Count 221 Carbonic Acid 1.24 HCO3/H2CO3 Ratio 22:1 ABG pH 7.45 ABG pCO2 41.3 ABG pO2 121.8 H ABG HCO3 28.1 H ABG O2 Saturation 98.5 H ABG Base Excess 3.7 FiO2 40% Sodium 141.6 Potassium 3.7 Chloride 104 Carbon Dioxide 32 H Anion Gap 6 BUN 32 H Creatinine 0.31 L Est GFR ( Amer) > 60 Est GFR (Non-Af Amer) > 60 Glucose 156 H Calcium 8.7 Urine Color Urine Appearance Urine pH Ur Specific [place] Urine Protein Urine Glucose (UA) Urine Ketones Urine Blood Urine Nitrite Ur Leukocyte Esterase Urine WBC (Auto) Urine RBC (Auto) 12/28/17 04:19 NT-Pro-B Natriuret Pep 268 Impressions: Chest/Abdomen CTA 12/23/17 16:38 IMPRESSION: Evidence of pulmonary emboli with thrombus and peripheral pulmonary arteries to the left. Emphysematous pulmonary change, with patchy areas of ground-glass pulmonary density. Previously described mass of the right hilum and pulmonary lesions stable. Chest X-Ray 12/27/17 00:00 IMPRESSION: No acute infiltrates. Stable right hilar mass Assessment & Plan - Diagnosis (1) Acute pulmonary embolism Qualifiers: Pulmonary embolism type: other Acute cor pulmonale presence: without acute cor pulmonale Qualified Code(s): I26.99 - Other pulmonary embolism without acute cor pulmonale Is this a current diagnosis for this admission?: Yes Plan: The patient presented with tachycardia, dyspnea, hypoxia. D-dimer >16 CTA of the chest revealed pulmonary emboli with thrombus to the peripheral pulmonary arteries on the left, emphysema, stable lung mass to the right upper lobe and hilum. The patient is admitted to [facility] on continuous cardiac telemetry. She is placed on supplemental oxygen as needed to maintain oxygen saturations greater than 88%. BiPAP as needed. Discussed with oncology, Dr. Bond, started on Xarelto. (2) Atrial fibrillation with RVR Is this a current diagnosis for this admission?: Yes Plan: Heart rate is elevated again today. The patient denies a known history of atrial fibrillation. Review of previous EKGs obtained at our facility demonstrates sinus rhythm. Patient presented in atrial fibrillation with RVR; HR 140. Patient admitted to [facility] on continuous cardiac telemetry. Patient initially treated with diltiazem gtt; transitioned to p.o diltiazem. I believe that HR elevation today is due to worsening respiratory status. Will hold on dose adjustments unless HR becomes persistently elevated >120 Continue Xarelto. (3) COPD with acute bronchitis Is this a current diagnosis for this admission?: Yes Plan: Worsened; patient with COPD and recent tobacco use. Presented with dyspnea, rhonchi, wheezing, increased productive cough. Blood cultures have no growth at 72 hours. ABG this am is improved; however, patient has increased BiPAP and O2 demand, increased dyspnea, tachycadia and worsened lung sounds. Of note, she has new pulmonary emboli. CT chest pending. Patient supported with supplemental oxygen and BiPAP as needed. Escalate to IV Solu-Medrol Scheduled and as needed and nebulizer treatments. Continue home dose Daliresp. Resume home dose Dulera and Spiriva. Mucinex and Singulair. Pulmonology consultation; appreciate their assistance. (4) Leukocytosis Is this a current diagnosis for this admission?: Yes Plan: Persistent; waxing and waning between 20.8 and 27.2. Leukocytosis is multifactorial secondary to pulmonary emboli, COPD exacerbation, lung malignancy , bronchitis, steroid therapy and likely to remain persistently elevated secondary to inflammatory reaction. The patient remains afebrile with negative blood cultures. (5) Diabetes mellitus Qualifiers: Diabetes mellitus type: type 2 Is this a current diagnosis for this admission?: Yes Plan: The patient reports history of prediabetes; does not check blood glucose at home or take antidiabetic medications. She is placed on a consistent carb diet while inpatient. We will monitor Accu-Cheks before meals and at bedtime and provide Humalog as needed for sliding scale coverage. (6) Lung mass Is this a current diagnosis for this admission?: Yes Plan: Stable lung has again noted on CTA of the chest this admission. During last admission for COPD, arrangements were made for the patient to be transferred to [facility] for EBUS. Patient reports that she did have biopsy completed as planned; received discharge summary and pathology report from [facility] confirming non-small cell lung cancer. Oncology is consulted; appreciate their evaluation recommendations. Spoke with Dr. Bond today. She is planning to have the patient complete a PET scan as an outpatient and to follow-up in her office 01/01/18 (7) Acute on chronic respiratory failure with hypoxia and hypercapnia Is this a current diagnosis for this admission?: Yes Plan: Worsened today; increased tachycardia, tachypnea, dyspnea, orthopnea, O2 and BiPAP requirement with worsened lung sounds. Secondary to COPD exacerbation, bronchitis, pulmonary emboli, underlying lung malignancy. The patient is home O2 dependent but is currently requiring increased oxygen support; currently utilizing BiPAP overnight and intermittently throughout the day with increased oxygen via nasal cannula. ABG this morning is improved, however, she is clinically worsened. Chest CT is pending. The patient is supported with supplemental oxygen, BiPAP, and scheduled and as needed nebulizer treatments. Appreciate Pulmonology's assistance. Remaining plan as above. (8) Anxiety Is this a current diagnosis for this admission?: Yes Plan: Continue patient's home medication regiment; BuSpar q. 8 and lorazepam every 8 as needed. We will increase availability of Ativan to every 6 hours. (9) Hypertension Is this a current diagnosis for this admission?: Yes Plan: Currently normotensive. She has been transitioned to p.o. Cardizem. HCTZ has been discontinued secondary to persistent hypokalemia. Will monitor blood pressures carefully and consider increasing Cardizem as needed. (10) Tobacco dependence Is this a current diagnosis for this admission?: Yes Plan: The patient reports that she stopped smoking approximately 3 weeks ago. She is congratulated and encouraged to continue with smoking cessation attempts. Nicotine or placement therapies are offered and declined at this time. (11) Hypokalemia Is this a current diagnosis for this admission?: Yes Plan: Likely related to frequency of albuterol treatments and hydrochlorothiazide use. Have discontinued hydrochlorothiazide. Weaning frequency of nebulizer treatments as tolerated. We will monitor with serial chemistries and replace as needed. (12) RLQ abdominal pain Is this a current diagnosis for this admission?: Yes Plan: The patient reports constant right lower quadrant abdominal pain described as aching with intermittent sharp exacerbations. Pain is worsened by movement ( position changes, cough, deep breathing). No alleviating factors. Patient denies nausea, vomiting, diarrhea, constipation, urinary urgency, frequency, dysuria, and hematuria. Of note, outpatient records from [facility] state that imaging studies done at their facility identified a right adnexa mass worrisome for metastasis. CT abdomen and pelvis is pending. Will obtain repeat urinalysis. If patient develops loose stools, will need to obtain culture. Consider possible need for pelvic exam or MANAGER OF CLINICAL referral. Consider possible need for surgery referral pending CT results. Antiemetics and analgesics as needed. - Time Time Spent with patient: 25-34 minutes Medications reviewed and adjusted accordingly: Yes
--- NOTE | 2017-12-28 16:52 | RADIOLOGY REPORT (SQ) ---
EXAM DESCRIPTION: CT CHEST WITHOUT COMPLETED DATE/TIME: 12/28/2017 3:40 pm REASON FOR STUDY: Worsening resp failure; known Lung CA COMPARISON: 12/23/2017, 12/12/2017, and 11/21/2017. TECHNIQUE: CT scan performed of the chest without intravenous contrast. Images reviewed with lung, soft tissue and bone windows. Reconstructed coronal and sagittal MPR images reviewed. All images st ored on PACS. All CT scanners at this facility use dose modulation, iterative reconstruction, and/or weight based d osing when appropriate to reduce radiation dose to as low as reasonably achievable (ALARA). [facility]: Dose Right [facility]: CareDose [facility]: Dose Right [facility]: Teradose 4D [facility]: [employer] RADIATION DOSE: mGy. LIMITATIONS: No technical limitations. FINDINGS: LUNGS AND PLEURA: Emphysematous changes. Chronic scarring. Small spiculated lesion in th e right upper lobe unchanged. Interval development of a minimal right pleural effusion. Mild atelec tasis/ scarring in the right lung base. Left lung clear. HILAR AND MEDIASTINAL STRUCTURES: Stable right hilar mass. HEART AND VASCULAR STRUCTURES: No aneurysm. No pericardial effusion. UPPER ABDOMEN: See separate report of the CT of the abdomen. THYROID AND OTHER SOFT TISSUES: No masses. No adenopathy. BONES: No significant finding. HARDWARE: None in the chest. OTHER: No other significant findings. IMPRESSION: 1. INTERVAL DEVELOPMENT OF A MINIMAL RIGHT PLEURAL EFFUSION. MILD ATELECTASIS OR SCARRING IN THE RIG HT LUNG BASE. 2. CHRONIC EMPHYSEMATOUS CHANGES WITH CHRONIC SCARRING. SMALL SPICULATED LESION IN THE RIGHT UPPER L OBE AND RIGHT HILAR MASS UNCHANGED. NO NEW LESIONS. LEFT LUNG CLEAR. TECHNICAL DOCUMENTATION: JOB ID: [id number] Quality ID # [id number]: Final reports with documentation of one or more dose reduction techniques (e.g., Au tomated exposure control, adjustment of the mA and/or kV according to patient size, use of iterative reconstruction technique) 2010 [employer]- All Rights Reserved Reading location - IP/workstation name: [email or web address]
--- NOTE | 2017-12-28 16:55 | RADIOLOGY REPORT (SQ) ---
EXAM DESCRIPTION: CT ABD/PELVIS NO ORAL OR IV COMPLETED DATE/TIME: 12/28/2017 3:40 pm REASON FOR STUDY: RLQ ABD pain COMPARISON: None. TECHNIQUE: CT scan of the abdomen and pelvis performed without intravenous or oral contrast. Images reviewed with lung, soft tissue, and bone windows. Reconstructed coronal and sagittal MPR images revi ewed. All images stored on PACS. All CT scanners at this facility use dose modulation, iterative reconstruction, and/or weight based d osing when appropriate to reduce radiation dose to as low as reasonably achievable (ALARA). [facility]: Dose Right [facility]: CareDose [facility]: Dose Right [facility]: Teradose 4D [facility]: [email or web address] RADIATION DOSE: CT Rad equipment meets quality standard of care and radiation dose reduction techniq ues were employed. CTDIvol: 13.9 mGy. DLP: 886 mGy-cm.mGy. LIMITATIONS: None. FINDINGS: LOWER CHEST: See separate report of the CT of the chest. NON-CONTRASTED LIVER, SPLEEN, ADRENALS: Evaluation limited by lack of IV contrast. No identified sign ificant masses. PANCREAS: No masses. No peripancreatic inflammatory changes. GALLBLADDER: Gallstones. No inflammatory changes to suggest cholecystitis. RIGHT KIDNEY AND URETER: No suspicious masses. Assessment limited by lack of IV contrast. No signif icant calcifications. No hydronephrosis or hydroureter. LEFT KIDNEY AND URETER: No suspicious masses. Assessment limited by lack of IV contrast. No signifi cant calcifications. No hydronephrosis or hydroureter. AORTA AND RETROPERITONEUM: No aneurysm. No retroperitoneal masses or adenopathy. BOWEL AND PERITONEAL CAVITY: Extensive colonic diverticulosis, particularly in the descending and sig moid colon. No obvious masses or inflammatory changes. No free fluid. APPENDIX: Not visualized. PELVIS, BLADDER, AND ABDOMINAL WALL:No abnormal masses. Small umbilical hernia containing fat only. No free fluid. Bladder normal. BONES: No significant findings. OTHER: No other significant finding. IMPRESSION: 1. GALLSTONES. 2. EXTENSIVE COLONIC DIVERTICULOSIS. NO CT FINDINGS OF ACUTE DIVERTICULITIS. 3. SMALL UMBILICAL HERNIA CONTAINING FAT ONLY. NO INVOLVEMENT OF BOWEL. 4. NO OTHER SIGNIFICANT OR ACUTE PROCESS IN THE ABDOMEN OR PELVIS. COMMENT: Quality ID # [id number]: Final reports with documentation of one or more dose reduction techniques (e.g., Automated exposure control, adjustment of the mA and/or kV according to patient size, use of iterative reconstruction technique) TECHNICAL DOCUMENTATION: JOB ID: [id number] [employer]- All Rights Reserved Reading location - IP/workstation name: [email or web address]
[2017-12-28] MEDS: ALBUTEROL SULFATE 0.083% NEB 2.5 MG/3 ML AMPUL NEB PRN (17:55)
[2017-12-28] MEDS: METHYLPREDNISOLONE INJ 40 MG/1 ML SDV IV SCH (21:52)
[2017-12-29] MEDS: IPRATROPIUM/ALBUTEROL 0.5-2.5 MG/3 ML AMPUL NEB SCH ×4 (02:11→20:59)
[2017-12-29 04:58] LABS: HEMATOCRIT 28.7 % (36.0-47.0); HEMOGLOBIN 9.7 g/dL (12.0-15.5); MEAN CORPUSCULAR HEMOGLOBIN 29.8 pg (27.0-33.4); MEAN CORPUSCULAR HGB CONC 33.9 g/dL (32.0-36.0); MEAN CORPUSCULAR VOLUME 88 fl (80-97); PLATELET COUNT 214 10^3/uL (150-450); RED BLOOD COUNT 3.26 10^6/uL (3.72-5.28); RED CELL DISTRIBUTION WIDTH 15.6 % (11.5-14.0)
[2017-12-29 05:16] LABS: ALANINE AMINOTRANSFERASE 64 U/L (9-52); ALBUMIN 2.4 g/dL (3.5-5.0); ALKALINE PHOSPHATASE 144 U/L (38-126); ANION GAP 7 (5-19); ASPARTATE AMINO TRANSFERASE 20 U/L (14-36); BILIRUBIN,DIRECT 0.3 mg/dL (0.0-0.4); BILIRUBIN,TOTAL 0.3 mg/dL (0.2-1.3); BLOOD UREA NITROGEN 25 mg/dL (7-20); CALCIUM 8.6 mg/dL (8.4-10.2); CARBON DIOXIDE 31 mmol/L (22-30); CHLORIDE 103 mmol/L (98-107); GLUCOSE 175 mg/dL (75-110); SODIUM 141.2 mmol/L (137-145); TOTAL PROTEIN 4.5 g/dL (6.3-8.2)
[2017-12-29 05:19] LABS: WHITE BLOOD COUNT 23.5 10^3/uL (4.0-10.5)
[2017-12-29] MEDS: LEVOTHYROXINE SODIUM 0.05 MG TABLET PO SCH (05:23)
[2017-12-29] MEDS: BUSPIRONE HCL 10 MG TABLET PO SCH ×3 (05:23→22:48)
[2017-12-29] MEDS: DILTIAZEM HCL 90 MG TABLET PO SCH ×3 (05:23→22:49)
[2017-12-29 05:45] LABS: APPEARANCE,URINE CLEAR; BILIRUBIN,URINE NEGATIVE (NEGATIVE); COLOR,URINE YELLOW; GLUCOSE, URINE >=500 mg/dL (NEGATIVE); KETONES,URINE NEGATIVE (NEGATIVE); LEUKOCYTE ESTERASE,URINE NEGATIVE (NEGATIVE); NITRITE,URINE NEGATIVE (NEGATIVE); PROTEIN,URINE NEGATIVE (NEGATIVE); URINE SPECIFIC GRAVITY 1.031; UROBILINOGEN,URINE NEGATIVE mg/dL (<2.0)
[2017-12-29] MEDS: INSULIN LISPRO 100 UNIT/ML 3 ML VIAL SUBCUT PRN ×4 (07:50→22:49)
[2017-12-29] MEDS: RIVAROXABAN 15 MG TABLET PO SCH ×2 (07:50→16:27)
[2017-12-29] MEDS: METHYLPREDNISOLONE INJ 40 MG/1 ML SDV IV SCH ×2 (09:48→22:49)
[2017-12-29] MEDS: CETIRIZINE 10 MG TABLET PO SCH (09:48)
[2017-12-29] MEDS: ROFLUMILAST 500 MCG TABLET PO SCH (09:48)
[2017-12-29] MEDS: CITALOPRAM HYDROBROMIDE 20 MG TABLET PO SCH (09:48)
[2017-12-29] MEDS: GUAIFENESIN 600 MG TABLET.SA PO SCH ×2 (09:48→22:49)
--- NOTE | 2017-12-29 14:01 | PDOC PROGRESS REPORT ---
Subjective Progress Note for:: 12/29/17 Subjective:: BRUCE GALAN I is a 67 year old patient female patient with multiple comorbidities including HLD, HTN, COPD, chronic respiratory failure and oxygen dependent, diabetes mellitus, hypothyroidism and anxiety disorder who was admitted on 12/23/17 with atrial fibrillation with RVR and pulmonary embolus. The patient is seen on morning rounds. She is found resting in bed on BiPAP. Immediately upon entering the room, he knows that she is improved from yesterday. She appears to be resting comfortably and waves at me as I enter. She states that she is feeling better today. She is continuing to have dyspnea , especially when off BiPAP, and occasional wheezing. She reports that her abdominal pain has resolved and is now remembering that it may have been caused by the gait belt while up with physical therapy the day prior. She again expresses frustration regarding her slow recovery and appreciates that she was not discharged on Saturday so that she could continue her her care here. We discussed that pulmonology has been consulted as it was likely the patient would have a very slow improvement in her lung function and that she likely will not feel entirely well at the time she is discharged to rehab. Overall, she states that she is feeling much better today and has no new questions or concerns. Reason For Visit: COPD EXACERBATION,ACUTE ON CHRONIC RESPIRATORY Physical Exam Vital Signs: Temp Pulse Resp BP Pulse Ox 97.3 F 105 H 22 H 132/68 H 96 12/29/17 11:45 12/29/17 13:36 12/29/17 13:36 12/29/17 11:45 12/29/17 13:36 Intake & Output 12/28/17 12/29/17 12/30/17 06:59 06:59 06:59 Intake Total 861 1391 237 Output Total 700 750 Balance 161 641 237 Weight 80.1 kg 78.3 kg General appearance: PRESENT: no acute distress, cooperative, mild distress, well -developed, well-nourished Head exam: PRESENT: atraumatic, normocephalic Eye exam: PRESENT: conjunctiva pink, EOMI, PERRLA. ABSENT: scleral icterus Mouth exam: PRESENT: moist, tongue midline Teeth exam: PRESENT: poor dentation Neck exam: ABSENT: carotid bruit, JVD, lymphadenopathy, thyromegaly Respiratory exam: PRESENT: prolonged expiratory phas, rhonchi, symmetrical, tachypnea, wheezes, other - On BiPAP. ABSENT: rales Cardiovascular exam: PRESENT: RRR. ABSENT: diastolic murmur, rubs, systolic murmur Pulses: PRESENT: normal dorsalis pedis pul Vascular exam: PRESENT: normal capillary refill GI/Abdominal exam: PRESENT: normal bowel sounds, soft. ABSENT: distended, guarding, mass, organolmegaly, rebound, tenderness Rectal exam: PRESENT: deferred Extremities exam: PRESENT: full ROM, +1 edema. ABSENT: calf tenderness, clubbing, pedal edema Neurological exam: PRESENT: alert, awake, oriented to person, oriented to place , oriented to time, oriented to situation, CN II-XII grossly intact. ABSENT: motor sensory deficit Psychiatric exam: PRESENT: appropriate affect, normal mood. ABSENT: homicidal ideation, suicidal ideation Skin exam: PRESENT: dry, intact, warm. ABSENT: cyanosis, rash Results Laboratory Results: 12/29/17 04:27 12/29/17 04:27 12/29/17 12/29/17 12/29/17 04:27 04:27 05:30 WBC 23.5 H RBC 3.26 L Hgb 9.7 L Hct 28.7 L MCV 88 MCH 29.8 MCHC 33.9 RDW 15.6 H Plt Count 214 Sodium 141.2 Potassium 4.0 Chloride 103 Carbon Dioxide 31 H Anion Gap 7 BUN 25 H Creatinine 0.36 L Est GFR ( Amer) > 60 Est GFR (Non-Af Amer) > 60 Glucose 175 H Calcium 8.6 Total Bilirubin 0.3 AST 20 ALT 64 H Alkaline Phosphatase 144 H Total Protein 4.5 L Albumin 2.4 L Urine Color YELLOW Urine Appearance CLEAR Urine pH 5.0 Ur Specific [place] 1.031 Urine Protein NEGATIVE Urine Glucose (UA) >=500 H Urine Ketones NEGATIVE Urine Blood SMALL H Urine Nitrite NEGATIVE Ur Leukocyte Esterase NEGATIVE Urine WBC (Auto) 3 Urine RBC (Auto) 17 12/24/17 00:20 Blood Blood Culture - Final NO GROWTH IN 5 DAYS 12/23/17 23:00 Blood Blood Culture - Final NO GROWTH IN 5 DAYS 12/28/17 04:19 NT-Pro-B Natriuret Pep 268 Impressions: Chest/Abdomen CTA 12/23/17 16:38 IMPRESSION: Evidence of pulmonary emboli with thrombus and peripheral pulmonary arteries to the left. Emphysematous pulmonary change, with patchy areas of ground-glass pulmonary density. Previously described mass of the right hilum and pulmonary lesions stable. Chest X-Ray 12/27/17 00:00 IMPRESSION: No acute infiltrates. Stable right hilar mass Abdomen/Pelvis CT 12/28/17 00:00 IMPRESSION: 1. GALLSTONES. 2. EXTENSIVE COLONIC DIVERTICULOSIS. NO CT FINDINGS OF ACUTE DIVERTICULITIS. 3. SMALL UMBILICAL HERNIA CONTAINING FAT ONLY. NO INVOLVEMENT OF BOWEL. 4. NO OTHER SIGNIFICANT OR ACUTE PROCESS IN THE ABDOMEN OR PELVIS. Chest CT 12/28/17 00:00 IMPRESSION: 1. INTERVAL DEVELOPMENT OF A MINIMAL RIGHT PLEURAL EFFUSION. MILD ATELECTASIS OR SCARRING IN THE RIGHT LUNG BASE. 2. CHRONIC EMPHYSEMATOUS CHANGES WITH CHRONIC SCARRING. SMALL SPICULATED LESION IN THE RIGHT UPPER LOBE AND RIGHT HILAR MASS UNCHANGED. NO NEW LESIONS. LEFT LUNG CLEAR. Assessment & Plan - Diagnosis (1) Acute pulmonary embolism Qualifiers: Pulmonary embolism type: other Acute cor pulmonale presence: without acute cor pulmonale Qualified Code(s): I26.99 - Other pulmonary embolism without acute cor pulmonale Is this a current diagnosis for this admission?: Yes Plan: The patient presented with tachycardia, dyspnea, hypoxia. D-dimer >16 CTA of the chest revealed pulmonary emboli with thrombus to the peripheral pulmonary arteries on the left, emphysema, stable lung mass to the right upper lobe and hilum. The patient is admitted to [facility] on continuous cardiac telemetry. She is placed on supplemental oxygen as needed to maintain oxygen saturations greater than 88%. BiPAP as needed. Discussed with oncology, Dr. Bond, started on Xarelto. Have also consulted pulmonology given the multiple lung assaults. (2) Atrial fibrillation with RVR Is this a current diagnosis for this admission?: Yes Plan: Heart rate is elevated again today; HR 84-105. The patient denies a known history of atrial fibrillation. Review of previous EKGs obtained at our facility demonstrates sinus rhythm. Patient presented in atrial fibrillation with RVR; HR 140. Patient admitted to [facility] on continuous cardiac telemetry. Patient initially treated with diltiazem gtt; transitioned to p.o diltiazem. I believe that HR elevation is related to worsening respiratory status. Will hold on dose adjustments unless HR becomes persistently elevated >120 Continue Xarelto. (3) COPD with acute bronchitis Is this a current diagnosis for this admission?: Yes Plan: Slightly improved today; patient with COPD and recent tobacco use. Presented with dyspnea, rhonchi, wheezing, increased productive cough. Blood cultures have no growth at 72 hours. Of note, she has new pulmonary emboli. CT chest shows a minimal right pleural effusion, mild atelectasis, chronic emphysematous changes and stable right upper lobe and hilar masses unchanged from previous. Patient supported with supplemental oxygen and BiPAP as needed. Continue IV Solu-Medrol Scheduled and as needed and nebulizer treatments. Continue home dose Daliresp. Resume home dose Dulera and Spiriva. Mucinex and Singulair. Pulmonology consultation; appreciate their assistance. Although WBCs remain elevated, the patient is afebrile. Leukocytosis is likely secondary to inflammatory reaction related to malignancy. No indication for additional antibiotics at this time. (4) Leukocytosis Is this a current diagnosis for this admission?: Yes Plan: Persistent; waxing and waning between 20.8 and 27.2. Leukocytosis is multifactorial secondary to pulmonary emboli, COPD exacerbation, lung malignancy , bronchitis, steroid therapy and likely to remain persistently elevated secondary to inflammatory reaction. The patient remains afebrile with negative blood cultures. No indication for antibiotics. (5) Diabetes mellitus Qualifiers: Diabetes mellitus type: type 2 Is this a current diagnosis for this admission?: Yes Plan: The patient reports history of prediabetes; does not check blood glucose at home or take antidiabetic medications. She is placed on a consistent carb diet while inpatient. We will monitor Accu-Cheks before meals and at bedtime and provide Humalog as needed for sliding scale coverage. (6) Lung mass Is this a current diagnosis for this admission?: Yes Plan: Stable lung has again noted on CTA of the chest this admission. During last admission for COPD, arrangements were made for the patient to be transferred to [facility] for EBUS. Patient reports that she did have biopsy completed as planned; received discharge summary and pathology report from [facility] confirming non-small cell lung cancer. Repeat noncontrasted CT of the chest yesterday is negative for new lung nodules. Oncology is consulted; appreciate their evaluation recommendations. Spoke with Dr. Bond today. She is planning to have the patient complete a PET scan as an outpatient and to follow-up in her office 01/01/18. The patient was informed of discharge summary from [facility] commenting on potential malignancy in her lower right abdomen. She was previously unaware of this and appreciates being informed. We discussed that the PET scan planned by Dr. Bond will provide more information. Palliative care consultation has been initiated to establish goals of care. (7) Acute on chronic respiratory failure with hypoxia and hypercapnia Is this a current diagnosis for this admission?: Yes Plan: Slightly improved today; yesterday the patient was noted to have increased tachycardia, tachypnea, dyspnea, orthopnea, O2 and BiPAP requirement with worsened lung sounds. Secondary to COPD exacerbation, bronchitis, pulmonary emboli, underlying lung malignancy. The patient is home O2 dependent but is currently requiring increased oxygen support; currently utilizing BiPAP overnight and intermittently throughout the day with increased oxygen via nasal cannula. ABG this morning is improved, however, she is clinically worsened. Chest CT is reassuring.. The patient is supported with supplemental oxygen, BiPAP, and scheduled and as needed nebulizer treatments. Appreciate Pulmonology's assistance. Remaining plan as above. (8) Anxiety Is this a current diagnosis for this admission?: Yes Plan: Continue patient's home medication regiment; BuSpar q. 8 and lorazepam every 8 as needed. We will increase availability of Ativan to every 6 hours. (9) Hypertension Is this a current diagnosis for this admission?: Yes Plan: Currently normotensive. She has been transitioned to p.o. Cardizem. HCTZ has been discontinued secondary to persistent hypokalemia. Will monitor blood pressures carefully and consider increasing Cardizem as needed. (10) Tobacco dependence Is this a current diagnosis for this admission?: Yes Plan: The patient reports that she stopped smoking approximately 4 weeks ago. She is congratulated and encouraged to continue with smoking cessation attempts. Nicotine or placement therapies are offered and declined at this time. (11) Hypokalemia Is this a current diagnosis for this admission?: Yes Plan: Resolved; likely related to frequency of albuterol treatments and hydrochlorothiazide use. Have discontinued hydrochlorothiazide. Weaning frequency of nebulizer treatments as tolerated. We will monitor with serial chemistries and replace as needed. (12) RLQ abdominal pain Is this a current diagnosis for this admission?: Yes Plan: Resolved. The patient reports constant right lower quadrant abdominal pain described as aching with intermittent sharp exacerbations. Pain is worsened by movement ( position changes, cough, deep breathing). No alleviating factors. Patient denies nausea, vomiting, diarrhea, constipation, urinary urgency, frequency, dysuria, and hematuria. Of note, outpatient records from [facility] that imaging studies done at their facility identified a right adnexa mass worrisome for metastasis. Noncontrasted CT of the abdomen obtained yesterday revealed gallstones, extensive colonic diverticulosis without diverticulitis, small umbilical hernia and no other significant or acute processes. Understanding that this imaging study was limited by lack of contrast. Repeat urinalysis yesterday is negative for UTI. The patient tells me today that she believes that the discomfort may have been related to gait belt used all up with physical therapy. Antiemetics and analgesics as needed. - Time Time Spent with patient: 25-34 minutes Medications reviewed and adjusted accordingly: Yes Anticipated discharge: Acute Rehab Within: Other - Awaiting pulmonology consultation. Patient remains BiPAP dependent and is not currently stable for discharge to acute rehabilitation.
[2017-12-29] MEDS ORDERED: FUROSEMIDE INJ/PF 20 MG/2 ML SDV IV ONE (14:15)
[2017-12-30] MEDS: IPRATROPIUM/ALBUTEROL 0.5-2.5 MG/3 ML AMPUL NEB SCH ×4 (02:08→20:24)
[2017-12-30] MEDS: LEVOTHYROXINE SODIUM 0.05 MG TABLET PO SCH (06:42)
[2017-12-30] MEDS: DILTIAZEM HCL 90 MG TABLET PO SCH ×3 (06:42→21:59)
[2017-12-30] MEDS: BUSPIRONE HCL 10 MG TABLET PO SCH ×3 (06:42→22:00)
[2017-12-30 06:47] LABS: HEMATOCRIT 28.5 % (36.0-47.0); HEMOGLOBIN 9.6 g/dL (12.0-15.5); MEAN CORPUSCULAR HEMOGLOBIN 30.1 pg (27.0-33.4); MEAN CORPUSCULAR HGB CONC 33.8 g/dL (32.0-36.0); MEAN CORPUSCULAR VOLUME 89 fl (80-97); PLATELET COUNT 197 10^3/uL (150-450); RED BLOOD COUNT 3.19 10^6/uL (3.72-5.28); RED CELL DISTRIBUTION WIDTH 15.6 % (11.5-14.0); WHITE BLOOD COUNT 24.8 10^3/uL (4.0-10.5)
[2017-12-30 06:59] LABS: ANION GAP 8 (5-19); BLOOD UREA NITROGEN 32 mg/dL (7-20); CALCIUM 8.7 mg/dL (8.4-10.2); CARBON DIOXIDE 32 mmol/L (22-30); CHLORIDE 102 mmol/L (98-107); GLUCOSE 176 mg/dL (75-110); POTASSIUM 3.9 mmol/L (3.6-5.0); SODIUM 141.7 mmol/L (137-145)
[2017-12-30] MEDS: INSULIN LISPRO 100 UNIT/ML 3 ML VIAL SUBCUT PRN ×3 (10:07→22:02)
[2017-12-30] MEDS: Mometasone/Formoterol [Dulera 200 Mcg/5 Mcg Inhaler] IH SCH ×2 (10:07→22:01)
[2017-12-30] MEDS: CETIRIZINE 10 MG TABLET PO SCH (10:07)
[2017-12-30] MEDS: CITALOPRAM HYDROBROMIDE 20 MG TABLET PO SCH (10:07)
[2017-12-30] MEDS: RIVAROXABAN 15 MG TABLET PO SCH ×2 (10:07→17:28)
[2017-12-30] MEDS: ROFLUMILAST 500 MCG TABLET PO SCH (10:08)
[2017-12-30] MEDS: GUAIFENESIN 600 MG TABLET.SA PO SCH ×2 (10:14→21:59)
[2017-12-30] MEDS ORDERED: INSULIN LISPRO 100 UNIT/ML 3 ML VIAL SUBCUT ONE (12:15)
--- NOTE | 2017-12-30 13:18 | PDOC CONSULTATION ---
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 EENT Medical History: Reports: Throat Denies: Ears, Nose Neurological Medical History: Denies: Multiple Sclerosis Endocrine Medical History: Reports: Diabetes Mellitus Type 2, Hypothyroidism Renal/ Medical History: Denies: End Stage Renal Disease Malignancy Medical History: Reports: Lung Cancer, Other - upper airway GI Medical History: Reports: Gastroesophageal Reflux Disease Denies: Crohn's Disease, Ulcerative Colitis Musculoskeltal Medical History: Denies: Fibromyalgia, Gout Skin Medical History: Denies: Psoriasis Psychiatric Medical History: Reports: Depression, Tobacco Dependency Traumatic Medical History: Denies: Traumatic Brain Injury Hematology: Denies: Hemophilia, Sickle Cell Disease Infectious Medical History: Denies: Hepatitis B, Hepatitis C Past Surgical History Past Surgical History: Reports: Appendectomy, Other - Right-sided chest tube Social History Information Source: Patient, [facility] Records Lives with: Friend Smoking Status: Current Some Day Smoker Cigarettes Packs Per Day: 2 Number of Years Smokin Last Time Smoked: prior to admission Passive smoke exposure as: Both Frequency of Alcohol Use: None Hx Recreational Drug Use: No Drugs: None Hx Prescription Drug Abuse: No Do you have pets?: No Have you had any respiratory illnesses as a child?: No Have you been exposed to any sick contacts recently?: No Have you had any recent respiratory illnesses?: No Have you travelled outside of [place] in the past 12 months?: No - Advance Directive Resuscitation Status: Full Code Family History Family History: Other - Brother- CAD Mother- colorectal cancer Parental Family History Reviewed: Yes Children Family History Reviewed: Yes Sibling(s) Family History Reviewed.: Yes Medication/Allergy Home Medications: Buspirone HCl [Buspar 10 mg Tablet] 10 mg PO Q8 12/12/17 Calcium Carbonate/Vitamin D3 [Calcium 500-Vit D3 200 Tablet] 1 each PO DAILY 01/22 Cetirizine HCl [Zyrtec 10 mg Tablet] 1 tab PO DAILY 12/12/17 Cholecalciferol (Vitamin D3) [Vitamin D3 1000 Unit Tablet] 3,000 unit PO DAILY 12/12/17 Citalopram Hydrobromide [Celexa 20 mg Tablet] 20 mg PO DAILY 12/12/17 Cyanocobalamin (Vitamin B-12) [Vitamin B-12 1000 Mcg Tablet] 2,500 mcg PO DAILY 12/12/17 Ergocalciferol (Vitamin D2) [Drisdol 50,000 Unit (1.25MG) Capsule] 1 cap PO MO@ 1000 12/12/17 Guaifenesin [Mucinex] 1,200 mg PO DAILY 12/12/17 Hydrochlorothiazide [Hydrodiuril 25 mg Tablet] 25 mg PO QAM 12/12/17 Ipratropium/Albuterol Sulfate [Duoneb 3 ml Ampul] 3 ml NEB RTQ6HP PRN 12/12/17 Levothyroxine Sodium [Synthroid 50 Mcg Tablet] 50 mcg PO Q6AM 12/12/17 Lorazepam [Ativan 0.5 mg Tablet] 0.25 mg PO Q8HP PRN 12/12/17 Magnesium 250 mg PO DAILY 12/12/17 Mometasone/Formoterol [Dulera 200 Mcg/5 Mcg Inhaler] 2 puff IH Q12 12/12/17 Nystatin [Mycostatin 500,000 Unit/5 ml Susp Udcup] 500,000 unit PO QID 12/12/17 Omeprazole Magnesium [Prilosec Otc] 20 mg PO DAILYP PRN 12/12/17 Roflumilast [Daliresp 500 mcg Tablet] 500 mcg PO DAILY 12/12/17 Tiotropium [place] [Spiriva Respimat] 2 puff IH DAILY 12/12/17 Zinc 50 mg PO DAILY 12/12/17 Allergies/Adverse Reactions: bupropion Allergy (Mild, Verified 12/23/17 21:13) Generalized Itching ciprofloxacin [From Cipro] Allergy (Verified 12/23/17 21:13) doxycycline Allergy (Verified 12/23/17 21:13) Hives Penicillins Allergy (Verified 12/23/17 21:13) Hives "cillins" Allergy (Uncoded 12/23/17 21:13) Hives Physical Exam Vital Signs: Temp Pulse Resp BP Pulse Ox 97.2 F 86 20 136/72 H 98 12/30/17 07:17 12/30/17 08:50 12/30/17 12:00 12/30/17 07:17 12/30/17 08:50 Intake & Output 12/29/17 12/30/17 12/31/17 06:59 06:59 06:59 Intake Total 1391 851 Output Total 750 400 Balance 641 451 Weight 78.3 kg 78 kg General appearance: PRESENT: no acute distress, cooperative, disheveled, obese Head exam: PRESENT: atraumatic, normocephalic Eye exam: PRESENT: conjunctiva pale, EOMI. ABSENT: nystagmus, periorbital swelling, scleral icterus Mouth exam: PRESENT: moist, neck supple, tongue midline Teeth exam: ABSENT: poor dentation Neck exam: ABSENT: carotid bruit, JVD, lymphadenopathy, thyromegaly, tracheal deviation, tracheostomy Respiratory exam: PRESENT: decreased breath sounds, prolonged expiratory phas, rhonchi, unlabored, wheezes. ABSENT: rales, retraction, stridor Cardiovascular exam: PRESENT: RRR, +S1, +S2 Pulses: PRESENT: normal radial pulses GI/Abdominal exam: PRESENT: normal bowel sounds, soft Extremities exam: ABSENT: clubbing, joint swelling Musculoskeletal exam: ABSENT: deformity, dislocation Neurological exam: PRESENT: alert, awake Skin exam: PRESENT: dry, warm Results Laboratory Results: 12/30/17 05:43 12/30/17 05:43 12/30/17 12/30/17 05:43 05:43 WBC 24.8 H RBC 3.19 L Hgb 9.6 L Hct 28.5 L MCV 89 MCH 30.1 MCHC 33.8 RDW 15.6 H Plt Count 197 Sodium 141.7 Potassium 3.9 Chloride 102 Carbon Dioxide 32 H Anion Gap 8 BUN 32 H Creatinine 0.34 L Est GFR ( Amer) > 60 Est GFR (Non-Af Amer) > 60 Glucose 176 H Calcium 8.7 12/28/17 04:19 NT-Pro-B Natriuret Pep 268 Impressions: Chest/Abdomen CTA 12/23/17 16:38 IMPRESSION: Evidence of pulmonary emboli with thrombus and peripheral pulmonary arteries to the left. Emphysematous pulmonary change, with patchy areas of ground-glass pulmonary density. Previously described mass of the right hilum and pulmonary lesions stable. Chest X-Ray 12/27/17 00:00 IMPRESSION: No acute infiltrates. Stable right hilar mass Abdomen/Pelvis CT 12/28/17 00:00 IMPRESSION: 1. GALLSTONES. 2. EXTENSIVE COLONIC DIVERTICULOSIS. NO CT FINDINGS OF ACUTE DIVERTICULITIS. 3. SMALL UMBILICAL HERNIA CONTAINING FAT ONLY. NO INVOLVEMENT OF BOWEL. 4. NO OTHER SIGNIFICANT OR ACUTE PROCESS IN THE ABDOMEN OR PELVIS. Chest CT 12/28/17 00:00 IMPRESSION: 1. INTERVAL DEVELOPMENT OF A MINIMAL RIGHT PLEURAL EFFUSION. MILD ATELECTASIS OR SCARRING IN THE RIGHT LUNG BASE. 2. CHRONIC EMPHYSEMATOUS CHANGES WITH CHRONIC SCARRING. SMALL SPICULATED LESION IN THE RIGHT UPPER LOBE AND RIGHT HILAR MASS UNCHANGED. NO NEW LESIONS. LEFT LUNG CLEAR. Assessment & Plan - Diagnosis (1) Acute and chronic respiratory failure Qualifiers: Respiratory failure complication: hypoxia and hypercapnia Qualified Code(s) : J96.21 - Acute and chronic respiratory failure with hypoxia; J96.22 - Acute and chronic respiratory failure with hypercapnia; J96.22 - Acute and chronic respiratory failure with hypercapnia; J96.22 - Acute and chronic respiratory failure with hypercapnia Is this a current diagnosis for this admission?: Yes Plan: Generic Name Dose Route Start Last Admin Trade Name Freq PRN Reason Stop Dose Admin Methylprednisolone Sodium Succinate 40 mg 12/30/17 14:00 Solu-Medrol Inj/Pf 40 Mg/1 Ml Sdv IV 01/29/18 13:59 Q8 BRIAN Albuterol 2.5 mg 12/27/17 12:17 12/28/17 17:55 Ventolin 0.083% Neb 2.5 Mg/3 Ml Ampul NEB 01/26/18 12:16 2.5 mg RTQ6HP PRN FOR WHEEZING Patient Own Medication 1 dose 12/30/17 10:00 12/30/17 10:07 Pt Own Med (Pom) IH 01/29/18 09:59 1 dose Q12 BRIAN Albuterol/Ipratropium 3 ml 12/28/17 14:00 12/30/17 08:50 Duoneb 3 Ml Ampul NEB 01/27/18 13:59 3 ml RTQ6 BRIAN (2) Acute pulmonary embolism Qualifiers: Pulmonary embolism type: other Acute cor pulmonale presence: without acute cor pulmonale Qualified Code(s): I26.99 - Other pulmonary embolism without acute cor pulmonale Is this a current diagnosis for this admission?: Yes Plan: CTA on 12/23 continuue anti coag (3) Atrial fibrillation with RVR Is this a current diagnosis for this admission?: Yes Plan: stable (4) Lung mass Is this a current diagnosis for this admission?: Yes Plan: need path report (5) Anxiety Is this a current diagnosis for this admission?: Yes (6) Obstructive sleep apnea Is this a current diagnosis for this admission?: Yes (7) Tobacco dependence Is this a current diagnosis for this admission?: Yes
[2017-12-30] MEDS: METHYLPREDNISOLONE INJ 40 MG/1 ML SDV IV SCH ×2 (13:37→22:00)
--- NOTE | 2017-12-30 14:05 | Palliative Consultation Report ---
Consultation From:: SACHI ISLAS Consult Reason: palliaitve care, advance directives - HPI HPI: Appreciate palliative referral for this 67 year old woman who is admitted with chronic respiratory distress and has been to [facility] recently. Mrs. Altamirano was planning to go to [place] for rehab on 12/27, however they could not get her bipap machine to the facility. During the night she developed increased respiratory distress and was found to have pulmonary artery embolism on the left. In addition to her chronic respiratory failure and this embolism, she also has been found to have a mass in her RUL, and she is known to have a right adnexal mass. She has been seen by Dr. Bond and is scheduled for PET scan when she can get it. She is on anticoagulation, Xarelto, for the PE and is having less dyspnea today although still is requiring her bipap. She does also have atrial fib and has had RVR which is in good control at present. Patient is alert and oriented, but obviously doesnt feel well. She said she is having some mild discomfort in her right upper abdomen but does not want oxycodone for it. She reports feeling well enough to eat, but when I sat her up in bed for her to reach her lunch tray, she asked to be laid back down, that she would eat later. She did talk to me about her wishes for advance directives. She said she wants medications etc for her heart if any more problems arise, but does NOT want heroics. She does NOT want to be intubated or to be on a ventilator. She says she has discussed this with her family and they understand, but to make it easier for them, she did fill out MOST form and asked to be made DNR status. She certainly hopes to get better and to get to rehab, but is realistic since she has so many comorbid conditions and has already required bipap at home for some time. Her albumin level is 2.4 and total protein is 4.5, so she has not been absorbing nutrients well if she is eating as well as she reports. She realizes that she is very sick and says she does not want to be on a ventilator because she knows that will only prolong her suffering. Onset: Last week Onset/Duration: Sudden Quality of Pain: Achy Severity: Mild Pain Level: 2 Past Medical History(Consults) - General Information Source: Patient, [facility] Records Home Medications: Buspirone HCl [Buspar 10 mg Tablet] 10 mg PO Q8 12/12/17 Calcium Carbonate/Vitamin D3 [Calcium 500-Vit D3 200 Tablet] 1 each PO DAILY 01/22 Cetirizine HCl [Zyrtec 10 mg Tablet] 1 tab PO DAILY 12/12/17 Cholecalciferol (Vitamin D3) [Vitamin D3 1000 Unit Tablet] 3,000 unit PO DAILY 12/12/17 Citalopram Hydrobromide [Celexa 20 mg Tablet] 20 mg PO DAILY 12/12/17 Cyanocobalamin (Vitamin B-12) [Vitamin B-12 1000 Mcg Tablet] 2,500 mcg PO DAILY 12/12/17 Ergocalciferol (Vitamin D2) [Drisdol 50,000 Unit (1.25MG) Capsule] 1 cap PO MO@ 1000 12/12/17 Guaifenesin [Mucinex] 1,200 mg PO DAILY 12/12/17 Hydrochlorothiazide [Hydrodiuril 25 mg Tablet] 25 mg PO QAM 12/12/17 Ipratropium/Albuterol Sulfate [Duoneb 3 ml Ampul] 3 ml NEB [id number] PRN 12/12/17 Levothyroxine Sodium [Synthroid 50 Mcg Tablet] 50 mcg PO Q6AM 12/12/17 Lorazepam [Ativan 0.5 mg Tablet] 0.25 mg PO Q8HP PRN 12/12/17 Magnesium 250 mg PO DAILY 12/12/17 Mometasone/Formoterol [Dulera 200 Mcg/5 Mcg Inhaler] 2 puff IH Q12 12/12/17 Nystatin [Mycostatin 500,000 Unit/5 ml Susp Udcup] 500,000 unit PO QID 12/12/17 Omeprazole Magnesium [Prilosec Otc] 20 mg PO DAILYP PRN 12/12/17 Roflumilast [Daliresp 500 mcg Tablet] 500 mcg PO DAILY 12/12/17 Tiotropium [place] [Spiriva Respimat] 2 puff IH DAILY 12/12/17 Zinc 50 mg PO DAILY 12/12/17 Allergies/Adverse Reactions: bupropion Allergy (Mild, Verified 12/23/17 21:13) Generalized Itching ciprofloxacin [From Cipro] Allergy (Verified 12/23/17 21:13) doxycycline Allergy (Verified 12/23/17 21:13) Hives Penicillins Allergy (Verified 12/23/17 21:13) Hives "cillins" Allergy (Uncoded 12/23/17 21:13) Hives - Social History Lives with: Family, Friend Family History: Reviewed & Not Pertinent, Other - Brother- CAD Mother- colorectal cancer Parental Family History Reviewed: No Children Family History Reviewed: No Sibling(s) Family History Reviewed.: No Smoking Status: Former Smoker Cigarettes Packs Per Day: 2 Number of Years Smokin Last Time Smoked: prior to admission Frequency of Alcohol Use: None Hx Recreational Drug Use: No Drugs: None Hx Prescription Drug Abuse: No - Past Medical History Cardiac Medical History: Reports: Hx Hypercholesterolemia, Hx Hypertension Pulmonary Medical History: Reports: Hx Bronchitis, Hx COPD, Hx Pneumonia, Hx Respiratory Failure - She is on chronic oxygen therapy at home. EENT Medical History: Reports: Throat Denies: Ears, Nose Endocrine Medical History: Reports: Hx Diabetes Mellitus Type 2, Hx Hypothyroidism Renal/ Medical History: Denies: Hx End Stage Renal Disease, Hx Peritoneal Dialysis Malignancy Medical History: Reports: Hx Lung Cancer, Other - adnexal mass GI Medical History: Reports: Hx Gastroesophageal Reflux Disease. Denies: Hx Crohn's Disease, Hx Ulcerative Colitis Musculoskeltal Medical History: Denies Hx Fibromyalgia, Denies Hx Gout Skin Medical History: Denies Hx Psoriasis Psychiatric Medical History: Reports: Hx Depression Traumatic Medical History: Denies: Hx Traumatic Brain Injury Hematology: Denies: Hemophilia, Sickle Cell Disease - Surgical History Past Surgical History: Reports: Hx Appendectomy, Hx Thyroid Surgery - 1/2 thyroid, Other - Right-sided chest tube Review of systems Constitutional: Weakness, Recent illness Cardiovascular: Heart racing, Dyspnea Respiratory: Cough, Short of breath Gastrointestinal: Abdominal pain, Poor appetite Hematologic/Lymphatic: Blood clots Neurological/Psychological: Anxiety, Weakness Ojective:Exam Vital Signs: Temp Pulse Resp BP Pulse Ox 97.2 F 86 20 136/72 H 98 12/30/17 07:17 12/30/17 08:50 12/30/17 12:00 12/30/17 07:17 12/30/17 08:50 Intake & Output 12/29/17 12/30/17 12/31/17 06:59 06:59 06:59 Intake Total 1391 851 222 Output Total 750 400 Balance 641 451 222 Weight 78.3 kg 78 kg - General General Appearance: Alert In distress: Mild - HEENT Head: Normocephalic Eyes: Normal Conjunctiva: Normal Pupils: PERRLA - Neck Neck: Normal - Respiratory Respiratory Status: Labored Chest Status: Tender Breath sounds: Rhonchi - Cardiovascular Rhythm: Regular, Tachycardia - Abdominal Inspection: Normal Distension: No distension Tenderness: Tender - Extremities Upper extremity: Normal inspection Lower extremities: Normal inspection - Neurological Cognition: Normal Orientation: AAOx4, Oriented to person, Oriented to place, Oriented to time Speech: Normal Cranial nerves: Normal Motor exam: Equal tree doctor - Psychological Associated symptoms: Normal affect, Anxious Objective-Diagnostic Laboratory: 12/30/17 05:43 12/30/17 05:43 12/30/17 12/30/17 05:43 05:43 WBC 24.8 H RBC 3.19 L Hgb 9.6 L Hct 28.5 L MCV 89 MCH 30.1 MCHC 33.8 RDW 15.6 H Plt Count 197 Sodium 141.7 Potassium 3.9 Chloride 102 Carbon Dioxide 32 H Anion Gap 8 BUN 32 H Creatinine 0.34 L Est GFR ( Amer) > 60 Est GFR (Non-Af Amer) > 60 Glucose 176 H Calcium 8.7 12/28/17 04:19 NT-Pro-B Natriuret Pep 268 Plan and Recommendation Plan and Recommendation: As above, patient concerned about weakness and wants to go to rehab to increase strength. She is very realistic about her multiple conditions and problems with her lungs, etc. She is aware that she has mass in her lung and may be offered chemo,which she says she will discuss with Dr. Bond, but she is not closed to the idea. SHe wants to get better, but realizes her lungs have many problems. Discussed advanced directives and she clearly said she did not want heroics, does not want to be intubated and on a ventilator. She said she wants everything else done if her heart has more irregularity and she is appreciative of the medical management of her current heart problems. She discussed feeding tube and said a temporary one, if needed for short term would be OK, but she does not want surgical implantation of PEG tube. MOST form was completed, which patient signed and I left original for her in her room. DNR, goldenrod form was completed for her chart and nurse informed doctor of patients wish for DNR status. Will follow, appreciate opportunity to participate in her care. - Time Spent with Patient Time spent with patient: 40 to 60 Minutes Time: 40 min Greater then 50% spent on Counseling & Coordination of Care: 40 min discussing symptoms and advance directives.
[2017-12-30] MEDS ORDERED: TIOTROPIUM IH ONE (14:15)
--- NOTE | 2017-12-30 15:37 | PDOC PROGRESS REPORT ---
Subjective Progress Note for:: 12/30/17 Subjective:: BRUCE GLAAN I is a 67 year old patient female patient with multiple comorbidities including HLD, HTN, COPD, chronic respiratory failure and oxygen dependent, diabetes mellitus, hypothyroidism and anxiety disorder who was admitted on 12/23/17 with atrial fibrillation with RVR and pulmonary embolus. Patient seen this morning on rounds. She is sitting up on the side of the bed eating breakfast, only wearing supplemental oxygen via nasal cannula. Patient has no complaints this morning. She states that she feels 'the same.' Mild wheezing heard in the L lower lobe, lung sounds otherwise clear. Shortly following assessment, Dr. Hernandez of pulmonology is at the bedside for his initial consult. Currently awaiting his recommendations. Of note, medical records have been received from [facility], including pathology report. Reason For Visit: COPD EXACERBATION,ACUTE ON CHRONIC RESPIRATORY Physical Exam Vital Signs: Temp Pulse Resp BP Pulse Ox 97.4 F 111 H 20 127/66 H 100 12/30/17 11:11 12/30/17 11:11 12/30/17 12:00 12/30/17 11:11 12/30/17 11:11 Intake & Output 12/29/17 12/30/17 12/31/17 06:59 06:59 06:59 Intake Total 1391 851 222 Output Total 750 400 Balance 641 451 222 Weight 78.3 kg 78 kg General appearance: PRESENT: no acute distress Head exam: PRESENT: atraumatic Eye exam: PRESENT: conjunctiva pink, PERRLA Mouth exam: PRESENT: moist Neck exam: PRESENT: full ROM Respiratory exam: PRESENT: symmetrical, wheezes - LLL, other - BiPAP dependent. ABSENT: accessory muscle use, chest wall tenderness Cardiovascular exam: PRESENT: +S1, +S2 Pulses: PRESENT: normal radial pulses, normal dorsalis pedis pul GI/Abdominal exam: PRESENT: normal bowel sounds, soft. ABSENT: tenderness Rectal exam: PRESENT: deferred Extremities exam: PRESENT: full ROM Musculoskeletal exam: PRESENT: ambulatory, full ROM Neurological exam: PRESENT: alert, awake, oriented to person, oriented to place , oriented to time, oriented to situation Psychiatric exam: PRESENT: appropriate affect Skin exam: PRESENT: dry, intact, normal color Results Laboratory Results: 12/30/17 05:43 12/30/17 05:43 12/30/17 12/30/17 05:43 05:43 WBC 24.8 H RBC 3.19 L Hgb 9.6 L Hct 28.5 L MCV 89 MCH 30.1 MCHC 33.8 RDW 15.6 H Plt Count 197 Sodium 141.7 Potassium 3.9 Chloride 102 Carbon Dioxide 32 H Anion Gap 8 BUN 32 H Creatinine 0.34 L Est GFR ( Amer) > 60 Est GFR (Non-Af Amer) > 60 Glucose 176 H Calcium 8.7 12/28/17 04:19 NT-Pro-B Natriuret Pep 268 Impressions: Chest/Abdomen CTA 12/23/17 16:38 IMPRESSION: Evidence of pulmonary emboli with thrombus and peripheral pulmonary arteries to the left. Emphysematous pulmonary change, with patchy areas of ground-glass pulmonary density. Previously described mass of the right hilum and pulmonary lesions stable. Chest X-Ray 12/27/17 00:00 IMPRESSION: No acute infiltrates. Stable right hilar mass Abdomen/Pelvis CT 12/28/17 00:00 IMPRESSION: 1. GALLSTONES. 2. EXTENSIVE COLONIC DIVERTICULOSIS. NO CT FINDINGS OF ACUTE DIVERTICULITIS. 3. SMALL UMBILICAL HERNIA CONTAINING FAT ONLY. NO INVOLVEMENT OF BOWEL. 4. NO OTHER SIGNIFICANT OR ACUTE PROCESS IN THE ABDOMEN OR PELVIS. Chest CT 12/28/17 00:00 IMPRESSION: 1. INTERVAL DEVELOPMENT OF A MINIMAL RIGHT PLEURAL EFFUSION. MILD ATELECTASIS OR SCARRING IN THE RIGHT LUNG BASE. 2. CHRONIC EMPHYSEMATOUS CHANGES WITH CHRONIC SCARRING. SMALL SPICULATED LESION IN THE RIGHT UPPER LOBE AND RIGHT HILAR MASS UNCHANGED. NO NEW LESIONS. LEFT LUNG CLEAR. Status: Imported from PACS Assessment & Plan - Diagnosis (1) Acute pulmonary embolism Qualifiers: Pulmonary embolism type: other Acute cor pulmonale presence: without acute cor pulmonale Qualified Code(s): I26.99 - Other pulmonary embolism without acute cor pulmonale Is this a current diagnosis for this admission?: Yes Plan: The patient presented with tachycardia, dyspnea, hypoxia. D-dimer >16 CTA of the chest revealed pulmonary emboli with thrombus to the peripheral pulmonary arteries on the left, emphysema, stable lung mass to the right upper lobe and hilum. The patient is admitted to [facility] on continuous cardiac telemetry. She is placed on supplemental oxygen as needed to maintain oxygen saturations greater than 88%. BiPAP as needed. Discussed with oncology, Dr. Bond, started on Xarelto. Have also consulted pulmonology given the multiple lung assaults - currently awaiting recommendations (2) Atrial fibrillation with RVR Is this a current diagnosis for this admission?: Yes Plan: Heart rate is elevated improved today, remains < 100 The patient denies a known history of atrial fibrillation. Review of previous EKGs obtained at our facility demonstrates sinus rhythm. Patient presented in atrial fibrillation with RVR; HR 140. Patient admitted to [facility] on continuous cardiac telemetry. Patient initially treated with diltiazem gtt; transitioned to p.o diltiazem. Continue Xarelto. (3) COPD with acute bronchitis Is this a current diagnosis for this admission?: Yes Plan: Patient with COPD and recent tobacco use. Patient states she feels 'the same.' Presented with dyspnea, rhonchi, wheezing, increased productive cough. Blood cultures have no growth. Of note, she has new pulmonary emboli. CT chest shows a minimal right pleural effusion, mild atelectasis, chronic emphysematous changes and stable right upper lobe and hilar masses unchanged from previous. Patient supported with supplemental oxygen and BiPAP as needed. Increased IV Solu-Medrol frequency today for L sided wheezing Scheduled and as needed and nebulizer treatments. Continue home dose Daliresp. Resume home dose Dulera and Spiriva. Mucinex and Singulair. Pulmonology consultation; appreciate their assistance. Although WBCs remain elevated, the patient is afebrile. Leukocytosis is likely secondary to inflammatory reaction related to malignancy. No indication for additional antibiotics at this time. (4) Leukocytosis Is this a current diagnosis for this admission?: Yes Plan: Persistent; waxing and waning between 20.8 and 27.2. Leukocytosis is multifactorial secondary to pulmonary emboli, COPD exacerbation, lung malignancy , bronchitis, steroid therapy and likely to remain persistently elevated secondary to inflammatory reaction. The patient remains afebrile with negative blood cultures. No indication for antibiotics. (5) Diabetes mellitus Qualifiers: Diabetes mellitus type: type 2 Is this a current diagnosis for this admission?: Yes Plan: The patient reports history of prediabetes; does not check blood glucose at home or take antidiabetic medications. Consistent carb diet Accu-Cheks before meals and at bedtime. Humalog as needed for sliding scale coverage. (6) Lung mass Is this a current diagnosis for this admission?: Yes Plan: Stable lung has again noted on CTA of the chest this admission. During last admission for COPD, arrangements were made for the patient to be transferred to [facility] for EBUS. Patient reports that she did have biopsy completed as planned; received discharge summary and pathology report from [facility] confirming non-small cell lung cancer. Repeat noncontrasted CT of the chest yesterday is negative for new lung nodules. Oncology is consulted; appreciate their evaluation recommendations. Dr. Bond planning to have the patient complete a PET scan as an outpatient and to follow-up in her office 01/01/18. The patient was informed of discharge summary from [facility] commenting on potential malignancy in her lower right abdomen. She was previously unaware of this. Palliative care consultation has been initiated to establish goals of care, patient expressed that she does NOT want to be intubated and does NOT want CPR. (7) Acute and chronic respiratory failure Qualifiers: Respiratory failure complication: hypoxia and hypercapnia Qualified Code(s) : J96.21 - Acute and chronic respiratory failure with hypoxia; J96.22 - Acute and chronic respiratory failure with hypercapnia; J96.22 - Acute and chronic respiratory failure with hypercapnia; J96.22 - Acute and chronic respiratory failure with hypercapnia Is this a current diagnosis for this admission?: Yes Plan: Slightly improved today; yesterday the patient was noted to have increased tachycardia, tachypnea, dyspnea, orthopnea, O2 and BiPAP requirement with worsened lung sounds. Secondary to COPD exacerbation, bronchitis, pulmonary emboli, underlying lung malignancy. The patient is home O2 dependent but is currently requiring increased oxygen support; currently utilizing BiPAP overnight and intermittently throughout the day with increased oxygen via nasal cannula. ABG improved, however, she is clinically worsened. Chest CT is reassuring. The patient is supported with supplemental oxygen, BiPAP, and scheduled and as needed nebulizer treatments. Patient seen today by Dr. Hernandez, appreciate his recommendations Remaining plan as above. (8) Anxiety Is this a current diagnosis for this admission?: Yes Plan: Continue patient's home medication regiment; BuSpar q. 8 and lorazepam every 8 as needed. Ativan every 6 hours PRN (9) Hypertension Is this a current diagnosis for this admission?: Yes Plan: Currently normotensive. She has been transitioned to p.o. Cardizem for her AFIB/rate control HCTZ has been discontinued secondary to persistent hypokalemia. (10) RLQ abdominal pain Is this a current diagnosis for this admission?: Yes Plan: Resolved. The patient reports constant right lower quadrant abdominal pain described as aching with intermittent sharp exacerbations. Pain is worsened by movement ( position changes, cough, deep breathing). No alleviating factors. Patient denies nausea, vomiting, diarrhea, constipation, urinary urgency, frequency, dysuria, and hematuria. Of note, outpatient records from [facility] that imaging studies done at their facility identified a right adnexa mass worrisome for metastasis. Noncontrasted CT of the abdomen obtained yesterday revealed gallstones, extensive colonic diverticulosis without diverticulitis, small umbilical hernia and no other significant or acute processes. Understanding that this imaging study was limited by lack of contrast. Repeat urinalysis yesterday is negative for UTI. Antiemetics and analgesics as needed. (11) Hypokalemia Is this a current diagnosis for this admission?: Yes Plan: Resolved; likely related to frequency of albuterol treatments and HCTZ use. Have discontinued HCTZ. Weaning frequency of nebulizer treatments as tolerated. We will monitor with serial chemistries and replace as needed. (12) Tobacco dependence Is this a current diagnosis for this admission?: Yes Plan: The patient reports that she stopped smoking approximately 4 wks ago. She is encouraged to continue with smoking cessation attempts. Nicotine or placement therapies are offered and declined at this time. - Time Time Spent with patient: 15-24 minutes Medications reviewed and adjusted accordingly: Yes Anticipated discharge: Home - Inpatient Certification Based on my medical assessment, after consideration of the patient's comorbidities, presenting symptoms, or acuity I expect that the services needed warrant INPATIENT care.: Yes I certify that my determination is in accordance with my understanding of Medicare's requirements for reasonable and necessary INPATIENT services [42 CFR 412.3e].: Yes
[2017-12-31] MEDS: IPRATROPIUM/ALBUTEROL 0.5-2.5 MG/3 ML AMPUL NEB SCH ×4 (02:12→20:15)
[2017-12-31 03:40] LABS: APPEARANCE,URINE CLEAR; BILIRUBIN,URINE NEGATIVE (NEGATIVE); COLOR,URINE YELLOW; GLUCOSE, URINE >=500 mg/dL (NEGATIVE); KETONES,URINE NEGATIVE (NEGATIVE); LEUKOCYTE ESTERASE,URINE NEGATIVE (NEGATIVE); NITRITE,URINE NEGATIVE (NEGATIVE); PROTEIN,URINE NEGATIVE (NEGATIVE); URINE SPECIFIC GRAVITY 1.027; UROBILINOGEN,URINE NEGATIVE mg/dL (<2.0)
[2017-12-31] MEDS: METHYLPREDNISOLONE INJ 40 MG/1 ML SDV IV SCH ×3 (06:34→22:12)
[2017-12-31] MEDS: BUSPIRONE HCL 10 MG TABLET PO SCH ×3 (06:36→22:11)
[2017-12-31] MEDS: DILTIAZEM HCL 90 MG TABLET PO SCH ×3 (06:36→22:12)
[2017-12-31] MEDS: LEVOTHYROXINE SODIUM 0.05 MG TABLET PO SCH (06:36)
[2017-12-31] MEDS: RIVAROXABAN 15 MG TABLET PO SCH ×2 (07:48→17:16)
[2017-12-31] MEDS: INSULIN LISPRO 100 UNIT/ML 3 ML VIAL SUBCUT PRN ×4 (07:48→22:12)
[2017-12-31] MEDS: OXYCODONE HCL IR 5 MG TABLET PO PRN (07:48)
[2017-12-31 08:41] LABS: HEMATOCRIT 28.4 % (36.0-47.0); HEMOGLOBIN 9.5 g/dL (12.0-15.5); MEAN CORPUSCULAR HEMOGLOBIN 29.9 pg (27.0-33.4); MEAN CORPUSCULAR HGB CONC 33.4 g/dL (32.0-36.0); MEAN CORPUSCULAR VOLUME 89 fl (80-97); PLATELET COUNT 235 10^3/uL (150-450); RED BLOOD COUNT 3.18 10^6/uL (3.72-5.28); RED CELL DISTRIBUTION WIDTH 15.9 % (11.5-14.0)
[2017-12-31 09:08] LABS: WHITE BLOOD COUNT 27.1 10^3/uL (4.0-10.5)
[2017-12-31] MEDS: CETIRIZINE 10 MG TABLET PO SCH (10:55)
[2017-12-31] MEDS: LORAZEPAM 0.5 MG TABLET PO PRN ×2 (10:55→22:12)
[2017-12-31] MEDS: CITALOPRAM HYDROBROMIDE 20 MG TABLET PO SCH (10:55)
[2017-12-31] MEDS: GUAIFENESIN 600 MG TABLET.SA PO SCH ×2 (10:55→22:12)
[2017-12-31] MEDS: Mometasone/Formoterol [Dulera 200 Mcg/5 Mcg Inhaler] IH SCH ×2 (10:56→22:13)
[2017-12-31] MEDS: ROFLUMILAST 500 MCG TABLET PO SCH (10:56)
[2017-12-31] MEDS: TIOTROPIUM IH SCH (10:56)
[2017-12-31 14:01] LABS: ARTERIAL BLOOD BASE EXCESS 5.1 mmol/L; ARTERIAL BLOOD H2CO3 1.46 mmol/L (1.05-1.35); ARTERIAL BLOOD HCO3 30.5 mmol/L (20-26); ARTERIAL BLOOD O2 SATURATION 91.4 % (94-98); ARTERIAL BLOOD PCO2 48.6 mmHg (35-45); ARTERIAL BLOOD PH 7.42 (7.35-7.45); ARTERIAL BLOOD PO2 60.7 mmHg (80-100)
[2017-12-31 14:04] LABS: ARTERIAL BLOOD FIO2 5L
--- NOTE | 2017-12-31 16:14 | PDOC PROGRESS REPORT ---
Subjective Progress Note for:: 12/31/17 Subjective:: BRUCE GALAN I is a 67 year old patient female patient with multiple comorbidities including HLD, HTN, COPD, chronic respiratory failure and oxygen dependent, diabetes mellitus, hypothyroidism and anxiety disorder who was admitted on 12/23/17 with atrial fibrillation with RVR and pulmonary embolus. Patient seen this morning on rounds. She is resting in bed on BiPAP, current settings 06/12 75%. Lungs clear to auscultation. Shortly following assessment, Dr. Hernandez of pulmonology is at the bedside. We both agree to allow the patient time off of the BiPAP. Patient was transitioned from BiPAP to nasal cannula this morning at approximately 10 AM. Nursing staff reports that at approximately 1400 the patient was asking to be put back on BiPAP. ABG obtained prior to returning patient to BiPAP. Demonstrates hypoxia and mild hypercapnia, no evidence of acidosis. Patient will remain on BiPAP today and tonight, will reevaluate with Dr. Hernandez tomorrow morning. Reason For Visit: COPD EXACERBATION,ACUTE ON CHRONIC RESPIRATORY Physical Exam Vital Signs: Temp Pulse Resp BP Pulse Ox 97.5 F 98 20 132/68 H 100 12/31/17 11:38 12/31/17 14:31 12/31/17 14:31 12/31/17 11:38 12/31/17 14:31 Intake & Output 12/30/17 12/31/17 01/01/18 06:59 06:59 06:59 Intake Total 851 695 222 Output Total 400 430 Balance 451 265 222 Weight 78 kg 78.5 kg General appearance: PRESENT: no acute distress, obese Eye exam: PRESENT: conjunctiva pink, PERRLA Mouth exam: PRESENT: moist Neck exam: PRESENT: full ROM Respiratory exam: PRESENT: clear to auscultation tay, symmetrical, unlabored, other - REQUIRING BIPAP Cardiovascular exam: PRESENT: +S1, +S2 Pulses: PRESENT: normal radial pulses, normal dorsalis pedis pul Vascular exam: PRESENT: normal capillary refill GI/Abdominal exam: PRESENT: soft. ABSENT: tenderness Rectal exam: PRESENT: deferred Extremities exam: PRESENT: full ROM. ABSENT: joint swelling, pedal edema Musculoskeletal exam: PRESENT: full ROM. ABSENT: ambulatory Neurological exam: PRESENT: alert, awake, oriented to person, oriented to place , oriented to time, oriented to situation Psychiatric exam: PRESENT: appropriate affect Skin exam: PRESENT: dry, intact Results Laboratory Results: 12/31/17 07:59 12/30/17 05:43 12/31/17 12/31/17 12/31/17 03:10 07:59 13:49 WBC 27.1 H RBC 3.18 L Hgb 9.5 L Hct 28.4 L MCV 89 MCH 29.9 MCHC 33.4 RDW 15.9 H Plt Count 235 Carbonic Acid 1.46 H HCO3/H2CO3 Ratio 20:1 ABG pH 7.42 ABG pCO2 48.6 H ABG pO2 60.7 L ABG HCO3 30.5 H ABG O2 Saturation 91.4 L ABG Base Excess 5.1 FiO2 5L Urine Color YELLOW Urine Appearance CLEAR Urine pH 5.0 Ur Specific Lucien 1.027 Urine Protein NEGATIVE Urine Glucose (UA) >=500 H Urine Ketones NEGATIVE Urine Blood SMALL H Urine Nitrite NEGATIVE Ur Leukocyte Esterase NEGATIVE Urine WBC (Auto) 3 Urine RBC (Auto) 20 12/28/17 04:19 NT-Pro-B Natriuret Pep 268 Impressions: Chest/Abdomen CTA 12/23/17 16:38 IMPRESSION: Evidence of pulmonary emboli with thrombus and peripheral pulmonary arteries to the left. Emphysematous pulmonary change, with patchy areas of ground-glass pulmonary density. Previously described mass of the right hilum and pulmonary lesions stable. Chest X-Ray 12/27/17 00:00 IMPRESSION: No acute infiltrates. Stable right hilar mass Abdomen/Pelvis CT 12/28/17 00:00 IMPRESSION: 1. GALLSTONES. 2. EXTENSIVE COLONIC DIVERTICULOSIS. NO CT FINDINGS OF ACUTE DIVERTICULITIS. 3. SMALL UMBILICAL HERNIA CONTAINING FAT ONLY. NO INVOLVEMENT OF BOWEL. 4. NO OTHER SIGNIFICANT OR ACUTE PROCESS IN THE ABDOMEN OR PELVIS. Chest CT 12/28/17 00:00 IMPRESSION: 1. INTERVAL DEVELOPMENT OF A MINIMAL RIGHT PLEURAL EFFUSION. MILD ATELECTASIS OR SCARRING IN THE RIGHT LUNG BASE. 2. CHRONIC EMPHYSEMATOUS CHANGES WITH CHRONIC SCARRING. SMALL SPICULATED LESION IN THE RIGHT UPPER LOBE AND RIGHT HILAR MASS UNCHANGED. NO NEW LESIONS. LEFT LUNG CLEAR. Status: Imported from PACS Assessment & Plan - Diagnosis (1) Acute pulmonary embolism Qualifiers: Pulmonary embolism type: other Acute cor pulmonale presence: without acute cor pulmonale Qualified Code(s): I26.99 - Other pulmonary embolism without acute cor pulmonale Is this a current diagnosis for this admission?: Yes Plan: The patient presented with tachycardia, dyspnea, hypoxia. D-dimer >16 CTA of the chest revealed pulmonary emboli with thrombus to the peripheral pulmonary arteries on the left, emphysema, stable lung mass to the right upper lobe and hilum. The patient is admitted to [facility] on continuous cardiac telemetry. She is placed on supplemental oxygen as needed to maintain oxygen saturations greater than 88%. BiPAP as needed. Oncology consulted (Dr. Bond) started on Xarelto. Have also consulted pulmonology given the multiple lung assaults - currently awaiting recommendations (2) Atrial fibrillation with RVR Is this a current diagnosis for this admission?: Yes Plan: Heart rate improved today, remains < 100 The patient denies a known history of atrial fibrillation. Review of previous EKGs obtained at our facility demonstrates sinus rhythm. Patient presented in atrial fibrillation with RVR; HR 140. Patient admitted to [facility] on continuous cardiac telemetry. Patient initially treated with diltiazem gtt; transitioned to p.o diltiazem. Continue Xarelto. (3) COPD with acute bronchitis Is this a current diagnosis for this admission?: Yes Plan: Patient with COPD and recent tobacco use. Patient states she feels 'the same.' Presented with dyspnea, rhonchi, wheezing, increased productive cough. Blood cultures have no growth. Of note, she has new pulmonary emboli. CT chest shows a minimal right pleural effusion, mild atelectasis, chronic emphysematous changes and stable right upper lobe and hilar masses unchanged from previous. Patient supported with supplemental oxygen and BiPAP as needed. IV Solu-Medrol for persistent wheezing Scheduled and as needed and nebulizer treatments. Continue home dose Daliresp. Resume home dose Dulera and Spiriva. Mucinex and Singulair. Pulmonology consultation; appreciate their assistance. Although WBCs remain elevated, the patient is afebrile. Leukocytosis is likely secondary to inflammatory reaction related to malignancy. No indication for additional antibiotics at this time. (4) Leukocytosis Is this a current diagnosis for this admission?: Yes Plan: Persistent; waxing and waning between 20.8 and 27.2. Leukocytosis is multifactorial secondary to pulmonary emboli, COPD exacerbation, lung malignancy , bronchitis, steroid therapy and likely to remain persistently elevated secondary to inflammatory reaction. The patient remains afebrile with negative blood cultures. No indication for antibiotics. (5) Diabetes mellitus Qualifiers: Diabetes mellitus type: type 2 Is this a current diagnosis for this admission?: Yes Plan: The patient reports history of prediabetes; does not check blood glucose at home or take antidiabetic medications. Consistent carb diet Accu-Cheks before meals and at bedtime. Humalog as needed for sliding scale coverage. (6) Lung mass Is this a current diagnosis for this admission?: Yes Plan: Stable lung has again noted on CTA of the chest this admission. During last admission for COPD, arrangements were made for the patient to be transferred to [facility] for EBUS. Patient reports that she did have biopsy completed as planned; received discharge summary and pathology report from [facility] confirming non-small cell lung cancer. Repeat noncontrasted CT of the chest yesterday is negative for new lung nodules. Oncology is consulted; appreciate their evaluation recommendations. Dr. Bond planning to have the patient complete a PET scan as an outpatient and to follow-up in her office 01/01/18. The patient was informed of discharge summary from [facility] commenting on potential malignancy in her lower right abdomen. She was previously unaware of this. Palliative care consultation has been initiated to establish goals of care, patient expressed that she does NOT want to be intubated and does NOT want CPR. (7) Acute and chronic respiratory failure Qualifiers: Respiratory failure complication: hypoxia and hypercapnia Qualified Code(s) : J96.21 - Acute and chronic respiratory failure with hypoxia; J96.22 - Acute and chronic respiratory failure with hypercapnia; J96.22 - Acute and chronic respiratory failure with hypercapnia; J96.22 - Acute and chronic respiratory failure with hypercapnia Is this a current diagnosis for this admission?: Yes Plan: Slightly improved today; yesterday the patient was noted to have increased tachycardia, tachypnea, dyspnea, orthopnea, O2 and BiPAP requirement with worsened lung sounds. Secondary to COPD exacerbation, bronchitis, pulmonary emboli, underlying lung malignancy. The patient is home O2 dependent but is currently requiring increased oxygen support; currently utilizing BiPAP overnight and intermittently throughout the day with increased oxygen via nasal cannula. ABG while on nasal cannula demonstrates hypoxia and hypercapnia, no evidence of acidosis. The patient is now currently supported with supplemental oxygen, BiPAP, and scheduled and as needed nebulizer treatments. Patient seen today by Dr. Hernandez, appreciate his recommendations Remaining plan as above. (8) Anxiety Is this a current diagnosis for this admission?: Yes Plan: Continue patient's home medication regiment; BuSpar q. 8 and lorazepam every 8 as needed. Ativan every 6 hours PRN (9) Hypertension Is this a current diagnosis for this admission?: Yes Plan: Currently normotensive. She has been transitioned to p.o. Cardizem for her AFIB/rate control HCTZ has been discontinued secondary to persistent hypokalemia. (10) RLQ abdominal pain Is this a current diagnosis for this admission?: Yes Plan: Resolved. The patient reports constant right lower quadrant abdominal pain described as aching with intermittent sharp exacerbations. Pain is worsened by movement ( position changes, cough, deep breathing). No alleviating factors. Patient denies nausea, vomiting, diarrhea, constipation, urinary urgency, frequency, dysuria, and hematuria. Of note, outpatient records from [facility] that imaging studies done at their facility identified a right adnexa mass worrisome for metastasis. Noncontrasted CT of the abdomen obtained yesterday revealed gallstones, extensive colonic diverticulosis without diverticulitis, small umbilical hernia and no other significant or acute processes. Understanding that this imaging study was limited by lack of contrast. Repeat urinalysis yesterday is negative for UTI. Antiemetics and analgesics as needed. (11) Hypokalemia Is this a current diagnosis for this admission?: Yes Plan: Resolved; likely related to frequency of albuterol treatments and HCTZ use. Have discontinued HCTZ. Weaning frequency of nebulizer treatments as tolerated. We will monitor with serial chemistries and replace as needed. (12) Tobacco dependence Is this a current diagnosis for this admission?: Yes Plan: The patient reports that she stopped smoking approximately 4 wks ago. She is encouraged to continue with smoking cessation attempts. Nicotine or placement therapies are offered and declined at this time. - Time Time Spent with patient: 15-24 minutes Medications reviewed and adjusted accordingly: Yes Anticipated discharge: Acute Rehab Within: within 48 hours - Inpatient Certification Based on my medical assessment, after consideration of the patient's comorbidities, presenting symptoms, or acuity I expect that the services needed warrant INPATIENT care.: Yes I certify that my determination is in accordance with my understanding of Medicare's requirements for reasonable and necessary INPATIENT services [42 CFR 412.3e].: Yes Medical Necessity: Risk of Complication if Not Cared For in Hospital - Plan Summary Plan Summary: ATTEMPTED TRIAL OF NASAL CANNULA TODAY AND PATIENT LASTED APPROX. 4 HOURS ON NASAL CANNULA. RETURNED TO [facility] FOR NOW, WILL RE-EVALUATE IN AM.
--- NOTE | 2017-12-31 23:33 | Progress Note ---
Provider Note Provider Note: Palliative care Follow up visit. 12/31/17 4:30 PM Attempted to visit with patient, but she is sleeping soundly with Bipap on . Meal tray at bedside with very little eaten. She was too dyspneic to work with physical therapy today. Had trial off Bipap this morning for about 4 hours which left her dyspneic and weak. Tachycardia continues with and without the Bipap. Patient very weak. Will try to visit earlier tomorrow for follow up and support.
[2018-01-01] MEDS: IPRATROPIUM/ALBUTEROL 0.5-2.5 MG/3 ML AMPUL NEB SCH ×4 (02:04→20:15)
[2018-01-01] MEDS: METHYLPREDNISOLONE INJ 40 MG/1 ML SDV IV SCH ×3 (06:01→21:42)
[2018-01-01] MEDS: DILTIAZEM HCL 90 MG TABLET PO SCH ×3 (06:04→21:44)
[2018-01-01] MEDS: BUSPIRONE HCL 10 MG TABLET PO SCH ×3 (06:04→21:43)
[2018-01-01] MEDS: LEVOTHYROXINE SODIUM 0.05 MG TABLET PO SCH (06:05)
[2018-01-01 06:27] LABS: ANION GAP 7 (5-19); BLOOD UREA NITROGEN 32 mg/dL (7-20); CALCIUM 8.7 mg/dL (8.4-10.2); CARBON DIOXIDE 33 mmol/L (22-30); CHLORIDE 103 mmol/L (98-107); GLUCOSE 200 mg/dL (75-110); PHOSPHORUS 4.2 mg/dL (2.5-4.5); SODIUM 142.9 mmol/L (137-145)
[2018-01-01] MEDS: OXYCODONE HCL IR 5 MG TABLET PO PRN ×2 (06:37→17:15)
[2018-01-01] MEDS: LORAZEPAM 0.5 MG TABLET PO PRN (06:38)
[2018-01-01 08:01] LABS: HEMOGLOBIN 9.2 g/dL (12.0-15.5); MEAN CORPUSCULAR HEMOGLOBIN 30.5 pg (27.0-33.4); MEAN CORPUSCULAR HGB CONC 33.9 g/dL (32.0-36.0); MEAN CORPUSCULAR VOLUME 90 fl (80-97); PLATELET COUNT 206 10^3/uL (150-450); RED BLOOD COUNT 3.01 10^6/uL (3.72-5.28); RED CELL DISTRIBUTION WIDTH 15.8 % (11.5-14.0); WHITE BLOOD COUNT 26.4 10^3/uL (4.0-10.5)
[2018-01-01] MEDS: INSULIN LISPRO 100 UNIT/ML 3 ML VIAL SUBCUT PRN ×3 (09:02→22:03)
[2018-01-01] MEDS: CETIRIZINE 10 MG TABLET PO SCH (09:05)
[2018-01-01] MEDS: TIOTROPIUM IH SCH (09:05)
[2018-01-01] MEDS: CITALOPRAM HYDROBROMIDE 20 MG TABLET PO SCH (09:05)
[2018-01-01] MEDS: GUAIFENESIN 600 MG TABLET.SA PO SCH ×2 (09:05→21:44)
[2018-01-01] MEDS: Mometasone/Formoterol [Dulera 200 Mcg/5 Mcg Inhaler] IH SCH ×2 (09:05→21:45)
[2018-01-01] MEDS: RIVAROXABAN 15 MG TABLET PO SCH ×2 (09:05→17:15)
[2018-01-01] MEDS: ROFLUMILAST 500 MCG TABLET PO SCH (13:28)
[2018-01-01 14:09] LABS: PATH REVIEW PATHOLOGIST REVIEWED
--- NOTE | 2018-01-01 16:40 | PDOC PROGRESS REPORT ---
Subjective Progress Note for:: 01/01/18 Subjective:: BRUCE GALAN I is a 67 year old patient female patient with multiple comorbidities including HLD, HTN, COPD, chronic respiratory failure and oxygen dependent, diabetes mellitus, hypothyroidism and anxiety disorder who was admitted on 12/23/17 with atrial fibrillation with RVR and pulmonary embolus. Patient seen this morning on rounds. She is resting in bed on BiPAP, current settings 06/12 80%. Lungs clear to auscultation. Patient transitioned to nasal BIPAP mask, tolerating much better today. After discussion with Dr. Hernandez, we are both ending agreement that the patient is able to transfer to an acute rehab facility. The patient will likely require using BiPAP every night and during the day when asleep. A significant effort will need to be made by the patient to quit smoking. Discharge planning is aware of this plan. Reason For Visit: COPD EXACERBATION,ACUTE ON CHRONIC RESPIRATORY Physical Exam Vital Signs: Temp Pulse Resp BP Pulse Ox 97.6 F 103 H 22 H 131/80 H 99 01/01/18 08:02 01/01/18 14:20 01/01/18 14:20 01/01/18 12:09 01/01/18 12:09 Intake & Output 12/31/17 01/01/18 01/02/18 06:59 06:59 06:59 Intake Total 695 257 Output Total 430 0 Balance 265 257 Weight 78.5 kg 77.5 kg General appearance: PRESENT: no acute distress, morbidly obese Eye exam: PRESENT: PERRLA Mouth exam: PRESENT: moist Neck exam: PRESENT: full ROM Respiratory exam: PRESENT: clear to auscultation tay, symmetrical, unlabored Cardiovascular exam: PRESENT: +S1, +S2 Pulses: PRESENT: normal radial pulses, normal dorsalis pedis pul GI/Abdominal exam: PRESENT: normal bowel sounds, soft. ABSENT: tenderness Rectal exam: PRESENT: deferred Extremities exam: PRESENT: full ROM Musculoskeletal exam: PRESENT: full ROM. ABSENT: ambulatory Neurological exam: PRESENT: alert, awake, oriented to person, oriented to place , oriented to time, oriented to situation Psychiatric exam: PRESENT: appropriate affect Skin exam: PRESENT: dry, intact, pallor Results Laboratory Results: 01/01/18 05:25 01/01/18 05:25 01/01/18 01/01/18 05:25 05:25 WBC 26.4 H RBC 3.01 L Hgb 9.2 L Hct 27.0 L MCV 90 MCH 30.5 MCHC 33.9 RDW 15.8 H Plt Count 206 Sodium 142.9 Potassium 4.0 Chloride 103 Carbon Dioxide 33 H Anion Gap 7 BUN 32 H Creatinine 0.37 L Est GFR ( Amer) > 60 Est GFR (Non-Af Amer) > 60 Glucose 200 H Calcium 8.7 Phosphorus 4.2 Magnesium 2.2 12/28/17 04:19 NT-Pro-B Natriuret Pep 268 Impressions: Chest/Abdomen CTA 12/23/17 16:38 IMPRESSION: Evidence of pulmonary emboli with thrombus and peripheral pulmonary arteries to the left. Emphysematous pulmonary change, with patchy areas of ground-glass pulmonary density. Previously described mass of the right hilum and pulmonary lesions stable. Chest X-Ray 12/27/17 00:00 IMPRESSION: No acute infiltrates. Stable right hilar mass Abdomen/Pelvis CT 12/28/17 00:00 IMPRESSION: 1. GALLSTONES. 2. EXTENSIVE COLONIC DIVERTICULOSIS. NO CT FINDINGS OF ACUTE DIVERTICULITIS. 3. SMALL UMBILICAL HERNIA CONTAINING FAT ONLY. NO INVOLVEMENT OF BOWEL. 4. NO OTHER SIGNIFICANT OR ACUTE PROCESS IN THE ABDOMEN OR PELVIS. Chest CT 12/28/17 00:00 IMPRESSION: 1. INTERVAL DEVELOPMENT OF A MINIMAL RIGHT PLEURAL EFFUSION. MILD ATELECTASIS OR SCARRING IN THE RIGHT LUNG BASE. 2. CHRONIC EMPHYSEMATOUS CHANGES WITH CHRONIC SCARRING. SMALL SPICULATED LESION IN THE RIGHT UPPER LOBE AND RIGHT HILAR MASS UNCHANGED. NO NEW LESIONS. LEFT LUNG CLEAR. Status: Imported from PACS Assessment & Plan - Diagnosis (1) Acute pulmonary embolism Qualifiers: Pulmonary embolism type: other Acute cor pulmonale presence: without acute cor pulmonale Qualified Code(s): I26.99 - Other pulmonary embolism without acute cor pulmonale Is this a current diagnosis for this admission?: Yes Plan: The patient presented with tachycardia, dyspnea, hypoxia. D-dimer >16 CTA of the chest revealed pulmonary emboli with thrombus to the peripheral pulmonary arteries on the left, emphysema, stable lung mass to the right upper lobe and hilum. The patient is admitted to [facility] on continuous cardiac telemetry. She is placed on supplemental oxygen as needed to maintain oxygen saturations greater than 88%. BiPAP as needed. Oncology consulted regarding cancer diagnosis, (Dr. Bond) recommended Xarelto. Have also consulted pulmonology given the multiple lung assaults - appreciate recommendations (2) Atrial fibrillation with RVR Is this a current diagnosis for this admission?: Yes Plan: Heart rate improved, remains < 100 The patient denies a known history of atrial fibrillation. Review of previous EKGs obtained at our facility demonstrates sinus rhythm. Patient presented in atrial fibrillation with RVR; HR 140. Patient admitted to [facility] on continuous cardiac telemetry. Patient initially treated with diltiazem gtt; transitioned to p.o diltiazem. Continue Xarelto. (3) COPD with acute bronchitis Is this a current diagnosis for this admission?: Yes Plan: Patient with COPD and recent tobacco use. Patient states she feels 'the same.' Presented with dyspnea, rhonchi, wheezing, increased productive cough. Blood cultures have no growth. Of note, she has new pulmonary emboli. CT chest shows a minimal right pleural effusion, mild atelectasis, chronic emphysematous changes and stable right upper lobe and hilar masses unchanged from previous. Patient supported with supplemental oxygen and BiPAP as needed. IV Solu-Medrol for persistent wheezing Scheduled and as needed and nebulizer treatments. Continue home dose Daliresp. Resume home dose Dulera and Spiriva. Mucinex and Singulair. Pulmonology consultation; appreciate their assistance. Although WBCs remain elevated, the patient is afebrile. Leukocytosis is likely secondary to inflammatory reaction related to malignancy. No indication for additional antibiotics at this time. (4) Leukocytosis Is this a current diagnosis for this admission?: Yes Plan: Persistent; waxing and waning between 20.8 and 27.2. Leukocytosis is multifactorial secondary to pulmonary emboli, COPD exacerbation, lung malignancy , bronchitis, steroid therapy and likely to remain persistently elevated secondary to inflammatory reaction. The patient remains afebrile with negative blood cultures. No indication for antibiotics. (5) Diabetes mellitus Qualifiers: Diabetes mellitus type: type 2 Is this a current diagnosis for this admission?: Yes Plan: The patient reports history of prediabetes; does not check blood glucose at home or take antidiabetic medications. Consistent carb diet Accu-Cheks before meals and at bedtime. Humalog as needed for sliding scale coverage. (6) Lung mass Is this a current diagnosis for this admission?: Yes Plan: Stable lung has again noted on CTA of the chest this admission. During last admission for COPD, arrangements were made for the patient to be transferred [facility]. Patient reports that she did have biopsy completed as planned; received discharge summary and pathology report from [facility] confirming non-small cell lung cancer. Repeat noncontrasted CT of the chest is negative for new lung nodules. Oncology is consulted; appreciate their evaluation recommendations. Dr. Bond planning to have the patient complete a PET scan as an outpatient and to follow-up in her office 01/01/18. The patient was informed of discharge summary from [facility] commenting on potential malignancy in her lower right abdomen. She was previously unaware of this. Palliative care consultation has been initiated to establish goals of care, patient expressed that she does NOT want to be intubated and does NOT want CPR. (7) Acute and chronic respiratory failure Qualifiers: Respiratory failure complication: hypoxia and hypercapnia Qualified Code(s) : J96.21 - Acute and chronic respiratory failure with hypoxia; J96.22 - Acute and chronic respiratory failure with hypercapnia; J96.22 - Acute and chronic respiratory failure with hypercapnia; J96.22 - Acute and chronic respiratory failure with hypercapnia Is this a current diagnosis for this admission?: Yes Plan: Slightly improved today; yesterday the patient was noted to have increased tachycardia, tachypnea, dyspnea, orthopnea, O2 and BiPAP requirement with worsened lung sounds. Secondary to COPD exacerbation, bronchitis, pulmonary emboli, underlying lung malignancy. The patient is home O2 dependent but is currently requiring increased oxygen support; currently utilizing BiPAP overnight and intermittently throughout the day. She was transitioned to nasal BiPAP today. ABG while on 4hrs nasal cannula demonstrates hypoxia and hypercapnia, no evidence of acidosis. The patient is now currently supported with supplemental oxygen, BiPAP, and scheduled and as needed nebulizer treatments. Patient seen today by Dr. Hernandez, appreciate his recommendations Remaining plan as above. (8) Anxiety Is this a current diagnosis for this admission?: Yes Plan: Continue patient's home medication regiment; BuSpar q. 8 and lorazepam every 8 as needed. Ativan every 6 hours PRN (9) Hypertension Is this a current diagnosis for this admission?: Yes Plan: Currently normotensive. She has been transitioned to p.o. Cardizem for her AFIB/rate control HCTZ has been discontinued secondary to persistent hypokalemia. (10) RLQ abdominal pain Is this a current diagnosis for this admission?: Yes Plan: Resolved. The patient reports constant right lower quadrant abdominal pain described as aching with intermittent sharp exacerbations. Pain is worsened by movement ( position changes, cough, deep breathing). No alleviating factors. Patient denies nausea, vomiting, diarrhea, constipation, urinary urgency, frequency, dysuria, and hematuria. Of note, outpatient records from [facility] that imaging studies done at their facility identified a right adnexa mass worrisome for metastasis. Noncontrasted CT of the abdomen obtained yesterday revealed gallstones, extensive colonic diverticulosis without diverticulitis, small umbilical hernia and no other significant or acute processes. Understanding that this imaging study was limited by lack of contrast. Repeat urinalysis yesterday is negative for UTI. Antiemetics and analgesics as needed. (11) Hypokalemia Is this a current diagnosis for this admission?: Yes Plan: Resolved; likely related to frequency of albuterol treatments and HCTZ use. Have discontinued HCTZ. Weaning frequency of nebulizer treatments as tolerated. We will monitor with serial chemistries and replace as needed. (12) Tobacco dependence Is this a current diagnosis for this admission?: Yes Plan: The patient reports that she stopped smoking approximately 4 wks ago. She is encouraged to continue with smoking cessation attempts. Nicotine or placement therapies are offered and declined at this time. - Time Time Spent with patient: 15-24 minutes Medications reviewed and adjusted accordingly: Yes Anticipated discharge: Acute Rehab Within: within 24 hours - Inpatient Certification Based on my medical assessment, after consideration of the patient's comorbidities, presenting symptoms, or acuity I expect that the services needed warrant INPATIENT care.: Yes I certify that my determination is in accordance with my understanding of Medicare's requirements for reasonable and necessary INPATIENT services [42 CFR 412.3e].: Yes Medical Necessity: Risk of Complication if Not Cared For in Hospital - Plan Summary Plan Summary: PLAN TO DISCHARGE TO ACUTE REHAB TOMORROW.
[2018-01-01] MEDS: ACETAMINOPHEN 325 MG TABLET PO PRN (19:52)
[2018-01-02] MEDS: IPRATROPIUM/ALBUTEROL 0.5-2.5 MG/3 ML AMPUL NEB SCH ×3 (02:01→14:17)
[2018-01-02] MEDS: OXYCODONE HCL IR 5 MG TABLET PO PRN ×2 (02:04→12:16)
[2018-01-02] MEDS: LORAZEPAM 0.5 MG TABLET PO PRN (04:13)
[2018-01-02] MEDS: ALBUTEROL SULFATE 0.083% NEB 2.5 MG/3 ML AMPUL NEB PRN (04:15)
[2018-01-02] MEDS: DILTIAZEM HCL 90 MG TABLET PO SCH ×2 (05:12→13:56)
[2018-01-02 05:13] LABS: HEMATOCRIT 28.9 % (36.0-47.0); HEMOGLOBIN 9.7 g/dL (12.0-15.5); MEAN CORPUSCULAR HEMOGLOBIN 29.9 pg (27.0-33.4); MEAN CORPUSCULAR HGB CONC 33.5 g/dL (32.0-36.0); MEAN CORPUSCULAR VOLUME 89 fl (80-97); PLATELET COUNT 226 10^3/uL (150-450); RED BLOOD COUNT 3.23 10^6/uL (3.72-5.28); RED CELL DISTRIBUTION WIDTH 16.3 % (11.5-14.0); WHITE BLOOD COUNT 28.4 10^3/uL (4.0-10.5)
[2018-01-02] MEDS: BUSPIRONE HCL 10 MG TABLET PO SCH ×2 (05:13→13:56)
[2018-01-02] MEDS: LEVOTHYROXINE SODIUM 0.05 MG TABLET PO SCH (05:13)
[2018-01-02] MEDS: METHYLPREDNISOLONE INJ 40 MG/1 ML SDV IV SCH ×2 (05:13→13:59)
[2018-01-02 05:50] LABS: ABSOLUTE LYMPHOCYTES# (MANUAL) 1.1 10^3/uL (0.5-4.7); ABSOLUTE MONOCYTES # (MANUAL) 1.1 10^3/uL (0.1-1.4); ABSOLUTE NEUTROPHILS# (MANUAL) 26.1 10^3/uL (1.7-8.2); BAND NEUTROPHILS % (MANUAL) 2 % (3-5); BASOPHILS % (MANUAL) 0 % (0-2); EOSINOPHILS % (MANUAL) 0 % (0-6); LYMPHOCYTES % (MANUAL) 4 % (13-45); METAMYELOCYTES % (MANUAL) 1 % (0); MONOCYTES % (MANUAL) 4 % (3-13); SEGMENTED NEUTROPHILS % (MAN) 89 % (42-78); TOTAL CELLS COUNTED 100
[2018-01-02 05:51] LABS: HYPOCHROMASIA 2+
[2018-01-02 05:52] LABS: PLATELET COMMENT ADEQUATE
[2018-01-02 06:45] LABS: ARTERIAL BLOOD BASE EXCESS 4.7 mmol/L; ARTERIAL BLOOD H2CO3 1.22 mmol/L (1.05-1.35); ARTERIAL BLOOD HCO3 28.7 mmol/L (20-26); ARTERIAL BLOOD O2 SATURATION 96.7 % (94-98); ARTERIAL BLOOD PCO2 40.4 mmHg (35-45); ARTERIAL BLOOD PH 7.47 (7.35-7.45); ARTERIAL BLOOD PO2 82.7 mmHg (80-100)
[2018-01-02 06:46] LABS: ARTERIAL BLOOD FIO2 50%
[2018-01-02] MEDS: RIVAROXABAN 15 MG TABLET PO SCH ×2 (07:31→16:43)
[2018-01-02] MEDS: ACETAMINOPHEN 325 MG TABLET PO PRN (07:33)
[2018-01-02] MEDS: INSULIN LISPRO 100 UNIT/ML 3 ML VIAL SUBCUT PRN ×2 (07:34→12:17)
[2018-01-02] MEDS: ROFLUMILAST 500 MCG TABLET PO SCH (09:01)
[2018-01-02] MEDS: CETIRIZINE 10 MG TABLET PO SCH (09:01)
[2018-01-02] MEDS: GUAIFENESIN 600 MG TABLET.SA PO SCH (09:01)
[2018-01-02] MEDS: CITALOPRAM HYDROBROMIDE 20 MG TABLET PO SCH (09:02)
[2018-01-02] MEDS: Mometasone/Formoterol [Dulera 200 Mcg/5 Mcg Inhaler] IH SCH (09:03)
[2018-01-02] MEDS: TIOTROPIUM IH SCH (09:05)
[2018-01-02] MEDS ORDERED: NITROFURANTOIN MONOHYD/M-CRYST 100 MG CAPSULE PO ONE (10:15)
--- NOTE | 2018-01-02 10:32 | PDOC TRANSFER SUMMARY ---
General Admission Date/PCP: 12/23/17 20:28 JANNIE MARRERO PA-C Admission Date: 12/23/17 Transfer Date: 01/02/18 Resuscitation Status: Do Not Resuscitate - Transfer Diagnosis (1) Acute pulmonary embolism Is this a current diagnosis for this admission?: Yes (2) Atrial fibrillation with RVR Is this a current diagnosis for this admission?: Yes (3) COPD with acute bronchitis Is this a current diagnosis for this admission?: Yes (4) Leukocytosis Is this a current diagnosis for this admission?: Yes (5) Diabetes mellitus Is this a current diagnosis for this admission?: Yes (6) Lung mass Is this a current diagnosis for this admission?: Yes (7) Acute and chronic respiratory failure Is this a current diagnosis for this admission?: Yes (8) Anxiety Is this a current diagnosis for this admission?: Yes (9) Hypertension Is this a current diagnosis for this admission?: Yes (10) RLQ abdominal pain Is this a current diagnosis for this admission?: Yes (11) Hypokalemia Is this a current diagnosis for this admission?: Yes (12) Tobacco dependence Is this a current diagnosis for this admission?: Yes - Transfer Medications Home Medications: Buspirone HCl [Buspar 10 mg Tablet] 10 mg PO Q8 12/12/17 Calcium Carbonate/Vitamin D3 [Calcium 500-Vit D3 200 Tablet] 1 each PO DAILY 01/22 Cetirizine HCl [Zyrtec 10 mg Tablet] 1 tab PO DAILY 12/12/17 Cholecalciferol (Vitamin D3) [Vitamin D3 1000 Unit Tablet] 3,000 unit PO DAILY 12/12/17 Citalopram Hydrobromide [Celexa 20 mg Tablet] 20 mg PO DAILY 12/12/17 Cyanocobalamin (Vitamin B-12) [Vitamin B-12 1000 mcg Tablet] 2,500 mcg PO DAILY 12/12/17 Ergocalciferol (Vitamin D2) [Drisdol 50,000 unit (1.25MG) Capsule] 1 cap PO MO@ 1000 12/12/17 Guaifenesin [Mucinex] 1,200 mg PO DAILY 12/12/17 Hydrochlorothiazide [Hydrodiuril 25 mg Tablet] 25 mg PO QAM 12/12/17 Ipratropium/Albuterol Sulfate [Duoneb 3 ml Ampul] 3 ml NEB RTQ6HP PRN 12/12/17 Levothyroxine Sodium [Synthroid 0.05 mg Tablet] 50 mcg PO Q6AM 12/12/17 Magnesium 250 mg PO DAILY 12/12/17 Mometasone/Formoterol [Dulera 200 Mcg/5 Mcg Inhaler] 2 puff IH Q12 12/12/17 Nystatin [Mycostatin 500,000 Unit/5 ml Susp Udcup] 500,000 unit PO QID 12/12/17 Omeprazole Magnesium [Prilosec Otc] 20 mg PO DAILYP PRN 12/12/17 Roflumilast [Daliresp 500 mcg Tablet] 500 mcg PO DAILY 12/12/17 Tiotropium [place] [Spiriva Respimat] 2 puff IH DAILY 12/12/17 Zinc 50 mg PO DAILY 12/12/17 Transfer Medications: Current Medications Acetaminophen (Tylenol 325 Mg Tablet) 975 mg PO Q6HP PRN PRN Reason: FOR PAIN OR TEMP Stop: 01/29/18 13:34 Last Admin: 01/02/18 07:33 Dose: 975 mg Albuterol (Ventolin 0.083% Neb 2.5 Mg/3 Ml Ampul) 2.5 mg NEB RTQ6HP PRN PRN Reason: FOR WHEEZING Stop: 01/26/18 12:16 Last Admin: 01/02/18 04:15 Dose: 2.5 mg Albuterol/Ipratropium (Duoneb 3 Ml Ampul) 3 ml NEB RTQ6 [facility] Stop: 01/27/18 13:59 Last Admin: 01/02/18 08:31 Dose: 3 ml Buspirone HCl (Buspar 10 Mg Tablet) 10 mg PO Q8 [facility] Stop: 01/23/18 13:59 Last Admin: 01/02/18 05:13 Dose: 10 mg Cetirizine HCl (Zyrtec 10 Mg Tablet) 10 mg PO DAILY [facility] Stop: 01/24/18 09:59 Last Admin: 01/02/18 09:01 Dose: 10 mg Citalopram Hydrobromide (Celexa 20 Mg Tablet) 20 mg PO DAILY [facility] Stop: 01/27/18 09:59 Last Admin: 01/02/18 09:02 Dose: 20 mg Dextrose (Dextrose Inj 50% Syringe (25 Gm/50 Ml)) 12.5 gm IV PRN PRN; Protocol PRN Reason: FOR BG 50-69 IN ALERT PATIENT Stop: 01/22/18 20:00 Dextrose (Dextrose Inj 50% Syringe (25 Gm/50 Ml)) 25 gm IV PRN PRN; Protocol PRN Reason: PER PROTOCOL Stop: 01/22/18 20:00 Diltiazem HCl (Cardizem 90 Mg Tablet) 90 mg PO Q8 [facility] Stop: 01/23/18 13:59 Last Admin: 01/02/18 05:12 Dose: 90 mg Glucagon (Glucagen Inj 1 Mg Vial) 1 mg IM PRN PRN; Protocol PRN Reason: Evaluate for BG < 70 Stop: 01/22/18 20:00 Glucose (Glutose 40% Gel 15 Gm Tube) 15 gm PO PRN PRN; Protocol PRN Reason: FOR BG 50-69 IN ALERT PATIENT Stop: 01/22/18 20:00 Glucose (Glutose 40% Gel 15 Gm Tube) 30 gm PO PRN PRN; Protocol PRN Reason: FOR BG < 50 IN ALERT PATIENT Stop: 01/22/18 20:00 Guaifenesin (Mucinex Sr 600 Mg Tablet.Sa) 1,200 mg PO Q12 [facility] Stop: 01/27/18 21:59 Last Admin: 01/02/18 09:01 Dose: 1,200 mg Insulin Human Lispro (Humalog Insulin 100 Unit/1 Ml 3 Ml Vial) 0 - 12 unit SUBCUT ACHSP PRN; Protocol PRN Reason: PER PROTOCOL Stop: 01/22/18 20:00 Last Admin: 01/02/18 07:34 Dose: 4 unit Levothyroxine Sodium (Synthroid 0.05 Mg Tablet) 0.05 mg PO Q6AM [facility] Stop: 01/24/18 05:59 Last Admin: 01/02/18 05:13 Dose: 0.05 mg Lorazepam (Ativan 0.5 Mg Tablet) 0.25 mg PO Q6HP PRN PRN Reason: FOR ANXIETY Stop: 01/04/18 11:28 Last Admin: 01/02/18 04:13 Dose: 0.25 mg Methylprednisolone Sodium Succinate (Solu-Medrol Inj/Pf 40 Mg/1 Ml Sdv) 40 mg IV Q8 [facility] Stop: 01/29/18 13:59 Last Admin: 01/02/18 05:13 Dose: 40 mg Nitrofurantoin Macrocrystals (Macrobid 100 Mg Capsule) 100 mg PO BID [facility] Stop: 01/09/18 09:59 Oxycodone HCl (Oxy-Ir 5 Mg Tablet) 5 mg PO Q6HP PRN PRN Reason: FOR PAIN Stop: 01/04/18 11:29 Last Admin: 01/02/18 02:04 Dose: 5 mg Mometasone/Formoterol [Dulera 200 Mcg/5 Mcg Inhaler] 1 dose IH Q12 [facility] Stop: 01/29/18 09:59 Last Admin: 01/02/18 09:03 Dose: 1 dose Tiotropium Br [ Spiriva Respimat] Inh [place] 1.25 Mcg/Actuation 1 dose IH DAILY [facility] Stop: 01/30/18 09:59 Last Admin: 01/02/18 09:05 Dose: 1 dose Promethazine HCl (Phenergan Inj 25 Mg/1 Ml Vial) 12.5 mg IV Q4HP PRN PRN Reason: FOR NAUSEA/VOMITING Stop: 01/22/18 19:54 Rivaroxaban (Xarelto 15 Mg Tablet) 15 mg PO BIDBS [facility] Stop: 01/16/18 16:59 Last Admin: 01/02/18 07:31 Dose: 15 mg Roflumilast (Daliresp 500 Mcg Tablet) 500 mcg PO DAILY [facility] Stop: 01/24/18 09:59 Last Admin: 01/02/18 09:01 Dose: 500 mcg - Allergies Allergies/Adverse Reactions: bupropion Allergy (Mild, Verified 12/23/17 21:13) Generalized Itching ciprofloxacin [From Cipro] Allergy (Verified 12/23/17 21:13) doxycycline Allergy (Verified 12/23/17 21:13) Hives Penicillins Allergy (Verified 12/23/17 21:13) Hives "cillins" Allergy (Uncoded 12/23/17 21:13) Hives - Diet/Activity Discharge Diet: As Tolerated Hospital Course Hospital Course: BRUCE GALAN I is a 67 year old patient female patient with multiple comorbidities including HLD, HTN, COPD, chronic respiratory failure and oxygen dependent, diabetes mellitus, hypothyroidism and anxiety disorder presents with chief complaint of shortness of breath and wheezing. The patient presented with tachycardia, dyspnea, hypoxia. Additionally, she was in atrial fibrillation with RVR; HR 140 (Review of previous EKGs obtained at our facility demonstrates sinus rhythm). D-dimer >16. CTA of the chest revealed pulmonary emboli with thrombus to the peripheral pulmonary arteries on the left , emphysema, stable lung mass to the right upper lobe and hilum. The patient was admitted to [facility] on continuous cardiac telemetry and started on Xarelto for her PE and cardizem gtt for AFIB. Of note, during last admission for COPD, arrangements were made for the patient to be transferred to [facility] for Endobronchial Ultrasound (EBUS) to confirm lung cancer diagnosis. Patient reports that she did have biopsy completed as planned; received discharge summary and pathology report from [facility] confirming non-small cell lung cancer. Repeat non-contrasted CT of the chest is negative for new lung nodules. Oncology is consulted; Dr. Bond planning to have the patient complete a PET scan as an outpatient and to follow-up in her office. The patient was informed of discharge summary from [facility] commenting on potential malignancy in her lower right abdomen. She was previously unaware of this. Palliative care consultation was initiated to establish goals of care, patient expressed that she does NOT want to be intubated and does NOT want CPR. The patient's COPD exacerbation was treated with IV steroids, scheduled and PRN nebulizer treatments, Mucinex, and empiric antibiotics for acute bronchitis. The patient was supported with supplemental oxygen via BiPAP throughout her hospitalization, unable to wean. Pulmonary was consulted. Unfortunately, the patient becomes very SOB when weaned from BIPAP to nasal cannula. At the present time, she is BIPAP dependent. She is able to tolerate removal of BIPAP for short periods of time in order to eat, but the remainder of the day and night she remains of BIPAP. Resumed home dose Daliresp, Dulera and Spiriva. Her AFIB was successfully treated with a cardizem gtt. She was eventually transitioned to PO cardizem. At the time of discharge, the patient is currently in NSR. The patient's WBC remains elevated, typically waxing and waning between 20.8 and 27.2. Leukocytosis is multifactorial secondary to pulmonary emboli, COPD exacerbation, lung malignancy, bronchitis, steroid therapy and likely to remain persistently elevated secondary to inflammatory reaction. The patient remains afebrile with negative blood cultures. Oncology aware. No indication for antibiotics. Following 10 days at the hospital, it was determined that the patient was safe to transfer to an acute rehab facility. She will remain on BIPAP around the clock, with short breaks as needed. The patient will require outpatient follow up with Dr. Bond of [facility] in [place], [place] and Dr. Fareed Hernandez of [facility]. Physical Exam Vital Signs: Temp Pulse Resp BP Pulse Ox 98.0 F 115 H 19 128/66 H 94 01/02/18 07:59 01/02/18 07:59 01/02/18 07:59 01/02/18 07:59 01/02/18 07:59 Intake & Output 01/01/18 01/02/18 01/03/18 06:59 06:59 06:59 Intake Total 257 170 Output Total 0 0 Balance 257 170 Weight 77.5 kg 76.9 kg Results Laboratory Results: 01/02/18 04:49 01/01/18 05:25 01/02/18 01/02/18 04:49 06:40 WBC 28.4 H RBC 3.23 L Hgb 9.7 L Hct 28.9 L MCV 89 MCH 29.9 MCHC 33.5 RDW 16.3 H Plt Count 226 Seg Neutrophils % Not Reportable Lymphocytes % Not Reportable Monocytes % Not Reportable Eosinophils % Not Reportable Basophils % Not Reportable Absolute Neutrophils Not Reportable Absolute Lymphocytes Not Reportable Absolute Monocytes Not Reportable Absolute Eosinophils Not Reportable Absolute Basophils Not Reportable Carbonic Acid 1.22 HCO3/H2CO3 Ratio 23:1 ABG pH 7.47 H ABG pCO2 40.4 ABG pO2 82.7 ABG HCO3 28.7 H ABG O2 Saturation 96.7 ABG Base Excess 4.7 FiO2 50% 12/28/17 04:19 NT-Pro-B Natriuret Pep 268 Impressions: Chest/Abdomen CTA 12/23/17 16:38 IMPRESSION: Evidence of pulmonary emboli with thrombus and peripheral pulmonary arteries to the left. Emphysematous pulmonary change, with patchy areas of ground-glass pulmonary density. Previously described mass of the right hilum and pulmonary lesions stable. Chest X-Ray 12/27/17 00:00 IMPRESSION: No acute infiltrates. Stable right hilar mass Abdomen/Pelvis CT 12/28/17 00:00 IMPRESSION: 1. GALLSTONES. 2. EXTENSIVE COLONIC DIVERTICULOSIS. NO CT FINDINGS OF ACUTE DIVERTICULITIS. 3. SMALL UMBILICAL HERNIA CONTAINING FAT ONLY. NO INVOLVEMENT OF BOWEL. 4. NO OTHER SIGNIFICANT OR ACUTE PROCESS IN THE ABDOMEN OR PELVIS. Chest CT 12/28/17 00:00 IMPRESSION: 1. INTERVAL DEVELOPMENT OF A MINIMAL RIGHT PLEURAL EFFUSION. MILD ATELECTASIS OR SCARRING IN THE RIGHT LUNG BASE. 2. CHRONIC EMPHYSEMATOUS CHANGES WITH CHRONIC SCARRING. SMALL SPICULATED LESION IN THE RIGHT UPPER LOBE AND RIGHT HILAR MASS UNCHANGED. NO NEW LESIONS. LEFT LUNG CLEAR. Status: Imported from PACS Plan Discharge Plan: DISCHARGE FROM [facility] TO [facility]. PATIENT TO REMAIN ON BIPAP. WILL NEED OUTPATIENT FOLLOW UP WITH ONCOLOGIST AND CYTOTECHNOLOGIST/HISTOTECHNOLOGIST. Time Spent: Greater than 30 Minutes
[2018-01-02 16:45] VITALS: BP 138/86
[2018-01-02] MEDS ORDERED: NITROFURANTOIN MONOHYD/M-CRYST 100 MG CAPSULE PO SCH (17:00)
--- NOTE | 2018-01-05 18:10 | PDOC PROGRESS REPORT ---
Subjective Progress Note for:: 12/31/17 Subjective:: Unchanged Reason For Visit: COPD EXACERBATION,ACUTE ON CHRONIC RESPIRATORY Physical Exam Vital Signs: Temp Pulse Resp BP Pulse Ox 97.5 F 98 21 H 132/68 H 100 12/31/17 11:38 12/31/17 14:31 12/31/17 16:15 12/31/17 11:38 12/31/17 14:31 Intake & Output 12/30/17 12/31/17 01/01/18 06:59 06:59 06:59 Intake Total 851 695 222 Output Total 400 430 Balance 451 265 222 Weight 78 kg 78.5 kg General appearance: PRESENT: no acute distress, disheveled, obese. ABSENT: cooperative Head exam: PRESENT: atraumatic, normocephalic Eye exam: PRESENT: conjunctiva pale. ABSENT: nystagmus, periorbital swelling, scleral icterus Mouth exam: PRESENT: dry mucosa, neck supple, tongue midline, other - ET tube in place Neck exam: ABSENT: carotid bruit, JVD, lymphadenopathy, thyromegaly, tracheal deviation, tracheostomy Respiratory exam: PRESENT: decreased breath sounds, prolonged expiratory phas, rales, rhonchi, unlabored. ABSENT: retraction, stridor Cardiovascular exam: PRESENT: RRR, +S1, +S2, tachycardia Pulses: PRESENT: normal radial pulses GI/Abdominal exam: PRESENT: diminished bowel sounds, soft Extremities exam: ABSENT: calf tenderness, clubbing, joint swelling Musculoskeletal exam: ABSENT: deformity, dislocation Neurological exam: ABSENT: awake Skin exam: PRESENT: dry, warm Results Laboratory Results: 12/31/17 07:59 12/30/17 05:43 12/31/17 12/31/17 12/31/17 03:10 07:59 13:49 WBC 27.1 H RBC 3.18 L Hgb 9.5 L Hct 28.4 L MCV 89 MCH 29.9 MCHC 33.4 RDW 15.9 H Plt Count 235 Carbonic Acid 1.46 H HCO3/H2CO3 Ratio 20:1 ABG pH 7.42 ABG pCO2 48.6 H ABG pO2 60.7 L ABG HCO3 30.5 H ABG O2 Saturation 91.4 L ABG Base Excess 5.1 FiO2 5L Urine Color YELLOW Urine Appearance CLEAR Urine pH 5.0 Ur Specific [place] 1.027 Urine Protein NEGATIVE Urine Glucose (UA) >=500 H Urine Ketones NEGATIVE Urine Blood SMALL H Urine Nitrite NEGATIVE Ur Leukocyte Esterase NEGATIVE Urine WBC (Auto) 3 Urine RBC (Auto) 20 12/28/17 04:19 NT-Pro-B Natriuret Pep 268 Impressions: Chest/Abdomen CTA 12/23/17 16:38 IMPRESSION: Evidence of pulmonary emboli with thrombus and peripheral pulmonary arteries to the left. Emphysematous pulmonary change, with patchy areas of ground-glass pulmonary density. Previously described mass of the right hilum and pulmonary lesions stable. Chest X-Ray 12/27/17 00:00 IMPRESSION: No acute infiltrates. Stable right hilar mass Abdomen/Pelvis CT 12/28/17 00:00 IMPRESSION: 1. GALLSTONES. 2. EXTENSIVE COLONIC DIVERTICULOSIS. NO CT FINDINGS OF ACUTE DIVERTICULITIS. 3. SMALL UMBILICAL HERNIA CONTAINING FAT ONLY. NO INVOLVEMENT OF BOWEL. 4. NO OTHER SIGNIFICANT OR ACUTE PROCESS IN THE ABDOMEN OR PELVIS. Chest CT 12/28/17 00:00 IMPRESSION: 1. INTERVAL DEVELOPMENT OF A MINIMAL RIGHT PLEURAL EFFUSION. MILD ATELECTASIS OR SCARRING IN THE RIGHT LUNG BASE. 2. CHRONIC EMPHYSEMATOUS CHANGES WITH CHRONIC SCARRING. SMALL SPICULATED LESION IN THE RIGHT UPPER LOBE AND RIGHT HILAR MASS UNCHANGED. NO NEW LESIONS. LEFT LUNG CLEAR. Assessment & Plan - Diagnosis (1) Acute and chronic respiratory failure Qualifiers: Respiratory failure complication: hypoxia and hypercapnia Qualified Code(s) : J96.21 - Acute and chronic respiratory failure with hypoxia; J96.22 - Acute and chronic respiratory failure with hypercapnia; J96.22 - Acute and chronic respiratory failure with hypercapnia; J96.22 - Acute and chronic respiratory failure with hypercapnia Is this a current diagnosis for this admission?: Yes Plan: No significant improvement (2) Acute pulmonary embolism Qualifiers: Pulmonary embolism type: other Acute cor pulmonale presence: without acute cor pulmonale Qualified Code(s): I26.99 - Other pulmonary embolism without acute cor pulmonale Is this a current diagnosis for this admission?: Yes Plan: CTA on 12/23 continuue anti coag (3) Atrial fibrillation with RVR Is this a current diagnosis for this admission?: Yes Plan: stable (4) Lung mass Is this a current diagnosis for this admission?: Yes Plan: need path report (5) Anxiety Is this a current diagnosis for this admission?: Yes (6) Obstructive sleep apnea Is this a current diagnosis for this admission?: Yes (7) Tobacco dependence Is this a current diagnosis for this admission?: Yes - Time Total Critical Time (Minutes): 50
--- NOTE | 2018-01-07 12:03 | PDOC PROGRESS REPORT ---
Subjective Progress Note for:: 01/02/18 Subjective:: Unchanged Reason For Visit: COPD EXACERBATION,ACUTE ON CHRONIC RESPIRATORY Physical Exam Vital Signs: Temp Pulse Resp BP Pulse Ox 97.3 F 110 H 18 138/86 H 94 01/02/18 15:46 01/02/18 15:46 01/02/18 17:05 01/02/18 15:46 01/02/18 17:05 General appearance: PRESENT: no acute distress, disheveled, obese Head exam: PRESENT: normocephalic Eye exam: PRESENT: conjunctiva pale. ABSENT: nystagmus, periorbital swelling, scleral icterus Mouth exam: PRESENT: dry mucosa, neck supple, tongue midline Neck exam: ABSENT: carotid bruit, JVD, lymphadenopathy, thyromegaly, tracheal deviation, tracheostomy Respiratory exam: PRESENT: decreased breath sounds, prolonged expiratory phas, rales, rhonchi, unlabored. ABSENT: retraction, stridor Cardiovascular exam: PRESENT: RRR, +S1, +S2 Pulses: PRESENT: normal radial pulses GI/Abdominal exam: PRESENT: diminished bowel sounds, soft Extremities exam: ABSENT: calf tenderness, clubbing, joint swelling Musculoskeletal exam: ABSENT: deformity, dislocation Neurological exam: PRESENT: awake Psychiatric exam: PRESENT: flat affect Skin exam: PRESENT: dry, warm Results Laboratory Results: 01/02/18 04:49 01/01/18 05:25 12/28/17 04:19 NT-Pro-B Natriuret Pep 268 Impressions: Chest/Abdomen CTA 12/23/17 16:38 IMPRESSION: Evidence of pulmonary emboli with thrombus and peripheral pulmonary arteries to the left. Emphysematous pulmonary change, with patchy areas of ground-glass pulmonary density. Previously described mass of the right hilum and pulmonary lesions stable. Chest X-Ray 12/27/17 00:00 IMPRESSION: No acute infiltrates. Stable right hilar mass Abdomen/Pelvis CT 12/28/17 00:00 IMPRESSION: 1. GALLSTONES. 2. EXTENSIVE COLONIC DIVERTICULOSIS. NO CT FINDINGS OF ACUTE DIVERTICULITIS. 3. SMALL UMBILICAL HERNIA CONTAINING FAT ONLY. NO INVOLVEMENT OF BOWEL. 4. NO OTHER SIGNIFICANT OR ACUTE PROCESS IN THE ABDOMEN OR PELVIS. Chest CT 12/28/17 00:00 IMPRESSION: 1. INTERVAL DEVELOPMENT OF A MINIMAL RIGHT PLEURAL EFFUSION. MILD ATELECTASIS OR SCARRING IN THE RIGHT LUNG BASE. 2. CHRONIC EMPHYSEMATOUS CHANGES WITH CHRONIC SCARRING. SMALL SPICULATED LESION IN THE RIGHT UPPER LOBE AND RIGHT HILAR MASS UNCHANGED. NO NEW LESIONS. LEFT LUNG CLEAR. Assessment & Plan - Diagnosis (1) Acute and chronic respiratory failure Qualifiers: Respiratory failure complication: hypoxia and hypercapnia Qualified Code(s) : J96.21 - Acute and chronic respiratory failure with hypoxia; J96.22 - Acute and chronic respiratory failure with hypercapnia; J96.22 - Acute and chronic respiratory failure with hypercapnia; J96.22 - Acute and chronic respiratory failure with hypercapnia Is this a current diagnosis for this admission?: Yes Plan: No significant improvement (2) Acute pulmonary embolism Qualifiers: Pulmonary embolism type: other Acute cor pulmonale presence: without acute cor pulmonale Qualified Code(s): I26.99 - Other pulmonary embolism without acute cor pulmonale Is this a current diagnosis for this admission?: Yes Plan: CTA on 12/23 continuue anti coag (3) Atrial fibrillation with RVR Is this a current diagnosis for this admission?: Yes Plan: stable (4) Lung mass Is this a current diagnosis for this admission?: Yes Plan: need path report (5) Anxiety Is this a current diagnosis for this admission?: Yes (6) Obstructive sleep apnea Is this a current diagnosis for this admission?: Yes (7) Tobacco dependence Is this a current diagnosis for this admission?: Yes Plan: transdermal nicotine - Time Total Critical Time (Minutes): 35
--- NOTE | 2018-01-07 12:05 | PDOC PROGRESS REPORT ---
Subjective Progress Note for:: 01/01/18 Subjective:: Unchanged Reason For Visit: COPD EXACERBATION,ACUTE ON CHRONIC RESPIRATORY Physical Exam Vital Signs: Temp Pulse Resp BP Pulse Ox 97.3 F 110 H 18 138/86 H 94 01/02/18 15:46 01/02/18 15:46 01/02/18 17:05 01/02/18 15:46 01/02/18 17:05 General appearance: PRESENT: disheveled, obese Head exam: PRESENT: atraumatic, normocephalic Eye exam: PRESENT: conjunctiva pale. ABSENT: nystagmus, periorbital swelling, scleral icterus Mouth exam: PRESENT: dry mucosa, neck supple, tongue midline Neck exam: ABSENT: carotid bruit, JVD, lymphadenopathy, thyromegaly, tracheal deviation, tracheostomy Respiratory exam: PRESENT: decreased breath sounds, prolonged expiratory phas, rales, rhonchi, wheezes. ABSENT: retraction, stridor Cardiovascular exam: PRESENT: RRR, +S1, +S2, tachycardia Pulses: PRESENT: normal radial pulses GI/Abdominal exam: PRESENT: diminished bowel sounds, soft Extremities exam: ABSENT: calf tenderness, clubbing, joint swelling Musculoskeletal exam: ABSENT: deformity, dislocation Neurological exam: PRESENT: awake Psychiatric exam: PRESENT: flat affect Skin exam: PRESENT: dry, warm Results Laboratory Results: 01/02/18 04:49 01/01/18 05:25 12/28/17 04:19 NT-Pro-B Natriuret Pep 268 Impressions: Chest/Abdomen CTA 12/23/17 16:38 IMPRESSION: Evidence of pulmonary emboli with thrombus and peripheral pulmonary arteries to the left. Emphysematous pulmonary change, with patchy areas of ground-glass pulmonary density. Previously described mass of the right hilum and pulmonary lesions stable. Chest X-Ray 12/27/17 00:00 IMPRESSION: No acute infiltrates. Stable right hilar mass Abdomen/Pelvis CT 12/28/17 00:00 IMPRESSION: 1. GALLSTONES. 2. EXTENSIVE COLONIC DIVERTICULOSIS. NO CT FINDINGS OF ACUTE DIVERTICULITIS. 3. SMALL UMBILICAL HERNIA CONTAINING FAT ONLY. NO INVOLVEMENT OF BOWEL. 4. NO OTHER SIGNIFICANT OR ACUTE PROCESS IN THE ABDOMEN OR PELVIS. Chest CT 12/28/17 00:00 IMPRESSION: 1. INTERVAL DEVELOPMENT OF A MINIMAL RIGHT PLEURAL EFFUSION. MILD ATELECTASIS OR SCARRING IN THE RIGHT LUNG BASE. 2. CHRONIC EMPHYSEMATOUS CHANGES WITH CHRONIC SCARRING. SMALL SPICULATED LESION IN THE RIGHT UPPER LOBE AND RIGHT HILAR MASS UNCHANGED. NO NEW LESIONS. LEFT LUNG CLEAR. Assessment & Plan - Diagnosis (1) Acute and chronic respiratory failure Qualifiers: Respiratory failure complication: hypoxia and hypercapnia Qualified Code(s) : J96.21 - Acute and chronic respiratory failure with hypoxia; J96.22 - Acute and chronic respiratory failure with hypercapnia; J96.22 - Acute and chronic respiratory failure with hypercapnia; J96.22 - Acute and chronic respiratory failure with hypercapnia Is this a current diagnosis for this admission?: Yes Plan: No significant improvement (2) Acute pulmonary embolism Qualifiers: Pulmonary embolism type: other Acute cor pulmonale presence: without acute cor pulmonale Qualified Code(s): I26.99 - Other pulmonary embolism without acute cor pulmonale Is this a current diagnosis for this admission?: Yes Plan: CTA on 12/23 continuue anti coag (3) Atrial fibrillation with RVR Is this a current diagnosis for this admission?: Yes Plan: stable (4) Lung mass Is this a current diagnosis for this admission?: Yes Plan: need path report (5) Anxiety Is this a current diagnosis for this admission?: Yes (6) Obstructive sleep apnea Is this a current diagnosis for this admission?: Yes (7) Tobacco dependence Is this a current diagnosis for this admission?: Yes - Time Total Critical Time (Minutes): 40
== END 2018-01-02 18:41 | DRG 175 ==
LOC: ER 13:58 → EH 20:28 → 3W 23:20
PROVIDERS: ADMIT Internal Medicine; ATTEND Internal Medicine
PROC: 5A09557 Assistance with Respiratory Ventilation, Greater than 96 Consecutive Hours, Continuous Positive Airway Pressure (ICD-10-PCS; principal; 2017-12-23)
PROC: 3E0F73Z Introduction of Anti-inflammatory into Respiratory Tract, Via Natural or Artificial Opening (ICD-10-PCS; 2017-12-23)
DX: I26.99 Other pulmonary embolism without acute cor pulmonale (principal); J96.21 Acute and chronic respiratory failure with hypoxia; J96.22 Acute and chronic respiratory failure with hypercapnia; J44.0 Chronic obstructive pulmonary disease with (acute) lower respiratory infection; C34.90 Malignant neoplasm of unspecified part of unspecified bronchus or lung; I48.2 Chronic atrial fibrillation; Z66 Do not resuscitate; Z51.5 Encounter for palliative care; J20.9 Acute bronchitis, unspecified; E11.9 Type 2 diabetes mellitus without complications; R91.8 Other nonspecific abnormal finding of lung field; F41.9 Anxiety disorder, unspecified; I10 Essential (primary) hypertension; E87.6 Hypokalemia; E78.00 Pure hypercholesterolemia, unspecified; E03.9 Hypothyroidism, unspecified; J43.9 Emphysema, unspecified; K80.20 Calculus of gallbladder without cholecystitis without obstruction; K57.30 Diverticulosis of large intestine without perforation or abscess without bleeding; K42.9 Umbilical hernia without obstruction or gangrene; F17.210 Nicotine dependence, cigarettes, uncomplicated; K21.9 Gastro-esophageal reflux disease without esophagitis; G47.33 Obstructive sleep apnea (adult) (pediatric); F32.9 Major depressive disorder, single episode, unspecified; Z79.899 Other long term (current) drug therapy; Z88.3 Allergy status to other anti-infective agents; Z88.0 Allergy status to penicillin; Z88.8 Allergy status to other drugs, medicaments and biological substances; Z99.81 Dependence on supplemental oxygen; Z85.89 Personal history of malignant neoplasm of other organs and systems; Z82.49 Family history of ischemic heart disease and other diseases of the circulatory system; Z80.0 Family history of malignant neoplasm of digestive organs
CPT/HCPCS: 36415; 36600; 71045; 71046; 71250; 71275; 74176; 80048; 80053; 81001; 82550; 82553; 82803; 82962; 83036; 83735; 83880; 84100; 84443; 84484; 85025; 85027; 85379; 87040; 93005; 93010; 94660; 96374; 96375; 99291; G8978-GP; G8979-GP; G8987-GO; G8988-GO; J0456; J1650; J1815; J1940; J2060; J2920; J3480; J3490; J7040; J7060; J7512; J7620; J8499

== ENCOUNTER 2018-01-03 00:30 | Inpatient (IN) | payer MEDICARE ==
[2018-01-03 01:10] LABS: HEMATOCRIT 30.8 % (36.0-47.0); HEMOGLOBIN 10.1 g/dL (12.0-15.5); MEAN CORPUSCULAR HEMOGLOBIN 29.6 pg (27.0-33.4); MEAN CORPUSCULAR HGB CONC 32.9 g/dL (32.0-36.0); MEAN CORPUSCULAR VOLUME 90 fl (80-97); PLATELET COUNT 267 10^3/uL (150-450); RED BLOOD COUNT 3.42 10^6/uL (3.72-5.28); RED CELL DISTRIBUTION WIDTH 16.5 % (11.5-14.0)
[2018-01-03 01:31] LABS: ABSOLUTE LYMPHOCYTES# (MANUAL) 1.5 10^3/uL (0.5-4.7); ABSOLUTE MONOCYTES # (MANUAL) 0.7 10^3/uL (0.1-1.4); ABSOLUTE NEUTROPHILS# (MANUAL) 34.8 10^3/uL (1.7-8.2); BAND NEUTROPHILS % (MANUAL) 6 % (3-5); BASOPHILS % (MANUAL) 0 % (0-2); EOSINOPHILS % (MANUAL) 0 % (0-6); LYMPHOCYTES % (MANUAL) 0 % (13-45); MONOCYTES % (MANUAL) 2 % (3-13); NUCLEATED RED BLOOD CELLS 2 /100 WBC (0); SEGMENTED NEUTROPHILS % (MAN) 88 % (42-78); TOTAL CELLS COUNTED 100
[2018-01-03 01:32] LABS: PLATELET CLUMPS PRESENT; PLATELET COMMENT ADEQUATE
[2018-01-03 01:36] LABS: ANISOCYTOSIS 1+; HYPOCHROMASIA SLIGHT; POLYCHROMASIA SLIGHT
[2018-01-03 01:41] LABS: ALANINE AMINOTRANSFERASE 101 U/L (9-52); ALBUMIN 2.7 g/dL (3.5-5.0); ALKALINE PHOSPHATASE 243 U/L (38-126); ASPARTATE AMINO TRANSFERASE 45 U/L (14-36); BILIRUBIN,DIRECT 0.6 mg/dL (0.0-0.4); BILIRUBIN,TOTAL 0.8 mg/dL (0.2-1.3); BLOOD UREA NITROGEN 38 mg/dL (7-20); CARBON DIOXIDE 30 mmol/L (22-30); GLUCOSE 150 mg/dL (75-110); POTASSIUM 4.8 mmol/L (3.6-5.0); SODIUM 140.9 mmol/L (137-145); TOTAL PROTEIN 5.1 g/dL (6.3-8.2)
[2018-01-03 01:43] LABS: ANION GAP 10 (5-19); CHLORIDE 101 mmol/L (98-107)
--- NOTE | 2018-01-03 02:09 | RADIOLOGY REPORT (SQ) ---
EXAM DESCRIPTION: XR CHEST 1 VIEW COMPLETED DATE/TME: 01/03/2018 00:44 CLINICAL HISTORY: sob COMPARISON: 12/27/2017 FINDINGS: Single frontal view of the chest. Tortuosity of thoracic aorta. Heart is not enlarged. Small right pleural effusion. No pneumothorax. Osseous structures are stable. Leads overlie the chest. Right hilar mass and spiculated right upper lung lesion are stable. Upper abdominal soft tissues are unremarkable. IMPRESSION: 1. Small right pleural effusion slightly increased from the comparison study.
[2018-01-03 02:18] LABS: ARTERIAL BLOOD BASE EXCESS 4.6 mmol/L; ARTERIAL BLOOD H2CO3 1.28 mmol/L (1.05-1.35); ARTERIAL BLOOD O2 SATURATION 98.5 % (94-98); ARTERIAL BLOOD PCO2 42.4 mmHg (35-45); ARTERIAL BLOOD PH 7.45 (7.35-7.45); ARTERIAL BLOOD PO2 118.7 mmHg (80-100); ARTERIAL BLOOD TOTAL CO2 30.3 mmol/L (21-25)
[2018-01-03 02:22] LABS: ARTERIAL BLOOD FIO2 40%
--- NOTE | 2018-01-03 04:03 | ER Document Report ---
ED General - General Chief Complaint: Respiratory Distress Stated Complaint: DIFFICULTY BREATHING Time Seen by Provider: 01/03/18 00:41 Mode of Arrival: Wheelchair Information source: Patient, Emergency Med Personnel Notes: Chief complaint: Shortness of breath History of complain:( obtained from----patient) 67 years old female with multiple medical problems including lung cancer COPD, pulmonary embolism, was discharged from the hospital yesterday, returned from the correction with extreme difficulty in breathing. And EMS brought her with tachypnea and tachycardic. She states when she was discharged she was not feeling that well, she continues later deteriorated. Onset: As above Duration: Long-standing Severity: Severe Quality: Sharp Context: As above Exacerbating factor and relieving factors: Any change of position REVIEW OF SYSTEMS: CONSTITUTIONAL : Denies fever, chills, or sweats. Denies recent illness. EENT: Denies eye, ear, throat, or mouth pain or symptoms. Denies nasal or sinus congestion or discharge. Denies throat, tongue, or mouth swelling or difficulty swallowing. CARDIOVASCULAR: Denies chest pain. Denies palpitations or racing or irregular heart beat. Denies ankl. RESPIRATORY: GASTROINTESTINAL: Denies distention. Denies nausea, vomiting, or diarrhea. Denies blood in vomitus, stools, or per rectum. Denies black, tarry stools. Denies constipation. GENITOURINARY: Denies difficulty urinating, painful urination, burning, frequency, blood in urine, or discharge. FEMALE GENITOURINARY: Denies vaginal bleeding, heavy or abnormal periods, irregular periods. Denies vaginal discharge or odor. MUSCULOSKELETAL: Denies back or neck pain or stiffness. Denies joint pain or swelling. SKIN: Denies rash, lesions or sores. HEMATOLOGIC : Denies easy bruising or bleeding. LYMPHATIC: Denies swollen, enlarged glands. NEUROLOGICAL: Denies confusion or altered mental status. Denies passing out or loss of consciousness. Denies dizziness or lightheadedness. Denies headache. Denies weakness or paralysis or loss of use of either side. Denies problems with gait or speech. Denies sensory loss, numbness, or tingling. Denies seizures. PSYCHIATRIC: Denies anxiety or stress. Denies depression, suicidal ideation, or homicidal ideation. ALL OTHER SYSTEMS REVIEWED AND NEGATIVE. PHYSICAL EXAMINATION: GENERAL: sHe was brought in with almost impending respiratory failure, she informed that she is a DNR and DO NOT INTUBATE. HEAD: Atraumatic, normocephalic. EYES: Pupils equal round and reactive to light, extraocular movements intact, conjunctiva are normal. ENT: Nares patent, oropharynx clear without exudates. Moist mucous membranes. NECK: Normal range of motion, supple without lymphadenopathy LUNGS: Diffuse rales with throughout the lung field, right lung field is has lots of crackles and rhonchi HEART: Regular rate and rhythm without murmurs ABDOMEN: Soft, nontender, nondistended abdomen. No guarding, no rebound. No masses appreciated. Examination of genitals-deferred Musculoskeletal: Normal range of motion, no pitting or edema. No cyanosis. NEUROLOGICAL: Cranial nerves grossly intact. Normal speech, normal gait. Normal sensory, motor exams PSYCH: Normal mood, normal affect. SKIN: Warm, Dry, normal turgor, no rashes or lesions noted. Dictation was performed using [employer] voice recognition software TRAVEL OUTSIDE OF THE [place] IN LAST 30 DAYS: No - HPI Patient complains to provider of: Dictated Onset/Duration: Gradual - Related Data Allergies/Adverse Reactions: bupropion Allergy (Mild, Verified 12/23/17 21:13) Generalized Itching ciprofloxacin [From Cipro] Allergy (Verified 12/23/17 21:13) doxycycline Allergy (Verified 12/23/17 21:13) Hives Penicillins Allergy (Verified 12/23/17 21:13) Hives "cillins" Allergy (Uncoded 12/23/17 21:13) Hives Past Medical History - Social History Smoking Status: Former Smoker Chew tobacco use (# tins/day): No Frequency of alcohol use: None Drug Abuse: None Family History: Reviewed & Not Pertinent, Other - Brother- CAD Mother- colorectal cancer Patient has suicidal ideation: No Patient has homicidal ideation: No - Past Medical History Cardiac Medical History: Reports: Hx Hypercholesterolemia, Hx Hypertension Pulmonary Medical History: Reports: Hx Bronchitis, Hx COPD, Hx Pneumonia, Hx Respiratory Failure - She is on chronic oxygen therapy at home. Endocrine Medical History: Reports: Hx Diabetes Mellitus Type 2, Hx Hypothyroidism Renal/ Medical History: Denies: Hx End Stage Renal Disease, Hx Peritoneal Dialysis Malignancy Medical History: Reports: Hx Lung Cancer GI Medical History: Reports: Hx Gastroesophageal Reflux Disease. Denies: Hx Crohn's Disease, Hx Ulcerative Colitis Musculoskeltal Medical History: Denies Hx Fibromyalgia, Denies Hx Gout Skin Medical History: Denies Hx Psoriasis Psychiatric Medical History: Reports: Hx Depression Traumatic Medical History: Denies: Hx Traumatic Brain Injury Past Surgical History: Reports: Hx Appendectomy, Hx Thyroid Surgery - 1/2 thyroid, Other - Right-sided chest tube - Immunizations Hx Pneumococcal Vaccination: 07/08/16 Review of Systems - Review of Systems Notes: Dictated Physical Exam - Vital signs Vitals: Pulse Ox 96 01/03/18 00:44 - Notes Notes: Dictated Course - Re-evaluation Re-evalutation: 01/03/18 04:02 Patient was put on CPAP machine soon as she came in, her tachypnea improved diaphoresis improved as CPAP. - Vital Signs Vital signs: Temp Pulse Resp BP Pulse Ox 28 H 96 01/03/18 00:51 01/03/18 00:51 - Laboratory Result Diagrams: 01/03/18 01:00 01/03/18 01:00 Laboratory results interpreted by me: 01/03/18 01/03/18 01/03/18 01:00 01:00 02:12 WBC 37.0 H* RBC 3.42 L Hgb 10.1 L Hct 30.8 L RDW 16.5 H Seg Neuts % (Manual) 88 H Band Neutrophils % 6 H Lymphocytes % (Manual) 0 L Monocytes % (Manual) 2 L Abs Neuts (Manual) 34.8 H ABG pO2 118.7 H ABG HCO3 29.0 H ABG Total CO2 30.3 H ABG O2 Saturation 98.5 H BUN 38 H Creatinine 0.43 L Glucose 150 H Direct Bilirubin 0.6 H AST 45 H ALT 101 H Alkaline Phosphatase 243 H Total Protein 5.1 L Albumin 2.7 L - Diagnostic Test Radiology reviewed: Reports reviewed - Increase in right pleural effusion Discharge - Discharge Clinical Impression: COPD exacerbation, Acute on chronic respiratory failure with hypoxia and hypercapnia, Obstructive sleep apnea Lung cancer Qualifiers: Laterality: right Lung location: middle lobe of lung Qualified Code(s): C34.2 - Malignant neoplasm of middle lobe, bronchus or lung Condition: Poor Disposition: ADMITTED INPATIENT Admitting Provider: Hospitalist Referrals: JANNIE MARRERO PA-C [Primary Care Provider] - Follow up as needed
[2018-01-03] MEDS ORDERED: LORAZEPAM 0.5 MG TABLET PO PRN (04:25)
[2018-01-03] MEDS ORDERED: IPRATROPIUM/ALBUTEROL 0.5-2.5 MG/3 ML AMPUL NEB PRN (04:25)
[2018-01-03] MEDS ORDERED: ACETAMINOPHEN 325 MG TABLET PO PRN (04:25)
[2018-01-03] MEDS ORDERED: MAG HYDROX/AL HYDROX/SIMETH SUSP 30 ML UDCUP PO PRN (04:27)
[2018-01-03 05:43] LABS: CREATINE KINASE MB 1.15 ng/mL (<4.55); TROPONIN I 0.017 ng/mL
--- NOTE | 2018-01-03 05:43 | PDOC H&P ---
History of Present Illness Admission Date/PCP: 01/03/18 04:35 JANNIE MARRERO PA-C Patient complains of: Shortness of breath History of Present Illness: BRCUE GALAN is a 67 year old female with an extensive past medical history of non-small cell lung cancer, COPD, pulmonary embolism on anticoagulation, BiPAP dependent, malnutrition, atrial fibrillation, diabetes, hypertension and anxiety. [facility] and returns 12 hours later in severe respiratory distress complaining of abdominal pain with diarrhea. Her workup reveals leukocytosis of 37,000, chest x-ray with a small right pleural effusion and physical exam with right upper quadrant abdominal pain. She is referred to the hospitalist for admission. She verifies her CODE STATUS is DNR Past Medical History Cardiac Medical History: Reports: Hyperlipidema, Hypertension Pulmonary Medical History: Reports: Bronchitis, Chronic Obstructive Pulmonary Disease (COPD), Pneumonia, Respiratory Failure - She is on chronic oxygen therapy at home. Endocrine Medical History: Reports: Diabetes Mellitus Type 2, Hypothyroidism Renal/ Medical History: Denies: End Stage Renal Disease Malignancy Medical History: Reports: Lung Cancer GI Medical History: Reports: Gastroesophageal Reflux Disease Denies: Crohn's Disease, Ulcerative Colitis Musculoskeltal Medical History: Denies: Fibromyalgia, Gout Skin Medical History: Denies: Psoriasis Psychiatric Medical History: Reports: Depression, Tobacco Dependency Traumatic Medical History: Denies: Traumatic Brain Injury Hematology: Denies: Hemophilia, Sickle Cell Disease Past Surgical History Past Surgical History: Reports: Appendectomy, Other - Right-sided chest tube Social History Information Source: Patient Smoking Status: Former Smoker Frequency of Alcohol Use: None Hx Recreational Drug Use: No Drugs: None Hx Prescription Drug Abuse: No - Advance Directive Resuscitation Status: Do Not Resuscitate Family History Family History: Other - Brother- CAD Mother- colorectal cancer Parental Family History Reviewed: Yes Children Family History Reviewed: Yes Sibling(s) Family History Reviewed.: Yes Medication/Allergy Home Medications: Buspirone HCl [Buspar 10 mg Tablet] 10 mg PO Q8 12/12/17 Calcium Carbonate/Vitamin D3 [Calcium 500-Vit D3 200 Tablet] 1 each PO DAILY 01/22 Cetirizine HCl [Zyrtec 10 mg Tablet] 1 tab PO DAILY 12/12/17 Cholecalciferol (Vitamin D3) [Vitamin D3 1000 Unit Tablet] 3,000 unit PO DAILY 12/12/17 Citalopram Hydrobromide [Celexa 20 mg Tablet] 20 mg PO DAILY 12/12/17 Cyanocobalamin (Vitamin B-12) [Vitamin B-12 1000 mcg Tablet] 2,500 mcg PO DAILY 12/12/17 Ergocalciferol (Vitamin D2) [Drisdol 50,000 unit (1.25MG) Capsule] 1 cap PO MO@ 1000 12/12/17 Guaifenesin [Mucinex] 1,200 mg PO DAILY 12/12/17 Hydrochlorothiazide [Hydrodiuril 25 mg Tablet] 25 mg PO QAM 12/12/17 Ipratropium/Albuterol Sulfate [Duoneb 3 ml Ampul] 3 ml NEB RTQ6HP PRN 12/12/17 Levothyroxine Sodium [Synthroid 0.05 mg Tablet] 50 mcg PO Q6AM 12/12/17 Magnesium 250 mg PO DAILY 12/12/17 Mometasone/Formoterol [Dulera 200 Mcg/5 Mcg Inhaler] 2 puff IH Q12 12/12/17 Nystatin [Mycostatin 500,000 Unit/5 ml Susp Udcup] 500,000 unit PO QID 12/12/17 Omeprazole Magnesium [Prilosec Otc] 20 mg PO DAILYP PRN 12/12/17 Roflumilast [Daliresp 500 mcg Tablet] 500 mcg PO DAILY 12/12/17 Tiotropium [place] [Spiriva Respimat] 2 puff IH DAILY 12/12/17 Zinc 50 mg PO DAILY 12/12/17 Acetaminophen [Tylenol 325 mg Tablet] 975 mg PO Q6HP PRN tablet 01/02/18 Albuterol Sulfate [Ventolin 0.083% Neb 2.5 mg/3 mL Ampul] 2.5 mg NEB RTQ6HP PRN vial.neb 01/02/18 Diltiazem HCl [Cardizem 90 mg Tablet] 90 mg PO Q8 tablet 01/02/18 Ipratropium/Albuterol Sulfate [Duoneb 3 ml Ampul] 3 ml NEB RTQ6 vial.neb Lorazepam [Ativan 0.5 mg Tablet] 0.25 mg PO Q6HP PRN #20 tablet 01/02/18 Nitrofurantoin Monohyd/M-Cryst [Macrobid 100 mg Capsule] 100 mg PO BID #13 capsule 01/02/18 Oxycodone HCl [Oxy-Ir 5 mg Tablet] 5 mg PO Q6HP PRN #10 tablet 01/02/18 Rivaroxaban [Xarelto 15 mg Tablet] 15 mg PO BIDBS tablet 01/02/18 Allergies/Adverse Reactions: bupropion Allergy (Mild, Verified 12/23/17 21:13) Generalized Itching ciprofloxacin [From Cipro] Allergy (Verified 12/23/17 21:13) doxycycline Allergy (Verified 12/23/17 21:13) Hives Penicillins Allergy (Verified 12/23/17 21:13) Hives "cillins" Allergy (Uncoded 12/23/17 21:13) Hives Review of Systems ROS unobtainable: Other - Respiratory distress BiPAP dependent Physical Exam Vital Signs: Temp Pulse Resp BP Pulse Ox 28 H 96 01/03/18 00:51 01/03/18 00:51 General appearance: PRESENT: cooperative, obese, severe distress Head exam: PRESENT: atraumatic, normocephalic Eye exam: PRESENT: conjunctiva pink, EOMI, PERRLA. ABSENT: scleral icterus Ear exam: PRESENT: normal external ear exam Mouth exam: PRESENT: dry mucosa, tongue midline Neck exam: ABSENT: carotid bruit, JVD, lymphadenopathy, thyromegaly Respiratory exam: PRESENT: accessory muscle use, prolonged expiratory phas, retraction, symmetrical, tachypnea. ABSENT: rhonchi, wheezes Cardiovascular exam: PRESENT: RRR. ABSENT: diastolic murmur, rubs, systolic murmur Pulses: PRESENT: normal dorsalis pedis pul Vascular exam: PRESENT: normal capillary refill GI/Abdominal exam: PRESENT: normal bowel sounds, soft, tenderness - Right upper quadrant pain without guarding. ABSENT: distended, firm, guarding, mass, organolmegaly, rebound Rectal exam: PRESENT: deferred Extremities exam: PRESENT: full ROM. ABSENT: calf tenderness, clubbing, pedal edema Neurological exam: PRESENT: alert, awake, oriented to person, oriented to place , oriented to time, oriented to situation, CN II-XII grossly intact. ABSENT: motor sensory deficit Psychiatric exam: PRESENT: appropriate affect, normal mood. ABSENT: homicidal ideation, suicidal ideation Skin exam: PRESENT: dry, intact, warm. ABSENT: cyanosis, rash Results Impressions: Chest X-Ray 01/03/18 00:44 IMPRESSION: 1. Small right pleural effusion slightly increased from the comparison study. Assessment & Plan - Diagnosis (1) C. difficile colitis Is this a current diagnosis for this admission?: Yes Plan: Recent antibiotics, new abdominal pain, diarrhea and leukocytosis. Empiric p.o. Flagyl, follow-up C. difficile tox and CBC (2) Acute on chronic respiratory failure with hypoxia and hypercapnia Is this a current diagnosis for this admission?: Yes Plan: Continue BiPAP and oxygen support, poor prognosis given underlying pulmonary embolism, lung cancer and chronic bronchitis. (3) Lung cancer Qualifiers: Laterality: right Lung location: middle lobe of lung Qualified Code(s): C34.2 - Malignant neoplasm of middle lobe, bronchus or lung Is this a current diagnosis for this admission?: Yes Plan: Given worsening condition with malnutrition and inability to meet nutritional needs. Hospice consulted (4) Obstructive sleep apnea Is this a current diagnosis for this admission?: Yes Plan: BiPAP support (5) Acute pulmonary embolism Qualifiers: Pulmonary embolism type: other Acute cor pulmonale presence: without acute cor pulmonale Qualified Code(s): I26.99 - Other pulmonary embolism without acute cor pulmonale Is this a current diagnosis for this admission?: Yes Plan: Continue anticoagulation. Supplemental oxygen and BiPAP - Time Time Spent: 50 to 70 Minutes - Inpatient Certification Medical Necessity: Need Close Monitoring Due to Risk of Patient Decompensation
[2018-01-03] MEDS ORDERED: LEVOTHYROXINE SODIUM 0.05 MG TABLET PO SCH (06:00)
[2018-01-03] MEDS ORDERED: LORAZEPAM INJ 2 MG/1 ML VIAL IV ONE (08:21)
[2018-01-03] MEDS: BUSPIRONE HCL 10 MG TABLET PO SCH ×3 (08:29→23:36)
[2018-01-03] MEDS: IPRATROPIUM/ALBUTEROL 0.5-2.5 MG/3 ML AMPUL NEB SCH ×4 (08:29→19:54)
[2018-01-03] MEDS: VANCOMYCIN HCL INJ 500 MG VIAL PO SCH ×4 (08:30→23:36)
[2018-01-03] MEDS: RIVAROXABAN 15 MG TABLET PO SCH ×2 (08:30→17:37)
[2018-01-03] MEDS: DILTIAZEM HCL 90 MG TABLET PO SCH ×3 (08:30→23:36)
[2018-01-03] MEDS: CHOLECALCIFEROL (D3) 1,000 UNIT TABLET PO SCH (08:30)
[2018-01-03] MEDS: DOCUSATE SODIUM 100 MG CAPSULE PO SCH ×2 (08:33→17:37)
[2018-01-03 08:55] LABS: CREATINE KINASE MB 1.49 ng/mL (<4.55)
[2018-01-03 09:00] LABS: TROPONIN I 0.038 ng/mL
[2018-01-03] MEDS ORDERED: LORAZEPAM INJ 2 MG/1 ML VIAL IV PRN (09:03)
--- NOTE | 2018-01-03 10:14 | RADIOLOGY REPORT (SQ) ---
EXAM DESCRIPTION: KUB/ABDOMEN (SINGLE VIEW) COMPLETED DATE/TIME: 01/03/2018 10:00 am REASON FOR STUDY: abdominal pain COMPARISON: None. NUMBER OF VIEWS: One view. TECHNIQUE: Supine radiographic image of the abdomen acquired. LIMITATIONS: None. FINDINGS: BOWEL GAS PATTERN: Moderate amount of fecal material in the colon. Normal bowel gas patte rn. No dilated loops. CALCIFICATIONS: 3 calcifications in the right upper quadrant consistent with known gallstones. SOFT TISSUES: No gross mass or suggestion of organomegaly. HARDWARE: None in the abdomen. BONES: No acute fracture. No worrisome bone lesions. OTHER: Small right pleural effusion with underlying atelectasis or pneumonia. IMPRESSION: 1. Cholelithiasis. 2. Small right pleural effusion with underlying atelectasis or pneumonia. TECHNICAL DOCUMENTATION: JOB ID: [id number] [employer]- All Rights Reserved Reading location - IP/workstation name: [email or web address]
[2018-01-03 10:43] LABS: APPEARANCE,URINE CLOUDY; BILIRUBIN,URINE NEGATIVE (NEGATIVE); GLUCOSE, URINE 50 mg/dL (NEGATIVE); KETONES,URINE 20 mg/dL (NEGATIVE); LEUKOCYTE ESTERASE,URINE NEGATIVE (NEGATIVE); NITRITE,URINE NEGATIVE (NEGATIVE); PROTEIN,URINE 100 mg/dL (NEGATIVE); URINE SPECIFIC GRAVITY 1.026
[2018-01-03 10:48] LABS: COLOR,URINE YELLOW
--- NOTE | 2018-01-03 11:16 | RADIOLOGY REPORT (SQ) ---
EXAM DESCRIPTION: CHEST SINGLE VIEW COMPLETED DATE/TIME: 01/03/2018 10:00 am REASON FOR STUDY: shortness of breath COMPARISON: Chest films 12/27/2017, 12/23/2017, 12/12/2017 CT angio chest 12/23/2017, 12/28/2017 EXAM PARAMETERS: NUMBER OF VIEWS: One view. TECHNIQUE: Single frontal radiographic view of the chest acquired. RADIATION DOSE: NA LIMITATIONS: None. FINDINGS: LUNGS AND PLEURA: Upper lobes are hyperlucent and hyperinflated from obstructive disease. No acute infiltrates. No pleural effusion or pneumothorax. MEDIASTINUM AND HILAR STRUCTURES: No masses. Contour normal. HEART AND VASCULAR STRUCTURES: Heart normal in size. Normal vasculature. BONES: No acute findings. HARDWARE: None in the chest. OTHER: No other significant finding. IMPRESSION: Obstructive lung disease TECHNICAL DOCUMENTATION: JOB ID: [id number] [employer]- All Rights Reserved Reading location - IP/workstation name: [email or web address]
[2018-01-03 13:16] LABS: PATH REVIEW PATHOLOGIST REVIEWED
[2018-01-03 14:30] LABS: CREATINE KINASE MB 1.61 ng/mL (<4.55); TROPONIN I 0.048 ng/mL
[2018-01-03] MEDS ORDERED: PROMETHAZINE HCL INJ 25 MG/1 ML VIAL ONE (14:59)
[2018-01-03] MEDS ORDERED: LEVALBUTEROL HCL NEB 1.25 MG/3 ML AMPUL NEB PRN (15:05)
[2018-01-03] MEDS ORDERED: PROMETHAZINE HCL INJ 25 MG/1 ML VIAL IV ONE (15:30)
[2018-01-03] MEDS ORDERED: NORMAL SALINE 1000 ML 500 ML IV ONE (15:41)
[2018-01-03] MEDS: MORPHINE SULFATE 10 MG/ML INJ IV PRN (16:02)
[2018-01-03] MEDS: NORMAL SALINE 1000 ML 1,000 ML IV PRN (21:09)
[2018-01-03] MEDS: LORAZEPAM INJ 2 MG/1 ML VIAL IV PRN (21:21)
[2018-01-03] MEDS ORDERED: BUSPIRONE HCL 10 MG TABLET PO SCH (22:00)
[2018-01-03] MEDS ORDERED: (PENDING PHARMACY ID) (Tiotropium Bromide [Spiriva Respimat] 2 PUFF) IH SCH (22:00)
[2018-01-03] MEDS ORDERED: (PENDING PHARMACY ID) (Mometasone/Formoterol [Dulera 200 Mcg/5 Mcg Inhaler] 2 PUFF) IH SCH (22:00)
[2018-01-04] MEDS ORDERED: DILTIAZEM HCL INJ 25 MG/5 ML VIAL IV SCH
--- NOTE | 2018-01-04 00:22 | EKG REPORT ---
SEVERITY:- OTHERWISE NORMAL ECG - SINUS TACHYCARDIA : Confirmed by: Domonique Gallegos MD 04-Jan-2018 00:21:28
[2018-01-04] MEDS: IPRATROPIUM/ALBUTEROL 0.5-2.5 MG/3 ML AMPUL NEB SCH ×6 (00:26→20:32)
[2018-01-04] MEDS ORDERED: DILTIAZEM HCL INJ 25 MG/5 ML VIAL IV PRN (00:30)
[2018-01-04] MEDS: MORPHINE SULFATE 10 MG/ML INJ IV PRN ×4 (01:37→20:03)
[2018-01-04] MEDS: LORAZEPAM INJ 2 MG/1 ML VIAL IV PRN ×4 (03:18→21:01)
[2018-01-04] MEDS: VANCOMYCIN HCL INJ 500 MG VIAL PO SCH (05:21)
[2018-01-04] MEDS: DILTIAZEM HCL 90 MG TABLET PO SCH (05:21)
[2018-01-04] MEDS: BUSPIRONE HCL 10 MG TABLET PO SCH ×3 (05:21→21:03)
[2018-01-04 05:39] LABS: HEMATOCRIT 27.4 % (36.0-47.0); HEMOGLOBIN 9.2 g/dL (12.0-15.5); MEAN CORPUSCULAR HEMOGLOBIN 30.4 pg (27.0-33.4); MEAN CORPUSCULAR HGB CONC 33.7 g/dL (32.0-36.0); MEAN CORPUSCULAR VOLUME 90 fl (80-97); PLATELET COUNT 190 10^3/uL (150-450); RED BLOOD COUNT 3.03 10^6/uL (3.72-5.28); RED CELL DISTRIBUTION WIDTH 17.1 % (11.5-14.0); WHITE BLOOD COUNT 25.6 10^3/uL (4.0-10.5)
[2018-01-04 05:59] LABS: ANION GAP 11 (5-19); BLOOD UREA NITROGEN 52 mg/dL (7-20); CALCIUM 8.3 mg/dL (8.4-10.2); CARBON DIOXIDE 28 mmol/L (22-30); CHLORIDE 109 mmol/L (98-107); GLUCOSE 149 mg/dL (75-110); PHOSPHORUS 5.2 mg/dL (2.5-4.5); SODIUM 147.6 mmol/L (137-145)
[2018-01-04] MEDS ORDERED: LEVOTHYROXINE SODIUM 0.05 MG TABLET PO SCH (06:00)
[2018-01-04 06:28] LABS: ARTERIAL BLOOD BASE EXCESS 2.8 mmol/L; ARTERIAL BLOOD H2CO3 1.28 mmol/L (1.05-1.35); ARTERIAL BLOOD HCO3 27.5 mmol/L (20-26); ARTERIAL BLOOD O2 SATURATION 97.3 % (94-98); ARTERIAL BLOOD PCO2 42.5 mmHg (35-45); ARTERIAL BLOOD PH 7.43 (7.35-7.45); ARTERIAL BLOOD PO2 93.5 mmHg (80-100); ARTERIAL BLOOD TOTAL CO2 28.8 mmol/L (21-25)
[2018-01-04 07:06] LABS: ABSOLUTE LYMPHOCYTES# (MANUAL) 0.5 10^3/uL (0.5-4.7); ABSOLUTE NEUTROPHILS# (MANUAL) 25.1 10^3/uL (1.7-8.2); BASOPHILS % (MANUAL) 0 % (0-2); EOSINOPHILS % (MANUAL) 0 % (0-6); METAMYELOCYTES % (MANUAL) 2 % (0); MONOCYTES % (MANUAL) 0 % (3-13); NUCLEATED RED BLOOD CELLS 1 /100 WBC (0); TOTAL CELLS COUNTED 100
[2018-01-04 07:09] LABS: ANISOCYTOSIS 2+; HYPOCHROMASIA 2+; PLATELET COMMENT DECREASED; POLYCHROMASIA 1+
[2018-01-04 07:11] LABS: BAND NEUTROPHILS % (MANUAL) 4 % (3-5); LYMPHOCYTES % (MANUAL) 3 % (13-45); SEGMENTED NEUTROPHILS % (MAN) 89 % (42-78)
[2018-01-04 07:13] LABS: MYELOCYTES % (MANUAL) 1 % (0)
[2018-01-04] MEDS: DOCUSATE SODIUM 100 MG CAPSULE PO SCH ×2 (09:06→17:08)
[2018-01-04] MEDS: RIVAROXABAN 15 MG TABLET PO SCH (09:06)
[2018-01-04] MEDS: HYDROCHLOROTHIAZIDE 25 MG TABLET PO SCH (09:06)
[2018-01-04] MEDS: CHOLECALCIFEROL (D3) 1,000 UNIT TABLET PO SCH (09:06)
[2018-01-04] MEDS: ROFLUMILAST 500 MCG TABLET PO SCH (09:06)
--- NOTE | 2018-01-04 09:37 | RADIOLOGY REPORT (SQ) ---
EXAM DESCRIPTION: U/S ABDOMEN COMPLETE W/O DOP COMPLETED DATE/TIME: 01/04/2018 9:23 am REASON FOR STUDY: eval for cholecystitis. gallstones seen on xray COMPARISON: CT chest 12/23/2017. CT abdomen pelvis 12/28/2017. TECHNIQUE: Dynamic and static grayscale images acquired of the abdomen and recorded on PACS. Additio nal selected color Doppler and spectral images recorded. LIMITATIONS: None. FINDINGS: PANCREAS: Not visualized LIVER: Diffuse metastatic lesions throughout the liver. These were not seen on CT without contrast. LIVER VASCULATURE: Normal directional flow of the main portal vein and hepatic veins. GALLBLADDER: Multiple gallstones. ULTRASOUND-DETECTED CAPELLAN'S SIGN: Not performed. INTRAHEPATIC DUCTS AND COMMON DUCT: CBD and intrahepatic ducts normal caliber. No filling defects. INFERIOR VENA CAVA: Normal flow. AORTA: No aneurysm. RIGHT KIDNEY: Normal size. Normal echogenicity. No solid or suspicious masses. No hydronephros is. No calcifications. LEFT KIDNEY: Normal size. Normal echogenicity. No solid or suspicious masses. No hydronephrosi s. No calcifications. SPLEEN: Normal size. No solid masses. PERITONEAL AND PLEURAL SPACES: No ascites or effusions. OTHER: No other significant finding. IMPRESSION: Diffuse hepatic metastases. These were not identified on noncontrast CT. Gallstones. TECHNICAL DOCUMENTATION: JOB ID: [id number]- All Rights Reserved Reading location - IP/workstation name: [email or web address]
[2018-01-04] MEDS ORDERED: ROFLUMILAST PO SCH (10:00)
[2018-01-04] MEDS ORDERED: LEVOTHYROXINE SODIUM INJ/PF 0.5 MG SDV IV ONE (10:05)
[2018-01-04] MEDS ORDERED: HYDRALAZINE HCL INJ/PF 20 MG/1 ML SDV IV PRN (10:10)
[2018-01-04] MEDS ORDERED: METOPROLOL TARTRATE PF/INJ 5 MG/5 ML SDV IV ONE (10:12)
[2018-01-04] MEDS: ENOXAPARIN SODIUM INJ 80 MG/0.8 ML DISP.SYRIN SUBCUT SCH ×2 (11:06→22:09)
--- NOTE | 2018-01-04 11:25 | RADIOLOGY REPORT (SQ) ---
EXAM DESCRIPTION: CHEST SINGLE VIEW COMPLETED DATE/TIME: 01/04/2018 11:16 am REASON FOR STUDY: WORSENING RESPIRATORY DISTRESS COMPARISON: 01/03/2018 NUMBER OF VIEWS: One view. TECHNIQUE: Single frontal radiographic view of the chest acquired. LIMITATIONS: None. FINDINGS: LUNGS AND PLEURA: Low lung volumes. No opacities, masses or pneumothorax. No pleural eff usion. MEDIASTINUM AND HILAR STRUCTURES: No masses. No contour abnormality. HEART AND VASCULAR STRUCTURES: Normal size. No evidence for failure. BONES: No acute findings. HARDWARE: None in the chest. OTHER: No other significant finding. IMPRESSION: LOW LUNG VOLUMES. NO SIGNIFICANT RADIOGRAPHIC FINDING IN THE CHEST. TECHNICAL DOCUMENTATION: JOB ID: [id number] [email or web address]- All Rights Reserved Reading location - IP/workstation name: [email or web address]
[2018-01-04] MEDS ORDERED: LEVOTHYROXINE SODIUM INJ/PF 0.1 MG SDV IV ONE (11:30)
[2018-01-04] MEDS: NORMAL SALINE 1000 ML 1,000 ML IV PRN (14:07)
[2018-01-04] MEDS: METOPROLOL TARTRATE PF/INJ 5 MG/5 ML SDV IV PRN ×2 (15:23→22:01)
--- NOTE | 2018-01-04 17:18 | PDOC PROGRESS REPORT ---
Subjective Progress Note for:: 01/04/18 Subjective:: BRUCE GALAN is a 67 y.o. F with an extensive past medical history of non- small cell lung cancer, COPD, pulmonary embolism on anticoagulation, BiPAP dependent, malnutrition, atrial fibrillation, diabetes, hypertension and anxiety. The patient was discharged to SNF 01/02/2018 BIPAP dependent and returned 12 hours later in respiratory distress complaining of abdominal pain with diarrhea. The patient was seen this morning on rounds. She is resting in bed on BiPAP ( settings 15/10 55%). The patient is able to move all extremities, responds to tactile stimuli, does not open her eyes, does not answer questions. Lungs are coarse throughout. She winces in pain when RUW is palpated. The nursing staff denies any episodes of diarrhea (as initially reported by the patient/SNF staff) , state the patient has not had a bowel movement since arrival. The patient remains tachycardic, HR 120-140, her rhythm is sinus tachycardia. Telephone discussion with patient's POA, brother Flynn. Informed the brother of the patient's condition and her poor long-term prognosis. He expressed an interest in pursuing hospice/comfort care. Discharge planning aware. [facility] hospice contacted. Brother reports he plans to drive into town tomorrow to make decisions regarding patient's care. Reason For Visit: NON SMALL CELL LUNG CA, ACUTE ON CHRONIC RESP Physical Exam Vital Signs: Temp Pulse Resp BP Pulse Ox 97.8 F 111 H 28 H 131/93 H 96 01/04/18 11:52 01/04/18 16:09 01/04/18 16:09 01/04/18 11:52 01/04/18 16:09 Intake & Output 01/03/18 01/04/18 01/05/18 06:59 06:59 06:59 Intake Total 800 Output Total 600 Balance 200 Weight 78.5 kg General appearance: PRESENT: obese Eye exam: PRESENT: conjunctiva pink, PERRLA Mouth exam: PRESENT: moist Teeth exam: PRESENT: poor dentation Neck exam: PRESENT: full ROM. ABSENT: carotid bruit, JVD Respiratory exam: PRESENT: rhonchi, symmetrical. ABSENT: unlabored - requiring bipap Cardiovascular exam: PRESENT: RRR, +S1, +S2, tachycardia Pulses: PRESENT: normal radial pulses, normal dorsalis pedis pul Vascular exam: PRESENT: normal capillary refill GI/Abdominal exam: PRESENT: soft. ABSENT: tenderness Rectal exam: PRESENT: deferred Extremities exam: PRESENT: full ROM. ABSENT: joint swelling, pedal edema Musculoskeletal exam: PRESENT: full ROM. ABSENT: ambulatory Neurological exam: ABSENT: alert, awake, oriented to person, oriented to place, oriented to time, oriented to situation Skin exam: PRESENT: dry, pallor Results Laboratory Results: 01/04/18 05:16 01/04/18 05:16 01/04/18 01/04/18 01/04/18 05:16 05:16 06:10 WBC 25.6 H RBC 3.03 L Hgb 9.2 L Hct 27.4 L MCV 90 MCH 30.4 MCHC 33.7 RDW 17.1 H Plt Count 190 Seg Neutrophils % Not Reportable Lymphocytes % Not Reportable Monocytes % Not Reportable Eosinophils % Not Reportable Basophils % Not Reportable Absolute Neutrophils Not Reportable Absolute Lymphocytes Not Reportable Absolute Monocytes Not Reportable Absolute Eosinophils Not Reportable Absolute Basophils Not Reportable Carbonic Acid 1.28 HCO3/H2CO3 Ratio 21:1 ABG pH 7.43 ABG pCO2 42.5 ABG pO2 93.5 ABG HCO3 27.5 H ABG O2 Saturation 97.3 ABG Base Excess 2.8 FiO2 55% Sodium 147.6 H Potassium 4.0 Chloride 109 H Carbon Dioxide 28 Anion Gap 11 BUN 52 H Creatinine 0.53 Est GFR ( Amer) > 60 Est GFR (Non-Af Amer) > 60 Glucose 149 H Calcium 8.3 L Phosphorus 5.2 H Magnesium 2.3 01/03/18 01/03/18 01/03/18 08:13 08:13 13:47 Creatine Kinase < 20 L 20 L CK-MB (CK-2) 1.49 Troponin I 0.038 NT-Pro-B Natriuret Pep 01/03/18 01/04/18 13:47 05:16 Creatine Kinase CK-MB (CK-2) 1.61 Troponin I 0.048 NT-Pro-B Natriuret Pep 390 Impressions: KUB X-Ray 01/03/18 00:00 IMPRESSION: 1. Cholelithiasis. 2. Small right pleural effusion with underlying atelectasis or pneumonia. Abdomen Ultrasound 01/04/18 00:00 IMPRESSION: Diffuse hepatic metastases. These were not identified on noncontrast CT. Gallstones. Chest X-Ray 01/04/18 11:04 IMPRESSION: LOW LUNG VOLUMES. NO SIGNIFICANT RADIOGRAPHIC FINDING IN THE CHEST. Status: Imported from PACS Assessment & Plan - Diagnosis (1) Acute on chronic respiratory failure with hypoxia and hypercapnia Is this a current diagnosis for this admission?: Yes Plan: Patient with history of COPD, BiPAP dependent, recently discharged from [facility] to SNF. Presents with dyspnea, rhonchi, wheezing, hypoxia. CXR reveals small right pleural effusion, atelectasis, and chronic COPD changes. Rhonchi auscultated in all lung liu. Patient supported with continuous BiPAP, unable to tolerate removal of mask even for medication administration due to precipitous drop in SPO2 (60% without BIPAP) Continue home dose inhalers. Scheduled nebulizer treatments. Empiric antibiotic coverage for hospital-acquired pneumonia. Pulmonology consulted, appreciate their recommendations. (2) C. difficile colitis Is this a current diagnosis for this admission?: Yes Plan: Patient and longterm staff endorsed history of diarrhea. No episodes of diarrhea, or any bowel movement, since admission. Low suspicion for C. difficile. Leukocytosis improving. Patient's abdominal pain seems to be localized to RUQ -x-ray positive for gallstones Oral vancomycin has been discontinued. (3) Lung cancer Qualifiers: Laterality: right Lung location: middle lobe of lung Qualified Code(s): C34.2 - Malignant neoplasm of middle lobe, bronchus or lung Is this a current diagnosis for this admission?: Yes Plan: Lung cancer diagnosed at [facility] by [facility] No evidence of new lung mass noted on CTA performed during previous [facility] admission. Oncologist, Dr. Bond name to have patient complete PET scan as an outpatient. Palliative care has been consulted to establish goals of care. Patient has previously stated that she does not want to be intubated and does not want CPR. Due to decline in patient's mental status, her brother (poa) has been contacted regarding hospice. (4) Hypertension Qualifiers: Hypertension type: unspecified Qualified Code(s): I10 - Essential (primary ) hypertension Is this a current diagnosis for this admission?: Yes Plan: Patient has a history of hypertension. Unable to tolerate p.o. intake. IV hydralazine as needed for SBP>170 (5) Leukocytosis Qualifiers: Leukocytosis type: unspecified Qualified Code(s): D72.829 - Elevated white blood cell count, unspecified Is this a current diagnosis for this admission?: Yes Plan: Patient has a history of persistent leukocytosis. Oncologist, Dr. Bond, aware. Review of previous medical records reveals that her WBC fluctuates between 15-35 Leukocytosis is multifactorial secondary to lung malignancy, possible secondary infection (PNA versus C. difficile), bronchitis, COPD exacerbation, pulmonary emboli and likely to remain persistently elevated secondary to inflammatory reaction. The patient remains afebrile. No episodes of diarrhea while inpatient. Patient unable to tolerate p.o. intake. Leukocytosis has improved today 38->25 Low suspicion for C. difficile. Discontinue vancomycin. (6) Pulmonary embolism Qualifiers: Pulmonary embolism type: other Chronicity: acute Acute cor pulmonale presence: without acute cor pulmonale Qualified Code(s): I26.99 - Other pulmonary embolism without acute cor pulmonale Is this a current diagnosis for this admission?: Yes Plan: History of pulmonary embolism discovered during previous hospitalization. Patient was previously on Xarelto. No longer tolerating p.o. intake. Initiate full dose Lovenox. (7) RUQ abdominal pain Is this a current diagnosis for this admission?: Yes Plan: Patient endorsed right upper quadrant pain upon initial arrival. Right upper quadrant tender to palpation. 3 gallstones visible on KUB x-ray. Abdominal ultrasound completed today, results pending. PRN IV morphine available for pain. (8) Anxiety Is this a current diagnosis for this admission?: Yes Plan: Patient has a history of anxiety. Unable to tolerate p.o. medications at this time, discontinue home BuSpar. IV Ativan as needed. - Time Time Spent with patient: 25-34 minutes Medications reviewed and adjusted accordingly: Yes Anticipated discharge: Hospice Within: within 48 hours - Inpatient Certification Based on my medical assessment, after consideration of the patient's comorbidities, presenting symptoms, or acuity I expect that the services needed warrant INPATIENT care.: Yes I certify that my determination is in accordance with my understanding of Medicare's requirements for reasonable and necessary INPATIENT services [42 CFR 412.3e].: Yes Medical Necessity: Need for IV Antibiotics, Risk of Complication if Not Cared For in Hospital
[2018-01-05] MEDS: IPRATROPIUM/ALBUTEROL 0.5-2.5 MG/3 ML AMPUL NEB SCH ×2 (00:33→04:38)
[2018-01-05] MEDS: NORMAL SALINE 1000 ML 1,000 ML IV PRN (02:20)
[2018-01-05] MEDS: LORAZEPAM INJ 2 MG/1 ML VIAL IV PRN ×5 (02:22→14:10)
[2018-01-05] MEDS: METOPROLOL TARTRATE PF/INJ 5 MG/5 ML SDV IV PRN (05:28)
[2018-01-05] MEDS: BUSPIRONE HCL 10 MG TABLET PO SCH (05:39)
[2018-01-05 07:39] LABS: HEMATOCRIT 23.4 % (36.0-47.0); MEAN CORPUSCULAR HEMOGLOBIN 30.8 pg (27.0-33.4); MEAN CORPUSCULAR HGB CONC 33.5 g/dL (32.0-36.0); MEAN CORPUSCULAR VOLUME 92 fl (80-97); PLATELET COUNT 151 10^3/uL (150-450); RED BLOOD COUNT 2.55 10^6/uL (3.72-5.28); RED CELL DISTRIBUTION WIDTH 17.2 % (11.5-14.0); WHITE BLOOD COUNT 16.1 10^3/uL (4.0-10.5)
[2018-01-05 07:42] LABS: HEMOGLOBIN 7.8 g/dL (12.0-15.5)
[2018-01-05 08:03] LABS: ANION GAP 8 (5-19); BLOOD UREA NITROGEN 33 mg/dL (7-20); CALCIUM 8.2 mg/dL (8.4-10.2); CARBON DIOXIDE 29 mmol/L (22-30); CHLORIDE 118 mmol/L (98-107); GLUCOSE 114 mg/dL (75-110); PHOSPHORUS 3.5 mg/dL (2.5-4.5); POTASSIUM 3.5 mmol/L (3.6-5.0); SODIUM 154.9 mmol/L (137-145)
[2018-01-05] MEDS ORDERED: NORMAL SALINE 250 ML IV PRN ×2 (08:07)
[2018-01-05] MEDS: MORPHINE SULFATE 10 MG/ML INJ IV PRN (08:23)
[2018-01-05] MEDS ORDERED: FENTANYL CITRATE INJ/PF 100 MCG/2 ML AMPUL IV PRN ×2 (08:31→13:58)
[2018-01-05] MEDS ORDERED: MORPHINE SULFATE 10 MG/ML INJ IV PRN ×2 (08:38→13:57)
[2018-01-05] MEDS ORDERED: GLYCOPYRROLATE INJ 0.4 MG/2 ML VIAL IV PRN (08:39)
[2018-01-05] MEDS ORDERED: MORPHINE SULFATE 60 MG/60 ML RTUINJ IV PRN (08:56)
[2018-01-05 09:10] VITALS: BP 101/52
[2018-01-05] MEDS: ROFLUMILAST 500 MCG TABLET PO SCH (09:43)
[2018-01-05] MEDS: CHOLECALCIFEROL (D3) 1,000 UNIT TABLET PO SCH (09:43)
[2018-01-05] MEDS: HYDROCHLOROTHIAZIDE 25 MG TABLET PO SCH (09:43)
[2018-01-05] MEDS: DOCUSATE SODIUM 100 MG CAPSULE PO SCH (09:43)
[2018-01-05] MEDS ORDERED: LEVOTHYROXINE SODIUM INJ/PF 0.1 MG SDV IV SCH (10:00)
[2018-01-05] MEDS ORDERED: FENTANYL CITRATE INJ/PF 100 MCG/2 ML AMPUL IV ONE (11:45)
[2018-01-05] MEDS ORDERED: MORPHINE SULFATE 10 MG/ML INJ IV ONE (11:45)
[2018-01-06 13:26] LABS: PATH REVIEW PATHOLOGIST REVIEWED
--- NOTE | 2018-01-07 14:43 | Death Summary ---
Summary Date : 01/05/18 Time of :: 14:20 Autopsy: No Resuscitation Status: Do Not Resuscitate - Final Diagnosis (1) Acute on chronic respiratory failure with hypoxia and hypercapnia Is this a current diagnosis for this admission?: Yes (2) C. difficile colitis Is this a current diagnosis for this admission?: Yes (3) Lung cancer Is this a current diagnosis for this admission?: Yes (4) Hypertension Is this a current diagnosis for this admission?: Yes (5) Leukocytosis Is this a current diagnosis for this admission?: Yes (6) Pulmonary embolism Is this a current diagnosis for this admission?: Yes (7) RUQ abdominal pain Is this a current diagnosis for this admission?: Yes (8) Anxiety Is this a current diagnosis for this admission?: Yes Hospital Course:: BRUCE GALAN is a 67 year old female with an extensive past medical history of non-small cell lung cancer, COPD, pulmonary embolism on anticoagulation, BiPAP dependent, malnutrition, atrial fibrillation, diabetes, hypertension and anxiety. Patient discharged to long-term facility (01/02) BiPAP dependent and returned 12 hours later in severe respiratory distress complaining of abdominal pain with diarrhea. Her workup revealed leukocytosis of 37,000, chest x-ray with a small right pleural effusion and physical exam with right upper quadrant abdominal pain. KUB revealed several small gallstones. Stool culture/C. Diff PCR was ordered but stool was never collected because the patient did not have a bowel movement. The patient remained minimally responsive throughout her hospital stay. She would spontaneously move her extremities but never to command. The patient would not open her eyes or respond to questions. Additionally, her respiratory status was acutely worse. Prior to her last discharge, the patient was able to tolerate AVAPS (a modified BIPAP via nasal prongs). Once she was readmitted, the patient could not tolerate any removal of the BIPAP mask without a precipitous drop in SPO2 and becoming extremely short of breath. The patient's brother, Flynn CALLES), was notified of the patient's acute decline. The palliatvie care team was also notified about the patient's status. Flynn arrived from out of town the next day and made the decision to pursue comfort care. The patient was placed on a morphine drip and her BIPAP mask was removed. Within hours the patient . Her time of was 1420 on 2017. For further information regarding her hospitalization, please refer to the EMR.
== END 2018-01-05 15:50 | DRG 180 ==
LOC: ER 00:30 → EH 04:35 → 3S 14:42
PROVIDERS: ADMIT Internal Medicine; ATTEND Internal Medicine
PROC: 5A09457 Assistance with Respiratory Ventilation, 24-96 Consecutive Hours, Continuous Positive Airway Pressure (ICD-10-PCS; principal; 2018-01-03)
PROC: 3E0F73Z Introduction of Anti-inflammatory into Respiratory Tract, Via Natural or Artificial Opening (ICD-10-PCS; 2018-01-03)
DX: C34.2 Malignant neoplasm of middle lobe, bronchus or lung (principal); J96.22 Acute and chronic respiratory failure with hypercapnia; J96.21 Acute and chronic respiratory failure with hypoxia; I26.99 Other pulmonary embolism without acute cor pulmonale; E46 Unspecified protein-calorie malnutrition; A04.72 Enterocolitis due to Clostridium difficile, not specified as recurrent; J44.9 Chronic obstructive pulmonary disease, unspecified; Z66 Do not resuscitate; I48.91 Unspecified atrial fibrillation; E11.9 Type 2 diabetes mellitus without complications; I10 Essential (primary) hypertension; F41.9 Anxiety disorder, unspecified; E78.00 Pure hypercholesterolemia, unspecified; E03.9 Hypothyroidism, unspecified; K21.9 Gastro-esophageal reflux disease without esophagitis; F32.9 Major depressive disorder, single episode, unspecified; G47.33 Obstructive sleep apnea (adult) (pediatric); E66.9 Obesity, unspecified; K80.20 Calculus of gallbladder without cholecystitis without obstruction; Z68.34 Body mass index [BMI] 34.0-34.9, adult; Z79.01 Long term (current) use of anticoagulants; Z99.81 Dependence on supplemental oxygen; Z86.711 Personal history of pulmonary embolism; Z87.891 Personal history of nicotine dependence; Z79.899 Other long term (current) drug therapy; Z88.3 Allergy status to other anti-infective agents; Z88.0 Allergy status to penicillin; Z88.8 Allergy status to other drugs, medicaments and biological substances; Z82.49 Family history of ischemic heart disease and other diseases of the circulatory system; Z80.0 Family history of malignant neoplasm of digestive organs
CPT/HCPCS: 36415; 71045; 74018; 76700; 80048; 80053; 81001; 82550; 82553; 82803; 83605; 83735; 83880; 84100; 84484; 85025; 85027; 93005; 93010; 94660; 99285; J1650; J2060; J2270; J2550; J3010; J3370; J3490; J7030; J7620